=== PATIENT | female | born 1930 | race Caucasian/White ===

== ENCOUNTER 2017-09-30 23:54 | Inpatient (IN) | payer MEDICARE, OTHER ==
[~2017-09-30] VITALS: Ht 167.6 cm; Wt 73.3 kg
[~2017-09-30 23:54] MED LIST: ACET325T9 PO; ATOR40TA PO; BISA10SU2 RC; BUSP15TA PO; CETI10TA16 PO; CLON0.5T3 PO; CLOP75TA57 PO; CRAN450C PO; DOCU-109 PO; FLUV50TA2 PO; HYDR-2758 PO; HYDR-971 PO; INSU100I17 SQ; IPRA3AMP NEB; IPRA4AER INH; ISOS30TA4 PO; LEXAPRO10 MG PO; LINA5TAB4 PO; LISI-338 PO; LORA10TA3 PO; MAG30ORA2 PO; MAGN2400 PO; MENTHOL TOP; METF500T9 PO; METO25TA4 PO; NITR0.4T22 SL; OLAN5TAB5 PO; ONDA4TAB10 PO; OXYB5TAB7 PO; RISP0.5T3 PO; SITA100T PO; TOLT4CAP PO; TRAZ50TA15 PO
--- NOTE | 2017-10-01 00:19 | PHYS DOC ---
Past History Past Medical History: Anxiety, Dementia, Diabetes, GERD, Hypertension, Migraines, Other Additional Past Medical Histor: reviewed [facility] records Past Surgical History: Hysterectomy Alcohol Use: None Drug Use: None Adult General Chief Complaint Chief Complaint: PSYCH EVALUATION HPI HPI 86-year-old female patient with history of dementia and legally blind resident of [facility] for several years has had increasing of agitation for several weeks and tonight was upsetting other residents because of making noises and asking for help frequently and [facility] staff decided to Center for psychiatric evaluation. Patient is not able to give history and history was taking from the administrative staff of [facility]. Review of Systems Review of Systems Unable to obtain review of systems because of dementia Allergies Allergies Allergies Coded Allergies Type Severity Reaction Last Updated Verified NSAIDS (Non-Steroidal Anti-Inflamma Allergy Intermediate 08/19/16 Yes aspirin Allergy Intermediate 08/19/16 Yes Physical Exam Physical Exam Constitutional: Well nourished, no acute distress, non-toxic appearance. [] HENT: Normocephalic, atraumatic, bilateral external ears normal, oropharynx moist, no oral exudates, nose normal. [] Eyes: PERRLA, EOMI, conjunctiva normal, no discharge. [] Neck: Normal range of motion, no tenderness, supple, no stridor. [] Cardiovascular:Heart rate regular rhythm, no murmur [] Lungs & Thorax: Bilateral breath sounds clear to auscultation [] Abdomen: Bowel sounds normal, soft, no tenderness, no masses, no pulsatile masses. [] Skin: Warm, dry, no erythema, no rash. [] Back: No tenderness, no CVA tenderness. [] Extremities: No tenderness, no cyanosis, no clubbing, ROM intact, no edema. [] Neurologic: Alert and oriented X 1, normal motor function, normal sensory function, no focal deficits noted. [] Psychologic: cooperative without agitation EKG EKG EKG interpreted by me. EKG at 00 28 showed normal sinus rhythm at rate of 66, left flores axis deviation, poor R wave progress in anteroseptal leads Radiology/Procedures Radiology/Procedures [] Course & Med Decision Making Course & Med Decision Making Pertinent Labs reviewed. (See chart for details) Evaluation of patient in ER showed 86-year-old male patient with history of dementia brought in for psychiatric evaluation and medical clearance. Patient had unremarkable physical exam except for dementia and disorientation. Patient didn't have fever or tachycardia or signs of sepsis. Labs was unremarkable except for UTI and renal insufficiency. Patient was medically cleared for psychiatric admission and prescription for Cipro was given. Dragon Disclaimer Dragon Disclaimer This electronic medical record was generated, in whole or in part, using a voice recognition dictation system. Departure Departure: Impression: Primary Impression: Medical clearance for psychiatric admission Additional Impressions: UTI (urinary tract infection) Renal insufficiency Disposition: 65 XFER TO PSYCH HOSP/UNIT (At 0127) Condition: STABLE Referrals: BETHANY VYAS (PCP) Scripts Ciprofloxacin Hcl (CIPRO) 250 Mg Tablet 1 TAB PO BID, #14 TAB Prov: BILLY PEREYRA MD 10/01/17 Problem Qualifiers BILLY PEREYRA MD Oct 01, 2017 00:19
--- NOTE | 2017-10-01 00:34 | EKG ---
[address] [address] Test Date: 2017-10-01 Test Time: 00:28:23 Pat Name: NATHANIEL MCFARLAND Department: Room: Gender: F Documentation Analyst: JENNIFER : [id number] Requested By: BILLY PEREYRA Order Number: [id number] Reading MD: Jose Stokes MD Measurements Intervals Burt Rate: 66 P: 0 IN: 128 QRS: -11 QRSD: 74 T: 31 QT: 382 QTc: 402 Interpretive Statements SINUS RHYTHM CONSISTENT WITH ANTEROSEPTAL INFARCT Electronically Signed On 10-09-2017 14:25:33 [employer]OR [employer] by Jose Stokes MD
[2017-10-01 01:04] LABS: BASO # 0.1 x10^3/uL (0.0-0.2); BASO % 1 % (0-3); EOS # 0.1 x10^3/uL (0.0-0.7); EOS % 2 % (0-3); HEMATOCRIT 41.7 % (36.0-47.0); HEMOGLOBIN 13.9 g/dL (12.0-15.5); LYMPH # 2.6 x10^3/uL (1.0-4.8); LYMPH % 37 % (24-48); MEAN CORPUSCULAR HEMOGLOBIN 32 pg (25-35); MEAN CORPUSCULAR HGB CONC 33 g/dL (31-37); MEAN CORPUSCULAR VOLUME 95 fL (79-100); MONO # 0.7 x10^3/uL (0.0-1.1); MONO % 10 % (0-9); NEUT # 3.6 x10^3uL (1.8-7.7); NEUT % 50 % (31-73); PLATELET COUNT 86 x10^3/uL (140-400); RED BLOOD COUNT 4.39 x10^6/uL (3.50-5.40); RED CELL DISTRIBUTION WIDTH 13.6 % (11.5-14.5); WHITE BLOOD COUNT 7.1 x10^3/uL (4.0-11.0)
[2017-10-01 01:16] LABS: ALBUMIN 2.6 g/dL (3.4-5.0); ALBUMIN/GLOBULIN RATIO 0.6 (1.0-1.7); CALCIUM 9.3 mg/dL (8.5-10.1); CREATININE 1.1 mg/dL (0.6-1.0); MAGNESIUM 2.2 mg/dL (1.8-2.4); POTASSIUM 4.3 mmol/L (3.5-5.1); TOTAL BILIRUBIN 0.2 mg/dL (0.2-1.0); TOTAL PROTEIN 6.9 g/dL (6.4-8.2)
[2017-10-01 01:23] LABS: BACTERIA,URINE MANY /HPF (0-FEW); BILIRUBIN,URINE NEG (NEG); CLARITY,URINE HAZY; COLOR,URINE STRAW; GLUCOSE,URINE NEG (NEG); NITRITE,URINE POS (NEG); SQUAMOUS EPITHELIAL CELL,UR FEW /LPF; UROBILINOGEN,URINE 0.2 mg/dL (0.2 mg/dL); WBC,URINE 20-40 /HPF (0-4)
[2017-10-01] MEDS ORDERED: CIPR250T30 PO (01:31)
[2017-10-01 01:44] LABS: PLT ESTIMATE DECREASED (ADEQUATE)
[2017-10-01 02:38] VITALS: BP 146/68
[2017-10-01] MEDS ORDERED: MIRA25TA PO (03:05)
[2017-10-01] MEDS ORDERED: INSU100I27 SQ (03:05)
[2017-10-01] MEDS ORDERED: IPRA3AMP NEB (03:05)
[2017-10-01] MEDS ORDERED: NON FORMULARY ITEM (Magnesium Hydroxide (Milk Of Magnesia) 2,400 MG) PO PRN (03:15)
[2017-10-01] MEDS ORDERED: CETIRIZINE HCL 10 MG TABLET PO PRN (03:15)
[2017-10-01] MEDS ORDERED: ACETAMINOPHEN 325 MG TABLET PO PRN (03:15)
[2017-10-01] MEDS ORDERED: MAG HYDROX/AL HYDROX/SIMETH 30 ML ORAL.SUSP PO PRN (03:15)
[2017-10-01] MEDS ORDERED: NITROGLYCERIN SUBLINGUAL 0.4 MG BOTTLE OF 25. SL PRN (03:15)
[2017-10-01] MEDS ORDERED: ALBUTEROL SULFATE 2.5 MG/3 ML NEBU. NEB PRN (03:30)
[2017-10-01] MEDS ORDERED: DEXTROSE 50% 25 GM / 50ML DISP.SYRIN. IV PRN (03:30)
[2017-10-01] MEDS: CIPROFLOXACIN HCL 250 MG TABLET PO SCH ×2 (05:54→17:21)
[2017-10-01] MEDS: INSULIN ASPART 300 UNITS/3 ML INSULN.PEN SQ SCH ×3 (07:30→17:21)
[2017-10-01] MEDS ORDERED: INSULIN ASPART 300 UNITS/3 ML INSULN.PEN SQ SCH (07:30)
[2017-10-01] MEDS: IPRATRPIUM/ALBUTEROL 0.5/2.5MG 3 ML NEBU. NEB SCH ×2 (08:00→20:00)
[2017-10-01] MEDS: LINAGLIPTIN 5 MG TABLET PO SCH (10:31)
[2017-10-01] MEDS: ISOSORBIDE MONONITRATE ER 30 MG TAB.ER.24H PO SCH (10:31)
[2017-10-01] MEDS: busPIRone 15 MG TABLET. PO SCH ×2 (10:31→19:32)
[2017-10-01] MEDS: risperiDONE 0.5 MG TABLET. PO SCH ×2 (10:32→19:32)
[2017-10-01] MEDS: DOCUSATE SODIUM 100 MG CAPSULE PO SCH ×2 (10:38→19:32)
[2017-10-01] MEDS: CLOPIDOGREL BISULFATE 75 MG TABLET PO SCH (10:38)
[2017-10-01] MEDS: MIRABEGRON 25 MG TAB.ER.24H PO SCH (10:39)
[2017-10-01] MEDS: METOPROLOL TART IMMED RELEASE 25 MG TABLET PO SCH ×2 (10:39→19:32)
[2017-10-01 14:01] LABS: THYROID STIM HORMONE (TSH) 3.278 uIU/mL (0.358-3.740)
[2017-10-01] MEDS: ACETAMINOPHEN 325 MG TABLET PO PRN (16:08)
[2017-10-01 16:36] VITALS: BP 152/76
[2017-10-01 18:10] LABS: T3 TOTAL 95 ng/dL (71-180); THYROXINE 5.9 ug/dL (4.5-12.0)
[2017-10-01] MEDS: LACTOBACILLUS RHAMNOSUS GG 1 CAPSULE. PO SCH (19:34)
[2017-10-01] MEDS: ATORVASTATIN CALCIUM 20 MG TABLET PO SCH (19:34)
[2017-10-01] MEDS: INSULIN DETEMIR 300 UNITS/3 ML INSULN.PEN. SQ SCH (19:36)
--- NOTE | 2017-10-01 19:59 | PDOC ---
Exam Note: [place] Note: Please also refer to the separate dictated note~for this date of service dictated separately.~Patient seen individually. Discussed the patient with Nursing staff reviewed the chart.~Reviewed interim history and current functioning. Reviewed vital signs,~Labs/ Radiology~and current medications noted below. Continue current treatment with the changes noted in the dictated addendum note Assessment: Vital Signs: Vital Signs Date Time Temp Pulse Resp B/P (MAP) Pulse Ox O2 Delivery O2 Flow Rate FiO2 10/01/17 19:32 75 152/76 10/01/17 16:36 98.2 20 96 10/01/17 01:37 Room Air Labs: Laboratory Tests Test 10/01/17 00:45 10/01/17 00:50 10/01/17 07:38 10/01/17 07:46 White Blood Count 7.1 x10^3/uL (4.0-11.0) Red Blood Count 4.39 x10^6/uL (3.50-5.40) Hemoglobin 13.9 g/dL (12.0-15.5) Hematocrit 41.7 % (36.0-47.0) Mean Corpuscular Volume 95 fL (79-100) Mean Corpuscular Hemoglobin 32 pg (25-35) Mean Corpuscular Hemoglobin Concent 33 g/dL (31-37) Red Cell Distribution Width 13.6 % (11.5-14.5) Platelet Count 86 x10^3/uL (140-400) L Neutrophils (%) (Auto) 50 % (31-73) Lymphocytes (%) (Auto) 37 % (24-48) Monocytes (%) (Auto) 10 % (0-9) H Eosinophils (%) (Auto) 2 % (0-3) Basophils (%) (Auto) 1 % (0-3) Neutrophils # (Auto) 3.6 x10^3uL (1.8-7.7) Lymphocytes # (Auto) 2.6 x10^3/uL (1.0-4.8) Monocytes # (Auto) 0.7 x10^3/uL (0.0-1.1) Eosinophils # (Auto) 0.1 x10^3/uL (0.0-0.7) Basophils # (Auto) 0.1 x10^3/uL (0.0-0.2) Platelet Estimate Decreased (ADEQUATE) Sodium Level 140 mmol/L (136-145) Potassium Level 4.3 mmol/L (3.5-5.1) Chloride Level 107 mmol/L (98-107) Carbon Dioxide Level 26 mmol/L (21-32) Anion Gap 7 (6-14) Blood Urea Nitrogen 28 mg/dL (7-20) H Creatinine 1.1 mg/dL (0.6-1.0) H Estimated GFR (Cockcroft-Gault) 47.0 BUN/Creatinine Ratio 25 (6-20) H Glucose Level 90 mg/dL (70-99) Calcium Level 9.3 mg/dL (8.5-10.1) Magnesium Level 2.2 mg/dL (1.8-2.4) Total Bilirubin 0.2 mg/dL (0.2-1.0) Aspartate Amino Transferase (AST) 16 U/L (15-37) Alanine Aminotransferase (ALT) 13 U/L (14-59) L Alkaline Phosphatase 72 U/L (46-116) Total Protein 6.9 g/dL (6.4-8.2) Albumin 2.6 g/dL (3.4-5.0) L Albumin/Globulin Ratio 0.6 (1.0-1.7) L Urine Collection Type U cath Urine Color Straw Urine Clarity Hazy Urine pH 6.5 Urine Specific [place] 1.015 Urine Protein Neg (NEG-TRACE) Urine Glucose (UA) Neg mg/dL (NEG) Urine Ketones (Stick) Neg mg/dL (NEG) Urine Blood Trace (NEG) Urine Nitrite Pos (NEG) Urine Bilirubin Neg (NEG) Urine Urobilinogen Dipstick 0.2 mg/dL (0.2 mg/dL) Urine Leukocyte Esterase Mod (NEG) Urine RBC 1-2 /HPF (0-2) Urine WBC 20-40 /HPF (0-4) Urine Squamous Epithelial Cells Few /LPF Urine Bacteria Many /HPF (0-FEW) Iron Level 61 ug/dL (50-170) Total Iron Binding Capacity 330 ug/dL (250-450) Iron Saturation 18 % (15-34) Triglycerides Level 97 mg/dL (0-150) Cholesterol Level 91 mg/dL (0-200) LDL Cholesterol, Calculated 32 mg/dL (0-100) VLDL Cholesterol, Calculated 19 mg/dL (0-40) Non-HDL Cholesterol Calculated 51 mg/dL (0-129) HDL Cholesterol 40 mg/dL (40-60) Cholesterol/HDL Ratio 2.0 Thyroid Stimulating Hormone (TSH) 3.278 uIU/mL (0.358-3.740) Thyroxine (T4) 5.9 ug/dL (4.5-12.0) Total Triiodothyronine (TT3) 95 ng/dL (71-180) RPR Titer Additional Testing Pending Glucose (Fingerstick) 54 mg/dL (70-99) L Test 10/01/17 11:38 10/01/17 16:31 Glucose (Fingerstick) 106 mg/dL (70-99) H 173 mg/dL (70-99) H Current Medications: Meds: Current Medications Acetaminophen (Tylenol) 650 mg PRN Q6HRS PRN PO PAIN / TEMP Last administered on 10/01/17 16:08; Start 10/01/17 at 02:30 Al Hydroxide/Mg Hydroxide (Mylanta Plus Xs) 15 ml PRN AFTMEALHC PRN PO DYSPEPSIA; Start 10/01/17 at 02:30 Magnesium Hydroxide (Milk Of Magnesia) 2,400 mg PRN QHS PRN PO CONSTIPATION; Start 10/01/17 at 02:30 Buspirone HCl (Buspar) 15 mg BID PO Last administered on 10/01/17 19:32; Start 10/01/17 at 09:00 Clonazepam (KlonoPIN) 0.5 mg PRN Q6HRS PRN PO ANXIETY / AGITATION; Start at 03:15 Risperidone (RisperDAL) 0.5 mg BID PO Last administered on 10/01/17 19:32; Start 10/01/17 at 09:00 Trazodone HCl (Desyrel) 50 mg PRN QHS PRN PO INSOMNIA; Start 10/01/17 at 03:15 Fluvoxamine Maleate (Luvox) 75 mg QHS PO Last administered on 10/01/17 19:35; Start 10/01/17 at 21:00 Acetaminophen (Tylenol) 650 mg Q6HRS PRN PO PAIN; Start 10/01/17 at 03:15; Stop 10/01/17 at 03:32; Status DC Cetirizine HCl (ZyrTEC) 10 mg PRN DAILY PRN PO ALLERGIES; Start 10/01/17 at 03: 15 Ciprofloxacin (Cipro) 250 mg BID66 PO Last administered on 10/01/17 17:21; Start 10/01/17 at 06:00; Stop 10/07/17 at 18:01 Clopidogrel Bisulfate (Plavix) 75 mg DAILY PO Last administered on 10/01/17 10 :38; Start 10/01/17 at 09:00 Docusate Sodium (Colace) 100 mg BID PO Last administered on 10/01/17 19:32; Start 10/01/17 at 09:00 Insulin Detemir (Levemir) 17 units QHS SQ Last administered on 10/01/17 19:36 ; Start 10/01/17 at 21:00 Albuterol/ Ipratropium (Duoneb) 3 ml RTBID NEB ; Start 10/01/17 at 08:00 Albuterol Sulfate (Ventolin) 2.5 mg PRN Q2HR PRN NEB COUGH/SHORTNESS OF BREATH ; Start 10/01/17 at 03:30 Isosorbide Mononitrate (Imdur) 30 mg DAILY PO Last administered on 10/01/17 10 :31; Start 10/01/17 at 09:00 Linagliptin (Tradjenta) 5 mg DAILY PO Last administered on 10/01/17 10:31; Start 10/01/17 at 09:00 Al Hydroxide/Mg Hydroxide (Mylanta Plus Xs) 15 ml PRN AFTMEALHC PRN PO DYSPEPSIA; Start 10/01/17 at 03:15; Stop 10/01/17 at 03:32; Status DC Metoprolol Tartrate (Lopressor) 12.5 mg BID PO Last administered on 10/01/17 19:32; Start 10/01/17 at 09:00 Nitroglycerin (Nitrostat) 0.4 mg PRN Q5MIN PRN SL CHEST PAIN; Start 10/01/17 at 03:15 Atorvastatin Calcium (Lipitor) 40 mg QHS PO Last administered on 10/01/17 19: 34; Start 10/01/17 at 21:00 Non-Formulary Medication 2,400 mg PRN DAILY PRN PO CONSTIPATION; Start 12/7/ 17 at 03:15; Stop 10/01/17 at 03:32; Status DC Insulin Aspart (NovoLOG) 0-9 UNITS TIDACHC SQ ; Start 10/01/17 at 07:30; Stop 10/01/17 at 07:30; Status DC Dextrose 12.5 gm PRN Q15MIN PRN IV SEE COMMENTS; Start 10/01/17 at 03:30 Insulin Aspart (NovoLOG) 0-9 UNITS TIDAC SQ Last administered on 10/01/17 17: 21; Start 10/01/17 at 07:30 Lactobacillus Rhamnosus (Culturelle) 1 cap BID PO Last administered on 19:34; Start 10/01/17 at 21:00 Active Scripts Active Cipro (Ciprofloxacin Hcl) 250 Mg Tablet 1 Tab PO BID Reported Levemir Flextouch (Insulin Detemir) 100 Unit/1 Ml Insuln.pen 17 Unit SQ QHS Myrbetriq (Mirabegron) 25 Mg Tab.er.24h 25 Mg PO DAILY Duoneb 0.5-3(2.5) Mg/3 Ml (Albuterol/Ipratropium) 3 Ml Ampul.neb 3 Ml NEB PRN BID PRN Metoprolol Tartrate 25 Mg Tablet 12.5 Mg PO BID For CHF and CAD patients: Hold for HR less than 50 or SBP less than 90. For all other patients: Hold for HR less than 60 or SBP less than 100. After a held dose, reassess in 2 hours. If HR and SBP are above threshold, administer dose as ordered. If HR and SBP are below threshold, contact provider. Novolog Flexpen (Insulin Aspart) 100 Unit/1 Ml Insuln.pen 0-9 Unit SQ TIDAC BG level: If eating: If not eating: < 70 Call Provider [phone] 4 [phone] 5 3 [phone] > or = 351 Call provider Trazodone Hcl 50 Mg Tablet 50 Mg PO PRN QHS PRN Give with food. MAY REPEAT IN 1 HOUR Risperidone 0.5 Mg Tablet 0.5 Mg PO BID Mag-Al Plus Xs Suspension (Mag Hydrox/Al Hydrox/Simeth) 30 Ml Oral.susp 15 Ml PO PRN AFTMEALHC PRN Tradjenta (Linagliptin) 5 Mg Tablet 5 Mg PO DAILY Duoneb 0.5-3(2.5) Mg/3 Ml (Albuterol/Ipratropium) 3 Ml Ampul.neb 3 Ml NEB PRN Q2HR PRN Fluvoxamine Maleate 50 Mg Tablet 75 Mg PO HS Cetirizine Hcl 10 Mg Tablet 10 Mg PO PRN DAILY PRN Milk Of Magnesia (Magnesium Hydroxide) 2,400 Mg/10 Ml Oral.susp 2,400 Mg PO PRN DAILY PRN Tylenol (Acetaminophen) 325 Mg Tablet 650 Mg PO Q6HRS PRN Plavix (Clopidogrel Bisulfate) 75 Mg Tablet 75 Mg PO DAILY NITROGLYCERIN SubLingual (Nitroglycerin) 0.4 Mg Tab.subl 0.4 Mg SL PRN Q5MIN PRN Hold for SBP less than or equal to 90 mmHg. Call provider for chest pain unrelieved by 1 sublingual nitroglycerin, may repeat X2 if chest pain persists. Lipitor (Atorvastatin Calcium) 40 Mg Tablet 40 Mg PO QHS Isosorbide Mononitrate Er (Isosorbide Mononitrate) 30 Mg Tab.er.24h 30 Mg PO DAILY DO NOT CRUSH OR CHEW Colace (Docusate Sodium) 100 Mg Capsule 100 Mg PO BID Hold for loose stools Clonazepam 0.5 Mg Tablet 0.5 Mg PO PRN Q6HRS PRN Buspirone Hcl 15 Mg Tablet 15 Mg PO BID I have reviewed the current psychotropics carefully including drug interactions. Risk benefit ratio favors no change other than as noted in my dictated progress note. Diagnosis: Problems: (1) Dementia (2) Vascular dementia with depressed mood (3) Vascular dementia with delusions (4) Dementia, vascular, with depression (5) Dementia, vascular, with delusions (6) Vascular dementia with behavior disturbance (7) Dementia in Alzheimer's disease with depression (8) Dementia in Alzheimer's disease with delusions (9) Major depressive disorder, recurrent episode TATIANA LAYTON MD Oct 01, 2017 19:59
--- NOTE | 2017-10-01 21:51 | HP ---
ADMIT DATE: 10/01/2017 This note covers the elements not covered in my initial note of 10/01/2017. IDENTIFYING DATA: The patient is an 86-year-old female referred from [facility] by Dr. Solomon, her primary care physician on an account of increased anxiety, restlessness, yelling for help, worsening confusion with a diagnosis of dementia, very difficult to redirect. The patient has failed outpatient psychiatric interventions including behavior modification p.r.n. clonazepam and attempts at distraction. She has failed a prior inpatient psychiatric hospitalization as well. Behaviors have been deemed to be unmanageable at the facility, disruptive to the entire environment resulting in this referral. CHIEF COMPLAINT: "I have been here many months." The patient in fact arrived today. HISTORY OF PRESENT ILLNESS: The patient has a history of dementia, Alzheimer's vascular type. She has been residing at [facility] for some time, but over the past week or so, she has been increasingly agitated, labile in her mood, yelling, anxious, restless, difficult to redirect, somewhat paranoid. She has had sleep and appetite changes. No clear history of bipolar disorder, suicidal or homicidal ideation. PAST PSYCHIATRIC HISTORY: As above. PAST MEDICAL HISTORY: She does have a UTI, history of hyperlipidemia, chronic pain, angina, hypertension, GERD, atherosclerosis, diabetes mellitus, chronic constipation. She has bilateral blindness. Accu-Cheks a.c. and at bedtime. CURRENT PSYCHOTROPICS: Risperdal 0.5 mg b.i.d., trazodone 50 mg at bedtime p.r.n., BuSpar 15 mg b.i.d., Klonopin 0.5 mg q.6 hours p.r.n., and Luvox 75 mg at bedtime. CODE STATUS: DNR. ALLERGIES: ASPIRIN and NONSTEROIDAL ANTI-INFLAMMATORY MEDICATIONS. DIET: Regular. Takes her medications whole, in wheelchair. FAMILY HISTORY: Noncontributory. SOCIAL HISTORY: No alcohol, drug abuse, physical, sexual or elder abuse. She is not known to be a perpetrator. She states she has 2 sons, 1 daughter, and she worked on [employer] reading out the [employer] and the question that she was unaware of when this was. MENTAL STATUS EXAMINATION: The patient seen individually evening occult 10/01/2017. She is oriented to herself, is blind. Ambulation impaired, in a wheelchair. REVIEW OF SYSTEMS: No CV, , pulmonary, eye, ENT system symptoms on review. Reliability poor. MENTAL STATUS EXAM: Oriented to herself. Insight, judgment, recent and remote memory, attention, concentration, fund of knowledge poor, consistent with her diagnosis. LABORATORY DATA: Reviewed. IMPRESSION: Major neurocognitive disorder, Alzheimer, vascular with depression, delusion, behavioral disturbance; anxiety disorder, unspecified; impulse control disorder, unspecified. Rest as above. TREATMENT AND PLAN: Admit to the geropsychiatry unit at [facility]. I will see the patient daily individually from a psychiatric standpoint, medical followup per Dr. Dunham/Dr. High. Continue the patient on her current psychotropics, observe baseline, then adjust further as clinically indicated. MAN Bev LAYTON MD DR: JHOAN/osiel JOB#: [id number] / [id number]
--- NOTE | 2017-10-01 23:28 | CONS ---
DATE OF CONSULTATION: 10/01/2017 REASON FOR CONSULTATION: Medical management. HISTORY OF PRESENT ILLNESS: The patient is an 86-year-old female patient, a resident at [facility] in [place] and who was admitted with increasing anxiety, restlessness, yelling for help. All this in a background of dementia with delusion and major depressive disorder and she [facility] psychiatric [facility]. On questioning her, she denied any complaint. Nursing staff stated that she has not displayed any of these behaviors while here. PAST MEDICAL HISTORY: Significant for hypertension, type 2 diabetes mellitus, coronary artery disease, gastroesophageal reflux disease, dementia. She is legally blind. PAST SURGICAL HISTORY: Unremarkable. FAMILY HISTORY: Unremarkable. SOCIAL HISTORY: She is a resident at [facility]. She apparently does not smoke, drink alcohol or use any recreational drugs. ALLERGIES: She is allergic to NONSTEROIDAL ANTI-INFLAMMATORY MEDICATION, AND ASPIRIN. MEDICATIONS: She is on following medications: She is on acetaminophen 650 mg every 6 hours, atorvastatin calcium 40 mg at bedtime, buspirone 15 mg twice a day, cetirizine 10 mg once a day as needed, ciprofloxacin 250 mg p.o. b.i.d., clonazepam 0.5 mg every 6 hours, Plavix 75 mg once a day, Colace 100 mg twice a day, Fluvoxamine Maleate 75 mg at bedtime. She is on Levemir insulin 17 units at bedtime, ipratropium bromide and albuterol sulfate 0.5/2.5 mg in 3 mL by nebulizer every 2 hours twice a day as scheduled, she is on isosorbide mononitrate 30 mg once a day, linagliptin for Tradjenta 5 mg once a day, Mylanta 15 mL as needed every 4 hours for dyspepsia, milk of magnesia 30 mL p.o. daily p.r.n. for constipation, metoprolol tartrate 25 mg p.o. b.i.d., mirabegron or Myrbetriq 25 mg daily, nitroglycerin 0.4 mg sublingually every 5 minutes x 3, risperidone 0.5 mg p.o. b.i.d., trazodone 50 mg at bedtime. REVIEW OF SYSTEMS: Unobtainable. PHYSICAL EXAMINATION: GENERAL: When I examined her this afternoon, she was resting slightly propped up in bed, in no apparent respiratory distress, slightly pale, but no jaundice, cyanosis or thyromegaly. No jugular venous distension. No limb edema. VITAL SIGNS: Her heart rate was 76, blood pressure 146/68, temperature was 98.3, respiratory rate was 18 and oxygen saturation was 93%. HEAD, EYES, EARS, NOSE AND THROAT: Showed normocephalic, atraumatic. NECK: Supple. HEART: Showed normal first and second heart sounds with no gallop, rub or murmur. CHEST: Clear to auscultation. No crepitation or rhonchi. ABDOMEN: Distended, soft, nontender. No guarding or rigidity. No organomegaly. Hernial orifice intact. Bowel sounds normal. NEUROLOGIC: She was awake, alert. She is legally blind, but all other cranial nerves are intact. She moves upper extremities to much good extent than her lower extremities. She is mostly bedbound, chair bound. She needs 2-person assist. LABORATORY DATA: Showed a white cell count of 7100, hemoglobin 13.9, hematocrit 41.7, MCV 95 and platelet count of 85,000. Her chemistry showed a serum sodium 140, potassium 4.3, chloride 107, bicarbonate 26, anion gap of 7, BUN 28, creatinine was 1.1, estimated GFR was 47 mL per minute. Her glucose was 90. Calcium was 9.3, magnesium 2.2. Total bilirubin, AST, ALT, alkaline phosphatase were normal. Total protein was 6.9, albumin was 2.6. Her urinalysis showed the urine was so hazy with a pH of 6.5, specific gravity of 1.015. The urine was negative for protein, glucose, ketones, trace of blood, positive for nitrite, moderate amount of leukocyte esterase. There were 20-40 wbc's, 1-2 rbc's, many bacteria. IMPRESSION: In summary, this is an 86-year-old female patient, a resident at [facility], who was admitted yet again with another episode of increased anxiety, yelling constantly for help, restless, all this in a background of dementia with delusion and major depressive disorder. She has multiple medical problems including hypertension, type 2 diabetes, coronary artery disease, gastroesophageal reflux disease. She is legally blind, has also impaired kidney function and thrombocytopenia. Her vital signs are grossly stable. Her lab work also showed that she has urinary tract infection. Her chemistry showed she has protein calorie malnutrition with albumin of only 2.6 mg/dL. Her kidney function was impaired with an ejection fraction of only 47 mL per minute and she has thrombocytopenia with a white cell count of 86,000. All in all, the patient seems to be stable medically. Her platelets are low, but not low enough to spontaneously bleed and she is not on any medication that might aggravate her thrombocytopenia. I will continue with all her current medication and will review all her lab work is still pending at the time of this dictation and make any necessary recommendation. Thank you, Dr. Yang for allowing me to participate in the care of this patient. AB COWART MD DR: DORITA/osiel JOB#: [id number] / [id number]
[2017-10-02 01:07] LABS: HEMOGLOBIN A1C 7.3 % (4.8-5.6)
[2017-10-02 05:51] VITALS: BP 164/86
[2017-10-02] MEDS: CIPROFLOXACIN HCL 250 MG TABLET PO SCH ×2 (05:57→16:22)
[2017-10-02] MEDS: INSULIN ASPART 300 UNITS/3 ML INSULN.PEN SQ SCH ×3 (07:27→16:30)
[2017-10-02] MEDS: CLOPIDOGREL BISULFATE 75 MG TABLET PO SCH (07:27)
[2017-10-02] MEDS: LACTOBACILLUS RHAMNOSUS GG 1 CAPSULE. PO SCH ×2 (07:27→19:23)
[2017-10-02] MEDS: busPIRone 15 MG TABLET. PO SCH ×2 (07:27→19:23)
[2017-10-02] MEDS: MIRABEGRON 25 MG TAB.ER.24H PO SCH (07:27)
[2017-10-02] MEDS: risperiDONE 0.5 MG TABLET. PO SCH (07:27)
[2017-10-02] MEDS: ISOSORBIDE MONONITRATE ER 30 MG TAB.ER.24H PO SCH (07:28)
[2017-10-02] MEDS: METOPROLOL TART IMMED RELEASE 25 MG TABLET PO SCH ×2 (07:28→19:24)
[2017-10-02] MEDS: DOCUSATE SODIUM 100 MG CAPSULE PO SCH (07:29)
[2017-10-02] MEDS: LINAGLIPTIN 5 MG TABLET PO SCH (07:29)
[2017-10-02] MEDS: ACETAMINOPHEN 325 MG TABLET PO PRN (07:34)
[2017-10-02] MEDS: IPRATRPIUM/ALBUTEROL 0.5/2.5MG 3 ML NEBU. NEB SCH ×2 (08:00→20:00)
[2017-10-02] MEDS: clonazePAM 0.5 MG TABLET PO PRN ×2 (13:50→22:59)
[2017-10-02 16:09] VITALS: BP 115/70
[2017-10-02] MEDS: ATORVASTATIN CALCIUM 20 MG TABLET PO SCH (19:23)
[2017-10-02] MEDS: INSULIN DETEMIR 300 UNITS/3 ML INSULN.PEN. SQ SCH (19:25)
[2017-10-02] MEDS: risperiDONE 0.25 MG TABLET. PO SCH (19:33)
[2017-10-02] MEDS: traZODone 50 MG TABLET. PO PRN (19:33)
[2017-10-02] MEDS: MIRTAZAPINE 7.5 MG TABLET. PO SCH (19:34)
--- NOTE | 2017-10-02 19:57 | PDOC ---
Exam Note: [place] Note: Please also refer to the separate dictated note~for this date of service dictated separately.~Patient seen individually. Discussed the patient with Nursing staff reviewed the chart.~Reviewed interim history and current functioning. Reviewed vital signs,~Labs/ Radiology~and current medications noted below. Continue current treatment with the changes noted in the dictated addendum note Assessment: Vital Signs: Vital Signs Date Time Temp Pulse Resp B/P (MAP) Pulse Ox O2 Delivery O2 Flow Rate FiO2 10/02/17 19:24 86 115/70 10/02/17 16:09 97.9 20 94 10/01/17 01:37 Room Air I&O Intake and Output 10/02/17 07:00 Intake Total 480 ml Balance 480 ml Intake Oral 480 ml # Voids 1 # Bowel Movements 1 Labs: Laboratory Tests Test 10/02/17 07:11 10/02/17 11:10 10/02/17 16:30 10/02/17 19:03 Glucose (Fingerstick) 109 mg/dL (70-99) H 150 mg/dL (70-99) H 177 mg/dL (70-99) H 273 mg/dL (70-99) H Current Medications: Meds: Current Medications Acetaminophen (Tylenol) 650 mg PRN Q6HRS PRN PO PAIN / TEMP Last administered on 10/02/17 07:34; Start 10/01/17 at 02:30 Al Hydroxide/Mg Hydroxide (Mylanta Plus Xs) 15 ml PRN AFTMEALHC PRN PO DYSPEPSIA; Start 10/01/17 at 02:30 Magnesium Hydroxide (Milk Of Magnesia) 2,400 mg PRN QHS PRN PO CONSTIPATION; Start 10/01/17 at 02:30 Buspirone HCl (Buspar) 15 mg BID PO Last administered on 10/02/17 19:23; Start 10/01/17 at 09:00 Clonazepam (KlonoPIN) 0.5 mg PRN Q6HRS PRN PO ANXIETY / AGITATION Last administered on 10/02/17 13:50; Start 10/01/17 at 03:15 Risperidone (RisperDAL) 0.5 mg BID PO Last administered on 10/02/17 07:27; Start 10/01/17 at 09:00; Stop 10/02/17 at 18:15; Status DC Trazodone HCl (Desyrel) 50 mg PRN QHS PRN PO INSOMNIA Last administered on 10/02 19:33; Start 10/01/17 at 03:15 Fluvoxamine Maleate (Luvox) 75 mg QHS PO Last administered on 10/02/17 19:23; Start 10/01/17 at 21:00 Acetaminophen (Tylenol) 650 mg Q6HRS PRN PO PAIN; Start 10/01/17 at 03:15; Stop 10/01/17 at 03:32; Status DC Cetirizine HCl (ZyrTEC) 10 mg PRN DAILY PRN PO ALLERGIES; Start 10/01/17 at 03: 15 Ciprofloxacin (Cipro) 250 mg BID66 PO Last administered on 10/02/17 16:22; Start 10/01/17 at 06:00; Stop 10/07/17 at 18:01 Clopidogrel Bisulfate (Plavix) 75 mg DAILY PO Last administered on 10/02/17 07 :27; Start 10/01/17 at 09:00 Docusate Sodium (Colace) 100 mg BID PO Last administered on 10/02/17 07:29; Start 10/01/17 at 09:00; Stop 10/02/17 at 18:26; Status DC Insulin Detemir (Levemir) 17 units QHS SQ Last administered on 10/02/17 19:25 ; Start 10/01/17 at 21:00 Albuterol/ Ipratropium (Duoneb) 3 ml RTBID NEB ; Start 10/01/17 at 08:00 Albuterol Sulfate (Ventolin) 2.5 mg PRN Q2HR PRN NEB COUGH/SHORTNESS OF BREATH ; Start 10/01/17 at 03:30 Isosorbide Mononitrate (Imdur) 30 mg DAILY PO Last administered on 10/02/17 07 :28; Start 10/01/17 at 09:00 Linagliptin (Tradjenta) 5 mg DAILY PO Last administered on 10/02/17 07:29; Start 10/01/17 at 09:00 Al Hydroxide/Mg Hydroxide (Mylanta Plus Xs) 15 ml PRN AFTMEALHC PRN PO DYSPEPSIA; Start 10/01/17 at 03:15; Stop 10/01/17 at 03:32; Status DC Metoprolol Tartrate (Lopressor) 12.5 mg BID PO Last administered on 10/02/17 19:24; Start 10/01/17 at 09:00 Nitroglycerin (Nitrostat) 0.4 mg PRN Q5MIN PRN SL CHEST PAIN; Start 10/01/17 at 03:15 Atorvastatin Calcium (Lipitor) 40 mg QHS PO Last administered on 10/02/17 19: 23; Start 10/01/17 at 21:00 Non-Formulary Medication 2,400 mg PRN DAILY PRN PO CONSTIPATION; Start at 03:15; Stop 10/01/17 at 03:32; Status DC Insulin Aspart (NovoLOG) 0-9 UNITS TIDACHC SQ ; Start 10/01/17 at 07:30; Stop 10/01/17 at 07:30; Status DC Dextrose 12.5 gm PRN Q15MIN PRN IV SEE COMMENTS; Start 10/01/17 at 03:30 Insulin Aspart (NovoLOG) 0-9 UNITS TIDAC SQ Last administered on 10/02/17 16: 30; Start 10/01/17 at 07:30 Lactobacillus Rhamnosus (Culturelle) 1 cap BID PO Last administered on 19:23; Start 10/01/17 at 21:00 Risperidone (RisperDAL) 0.25 mg BID PO Last administered on 10/02/17 19:33; Start 10/02/17 at 21:00 Mirtazapine (Remeron) 7.5 mg QHS PO Last administered on 10/02/17 19:34; Start 10/02/17 at 21:00 Docusate Calcium (Surfak) 240 mg DAILY PO ; Start 10/03/17 at 09:00 Active Scripts Active Cipro (Ciprofloxacin Hcl) 250 Mg Tablet 1 Tab PO BID Reported Levemir Flextouch (Insulin Detemir) 100 Unit/1 Ml Insuln.pen 17 Unit SQ QHS Myrbetriq (Mirabegron) 25 Mg Tab.er.24h 25 Mg PO DAILY Duoneb 0.5-3(2.5) Mg/3 Ml (Albuterol/Ipratropium) 3 Ml Ampul.neb 3 Ml NEB PRN BID PRN Metoprolol Tartrate 25 Mg Tablet 12.5 Mg PO BID For CHF and CAD patients: Hold for HR less than 50 or SBP less than 90. For all other patients: Hold for HR less than 60 or SBP less than 100. After a held dose, reassess in 2 hours. If HR and SBP are above threshold, administer dose as ordered. If HR and SBP are below threshold, contact provider. Novolog Flexpen (Insulin Aspart) 100 Unit/1 Ml Insuln.pen 0-9 Unit SQ TIDAC BG level: If eating: If not eating: < 70 Call Provider [phone] [phone] > or = 351 Call provider Trazodone Hcl 50 Mg Tablet 50 Mg PO PRN QHS PRN Give with food. MAY REPEAT IN 1 HOUR Risperidone 0.5 Mg Tablet 0.5 Mg PO BID Mag-Al Plus Xs Suspension (Mag Hydrox/Al Hydrox/Simeth) 30 Ml Oral.susp 15 Ml PO PRN AFTMEALHC PRN Tradjenta (Linagliptin) 5 Mg Tablet 5 Mg PO DAILY Duoneb 0.5-3(2.5) Mg/3 Ml (Albuterol/Ipratropium) 3 Ml Ampul.neb 3 Ml NEB PRN Q2HR PRN Fluvoxamine Maleate 50 Mg Tablet 75 Mg PO HS Cetirizine Hcl 10 Mg Tablet 10 Mg PO PRN DAILY PRN Milk Of Magnesia (Magnesium Hydroxide) 2,400 Mg/10 Ml Oral.susp 2,400 Mg PO PRN DAILY PRN Tylenol (Acetaminophen) 325 Mg Tablet 650 Mg PO Q6HRS PRN Plavix (Clopidogrel Bisulfate) 75 Mg Tablet 75 Mg PO DAILY NITROGLYCERIN SubLingual (Nitroglycerin) 0.4 Mg Tab.subl 0.4 Mg SL PRN Q5MIN PRN Hold for SBP less than or equal to 90 mmHg. Call provider for chest pain unrelieved by 1 sublingual nitroglycerin, may repeat X2 if chest pain persists. Lipitor (Atorvastatin Calcium) 40 Mg Tablet 40 Mg PO QHS Isosorbide Mononitrate Er (Isosorbide Mononitrate) 30 Mg Tab.er.24h 30 Mg PO DAILY DO NOT CRUSH OR CHEW Colace (Docusate Sodium) 100 Mg Capsule 100 Mg PO BID Hold for loose stools Clonazepam 0.5 Mg Tablet 0.5 Mg PO PRN Q6HRS PRN Buspirone Hcl 15 Mg Tablet 15 Mg PO BID I have reviewed the current psychotropics carefully including drug interactions. Risk benefit ratio favors no change other than as noted in my dictated progress note. Diagnosis: Problems: (1) Dementia (2) Major depressive disorder, recurrent episode (3) Vascular dementia with depressed mood (4) Vascular dementia with delusions (5) Dementia, vascular, with depression (6) Dementia, vascular, with delusions (7) Vascular dementia with behavior disturbance (8) Dementia in Alzheimer's disease with depression (9) Dementia in Alzheimer's disease with delusions TATIANA LAYTON MD Oct 02, 2017 19:56
[2017-10-03 06:00] VITALS: BP 121/85
[2017-10-03] MEDS: LACTOBACILLUS RHAMNOSUS GG 1 CAPSULE. PO SCH ×2 (07:21→19:50)
[2017-10-03] MEDS: METOPROLOL TART IMMED RELEASE 25 MG TABLET PO SCH ×2 (07:21→19:50)
[2017-10-03] MEDS: ISOSORBIDE MONONITRATE ER 30 MG TAB.ER.24H PO SCH (07:22)
[2017-10-03] MEDS: busPIRone 15 MG TABLET. PO SCH ×2 (07:22→19:50)
[2017-10-03] MEDS: CLOPIDOGREL BISULFATE 75 MG TABLET PO SCH (07:22)
[2017-10-03] MEDS: LINAGLIPTIN 5 MG TABLET PO SCH (07:22)
[2017-10-03] MEDS: CIPROFLOXACIN HCL 250 MG TABLET PO SCH ×2 (07:23→18:00)
[2017-10-03] MEDS: risperiDONE 0.25 MG TABLET. PO SCH ×2 (07:23→19:50)
[2017-10-03] MEDS: MIRABEGRON 25 MG TAB.ER.24H PO SCH (07:24)
[2017-10-03] MEDS: INSULIN ASPART 300 UNITS/3 ML INSULN.PEN SQ SCH ×3 (07:30→16:30)
[2017-10-03] MEDS: DOCUSATE CALCIUM 240 MG CAPSULE PO SCH (07:35)
[2017-10-03] MEDS: IPRATRPIUM/ALBUTEROL 0.5/2.5MG 3 ML NEBU. NEB SCH ×2 (10:04→21:15)
[2017-10-03 16:43] VITALS: BP 133/86
[2017-10-03] MEDS: MIRTAZAPINE 7.5 MG TABLET. PO SCH (19:51)
[2017-10-03] MEDS: ATORVASTATIN CALCIUM 20 MG TABLET PO SCH (19:51)
[2017-10-03] MEDS: INSULIN DETEMIR 300 UNITS/3 ML INSULN.PEN. SQ SCH (19:53)
--- NOTE | 2017-10-03 21:37 | PDOC ---
Exam Note: [place] Note: Please also refer to the separate dictated note~for this date of service dictated separately.~Patient seen individually. Discussed the patient with Nursing staff reviewed the chart.~Reviewed interim history and current functioning. Reviewed vital signs,~Labs/ Radiology~and current medications noted below. Continue current treatment with the changes noted in the dictated addendum note Assessment: Vital Signs: Vital Signs Date Time Temp Pulse Resp B/P (MAP) Pulse Ox O2 Delivery O2 Flow Rate FiO2 10/03/17 21:15 98 Room Air 10/03/17 19:50 73 133/86 10/03/17 16:43 97.3 18 I&O Intake and Output 10/03/17 07:00 Intake Total 840 ml Balance 840 ml Intake Oral 840 ml # Voids 1 # Bowel Movements 1 Labs: Laboratory Tests Test 10/03/17 07:36 10/03/17 11:31 10/03/17 16:50 10/03/17 19:01 Glucose (Fingerstick) 83 mg/dL (70-99) 150 mg/dL (70-99) H 111 mg/dL (70-99) H 173 mg/dL (70-99) H Current Medications: Meds: Current Medications Acetaminophen (Tylenol) 650 mg PRN Q6HRS PRN PO PAIN / TEMP Last administered on 10/02/17 07:34; Start 10/01/17 at 02:30 Al Hydroxide/Mg Hydroxide (Mylanta Plus Xs) 15 ml PRN AFTMEALHC PRN PO DYSPEPSIA; Start 10/01/17 at 02:30 Magnesium Hydroxide (Milk Of Magnesia) 2,400 mg PRN QHS PRN PO CONSTIPATION; Start 10/01/17 at 02:30 Buspirone HCl (Buspar) 15 mg BID PO Last administered on 10/03/17 19:50; Start 10/01/17 at 09:00 Clonazepam (KlonoPIN) 0.5 mg PRN Q6HRS PRN PO ANXIETY / AGITATION Last administered on 10/02/17 22:59; Start 10/01/17 at 03:15 Risperidone (RisperDAL) 0.5 mg BID PO Last administered on 10/02/17 07:27; Start 10/01/17 at 09:00; Stop 10/02/17 at 18:15; Status DC Trazodone HCl (Desyrel) 50 mg PRN QHS PRN PO INSOMNIA Last administered on 10/02 19:33; Start 10/01/17 at 03:15 Fluvoxamine Maleate (Luvox) 75 mg QHS PO Last administered on 10/02/17 19:23; Start 10/01/17 at 21:00; Stop 10/03/17 at 19:03; Status DC Acetaminophen (Tylenol) 650 mg Q6HRS PRN PO PAIN; Start 10/01/17 at 03:15; Stop 10/01/17 at 03:32; Status DC Cetirizine HCl (ZyrTEC) 10 mg PRN DAILY PRN PO ALLERGIES; Start 10/01/17 at 03: 15 Ciprofloxacin (Cipro) 250 mg BID66 PO Last administered on 10/03/17 18:00; Start 10/01/17 at 06:00; Stop 10/07/17 at 18:01 Clopidogrel Bisulfate (Plavix) 75 mg DAILY PO Last administered on 10/03/17 07 :22; Start 10/01/17 at 09:00 Docusate Sodium (Colace) 100 mg BID PO Last administered on 10/02/17 07:29; Start 10/01/17 at 09:00; Stop 10/02/17 at 18:26; Status DC Insulin Detemir (Levemir) 17 units QHS SQ Last administered on 10/03/17 19:53 ; Start 10/01/17 at 21:00 Albuterol/ Ipratropium (Duoneb) 3 ml RTBID NEB Last administered on 10/03/17 21:15; Start 10/01/17 at 08:00 Albuterol Sulfate (Ventolin) 2.5 mg PRN Q2HR PRN NEB COUGH/SHORTNESS OF BREATH ; Start 10/01/17 at 03:30 Isosorbide Mononitrate (Imdur) 30 mg DAILY PO Last administered on 10/03/17 07 :22; Start 10/01/17 at 09:00 Linagliptin (Tradjenta) 5 mg DAILY PO Last administered on 10/03/17 07:22; Start 10/01/17 at 09:00 Al Hydroxide/Mg Hydroxide (Mylanta Plus Xs) 15 ml PRN AFTMEALHC PRN PO DYSPEPSIA; Start 10/01/17 at 03:15; Stop 10/01/17 at 03:32; Status DC Metoprolol Tartrate (Lopressor) 12.5 mg BID PO Last administered on 10/03/17 19:50; Start 10/01/17 at 09:00 Nitroglycerin (Nitrostat) 0.4 mg PRN Q5MIN PRN SL CHEST PAIN; Start 10/01/17 at 03:15 Atorvastatin Calcium (Lipitor) 40 mg QHS PO Last administered on 10/03/17 19: 51; Start 10/01/17 at 21:00 Non-Formulary Medication 2,400 mg PRN DAILY PRN PO CONSTIPATION; Start at 03:15; Stop 10/01/17 at 03:32; Status DC Insulin Aspart (NovoLOG) 0-9 UNITS TIDACHC SQ ; Start 10/01/17 at 07:30; Stop 10/01/17 at 07:30; Status DC Dextrose 12.5 gm PRN Q15MIN PRN IV SEE COMMENTS; Start 10/01/17 at 03:30 Insulin Aspart (NovoLOG) 0-9 UNITS TIDAC SQ Last administered on 10/02/17 16: 30; Start 10/01/17 at 07:30 Lactobacillus Rhamnosus (Culturelle) 1 cap BID PO Last administered on 19:50; Start 10/01/17 at 21:00 Risperidone (RisperDAL) 0.25 mg BID PO Last administered on 10/03/17 19:50; Start 10/02/17 at 21:00 Mirtazapine (Remeron) 7.5 mg QHS PO Last administered on 10/03/17 19:51; Start 10/02/17 at 21:00 Docusate Calcium (Surfak) 240 mg DAILY PO Last administered on 10/03/17 07:35 ; Start 10/03/17 at 09:00 Fluvoxamine Maleate (Luvox) 100 mg QHS PO Last administered on 10/03/17 19:52 ; Start 10/03/17 at 21:00 Active Scripts Active Cipro (Ciprofloxacin Hcl) 250 Mg Tablet 1 Tab PO BID Reported Levemir Flextouch (Insulin Detemir) 100 Unit/1 Ml Insuln.pen 17 Unit SQ QHS Myrbetriq (Mirabegron) 25 Mg Tab.er.24h 25 Mg PO DAILY Duoneb 0.5-3(2.5) Mg/3 Ml (Albuterol/Ipratropium) 3 Ml Ampul.neb 3 Ml NEB PRN BID PRN Metoprolol Tartrate 25 Mg Tablet 12.5 Mg PO BID For CHF and CAD patients: Hold for HR less than 50 or SBP less than 90. For all other patients: Hold for HR less than 60 or SBP less than 100. After a held dose, reassess in 2 hours. If HR and SBP are above threshold, administer dose as ordered. If HR and SBP are below threshold, contact provider. Novolog Flexpen (Insulin Aspart) 100 Unit/1 Ml Insuln.pen 0-9 Unit SQ TIDAC BG level: If eating: If not eating: < 70 Call Provider [phone] 4 0 [phone] 5 3 [phone] > or = 351 Call provider Trazodone Hcl 50 Mg Tablet 50 Mg PO PRN QHS PRN Give with food. MAY REPEAT IN 1 HOUR Risperidone 0.5 Mg Tablet 0.5 Mg PO BID Mag-Al Plus Xs Suspension (Mag Hydrox/Al Hydrox/Simeth) 30 Ml Oral.susp 15 Ml PO PRN AFTMEALHC PRN Tradjenta (Linagliptin) 5 Mg Tablet 5 Mg PO DAILY Duoneb 0.5-3(2.5) Mg/3 Ml (Albuterol/Ipratropium) 3 Ml Ampul.neb 3 Ml NEB PRN Q2HR PRN Fluvoxamine Maleate 50 Mg Tablet 75 Mg PO HS Cetirizine Hcl 10 Mg Tablet 10 Mg PO PRN DAILY PRN Milk Of Magnesia (Magnesium Hydroxide) 2,400 Mg/10 Ml Oral.susp 2,400 Mg PO PRN DAILY PRN Tylenol (Acetaminophen) 325 Mg Tablet 650 Mg PO Q6HRS PRN Plavix (Clopidogrel Bisulfate) 75 Mg Tablet 75 Mg PO DAILY NITROGLYCERIN SubLingual (Nitroglycerin) 0.4 Mg Tab.subl 0.4 Mg SL PRN Q5MIN PRN Hold for SBP less than or equal to 90 mmHg. Call provider for chest pain unrelieved by 1 sublingual nitroglycerin, may repeat X2 if chest pain persists. Lipitor (Atorvastatin Calcium) 40 Mg Tablet 40 Mg PO QHS Isosorbide Mononitrate Er (Isosorbide Mononitrate) 30 Mg Tab.er.24h 30 Mg PO DAILY DO NOT CRUSH OR CHEW Colace (Docusate Sodium) 100 Mg Capsule 100 Mg PO BID Hold for loose stools Clonazepam 0.5 Mg Tablet 0.5 Mg PO PRN Q6HRS PRN Buspirone Hcl 15 Mg Tablet 15 Mg PO BID I have reviewed the current psychotropics carefully including drug interactions. Risk benefit ratio favors no change other than as noted in my dictated progress note. Diagnosis: Problems: (1) Dementia (2) Major depressive disorder, recurrent episode (3) Vascular dementia with depressed mood (4) Vascular dementia with delusions (5) Dementia, vascular, with depression (6) Dementia, vascular, with delusions (7) Vascular dementia with behavior disturbance (8) Dementia in Alzheimer's disease with depression (9) Dementia in Alzheimer's disease with delusions TATIANA LAYTON MD Oct 03, 2017 21:37
[2017-10-03] MEDS: traZODone 50 MG TABLET. PO PRN (23:13)
[2017-10-04] MEDS: clonazePAM 0.5 MG TABLET PO PRN ×2 (00:59→19:50)
[2017-10-04 06:12] VITALS: BP 119/69
[2017-10-04] MEDS: CIPROFLOXACIN HCL 250 MG TABLET PO SCH ×2 (06:12→18:21)
[2017-10-04] MEDS: risperiDONE 0.25 MG TABLET. PO SCH ×2 (07:27→19:47)
[2017-10-04] MEDS: LINAGLIPTIN 5 MG TABLET PO SCH (07:27)
[2017-10-04] MEDS: MIRABEGRON 25 MG TAB.ER.24H PO SCH (07:27)
[2017-10-04] MEDS: METOPROLOL TART IMMED RELEASE 25 MG TABLET PO SCH ×2 (07:28→19:48)
[2017-10-04] MEDS: ISOSORBIDE MONONITRATE ER 30 MG TAB.ER.24H PO SCH (07:29)
[2017-10-04] MEDS: LACTOBACILLUS RHAMNOSUS GG 1 CAPSULE. PO SCH ×2 (07:29→19:47)
[2017-10-04] MEDS: busPIRone 15 MG TABLET. PO SCH ×2 (07:29→19:47)
[2017-10-04] MEDS: DOCUSATE CALCIUM 240 MG CAPSULE PO SCH (07:29)
[2017-10-04] MEDS: INSULIN ASPART 300 UNITS/3 ML INSULN.PEN SQ SCH ×3 (07:30→16:30)
[2017-10-04] MEDS: CLOPIDOGREL BISULFATE 75 MG TABLET PO SCH (07:32)
[2017-10-04] MEDS: IPRATRPIUM/ALBUTEROL 0.5/2.5MG 3 ML NEBU. NEB SCH ×2 (09:55→20:47)
[2017-10-04 16:19] VITALS: BP 95/51
[2017-10-04] MEDS: MIRTAZAPINE 7.5 MG TABLET. PO SCH (19:47)
[2017-10-04] MEDS: INSULIN DETEMIR 300 UNITS/3 ML INSULN.PEN. SQ SCH (19:49)
[2017-10-04] MEDS: ATORVASTATIN CALCIUM 20 MG TABLET PO SCH (19:50)
--- NOTE | 2017-10-04 20:08 | PDOC ---
Exam Note: [place] Note: Please also refer to the separate dictated note~for this date of service dictated separately.~Patient seen individually. Discussed the patient with Nursing staff reviewed the chart.~Reviewed interim history and current functioning. Reviewed vital signs,~Labs/ Radiology~and current medications noted below. Continue current treatment with the changes noted in the dictated addendum note Assessment: Vital Signs: Vital Signs Date Time Temp Pulse Resp B/P (MAP) Pulse Ox O2 Delivery O2 Flow Rate FiO2 10/04/17 19:48 67 95/51 10/04/17 16:19 97.9 20 99 10/04/17 09:55 Room Air I&O Intake and Output 10/04/17 07:00 Intake Total 440 ml Balance 440 ml Intake Oral 440 ml Labs: Laboratory Tests Test 10/04/17 07:16 10/04/17 11:24 10/04/17 16:51 10/04/17 19:07 Glucose (Fingerstick) 75 mg/dL (70-99) 210 mg/dL (70-99) H 102 mg/dL (70-99) H 325 mg/dL (70-99) H Current Medications: Meds: Current Medications Acetaminophen (Tylenol) 650 mg PRN Q6HRS PRN PO PAIN / TEMP Last administered on 10/02/17 07:34; Start 10/01/17 at 02:30 Al Hydroxide/Mg Hydroxide (Mylanta Plus Xs) 15 ml PRN AFTMEALHC PRN PO DYSPEPSIA; Start 10/01/17 at 02:30 Magnesium Hydroxide (Milk Of Magnesia) 2,400 mg PRN QHS PRN PO CONSTIPATION; Start 10/01/17 at 02:30 Buspirone HCl (Buspar) 15 mg BID PO Last administered on 10/04/17 19:47; Start 10/01/17 at 09:00 Clonazepam (KlonoPIN) 0.5 mg PRN Q6HRS PRN PO ANXIETY / AGITATION Last administered on 10/04/17 19:50; Start 10/01/17 at 03:15 Risperidone (RisperDAL) 0.5 mg BID PO Last administered on 10/02/17 07:27; Start 10/01/17 at 09:00; Stop 10/02/17 at 18:15; Status DC Trazodone HCl (Desyrel) 50 mg PRN QHS PRN PO INSOMNIA Last administered on 10/03 23:13; Start 10/01/17 at 03:15 Fluvoxamine Maleate (Luvox) 75 mg QHS PO Last administered on 10/02/17 19:23; Start 10/01/17 at 21:00; Stop 10/03/17 at 19:03; Status DC Acetaminophen (Tylenol) 650 mg Q6HRS PRN PO PAIN; Start 10/01/17 at 03:15; Stop 10/01/17 at 03:32; Status DC Cetirizine HCl (ZyrTEC) 10 mg PRN DAILY PRN PO ALLERGIES; Start 10/01/17 at 03: 15 Ciprofloxacin (Cipro) 250 mg BID66 PO Last administered on 10/04/17 18:21; Start 10/01/17 at 06:00; Stop 10/07/17 at 18:01 Clopidogrel Bisulfate (Plavix) 75 mg DAILY PO Last administered on 10/04/17 07:32; Start 10/01/17 at 09:00 Docusate Sodium (Colace) 100 mg BID PO Last administered on 10/02/17 07:29; Start 10/01/17 at 09:00; Stop 10/02/17 at 18:26; Status DC Insulin Detemir (Levemir) 17 units QHS SQ Last administered on 10/04/17 19:49 ; Start 10/01/17 at 21:00 Albuterol/ Ipratropium (Duoneb) 3 ml RTBID NEB Last administered on 10/04/17 09:55; Start 10/01/17 at 08:00 Albuterol Sulfate (Ventolin) 2.5 mg PRN Q2HR PRN NEB COUGH/SHORTNESS OF BREATH ; Start 10/01/17 at 03:30 Isosorbide Mononitrate (Imdur) 30 mg DAILY PO Last administered on 10/04/17 07:29; Start 10/01/17 at 09:00 Linagliptin (Tradjenta) 5 mg DAILY PO Last administered on 10/04/17 07:27; Start 10/01/17 at 09:00 Al Hydroxide/Mg Hydroxide (Mylanta Plus Xs) 15 ml PRN AFTMEALHC PRN PO DYSPEPSIA; Start 10/01/17 at 03:15; Stop 10/01/17 at 03:32; Status DC Metoprolol Tartrate (Lopressor) 12.5 mg BID PO Last administered on 10/04/17 07:28; Start 10/01/17 at 09:00 Nitroglycerin (Nitrostat) 0.4 mg PRN Q5MIN PRN SL CHEST PAIN; Start 10/01/17 at 03:15 Atorvastatin Calcium (Lipitor) 40 mg QHS PO Last administered on 10/04/17 19: 50; Start 10/01/17 at 21:00 Non-Formulary Medication 2,400 mg PRN DAILY PRN PO CONSTIPATION; Start at 03:15; Stop 10/01/17 at 03:32; Status DC Insulin Aspart (NovoLOG) 0-9 UNITS TIDACHC SQ ; Start 10/01/17 at 07:30; Stop 10/01/17 at 07:30; Status DC Dextrose 12.5 gm PRN Q15MIN PRN IV SEE COMMENTS; Start 10/01/17 at 03:30 Insulin Aspart (NovoLOG) 0-9 UNITS TIDAC SQ Last administered on 10/04/17 11: 30; Start 10/01/17 at 07:30 Lactobacillus Rhamnosus (Culturelle) 1 cap BID PO Last administered on 19:47; Start 10/01/17 at 21:00 Risperidone (RisperDAL) 0.25 mg BID PO Last administered on 10/04/17 19:47; Start 10/02/17 at 21:00 Mirtazapine (Remeron) 7.5 mg QHS PO Last administered on 10/04/17 19:47; Start 10/02/17 at 21:00 Docusate Calcium (Surfak) 240 mg DAILY PO Last administered on 10/04/17 07:29 ; Start 10/03/17 at 09:00 Fluvoxamine Maleate (Luvox) 100 mg QHS PO Last administered on 10/04/17 19:47 ; Start 10/03/17 at 21:00 Active Scripts Active Cipro (Ciprofloxacin Hcl) 250 Mg Tablet 1 Tab PO BID Reported Levemir Flextouch (Insulin Detemir) 100 Unit/1 Ml Insuln.pen 17 Unit SQ QHS Myrbetriq (Mirabegron) 25 Mg Tab.er.24h 25 Mg PO DAILY Duoneb 0.5-3(2.5) Mg/3 Ml (Albuterol/Ipratropium) 3 Ml Ampul.neb 3 Ml NEB PRN BID PRN Metoprolol Tartrate 25 Mg Tablet 12.5 Mg PO BID For CHF and CAD patients: Hold for HR less than 50 or SBP less than 90. For all other patients: Hold for HR less than 60 or SBP less than 100. After a held dose, reassess in 2 hours. If HR and SBP are above threshold, administer dose as ordered. If HR and SBP are below threshold, contact provider. Novolog Flexpen (Insulin Aspart) 100 Unit/1 Ml Insuln.pen 0-9 Unit SQ TIDAC BG level: If eating: If not eating: < 70 Call Provider [phone] 0 [phone] 4 0 201-250 5 3 [phone] > or = 351 Call provider Trazodone Hcl 50 Mg Tablet 50 Mg PO PRN QHS PRN Give with food. MAY REPEAT IN 1 HOUR Risperidone 0.5 Mg Tablet 0.5 Mg PO BID Mag-Al Plus Xs Suspension (Mag Hydrox/Al Hydrox/Simeth) 30 Ml Oral.susp 15 Ml PO PRN AFTMEALHC PRN Tradjenta (Linagliptin) 5 Mg Tablet 5 Mg PO DAILY Duoneb 0.5-3(2.5) Mg/3 Ml (Albuterol/Ipratropium) 3 Ml Ampul.neb 3 Ml NEB PRN Q2HR PRN Fluvoxamine Maleate 50 Mg Tablet 75 Mg PO HS Cetirizine Hcl 10 Mg Tablet 10 Mg PO PRN DAILY PRN Milk Of Magnesia (Magnesium Hydroxide) 2,400 Mg/10 Ml Oral.susp 2,400 Mg PO PRN DAILY PRN Tylenol (Acetaminophen) 325 Mg Tablet 650 Mg PO Q6HRS PRN Plavix (Clopidogrel Bisulfate) 75 Mg Tablet 75 Mg PO DAILY NITROGLYCERIN SubLingual (Nitroglycerin) 0.4 Mg Tab.subl 0.4 Mg SL PRN Q5MIN PRN Hold for SBP less than or equal to 90 mmHg. Call provider for chest pain unrelieved by 1 sublingual nitroglycerin, may repeat X2 if chest pain persists. Lipitor (Atorvastatin Calcium) 40 Mg Tablet 40 Mg PO QHS Isosorbide Mononitrate Er (Isosorbide Mononitrate) 30 Mg Tab.er.24h 30 Mg PO DAILY DO NOT CRUSH OR CHEW Colace (Docusate Sodium) 100 Mg Capsule 100 Mg PO BID Hold for loose stools Clonazepam 0.5 Mg Tablet 0.5 Mg PO PRN Q6HRS PRN Buspirone Hcl 15 Mg Tablet 15 Mg PO BID I have reviewed the current psychotropics carefully including drug interactions. Risk benefit ratio favors no change other than as noted in my dictated progress note. Diagnosis: Problems: (1) Dementia (2) Major depressive disorder, recurrent episode (3) Vascular dementia with depressed mood (4) Vascular dementia with delusions (5) Dementia, vascular, with depression (6) Dementia, vascular, with delusions (7) Vascular dementia with behavior disturbance (8) Dementia in Alzheimer's disease with depression (9) Dementia in Alzheimer's disease with delusions TATIANA LAYTON MD Oct 04, 2017 20:08
[2017-10-04] MEDS: traZODone 50 MG TABLET. PO PRN (22:34)
--- NOTE | 2017-10-05 05:37 | PN ---
DATE: 10/02/2017 This is a late entry, covers the elements not covered in my initial note, 10/02/2017. SUBJECTIVE: I met with the patient the evening of 10/02/2017. The patient slept 3-1/4 hours previous evening, was very verbal as I met with her. I talked about living at [facility] in [place], where she was born and then in [place] over her lifetime. She put herself on the floor. When questioned, she states she cannot see and felt she was falling and therefore, lowered himself to the floor. No injuries, has been constipated. We will start Surfak 240 mg a day, yelling help, constantly anxious. REVIEW OF SYSTEMS: Bilateral blindness, impaired ambulation, in a wheelchair. No CV, , pulmonary system symptoms on review. MENTAL STATUS EXAM: Oriented to herself and situation. Speech is coherent, has some latency. Abstraction fair, computation impaired, language function intact, attention span short. Mood and affect remain somewhat anxious, labile. No clear hallucinations, psychosis noted. LABORATORY DATA: Reviewed. IMPRESSION: Major neurocognitive disorder, Alzheimer, vascular with delusion, depression. Rest unchanged from initial note. PLAN: Reduce Risperdal from 0.5 mg b.i.d. to 0.25 mg twice a day since no overt psychotic symptoms are noted. Start Surfak as noted 240 mg a day, Remeron 7.5 mg p.o. at bedtime to help with insomnia and anxiety. Maintain trazodone, BuSpar, along with Luvox 75 mg a day. We may need to increase the Luvox gradually. MAN Bev LAYTON MD DR: JHOAN/osiel JOB#: [id number] / [id number]
[2017-10-05 05:56] VITALS: BP 106/57
[2017-10-05] MEDS: CIPROFLOXACIN HCL 250 MG TABLET PO SCH ×2 (06:30→18:31)
[2017-10-05] MEDS: INSULIN ASPART 300 UNITS/3 ML INSULN.PEN SQ SCH ×3 (07:30→17:34)
[2017-10-05 08:34] VITALS: BP 148/62
[2017-10-05] MEDS: busPIRone 15 MG TABLET. PO SCH ×2 (08:35→20:18)
[2017-10-05] MEDS: LACTOBACILLUS RHAMNOSUS GG 1 CAPSULE. PO SCH ×2 (08:35→20:19)
[2017-10-05] MEDS: CLOPIDOGREL BISULFATE 75 MG TABLET PO SCH (08:35)
[2017-10-05] MEDS: risperiDONE 0.25 MG TABLET. PO SCH ×2 (08:35→20:20)
[2017-10-05] MEDS: DOCUSATE CALCIUM 240 MG CAPSULE PO SCH (08:35)
[2017-10-05] MEDS: LINAGLIPTIN 5 MG TABLET PO SCH (08:35)
[2017-10-05] MEDS: ISOSORBIDE MONONITRATE ER 30 MG TAB.ER.24H PO SCH (08:35)
[2017-10-05] MEDS: METOPROLOL TART IMMED RELEASE 25 MG TABLET PO SCH ×2 (08:37→20:19)
[2017-10-05] MEDS: MIRABEGRON 25 MG TAB.ER.24H PO SCH (08:39)
--- NOTE | 2017-10-05 08:52 | PN ---
DATE: 10/03/2017 PSYCHIATRIC PROGRESS NOTE This late entry 10/03/2017 covers elements, not covered in my initial note of 10/03/2017. I met with the patient in the evening of 10/03/2017. Platelets are reduced. Pharmacy consult has been requested. We will defer to Dr. High. No psychotropics are probably implicated with this. She slept through lunchtime. Platelets being repeated 10/04/2017. She was yelling till about 11:00 p.m., the previous evening, received Klonopin, then did better, still somewhat obsessive. REVIEW OF SYSTEMS: Ambulation impaired. Bilateral blindness, in wheelchair. No CV, , pulmonary, ENT system symptoms on review. MENTAL STATUS EXAM: Oriented to herself and situation. Speech coherent, has some latency. Abstraction fair, computation impaired, language function intact, attention span short. Mood and affect somewhat anxious, labile. LABORATORY DATA: Reviewed. IMPRESSION: Unchanged from initial note. PLAN: Increase Luvox to 100 mg p.o. at bedtime. Rest unchanged as before. Adjust further as clinically indicated. MAN Bev LAYTON MD DR: JHOAN/osiel JOB#: [id number] / [id number]
[2017-10-05] MEDS: IPRATRPIUM/ALBUTEROL 0.5/2.5MG 3 ML NEBU. NEB SCH ×2 (11:01→19:43)
[2017-10-05] MEDS: MAGNESIUM HYDROXIDE 2,400 MG/30 ML ORAL.SUSP. PO PRN (11:33)
[2017-10-05 16:00] VITALS: BP 105/63
[2017-10-05] MEDS: MIRTAZAPINE 7.5 MG TABLET. PO SCH (20:18)
[2017-10-05] MEDS: ATORVASTATIN CALCIUM 20 MG TABLET PO SCH (20:20)
[2017-10-05] MEDS: INSULIN DETEMIR 300 UNITS/3 ML INSULN.PEN. SQ SCH (20:24)
[2017-10-05] MEDS: traZODone 50 MG TABLET. PO PRN (20:27)
--- NOTE | 2017-10-05 21:29 | PDOC ---
Exam Note: [place] Note: Please also refer to the separate dictated note~for this date of service dictated separately.~Patient seen individually. Discussed the patient with Nursing staff reviewed the chart.~Reviewed interim history and current functioning. Reviewed vital signs,~Labs/ Radiology~and current medications noted below. Continue current treatment with the changes noted in the dictated addendum note Assessment: Vital Signs: Vital Signs Date Time Temp Pulse Resp B/P (MAP) Pulse Ox O2 Delivery O2 Flow Rate FiO2 10/05/17 20:19 81 136/72 10/05/17 19:44 95 Room Air 10/05/17 16:00 97.3 18 I&O Intake and Output 10/05/17 07:00 Intake Total 960 ml Balance 960 ml Intake Oral 960 ml Labs: Laboratory Tests Test 10/05/17 07:36 10/05/17 11:10 10/05/17 16:36 10/05/17 19:07 Glucose (Fingerstick) 71 mg/dL (70-99) 107 mg/dL (70-99) H 179 mg/dL (70-99) H 221 mg/dL (70-99) H Current Medications: Meds: Current Medications Acetaminophen (Tylenol) 650 mg PRN Q6HRS PRN PO PAIN / TEMP Last administered on 10/02/17 07:34; Start 10/01/17 at 02:30 Al Hydroxide/Mg Hydroxide (Mylanta Plus Xs) 15 ml PRN AFTMEALHC PRN PO DYSPEPSIA; Start 10/01/17 at 02:30 Magnesium Hydroxide (Milk Of Magnesia) 2,400 mg PRN QHS PRN PO CONSTIPATION Last administered on 10/05/17 11:33; Start 10/01/17 at 02:30 Buspirone HCl (Buspar) 15 mg BID PO Last administered on 10/05/17 20:18; Start 10/01/17 at 09:00 Clonazepam (KlonoPIN) 0.5 mg PRN Q6HRS PRN PO ANXIETY / AGITATION Last administered on 10/04/17 19:50; Start 10/01/17 at 03:15 Risperidone (RisperDAL) 0.5 mg BID PO Last administered on 10/02/17 07:27; Start 10/01/17 at 09:00; Stop 10/02/17 at 18:15; Status DC Trazodone HCl (Desyrel) 50 mg PRN QHS PRN PO INSOMNIA Last administered on 20:27; Start 10/01/17 at 03:15 Fluvoxamine Maleate (Luvox) 75 mg QHS PO Last administered on 10/02/17 19:23; Start 10/01/17 at 21:00; Stop 10/03/17 at 19:03; Status DC Acetaminophen (Tylenol) 650 mg Q6HRS PRN PO PAIN; Start 10/01/17 at 03:15; Stop 10/01/17 at 03:32; Status DC Cetirizine HCl (ZyrTEC) 10 mg PRN DAILY PRN PO ALLERGIES; Start 10/01/17 at 03: 15 Ciprofloxacin (Cipro) 250 mg BID66 PO Last administered on 10/05/17 18:31; Start 10/01/17 at 06:00; Stop 10/07/17 at 18:01 Clopidogrel Bisulfate (Plavix) 75 mg DAILY PO Last administered on 10/05/17 08:35; Start 10/01/17 at 09:00 Docusate Sodium (Colace) 100 mg BID PO Last administered on 10/02/17 07:29; Start 10/01/17 at 09:00; Stop 10/02/17 at 18:26; Status DC Insulin Detemir (Levemir) 17 units QHS SQ Last administered on 10/05/17 20:24 ; Start 10/01/17 at 21:00 Albuterol/ Ipratropium (Duoneb) 3 ml RTBID NEB Last administered on 10/05/17 19:43; Start 10/01/17 at 08:00 Albuterol Sulfate (Ventolin) 2.5 mg PRN Q2HR PRN NEB COUGH/SHORTNESS OF BREATH ; Start 10/01/17 at 03:30 Isosorbide Mononitrate (Imdur) 30 mg DAILY PO Last administered on 10/05/17 08:35; Start 10/01/17 at 09:00 Linagliptin (Tradjenta) 5 mg DAILY PO Last administered on 10/05/17 08:35; Start 10/01/17 at 09:00 Al Hydroxide/Mg Hydroxide (Mylanta Plus Xs) 15 ml PRN AFTMEALHC PRN PO DYSPEPSIA; Start 10/01/17 at 03:15; Stop 10/01/17 at 03:32; Status DC Metoprolol Tartrate (Lopressor) 12.5 mg BID PO Last administered on 10/05/17 20:19; Start 10/01/17 at 09:00 Nitroglycerin (Nitrostat) 0.4 mg PRN Q5MIN PRN SL CHEST PAIN; Start 10/01/17 at 03:15 Atorvastatin Calcium (Lipitor) 40 mg QHS PO Last administered on 10/05/17 20: 20; Start 10/01/17 at 21:00 Non-Formulary Medication 2,400 mg PRN DAILY PRN PO CONSTIPATION; Start at 03:15; Stop 10/01/17 at 03:32; Status DC Insulin Aspart (NovoLOG) 0-9 UNITS TIDACHC SQ ; Start 10/01/17 at 07:30; Stop 10/01/17 at 07:30; Status DC Dextrose 12.5 gm PRN Q15MIN PRN IV SEE COMMENTS; Start 10/01/17 at 03:30 Insulin Aspart (NovoLOG) 0-9 UNITS TIDAC SQ Last administered on 10/05/17 17: 34; Start 10/01/17 at 07:30 Lactobacillus Rhamnosus (Culturelle) 1 cap BID PO Last administered on 20:19; Start 10/01/17 at 21:00 Risperidone (RisperDAL) 0.25 mg BID PO Last administered on 10/05/17 20:20; Start 10/02/17 at 21:00 Mirtazapine (Remeron) 7.5 mg QHS PO Last administered on 10/05/17 20:18; Start 10/02/17 at 21:00 Docusate Calcium (Surfak) 240 mg DAILY PO Last administered on 10/05/17 08:35 ; Start 10/03/17 at 09:00 Fluvoxamine Maleate (Luvox) 100 mg QHS PO Last administered on 10/04/17 19:47 ; Start 10/03/17 at 21:00; Stop 10/05/17 at 18:23; Status DC Fluvoxamine Maleate (Luvox) 100 mg QHS PO Last administered on 10/05/17 20:22 ; Start 10/05/17 at 21:00 Fluvoxamine Maleate (Luvox) 25 mg HS PO Last administered on 10/05/17 20:22; Start 10/05/17 at 21:00 Active Scripts Active Cipro (Ciprofloxacin Hcl) 250 Mg Tablet 1 Tab PO BID Reported Levemir Flextouch (Insulin Detemir) 100 Unit/1 Ml Insuln.pen 17 Unit SQ QHS Myrbetriq (Mirabegron) 25 Mg Tab.er.24h 25 Mg PO DAILY Duoneb 0.5-3(2.5) Mg/3 Ml (Albuterol/Ipratropium) 3 Ml Ampul.neb 3 Ml NEB PRN BID PRN Metoprolol Tartrate 25 Mg Tablet 12.5 Mg PO BID For CHF and CAD patients: Hold for HR less than 50 or SBP less than 90. For all other patients: Hold for HR less than 60 or SBP less than 100. After a held dose, reassess in 2 hours. If HR and SBP are above threshold, administer dose as ordered. If HR and SBP are below threshold, contact provider. Novolog Flexpen (Insulin Aspart) 100 Unit/1 Ml Insuln.pen 0-9 Unit SQ TIDAC BG level: If eating: If not eating: < 70 Call Provider [phone] 4 [phone] 5 [phone] > or = 351 Call provider Trazodone Hcl 50 Mg Tablet 50 Mg PO PRN QHS PRN Give with food. MAY REPEAT IN 1 HOUR Risperidone 0.5 Mg Tablet 0.5 Mg PO BID Mag-Al Plus Xs Suspension (Mag Hydrox/Al Hydrox/Simeth) 30 Ml Oral.susp 15 Ml PO PRN AFTMEALHC PRN Tradjenta (Linagliptin) 5 Mg Tablet 5 Mg PO DAILY Duoneb 0.5-3(2.5) Mg/3 Ml (Albuterol/Ipratropium) 3 Ml Ampul.neb 3 Ml NEB PRN Q2HR PRN Fluvoxamine Maleate 50 Mg Tablet 75 Mg PO HS Cetirizine Hcl 10 Mg Tablet 10 Mg PO PRN DAILY PRN Milk Of Magnesia (Magnesium Hydroxide) 2,400 Mg/10 Ml Oral.susp 2,400 Mg PO PRN DAILY PRN Tylenol (Acetaminophen) 325 Mg Tablet 650 Mg PO Q6HRS PRN Plavix (Clopidogrel Bisulfate) 75 Mg Tablet 75 Mg PO DAILY NITROGLYCERIN SubLingual (Nitroglycerin) 0.4 Mg Tab.subl 0.4 Mg SL PRN Q5MIN PRN Hold for SBP less than or equal to 90 mmHg. Call provider for chest pain unrelieved by 1 sublingual nitroglycerin, may repeat X2 if chest pain persists. Lipitor (Atorvastatin Calcium) 40 Mg Tablet 40 Mg PO QHS Isosorbide Mononitrate Er (Isosorbide Mononitrate) 30 Mg Tab.er.24h 30 Mg PO DAILY DO NOT CRUSH OR CHEW Colace (Docusate Sodium) 100 Mg Capsule 100 Mg PO BID Hold for loose stools Clonazepam 0.5 Mg Tablet 0.5 Mg PO PRN Q6HRS PRN Buspirone Hcl 15 Mg Tablet 15 Mg PO BID I have reviewed the current psychotropics carefully including drug interactions. Risk benefit ratio favors no change other than as noted in my dictated progress note. Diagnosis: Problems: (1) Dementia (2) Major depressive disorder, recurrent episode (3) Vascular dementia with depressed mood (4) Vascular dementia with delusions (5) Dementia, vascular, with depression (6) Dementia, vascular, with delusions (7) Vascular dementia with behavior disturbance (8) Dementia in Alzheimer's disease with depression (9) Dementia in Alzheimer's disease with delusions TATIANA LAYTON MD Oct 05, 2017 21:29
--- NOTE | 2017-10-05 23:11 | PN ---
DATE: 10/04/2017 This late entry for 10/04/2017 covers elements not covered in my initial note of 10/04/2017. SUBJECTIVE: The patient was seen individually in the evening of 10/04/2017. The patient slept in the morning of 10/04/2017, was quite agitated previous evening, yelling from 11:30 p.m. to 1:00 a.m., then received Klonopin and slept total 5 hours. REVIEW OF SYSTEMS: Bilateral blindness, impaired ambulation and wheelchair. No CV, , pulmonary, ENT system symptoms on review. She does complain of neck pain, was sitting trying to bend forward. MENTAL STATUS EXAM: Oriented to herself and situation. Speech is coherent, abstraction fair, computation impaired, language function intact, attention span short. Mood and affect, still somewhat anxious, labile, depressed. LABORATORY DATA: Reviewed. IMPRESSION: Unchanged from initial note. PLAN: Continue psychotropics mentioned in my initial note, Risperdal, trazodone, BuSpar, Klonopin, Luvox and Remeron. Adjust further as clinically indicated. MAN Bev LAYTON MD DR: JHOAN/osiel JOB#: [id number] / [id number]
[2017-10-06] MEDS: MAGNESIUM HYDROXIDE 2,400 MG/30 ML ORAL.SUSP. PO PRN (00:17)
[2017-10-06 05:59] VITALS: BP 131/68
[2017-10-06] MEDS: CIPROFLOXACIN HCL 250 MG TABLET PO SCH ×2 (06:23→17:11)
[2017-10-06] MEDS: INSULIN ASPART 300 UNITS/3 ML INSULN.PEN SQ SCH ×3 (07:30→17:03)
[2017-10-06] MEDS: DOCUSATE CALCIUM 240 MG CAPSULE PO SCH (09:13)
[2017-10-06] MEDS: LACTOBACILLUS RHAMNOSUS GG 1 CAPSULE. PO SCH ×3 (09:13→20:11)
[2017-10-06] MEDS: LINAGLIPTIN 5 MG TABLET PO SCH (09:13)
[2017-10-06] MEDS: CLOPIDOGREL BISULFATE 75 MG TABLET PO SCH (09:14)
[2017-10-06] MEDS: ISOSORBIDE MONONITRATE ER 30 MG TAB.ER.24H PO SCH (09:14)
[2017-10-06] MEDS: METOPROLOL TART IMMED RELEASE 25 MG TABLET PO SCH ×2 (09:14→20:12)
[2017-10-06] MEDS: risperiDONE 0.25 MG TABLET. PO SCH ×3 (09:15→20:12)
[2017-10-06] MEDS: busPIRone 15 MG TABLET. PO SCH ×3 (09:15→20:12)
[2017-10-06] MEDS: MIRABEGRON 25 MG TAB.ER.24H PO SCH (09:16)
[2017-10-06] MEDS: IPRATRPIUM/ALBUTEROL 0.5/2.5MG 3 ML NEBU. NEB SCH ×2 (10:19→21:09)
[2017-10-06 16:11] VITALS: BP 99/58
[2017-10-06] MEDS ORDERED: NYSTATIN TOPICAL POWDER 15GM BOTTLE. TP ONE (16:46)
[2017-10-06] MEDS: ATORVASTATIN CALCIUM 20 MG TABLET PO SCH ×2 (19:57→20:11)
[2017-10-06] MEDS: MIRTAZAPINE 7.5 MG TABLET. PO SCH ×2 (19:57→20:11)
[2017-10-06] MEDS: INSULIN DETEMIR 300 UNITS/3 ML INSULN.PEN. SQ SCH (21:33)
--- NOTE | 2017-10-06 22:12 | PDOC ---
Exam Note: [place] Note: Please also refer to the separate dictated note~for this date of service dictated separately.~Patient seen individually. Discussed the patient with Nursing staff reviewed the chart.~Reviewed interim history and current functioning. Reviewed vital signs,~Labs/ Radiology~and current medications noted below. Continue current treatment with the changes noted in the dictated addendum note Assessment: Vital Signs: Vital Signs Date Time Temp Pulse Resp B/P (MAP) Pulse Ox O2 Delivery O2 Flow Rate FiO2 10/06/17 21:10 95 Room Air 10/06/17 20:12 101 164/67 10/06/17 16:11 98.8 18 I&O Intake and Output 10/06/17 07:00 Intake Total 740 ml Balance 740 ml Intake Oral 740 ml # Bowel Movements 2 Labs: Laboratory Tests Test 10/06/17 07:27 10/06/17 11:23 10/06/17 16:31 10/06/17 19:37 Glucose (Fingerstick) 74 mg/dL (70-99) 198 mg/dL (70-99) H 155 mg/dL (70-99) H 207 mg/dL (70-99) H Current Medications: Meds: Current Medications Acetaminophen (Tylenol) 650 mg PRN Q6HRS PRN PO PAIN / TEMP Last administered on 10/02/17 07:34; Start 10/01/17 at 02:30 Al Hydroxide/Mg Hydroxide (Mylanta Plus Xs) 15 ml PRN AFTMEALHC PRN PO DYSPEPSIA; Start 10/01/17 at 02:30 Magnesium Hydroxide (Milk Of Magnesia) 2,400 mg PRN QHS PRN PO CONSTIPATION Last administered on 10/06/17 00:17; Start 10/01/17 at 02:30 Buspirone HCl (Buspar) 15 mg BID PO Last administered on 10/06/17 20:12; Start 10/01/17 at 09:00 Clonazepam (KlonoPIN) 0.5 mg PRN Q6HRS PRN PO ANXIETY / AGITATION Last administered on 10/04/17 19:50; Start 10/01/17 at 03:15 Risperidone (RisperDAL) 0.5 mg BID PO Last administered on 10/02/17 07:27; Start 10/01/17 at 09:00; Stop 10/02/17 at 18:15; Status DC Trazodone HCl (Desyrel) 50 mg PRN QHS PRN PO INSOMNIA, MAY REPEAT X1 Last administered on 10/05/17 20:27; Start 10/01/17 at 03:15 Fluvoxamine Maleate (Luvox) 75 mg QHS PO Last administered on 10/02/17 19:23; Start 10/01/17 at 21:00; Stop 10/03/17 at 19:03; Status DC Acetaminophen (Tylenol) 650 mg Q6HRS PRN PO PAIN; Start 10/01/17 at 03:15; Stop 10/01/17 at 03:32; Status DC Cetirizine HCl (ZyrTEC) 10 mg PRN DAILY PRN PO ALLERGIES; Start 10/01/17 at 03: 15 Ciprofloxacin (Cipro) 250 mg BID66 PO Last administered on 10/06/17 17:11; Start 10/01/17 at 06:00; Stop 10/07/17 at 18:01 Clopidogrel Bisulfate (Plavix) 75 mg DAILY PO Last administered on 10/06/17 09:14; Start 10/01/17 at 09:00 Docusate Sodium (Colace) 100 mg BID PO Last administered on 10/02/17 07:29; Start 10/01/17 at 09:00; Stop 10/02/17 at 18:26; Status DC Insulin Detemir (Levemir) 17 units QHS SQ Last administered on 10/06/17 21:33 ; Start 10/01/17 at 21:00 Albuterol/ Ipratropium (Duoneb) 3 ml RTBID NEB Last administered on 10/06/17 21:09; Start 10/01/17 at 08:00 Albuterol Sulfate (Ventolin) 2.5 mg PRN Q2HR PRN NEB COUGH/SHORTNESS OF BREATH ; Start 10/01/17 at 03:30 Isosorbide Mononitrate (Imdur) 30 mg DAILY PO Last administered on 10/06/17 09:14; Start 10/01/17 at 09:00 Linagliptin (Tradjenta) 5 mg DAILY PO Last administered on 10/06/17 09:13; Start 10/01/17 at 09:00 Al Hydroxide/Mg Hydroxide (Mylanta Plus Xs) 15 ml PRN AFTMEALHC PRN PO DYSPEPSIA; Start 10/01/17 at 03:15; Stop 10/01/17 at 03:32; Status DC Metoprolol Tartrate (Lopressor) 12.5 mg BID PO Last administered on 10/06/17 20:12; Start 10/01/17 at 09:00 Nitroglycerin (Nitrostat) 0.4 mg PRN Q5MIN PRN SL CHEST PAIN; Start 10/01/17 at 03:15 Atorvastatin Calcium (Lipitor) 40 mg QHS PO Last administered on 10/06/17 20: 11; Start 10/01/17 at 21:00 Non-Formulary Medication 2,400 mg PRN DAILY PRN PO CONSTIPATION; Start at 03:15; Stop 10/01/17 at 03:32; Status DC Insulin Aspart (NovoLOG) 0-9 UNITS TIDACHC SQ ; Start 10/01/17 at 07:30; Stop 10/01/17 at 07:30; Status DC Dextrose 12.5 gm PRN Q15MIN PRN IV SEE COMMENTS; Start 10/01/17 at 03:30 Insulin Aspart (NovoLOG) 0-9 UNITS TIDAC SQ Last administered on 10/06/17 17: 03; Start 10/01/17 at 07:30 Lactobacillus Rhamnosus (Culturelle) 1 cap BID PO Last administered on 20:11; Start 10/01/17 at 21:00 Risperidone (RisperDAL) 0.25 mg BID PO Last administered on 10/06/17 20:12; Start 10/02/17 at 21:00 Mirtazapine (Remeron) 7.5 mg QHS PO Last administered on 10/06/17 20:11; Start 10/02/17 at 21:00 Docusate Calcium (Surfak) 240 mg DAILY PO Last administered on 10/06/17 09:13 ; Start 10/03/17 at 09:00 Fluvoxamine Maleate (Luvox) 100 mg QHS PO Last administered on 10/04/17 19:47 ; Start 10/03/17 at 21:00; Stop 10/05/17 at 18:23; Status DC Fluvoxamine Maleate (Luvox) 100 mg QHS PO Last administered on 10/06/17 20:12 ; Start 10/05/17 at 21:00 Fluvoxamine Maleate (Luvox) 25 mg HS PO Last administered on 10/06/17 20:12; Start 10/05/17 at 21:00 Nystatin (Nystop) 15 presley STK-MED ONCE TP Last administered on 10/06/17 17:05 ; Start 10/06/17 at 16:46; Stop 10/06/17 at 16:47; Status DC Active Scripts Active Cipro (Ciprofloxacin Hcl) 250 Mg Tablet 1 Tab PO BID Reported Levemir Flextouch (Insulin Detemir) 100 Unit/1 Ml Insuln.pen 17 Unit SQ QHS Myrbetriq (Mirabegron) 25 Mg Tab.er.24h 25 Mg PO DAILY Duoneb 0.5-3(2.5) Mg/3 Ml (Albuterol/Ipratropium) 3 Ml Ampul.neb 3 Ml NEB PRN BID PRN Metoprolol Tartrate 25 Mg Tablet 12.5 Mg PO BID For CHF and CAD patients: Hold for HR less than 50 or SBP less than 90. For all other patients: Hold for HR less than 60 or SBP less than 100. After a held dose, reassess in 2 hours. If HR and SBP are above threshold, administer dose as ordered. If HR and SBP are below threshold, contact provider. Novolog Flexpen (Insulin Aspart) 100 Unit/1 Ml Insuln.pen 0-9 Unit SQ TIDAC BG level: If eating: If not eating: < 70 Call Provider [phone] 0 0 [phone] 4 0 201-250 5 3 [phone] > or = 351 Call provider Trazodone Hcl 50 Mg Tablet 50 Mg PO PRN QHS PRN Give with food. MAY REPEAT IN 1 HOUR Risperidone 0.5 Mg Tablet 0.5 Mg PO BID Mag-Al Plus Xs Suspension (Mag Hydrox/Al Hydrox/Simeth) 30 Ml Oral.susp 15 Ml PO PRN AFTMEALHC PRN Tradjenta (Linagliptin) 5 Mg Tablet 5 Mg PO DAILY Duoneb 0.5-3(2.5) Mg/3 Ml (Albuterol/Ipratropium) 3 Ml Ampul.neb 3 Ml NEB PRN Q2HR PRN Fluvoxamine Maleate 50 Mg Tablet 75 Mg PO HS Cetirizine Hcl 10 Mg Tablet 10 Mg PO PRN DAILY PRN Milk Of Magnesia (Magnesium Hydroxide) 2,400 Mg/10 Ml Oral.susp 2,400 Mg PO PRN DAILY PRN Tylenol (Acetaminophen) 325 Mg Tablet 650 Mg PO Q6HRS PRN Plavix (Clopidogrel Bisulfate) 75 Mg Tablet 75 Mg PO DAILY NITROGLYCERIN SubLingual (Nitroglycerin) 0.4 Mg Tab.subl 0.4 Mg SL PRN Q5MIN PRN Hold for SBP less than or equal to 90 mmHg. Call provider for chest pain unrelieved by 1 sublingual nitroglycerin, may repeat X2 if chest pain persists. Lipitor (Atorvastatin Calcium) 40 Mg Tablet 40 Mg PO QHS Isosorbide Mononitrate Er (Isosorbide Mononitrate) 30 Mg Tab.er.24h 30 Mg PO DAILY DO NOT CRUSH OR CHEW Colace (Docusate Sodium) 100 Mg Capsule 100 Mg PO BID Hold for loose stools Clonazepam 0.5 Mg Tablet 0.5 Mg PO PRN Q6HRS PRN Buspirone Hcl 15 Mg Tablet 15 Mg PO BID I have reviewed the current psychotropics carefully including drug interactions. Risk benefit ratio favors no change other than as noted in my dictated progress note. Diagnosis: Problems: (1) Dementia (2) Major depressive disorder, recurrent episode (3) Vascular dementia with depressed mood (4) Vascular dementia with delusions (5) Dementia, vascular, with depression (6) Dementia, vascular, with delusions (7) Vascular dementia with behavior disturbance (8) Dementia in Alzheimer's disease with depression (9) Dementia in Alzheimer's disease with delusions TATIANA LAYTON MD Oct 06, 2017 22:12
[2017-10-06] MEDS: traZODone 50 MG TABLET. PO PRN (23:24)
[2017-10-07] MEDS: CIPROFLOXACIN HCL 250 MG TABLET PO SCH ×2 (06:22→17:29)
[2017-10-07 06:25] VITALS: BP 102/48
[2017-10-07 06:32] VITALS: BP 152/70
[2017-10-07 06:53] LABS: BASO % 1 % (0-3); EOS # 0.1 x10^3/uL (0.0-0.7); EOS % 2 % (0-3); HEMATOCRIT 39.7 % (36.0-47.0); HEMOGLOBIN 13.2 g/dL (12.0-15.5); LYMPH # 3.2 x10^3/uL (1.0-4.8); LYMPH % 46 % (24-48); MEAN CORPUSCULAR HEMOGLOBIN 31 pg (25-35); MEAN CORPUSCULAR HGB CONC 33 g/dL (31-37); MEAN CORPUSCULAR VOLUME 94 fL (79-100); MONO # 0.7 x10^3/uL (0.0-1.1); MONO % 11 % (0-9); NEUT # 2.8 x10^3uL (1.8-7.7); NEUT % 41 % (31-73); PLATELET COUNT 150 x10^3/uL (140-400); RED BLOOD COUNT 4.24 x10^6/uL (3.50-5.40); RED CELL DISTRIBUTION WIDTH 13.4 % (11.5-14.5); WHITE BLOOD COUNT 6.9 x10^3/uL (4.0-11.0)
[2017-10-07 07:04] LABS: ALBUMIN 2.9 g/dL (3.4-5.0); ALBUMIN/GLOBULIN RATIO 0.9 (1.0-1.7); CALCIUM 8.6 mg/dL (8.5-10.1); CREATININE 1.2 mg/dL (0.6-1.0); GFR 42.5; POTASSIUM 4.3 mmol/L (3.5-5.1); TOTAL BILIRUBIN 0.3 mg/dL (0.2-1.0); TOTAL PROTEIN 6.3 g/dL (6.4-8.2)
[2017-10-07] MEDS: INSULIN ASPART 300 UNITS/3 ML INSULN.PEN SQ SCH ×3 (07:30→16:30)
--- NOTE | 2017-10-07 07:55 | PN ---
DATE: 10/05/2017 PSYCHIATRIC PROGRESS NOTE This is a late entry 10/05/2017, covers elements not covered in my initial note 10/05/2017. SUBJECTIVE: I met with the patient the evening of 10/05/2017. She has been yelling constantly help, help, trying to get out of the Broda chair, slept 6 hours previous evening, compliant with medication, somewhat obsessive. REVIEW OF SYSTEMS: Bilateral blindness, impaired ambulation, in Broda chair. No CV, , pulmonary, ENT system symptoms on review. MENTAL STATUS EXAM: Oriented to herself and situation. Speech is as noted, abstraction fair, computation impaired, language function intact, attention span short. Mood and affect remain somewhat anxious, labile. LABORATORY DATA: Reviewed. IMPRESSION: Unchanged from initial note: Major neurocognitive disorder, Alzheimer, vascular with delusion, depression, behavioral disturbance, obsessive compulsive disorder; anxiety disorder, unspecified; impulse control disorder, unspecified. PLAN: Increase Luvox from 100 mg at bedtime to 125 mg at bedtime. Maintain rest of the psychotropics including Risperdal 0.25 mg b.i.d. MAN MJefferson LAYTON MD DR: JHOAN/osiel JOB#: [id number] / [id number]
[2017-10-07] MEDS: IPRATRPIUM/ALBUTEROL 0.5/2.5MG 3 ML NEBU. NEB SCH ×2 (08:00→21:08)
[2017-10-07] MEDS: DOCUSATE CALCIUM 240 MG CAPSULE PO SCH (09:08)
[2017-10-07] MEDS: LACTOBACILLUS RHAMNOSUS GG 1 CAPSULE. PO SCH ×2 (09:08→20:00)
[2017-10-07] MEDS: LINAGLIPTIN 5 MG TABLET PO SCH (09:08)
[2017-10-07] MEDS: risperiDONE 0.25 MG TABLET. PO SCH (09:08)
[2017-10-07] MEDS: ISOSORBIDE MONONITRATE ER 30 MG TAB.ER.24H PO SCH (09:09)
[2017-10-07] MEDS: METOPROLOL TART IMMED RELEASE 25 MG TABLET PO SCH ×2 (09:09→20:06)
[2017-10-07] MEDS: CLOPIDOGREL BISULFATE 75 MG TABLET PO SCH (09:10)
[2017-10-07] MEDS: busPIRone 15 MG TABLET. PO SCH ×2 (09:10→20:01)
[2017-10-07] MEDS: MIRABEGRON 25 MG TAB.ER.24H PO SCH (09:10)
[2017-10-07] MEDS: ACETAMINOPHEN 325 MG TABLET PO PRN (11:08)
[2017-10-07 16:32] VITALS: BP 117/67
[2017-10-07] MEDS: ATORVASTATIN CALCIUM 20 MG TABLET PO SCH (20:01)
[2017-10-07] MEDS: MIRTAZAPINE 7.5 MG TABLET. PO SCH (20:01)
[2017-10-07] MEDS: INSULIN DETEMIR 300 UNITS/3 ML INSULN.PEN. SQ SCH (20:09)
--- NOTE | 2017-10-07 20:14 | PDOC ---
Exam Note: [place] Note: Please also refer to the separate dictated note~for this date of service dictated separately.~Patient seen individually. Discussed the patient with Nursing staff reviewed the chart.~Reviewed interim history and current functioning. Reviewed vital signs,~Labs/ Radiology~and current medications noted below. Continue current treatment with the changes noted in the dictated addendum note Assessment: Vital Signs: Vital Signs Date Time Temp Pulse Resp B/P (MAP) Pulse Ox O2 Delivery O2 Flow Rate FiO2 10/07/17 20:06 74 138/77 10/07/17 16:32 97.2 20 96 10/07/17 06:32 Room Air I&O Intake and Output 10/07/17 07:00 Intake Total 1740 ml Balance 1740 ml Intake Oral 1740 ml # Bowel Movements 1 Labs: Laboratory Tests Test 10/07/17 06:44 10/07/17 07:14 10/07/17 11:29 10/07/17 16:29 White Blood Count 6.9 x10^3/uL (4.0-11.0) Red Blood Count 4.24 x10^6/uL (3.50-5.40) Hemoglobin 13.2 g/dL (12.0-15.5) Hematocrit 39.7 % (36.0-47.0) Mean Corpuscular Volume 94 fL (79-100) Mean Corpuscular Hemoglobin 31 pg (25-35) Mean Corpuscular Hemoglobin Concent 33 g/dL (31-37) Red Cell Distribution Width 13.4 % (11.5-14.5) Platelet Count 150 x10^3/uL (140-400) Neutrophils (%) (Auto) 41 % (31-73) Lymphocytes (%) (Auto) 46 % (24-48) Monocytes (%) (Auto) 11 % (0-9) H Eosinophils (%) (Auto) 2 % (0-3) Basophils (%) (Auto) 1 % (0-3) Neutrophils # (Auto) 2.8 x10^3uL (1.8-7.7) Lymphocytes # (Auto) 3.2 x10^3/uL (1.0-4.8) Monocytes # (Auto) 0.7 x10^3/uL (0.0-1.1) Eosinophils # (Auto) 0.1 x10^3/uL (0.0-0.7) Basophils # (Auto) 0.0 x10^3/uL (0.0-0.2) Sodium Level 145 mmol/L (136-145) Potassium Level 4.3 mmol/L (3.5-5.1) Chloride Level 110 mmol/L (98-107) H Carbon Dioxide Level 29 mmol/L (21-32) Anion Gap 6 (6-14) Blood Urea Nitrogen 28 mg/dL (7-20) H Creatinine 1.2 mg/dL (0.6-1.0) H Estimated GFR (Cockcroft-Gault) 42.5 BUN/Creatinine Ratio 23 (6-20) H Glucose Level 102 mg/dL (70-99) H Calcium Level 8.6 mg/dL (8.5-10.1) Total Bilirubin 0.3 mg/dL (0.2-1.0) Aspartate Amino Transferase (AST) 17 U/L (15-37) Alanine Aminotransferase (ALT) 20 U/L (14-59) Alkaline Phosphatase 71 U/L (46-116) Total Protein 6.3 g/dL (6.4-8.2) L Albumin 2.9 g/dL (3.4-5.0) L Albumin/Globulin Ratio 0.9 (1.0-1.7) L Glucose (Fingerstick) 93 mg/dL (70-99) 102 mg/dL (70-99) H 116 mg/dL (70-99) H Test 10/07/17 19:10 Glucose (Fingerstick) 188 mg/dL (70-99) H Current Medications: Meds: Current Medications Acetaminophen (Tylenol) 650 mg PRN Q6HRS PRN PO PAIN / TEMP Last administered on 10/07/17 11:08; Start 10/01/17 at 02:30 Al Hydroxide/Mg Hydroxide (Mylanta Plus Xs) 15 ml PRN AFTMEALHC PRN PO DYSPEPSIA; Start 10/01/17 at 02:30 Magnesium Hydroxide (Milk Of Magnesia) 2,400 mg PRN QHS PRN PO CONSTIPATION Last administered on 10/06/17 00:17; Start 10/01/17 at 02:30 Buspirone HCl (Buspar) 15 mg BID PO Last administered on 10/07/17 20:01; Start 10/01/17 at 09:00 Clonazepam (KlonoPIN) 0.5 mg PRN Q6HRS PRN PO ANXIETY / AGITATION Last administered on 10/04/17 19:50; Start 10/01/17 at 03:15 Risperidone (RisperDAL) 0.5 mg BID PO Last administered on 10/02/17 07:27; Start 10/01/17 at 09:00; Stop 10/02/17 at 18:15; Status DC Trazodone HCl (Desyrel) 50 mg PRN QHS PRN PO INSOMNIA, MAY REPEAT X1 Last administered on 10/06/17 23:24; Start 10/01/17 at 03:15 Fluvoxamine Maleate (Luvox) 75 mg QHS PO Last administered on 10/02/17 19:23; Start 10/01/17 at 21:00; Stop 10/03/17 at 19:03; Status DC Acetaminophen (Tylenol) 650 mg Q6HRS PRN PO PAIN; Start 10/01/17 at 03:15; Stop 10/01/17 at 03:32; Status DC Cetirizine HCl (ZyrTEC) 10 mg PRN DAILY PRN PO ALLERGIES; Start 10/01/17 at 03: 15 Ciprofloxacin (Cipro) 250 mg BID66 PO Last administered on 10/07/17 17:29; Start 10/01/17 at 06:00; Stop 10/07/17 at 18:01; Status DC Clopidogrel Bisulfate (Plavix) 75 mg DAILY PO Last administered on 10/07/17 09:10; Start 10/01/17 at 09:00 Docusate Sodium (Colace) 100 mg BID PO Last administered on 10/02/17 07:29; Start 10/01/17 at 09:00; Stop 10/02/17 at 18:26; Status DC Insulin Detemir (Levemir) 17 units QHS SQ Last administered on 10/07/17 20:09 ; Start 10/01/17 at 21:00 Albuterol/ Ipratropium (Duoneb) 3 ml RTBID NEB Last administered on 10/06/17 21:09; Start 10/01/17 at 08:00 Albuterol Sulfate (Ventolin) 2.5 mg PRN Q2HR PRN NEB COUGH/SHORTNESS OF BREATH ; Start 10/01/17 at 03:30 Isosorbide Mononitrate (Imdur) 30 mg DAILY PO Last administered on 10/07/17 09:09; Start 10/01/17 at 09:00 Linagliptin (Tradjenta) 5 mg DAILY PO Last administered on 10/07/17 09:08; Start 10/01/17 at 09:00 Al Hydroxide/Mg Hydroxide (Mylanta Plus Xs) 15 ml PRN AFTMEALHC PRN PO DYSPEPSIA; Start 10/01/17 at 03:15; Stop 10/01/17 at 03:32; Status DC Metoprolol Tartrate (Lopressor) 12.5 mg BID PO Last administered on 10/07/17 20:06; Start 10/01/17 at 09:00 Nitroglycerin (Nitrostat) 0.4 mg PRN Q5MIN PRN SL CHEST PAIN; Start 10/01/17 at 03:15 Atorvastatin Calcium (Lipitor) 40 mg QHS PO Last administered on 10/07/17 20: 01; Start 10/01/17 at 21:00 Non-Formulary Medication 2,400 mg PRN DAILY PRN PO CONSTIPATION; Start at 03:15; Stop 10/01/17 at 03:32; Status DC Insulin Aspart (NovoLOG) 0-9 UNITS TIDACHC SQ ; Start 10/01/17 at 07:30; Stop 10/01/17 at 07:30; Status DC Dextrose 12.5 gm PRN Q15MIN PRN IV SEE COMMENTS; Start 10/01/17 at 03:30 Insulin Aspart (NovoLOG) 0-9 UNITS TIDAC SQ Last administered on 10/06/17 17: 03; Start 10/01/17 at 07:30 Lactobacillus Rhamnosus (Culturelle) 1 cap BID PO Last administered on 20:00; Start 10/01/17 at 21:00 Risperidone (RisperDAL) 0.25 mg BID PO Last administered on 10/07/17 09:08; Start 10/02/17 at 21:00; Stop 10/07/17 at 18:57; Status DC Mirtazapine (Remeron) 7.5 mg QHS PO Last administered on 10/07/17 20:01; Start 10/02/17 at 21:00 Docusate Calcium (Surfak) 240 mg DAILY PO Last administered on 10/07/17 09:08 ; Start 10/03/17 at 09:00 Fluvoxamine Maleate (Luvox) 100 mg QHS PO Last administered on 10/04/17 19:47 ; Start 10/03/17 at 21:00; Stop 10/05/17 at 18:23; Status DC Fluvoxamine Maleate (Luvox) 100 mg QHS PO Last administered on 10/07/17 20:01 ; Start 10/05/17 at 21:00 Fluvoxamine Maleate (Luvox) 25 mg HS PO Last administered on 10/07/17 20:01; Start 10/05/17 at 21:00 Nystatin (Nystop) 15 presley STK-MED ONCE TP Last administered on 10/06/17 17:05 ; Start 10/06/17 at 16:46; Stop 10/06/17 at 16:47; Status DC Quetiapine Fumarate (SEROquel) 12.5 mg TID@0900,1300,1700 PO ; Start 10/08/17 at 09:00 Active Scripts Active Cipro (Ciprofloxacin Hcl) 250 Mg Tablet 1 Tab PO BID Reported Levemir Flextouch (Insulin Detemir) 100 Unit/1 Ml Insuln.pen 17 Unit SQ QHS Myrbetriq (Mirabegron) 25 Mg Tab.er.24h 25 Mg PO DAILY Duoneb 0.5-3(2.5) Mg/3 Ml (Albuterol/Ipratropium) 3 Ml Ampul.neb 3 Ml NEB PRN BID PRN Metoprolol Tartrate 25 Mg Tablet 12.5 Mg PO BID For CHF and CAD patients: Hold for HR less than 50 or SBP less than 90. For all other patients: Hold for HR less than 60 or SBP less than 100. After a held dose, reassess in 2 hours. If HR and SBP are above threshold, administer dose as ordered. If HR and SBP are below threshold, contact provider. Novolog Flexpen (Insulin Aspart) 100 Unit/1 Ml Insuln.pen 0-9 Unit SQ TIDAC BG level: If eating: If not eating: < 70 Call Provider [phone] 4 [phone] 5 [phone] > or = 351 Call provider Trazodone Hcl 50 Mg Tablet 50 Mg PO PRN QHS PRN Give with food. MAY REPEAT IN 1 HOUR Risperidone 0.5 Mg Tablet 0.5 Mg PO BID Mag-Al Plus Xs Suspension (Mag Hydrox/Al Hydrox/Simeth) 30 Ml Oral.susp 15 Ml PO PRN AFTMEALHC PRN Tradjenta (Linagliptin) 5 Mg Tablet 5 Mg PO DAILY Duoneb 0.5-3(2.5) Mg/3 Ml (Albuterol/Ipratropium) 3 Ml Ampul.neb 3 Ml NEB PRN Q2HR PRN Fluvoxamine Maleate 50 Mg Tablet 75 Mg PO HS Cetirizine Hcl 10 Mg Tablet 10 Mg PO PRN DAILY PRN Milk Of Magnesia (Magnesium Hydroxide) 2,400 Mg/10 Ml Oral.susp 2,400 Mg PO PRN DAILY PRN Tylenol (Acetaminophen) 325 Mg Tablet 650 Mg PO Q6HRS PRN Plavix (Clopidogrel Bisulfate) 75 Mg Tablet 75 Mg PO DAILY NITROGLYCERIN SubLingual (Nitroglycerin) 0.4 Mg Tab.subl 0.4 Mg SL PRN Q5MIN PRN Hold for SBP less than or equal to 90 mmHg. Call provider for chest pain unrelieved by 1 sublingual nitroglycerin, may repeat X2 if chest pain persists. Lipitor (Atorvastatin Calcium) 40 Mg Tablet 40 Mg PO QHS Isosorbide Mononitrate Er (Isosorbide Mononitrate) 30 Mg Tab.er.24h 30 Mg PO DAILY DO NOT CRUSH OR CHEW Colace (Docusate Sodium) 100 Mg Capsule 100 Mg PO BID Hold for loose stools Clonazepam 0.5 Mg Tablet 0.5 Mg PO PRN Q6HRS PRN Buspirone Hcl 15 Mg Tablet 15 Mg PO BID I have reviewed the current psychotropics carefully including drug interactions. Risk benefit ratio favors no change other than as noted in my dictated progress note. Diagnosis: Problems: (1) Dementia (2) Major depressive disorder, recurrent episode (3) Vascular dementia with depressed mood (4) Vascular dementia with delusions (5) Dementia, vascular, with depression (6) Dementia, vascular, with delusions (7) Vascular dementia with behavior disturbance (8) Dementia in Alzheimer's disease with depression (9) Dementia in Alzheimer's disease with delusions TATIANA LAYTON MD Oct 07, 2017 20:14
[2017-10-07] MEDS: traZODone 50 MG TABLET. PO PRN (22:37)
[2017-10-08] MEDS: traZODone 50 MG TABLET. PO PRN ×2 (01:26→22:36)
--- NOTE | 2017-10-08 01:34 | PN ---
DATE: 10/06/2017 PSYCHIATRIC PROGRESS NOTE This is a late entry for 10/06/2017, covers elements not covered in my initial note of 10/06/2017. SUBJECTIVE: I met with the patient the evening of 10/06/2017. The patient slept 5-3/4 hours previous evening, alert, oriented to herself, yelling out for help, aware of her date of , not to place, sleeping intermittently off and on during the day. Previous evening, she was quite disorganized, defecated in her bed, took the bowel movement in her hand and threw it on the floor. REVIEW OF SYSTEMS: Bilateral blindness, impaired ambulation in a Broda chair. No CV, , pulmonary system symptoms on review. MENTAL STATUS EXAM: Oriented to herself and situation. Speech moderate latency, often responses monosyllabic. Abstraction fair, computation impaired, language function intact. Mood and affect still somewhat depressed, anxious. LABORATORY DATA: Reviewed. IMPRESSION: Major neurocognitive disorder, Alzheimer, vascular with depression, delusion; urinary tract infection; anxiety disorder, unspecified; impulse control disorder, unspecified. PLAN: Continue Cipro for UTI. Maintain rest of the psychotropics, trazodone 50 mg at bedtime p.r.n., may repeat x 1 for insomnia. TATIANA LAYTON MD DR: JHOAN/osiel JOB#: [id number] / [id number]
[2017-10-08 06:23] VITALS: BP 100/66
[2017-10-08] MEDS: INSULIN ASPART 300 UNITS/3 ML INSULN.PEN SQ SCH ×4 (07:30→20:17)
[2017-10-08] MEDS: METOPROLOL TART IMMED RELEASE 25 MG TABLET PO SCH ×2 (09:00→20:11)
[2017-10-08] MEDS: MIRABEGRON 25 MG TAB.ER.24H PO SCH (09:32)
[2017-10-08] MEDS: busPIRone 15 MG TABLET. PO SCH ×2 (09:32→20:10)
[2017-10-08] MEDS: LACTOBACILLUS RHAMNOSUS GG 1 CAPSULE. PO SCH ×2 (09:32→20:10)
[2017-10-08] MEDS: DOCUSATE CALCIUM 240 MG CAPSULE PO SCH (09:33)
[2017-10-08] MEDS: CLOPIDOGREL BISULFATE 75 MG TABLET PO SCH (09:33)
[2017-10-08] MEDS: LINAGLIPTIN 5 MG TABLET PO SCH (09:33)
[2017-10-08] MEDS: QUEtiapine 25 MG TABLET. PO SCH ×3 (09:37→17:03)
[2017-10-08] MEDS: ISOSORBIDE MONONITRATE ER 30 MG TAB.ER.24H PO SCH (09:38)
[2017-10-08] MEDS: IPRATRPIUM/ALBUTEROL 0.5/2.5MG 3 ML NEBU. NEB SCH ×2 (10:18→21:19)
[2017-10-08] MEDS: ACETAMINOPHEN 325 MG TABLET PO PRN ×2 (16:15→20:24)
[2017-10-08 16:35] VITALS: BP 127/84
[2017-10-08] MEDS: clonazePAM 0.5 MG TABLET PO PRN (18:13)
[2017-10-08] MEDS: ATORVASTATIN CALCIUM 20 MG TABLET PO SCH (20:10)
--- NOTE | 2017-10-08 20:14 | PDOC ---
Exam Note: [place] Note: Please also refer to the separate dictated note~for this date of service dictated separately.~Patient seen individually. Discussed the patient with Nursing staff reviewed the chart.~Reviewed interim history and current functioning. Reviewed vital signs,~Labs/ Radiology~and current medications noted below. Continue current treatment with the changes noted in the dictated addendum note Assessment: Vital Signs: Vital Signs Date Time Temp Pulse Resp B/P (MAP) Pulse Ox O2 Delivery O2 Flow Rate FiO2 10/08/17 16:35 97.6 79 19 127/84 (98) 97 10/08/17 10:18 Room Air I&O Intake and Output 10/08/17 07:00 Intake Total 600 ml Balance 600 ml Intake Oral 600 ml Labs: Laboratory Tests Test 10/08/17 07:21 10/08/17 11:06 10/08/17 16:49 10/08/17 19:10 Glucose (Fingerstick) 74 mg/dL (70-99) 130 mg/dL (70-99) H 131 mg/dL (70-99) H 210 mg/dL (70-99) H Current Medications: Meds: Current Medications Acetaminophen (Tylenol) 650 mg PRN Q6HRS PRN PO PAIN / TEMP Last administered on 10/08/17 16:15; Start 10/01/17 at 02:30 Al Hydroxide/Mg Hydroxide (Mylanta Plus Xs) 15 ml PRN AFTMEALHC PRN PO DYSPEPSIA; Start 10/01/17 at 02:30 Magnesium Hydroxide (Milk Of Magnesia) 2,400 mg PRN QHS PRN PO CONSTIPATION Last administered on 10/06/17 00:17; Start 10/01/17 at 02:30 Buspirone HCl (Buspar) 15 mg BID PO Last administered on 10/08/17 09:32; Start 10/01/17 at 09:00 Clonazepam (KlonoPIN) 0.5 mg PRN Q6HRS PRN PO ANXIETY / AGITATION Last administered on 10/08/17 18:13; Start 10/01/17 at 03:15 Risperidone (RisperDAL) 0.5 mg BID PO Last administered on 10/02/17 07:27; Start 10/01/17 at 09:00; Stop 10/02/17 at 18:15; Status DC Trazodone HCl (Desyrel) 50 mg PRN QHS PRN PO INSOMNIA, MAY REPEAT X1 Last administered on 10/08/17 01:26; Start 10/01/17 at 03:15 Fluvoxamine Maleate (Luvox) 75 mg QHS PO Last administered on 10/02/17 19:23; Start 10/01/17 at 21:00; Stop 10/03/17 at 19:03; Status DC Acetaminophen (Tylenol) 650 mg Q6HRS PRN PO PAIN; Start 10/01/17 at 03:15; Stop 10/01/17 at 03:32; Status DC Cetirizine HCl (ZyrTEC) 10 mg PRN DAILY PRN PO ALLERGIES; Start 10/01/17 at 03: 15 Ciprofloxacin (Cipro) 250 mg BID66 PO Last administered on 10/07/17 17:29; Start 10/01/17 at 06:00; Stop 10/07/17 at 18:01; Status DC Clopidogrel Bisulfate (Plavix) 75 mg DAILY PO Last administered on 10/08/17 09:33; Start 10/01/17 at 09:00 Docusate Sodium (Colace) 100 mg BID PO Last administered on 10/02/17 07:29; Start 10/01/17 at 09:00; Stop 10/02/17 at 18:26; Status DC Insulin Detemir (Levemir) 17 units QHS SQ Last administered on 10/07/17 20:09 ; Start 10/01/17 at 21:00 Albuterol/ Ipratropium (Duoneb) 3 ml RTBID NEB Last administered on 10/08/17 10:18; Start 10/01/17 at 08:00 Albuterol Sulfate (Ventolin) 2.5 mg PRN Q2HR PRN NEB COUGH/SHORTNESS OF BREATH ; Start 10/01/17 at 03:30 Isosorbide Mononitrate (Imdur) 30 mg DAILY PO Last administered on 10/08/17 09:38; Start 10/01/17 at 09:00 Linagliptin (Tradjenta) 5 mg DAILY PO Last administered on 10/08/17 09:33; Start 10/01/17 at 09:00 Al Hydroxide/Mg Hydroxide (Mylanta Plus Xs) 15 ml PRN AFTMEALHC PRN PO DYSPEPSIA; Start 10/01/17 at 03:15; Stop 10/01/17 at 03:32; Status DC Metoprolol Tartrate (Lopressor) 12.5 mg BID PO Last administered on 10/07/17 20:06; Start 10/01/17 at 09:00 Nitroglycerin (Nitrostat) 0.4 mg PRN Q5MIN PRN SL CHEST PAIN; Start 10/01/17 at 03:15 Atorvastatin Calcium (Lipitor) 40 mg QHS PO Last administered on 10/07/17 20: 01; Start 10/01/17 at 21:00 Non-Formulary Medication 2,400 mg PRN DAILY PRN PO CONSTIPATION; Start at 03:15; Stop 10/01/17 at 03:32; Status DC Insulin Aspart (NovoLOG) 0-9 UNITS TIDACHC SQ ; Start 10/01/17 at 07:30; Stop 10/01/17 at 07:30; Status DC Dextrose 12.5 gm PRN Q15MIN PRN IV SEE COMMENTS; Start 10/01/17 at 03:30 Insulin Aspart (NovoLOG) 0-9 UNITS TIDAC SQ Last administered on 10/06/17 17: 03; Start 10/01/17 at 07:30 Lactobacillus Rhamnosus (Culturelle) 1 cap BID PO Last administered on 09:32; Start 10/01/17 at 21:00 Risperidone (RisperDAL) 0.25 mg BID PO Last administered on 10/07/17 09:08; Start 10/02/17 at 21:00; Stop 10/07/17 at 18:57; Status DC Mirtazapine (Remeron) 7.5 mg QHS PO Last administered on 10/07/17 20:01; Start 10/02/17 at 21:00 Docusate Calcium (Surfak) 240 mg DAILY PO Last administered on 10/08/17 09:33 ; Start 10/03/17 at 09:00 Fluvoxamine Maleate (Luvox) 100 mg QHS PO Last administered on 10/04/17 19:47 ; Start 10/03/17 at 21:00; Stop 10/05/17 at 18:23; Status DC Fluvoxamine Maleate (Luvox) 100 mg QHS PO Last administered on 10/07/17 20:01 ; Start 10/05/17 at 21:00 Fluvoxamine Maleate (Luvox) 25 mg HS PO Last administered on 10/07/17 20:01; Start 10/05/17 at 21:00 Nystatin (Nystop) 15 presley STK-MED ONCE TP Last administered on 10/06/17 17:05 ; Start 10/06/17 at 16:46; Stop 10/06/17 at 16:47; Status DC Quetiapine Fumarate (SEROquel) 12.5 mg TID@0900,1300,1700 PO Last administered on 10/08/17 17:03; Start 10/08/17 at 09:00 Active Scripts Active Cipro (Ciprofloxacin Hcl) 250 Mg Tablet 1 Tab PO BID Reported Levemir Flextouch (Insulin Detemir) 100 Unit/1 Ml Insuln.pen 17 Unit SQ QHS Myrbetriq (Mirabegron) 25 Mg Tab.er.24h 25 Mg PO DAILY Duoneb 0.5-3(2.5) Mg/3 Ml (Albuterol/Ipratropium) 3 Ml Ampul.neb 3 Ml NEB PRN BID PRN Metoprolol Tartrate 25 Mg Tablet 12.5 Mg PO BID For CHF and CAD patients: Hold for HR less than 50 or SBP less than 90. For all other patients: Hold for HR less than 60 or SBP less than 100. After a held dose, reassess in 2 hours. If HR and SBP are above threshold, administer dose as ordered. If HR and SBP are below threshold, contact provider. Novolog Flexpen (Insulin Aspart) 100 Unit/1 Ml Insuln.pen 0-9 Unit SQ TIDAC BG level: If eating: If not eating: < 70 Call Provider [phone] 0 0 151-200 4 0 201-250 5 3 [phone] [phone] > or = 351 Call provider Trazodone Hcl 50 Mg Tablet 50 Mg PO PRN QHS PRN Give with food. MAY REPEAT IN 1 HOUR Risperidone 0.5 Mg Tablet 0.5 Mg PO BID Mag-Al Plus Xs Suspension (Mag Hydrox/Al Hydrox/Simeth) 30 Ml Oral.susp 15 Ml PO PRN AFTMEALHC PRN Tradjenta (Linagliptin) 5 Mg Tablet 5 Mg PO DAILY Duoneb 0.5-3(2.5) Mg/3 Ml (Albuterol/Ipratropium) 3 Ml Ampul.neb 3 Ml NEB PRN Q2HR PRN Fluvoxamine Maleate 50 Mg Tablet 75 Mg PO HS Cetirizine Hcl 10 Mg Tablet 10 Mg PO PRN DAILY PRN Milk Of Magnesia (Magnesium Hydroxide) 2,400 Mg/10 Ml Oral.susp 2,400 Mg PO PRN DAILY PRN Tylenol (Acetaminophen) 325 Mg Tablet 650 Mg PO Q6HRS PRN Plavix (Clopidogrel Bisulfate) 75 Mg Tablet 75 Mg PO DAILY NITROGLYCERIN SubLingual (Nitroglycerin) 0.4 Mg Tab.subl 0.4 Mg SL PRN Q5MIN PRN Hold for SBP less than or equal to 90 mmHg. Call provider for chest pain unrelieved by 1 sublingual nitroglycerin, may repeat X2 if chest pain persists. Lipitor (Atorvastatin Calcium) 40 Mg Tablet 40 Mg PO QHS Isosorbide Mononitrate Er (Isosorbide Mononitrate) 30 Mg Tab.er.24h 30 Mg PO DAILY DO NOT CRUSH OR CHEW Colace (Docusate Sodium) 100 Mg Capsule 100 Mg PO BID Hold for loose stools Clonazepam 0.5 Mg Tablet 0.5 Mg PO PRN Q6HRS PRN Buspirone Hcl 15 Mg Tablet 15 Mg PO BID I have reviewed the current psychotropics carefully including drug interactions. Risk benefit ratio favors no change other than as noted in my dictated progress note. Diagnosis: Problems: (1) Dementia (2) Major depressive disorder, recurrent episode (3) Vascular dementia with depressed mood (4) Vascular dementia with delusions (5) Dementia, vascular, with depression (6) Dementia, vascular, with delusions (7) Vascular dementia with behavior disturbance (8) Dementia in Alzheimer's disease with depression (9) Dementia in Alzheimer's disease with delusions TATIANA LAYTON MD Oct 08, 2017 20:14
[2017-10-08] MEDS: MIRTAZAPINE 7.5 MG TABLET. PO SCH (20:15)
[2017-10-08] MEDS: INSULIN DETEMIR 300 UNITS/3 ML INSULN.PEN. SQ SCH (20:16)
[2017-10-09] MEDS: clonazePAM 0.5 MG TABLET PO PRN (00:53)
[2017-10-09 06:32] VITALS: BP 90/56
[2017-10-09] MEDS: CLOPIDOGREL BISULFATE 75 MG TABLET PO SCH (08:26)
[2017-10-09] MEDS: DOCUSATE CALCIUM 240 MG CAPSULE PO SCH (08:26)
[2017-10-09] MEDS: LACTOBACILLUS RHAMNOSUS GG 1 CAPSULE. PO SCH ×2 (08:26→19:40)
[2017-10-09] MEDS: QUEtiapine 25 MG TABLET. PO SCH ×3 (08:26→16:20)
[2017-10-09] MEDS: LINAGLIPTIN 5 MG TABLET PO SCH (08:26)
[2017-10-09] MEDS: busPIRone 15 MG TABLET. PO SCH ×2 (08:27→19:36)
[2017-10-09] MEDS: ISOSORBIDE MONONITRATE ER 30 MG TAB.ER.24H PO SCH (08:30)
[2017-10-09] MEDS: MIRABEGRON 25 MG TAB.ER.24H PO SCH (08:31)
[2017-10-09] MEDS: METOPROLOL TART IMMED RELEASE 25 MG TABLET PO SCH ×2 (08:32→19:40)
[2017-10-09] MEDS: IPRATRPIUM/ALBUTEROL 0.5/2.5MG 3 ML NEBU. NEB SCH ×2 (09:56→20:56)
[2017-10-09] MEDS: INSULIN ASPART 300 UNITS/3 ML INSULN.PEN SQ SCH ×2 (11:30→16:30)
[2017-10-09 17:00] VITALS: BP 104/57
[2017-10-09] MEDS: MIRTAZAPINE 7.5 MG TABLET. PO SCH (19:35)
[2017-10-09] MEDS: ATORVASTATIN CALCIUM 20 MG TABLET PO SCH (19:35)
[2017-10-09] MEDS: INSULIN DETEMIR 300 UNITS/3 ML INSULN.PEN. SQ SCH (19:43)
[2017-10-10 06:20] VITALS: BP 138/63
[2017-10-10] MEDS: INSULIN ASPART 300 UNITS/3 ML INSULN.PEN SQ SCH ×3 (07:30→17:25)
--- NOTE | 2017-10-10 08:12 | PN ---
DATE: 10/07/2017 This is a late entry for 10/07/2017 and covers elements not covered in my initial note of 10/07/2017. I met with the patient in the evening of 12/08/2016. The patient remains anxious, labile. REVIEW OF SYSTEMS: Ambulation impaired, in Broda chair, bilateral blindness. No CV, , pulmonary system symptoms on review. Frequently, yelling out, help me, slept 6 hours previous evening. REVIEW OF SYSTEMS: As noted. MENTAL STATUS EXAM: Oriented to herself and situation. Speech coherent. Short term memory is impaired. Remote is better. Abstraction fair, computation impaired, language function intact. Mood and affect remains labile. LABORATORY DATA: Reviewed. IMPRESSION: Unchanged from initial note. PLAN: Change Risperdal to Seroquel 12.5 mg 9 a.m., 1:00 p.m., 5:00 p.m. She was quite sedated morning of 10/07/2017. Rapid response was called, but clinically she was okay. Dr. Laura ordered some labs, no changes made further. We will make further adjustments in psychotropics as clinically indicated. MAN Bev LAYTON MD DR: JHOAN/osiel JOB#: [id number] / [id number]
[2017-10-10] MEDS: LINAGLIPTIN 5 MG TABLET PO SCH (08:13)
[2017-10-10] MEDS: DOCUSATE CALCIUM 240 MG CAPSULE PO SCH (08:14)
[2017-10-10] MEDS: ISOSORBIDE MONONITRATE ER 30 MG TAB.ER.24H PO SCH (08:14)
[2017-10-10] MEDS: METOPROLOL TART IMMED RELEASE 25 MG TABLET PO SCH ×2 (08:14→19:59)
[2017-10-10] MEDS: busPIRone 15 MG TABLET. PO SCH ×2 (08:14→19:59)
[2017-10-10] MEDS: QUEtiapine 25 MG TABLET. PO SCH ×3 (08:15→17:24)
[2017-10-10] MEDS: LACTOBACILLUS RHAMNOSUS GG 1 CAPSULE. PO SCH ×2 (08:15→19:59)
--- NOTE | 2017-10-10 08:15 | PN ---
DATE: 10/08/2017 This late entry 10/08/2017 covers elements not covered in my initial note 10/08/2017. Staffed a treatment team meeting morning of 10/08/2017 seen individually evening of 10/08/2017 constantly yelling that she is having headaches and has bilateral blindness, impaired ambulation in Broda chair, compliant with medications. REVIEW OF SYSTEMS: No CV, , pulmonary, ENT system symptoms on review. Reliability poor. MENTAL STATUS EXAM: Oriented to herself, situation. Short term memory is impaired remote is better, still somewhat anxious, labile, tolerating the Seroquel along with BuSpar, Klonopin, trazodone, Luvox, and Remeron. IMPRESSION: Unchanged from initial note. PLAN: No change from the initial note as noted. MAN Bev LAYTON MD DR: JHOAN/osiel JOB#: [id number] / [id number]
[2017-10-10] MEDS: MIRABEGRON 25 MG TAB.ER.24H PO SCH (08:16)
[2017-10-10] MEDS: IPRATRPIUM/ALBUTEROL 0.5/2.5MG 3 ML NEBU. NEB SCH ×2 (10:10→20:55)
--- NOTE | 2017-10-10 10:38 | PDOC ---
Exam Note: [place] Note: This is late entry for date of service 10/09/2017.Please also refer to the separate dictated note~for this date of service dictated separately.~Patient seen individually. Discussed the patient with Nursing staff reviewed the chart.~ Reviewed interim history and current functioning. Reviewed vital signs,~Labs/ Radiology~and current medications noted below. Continue current treatment with the changes noted in the dictated addendum note Assessment: Vital Signs: VS - Last 72 Hours, by Label Date Time Temp Pulse Resp B/P (MAP) Pulse Ox O2 Delivery O2 Flow Rate FiO2 10/10/17 09:25 98 Room Air 10/10/17 08:14 71 138/63 10/10/17 08:14 71 138/63 10/10/17 06:20 98.1 71 18 138/63 (88) 93 10/09/17 20:55 96 Room Air 10/09/17 19:40 78 142/80 10/09/17 17:00 98.4 71 16 104/57 (73) 93 Room Air 10/09/17 09:57 96 Room Air 10/09/17 08:32 82 130/75 10/09/17 08:30 82 130/75 10/09/17 06:32 98.7 71 18 90/56 (67) 92 Room Air 10/08/17 21:19 97 Room Air 10/08/17 20:11 79 127/84 10/08/17 16:35 97.6 79 19 127/84 (98) 97 10/08/17 10:18 97 Room Air 10/08/17 09:38 65 100/66 10/08/17 09:00 65 100/66 10/08/17 06:23 98.1 65 16 100/66 (77) 95 10/07/17 21:08 96 Room Air 10/07/17 20:06 74 138/77 10/07/17 16:32 97.2 75 20 117/67 (84) 96 Vital Signs Date Time Temp Pulse Resp B/P (MAP) Pulse Ox O2 Delivery O2 Flow Rate FiO2 10/10/17 09:25 98 Room Air 10/10/17 08:14 71 138/63 10/10/17 06:20 98.1 18 I&O Intake and Output 10/10/17 07:00 Intake Total 360 ml Balance 360 ml Intake Oral 360 ml Labs: Laboratory Tests Test 10/09/17 12:21 10/09/17 16:59 10/09/17 19:06 10/10/17 07:14 Glucose (Fingerstick) 124 mg/dL (70-99) H 143 mg/dL (70-99) H 114 mg/dL (70-99) H 38 mg/dL (70-99) *L Test 10/10/17 07:42 10/10/17 09:13 Glucose (Fingerstick) 51 mg/dL (70-99) L 213 mg/dL (70-99) H Current Medications: Meds: Current Medications Acetaminophen (Tylenol) 650 mg PRN Q6HRS PRN PO PAIN / TEMP Last administered on 10/08/17 20:24; Start 10/01/17 at 02:30 Al Hydroxide/Mg Hydroxide (Mylanta Plus Xs) 15 ml PRN AFTMEALHC PRN PO DYSPEPSIA; Start 10/01/17 at 02:30 Magnesium Hydroxide (Milk Of Magnesia) 2,400 mg PRN QHS PRN PO CONSTIPATION Last administered on 10/06/17 00:17; Start 10/01/17 at 02:30 Buspirone HCl (Buspar) 15 mg BID PO Last administered on 10/10/17 08:14; Start 10/01/17 at 09:00 Clonazepam (KlonoPIN) 0.5 mg PRN Q6HRS PRN PO ANXIETY / AGITATION Last administered on 10/09/17 00:53; Start 10/01/17 at 03:15 Risperidone (RisperDAL) 0.5 mg BID PO Last administered on 10/02/17 07:27; Start 10/01/17 at 09:00; Stop 10/02/17 at 18:15; Status DC Trazodone HCl (Desyrel) 50 mg PRN QHS PRN PO INSOMNIA, MAY REPEAT X1 Last administered on 10/08/17 22:36; Start 10/01/17 at 03:15 Fluvoxamine Maleate (Luvox) 75 mg QHS PO Last administered on 10/02/17 19:23; Start 10/01/17 at 21:00; Stop 10/03/17 at 19:03; Status DC Acetaminophen (Tylenol) 650 mg Q6HRS PRN PO PAIN; Start 10/01/17 at 03:15; Stop 10/01/17 at 03:32; Status DC Cetirizine HCl (ZyrTEC) 10 mg PRN DAILY PRN PO ALLERGIES; Start 10/01/17 at 03: 15 Ciprofloxacin (Cipro) 250 mg BID66 PO Last administered on 10/07/17 17:29; Start 10/01/17 at 06:00; Stop 10/07/17 at 18:01; Status DC Clopidogrel Bisulfate (Plavix) 75 mg DAILY PO Last administered on 10/09/17 08:26; Start 10/01/17 at 09:00 Docusate Sodium (Colace) 100 mg BID PO Last administered on 10/02/17 07:29; Start 10/01/17 at 09:00; Stop 10/02/17 at 18:26; Status DC Insulin Detemir (Levemir) 17 units QHS SQ Last administered on 10/09/17 19:43 ; Start 10/01/17 at 21:00 Albuterol/ Ipratropium (Duoneb) 3 ml RTBID NEB Last administered on 10/10/17 10:10; Start 10/01/17 at 08:00 Albuterol Sulfate (Ventolin) 2.5 mg PRN Q2HR PRN NEB COUGH/SHORTNESS OF BREATH ; Start 10/01/17 at 03:30 Isosorbide Mononitrate (Imdur) 30 mg DAILY PO Last administered on 10/10/17 08:14; Start 10/01/17 at 09:00 Linagliptin (Tradjenta) 5 mg DAILY PO Last administered on 10/10/17 08:13; Start 10/01/17 at 09:00 Al Hydroxide/Mg Hydroxide (Mylanta Plus Xs) 15 ml PRN AFTMEALHC PRN PO DYSPEPSIA; Start 10/01/17 at 03:15; Stop 10/01/17 at 03:32; Status DC Metoprolol Tartrate (Lopressor) 12.5 mg BID PO Last administered on 10/10/17 08:14; Start 10/01/17 at 09:00 Nitroglycerin (Nitrostat) 0.4 mg PRN Q5MIN PRN SL CHEST PAIN; Start 10/01/17 at 03:15 Atorvastatin Calcium (Lipitor) 40 mg QHS PO Last administered on 10/09/17 19: 35; Start 10/01/17 at 21:00 Non-Formulary Medication 2,400 mg PRN DAILY PRN PO CONSTIPATION; Start at 03:15; Stop 10/01/17 at 03:32; Status DC Insulin Aspart (NovoLOG) 0-9 UNITS TIDACHC SQ ; Start 10/01/17 at 07:30; Stop 10/01/17 at 07:30; Status DC Dextrose 12.5 gm PRN Q15MIN PRN IV SEE COMMENTS; Start 10/01/17 at 03:30 Insulin Aspart (NovoLOG) 0-9 UNITS TIDAC SQ Last administered on 10/08/17 20: 17; Start 10/01/17 at 07:30 Lactobacillus Rhamnosus (Culturelle) 1 cap BID PO Last administered on 08:15; Start 10/01/17 at 21:00 Risperidone (RisperDAL) 0.25 mg BID PO Last administered on 10/07/17 09:08; Start 10/02/17 at 21:00; Stop 10/07/17 at 18:57; Status DC Mirtazapine (Remeron) 7.5 mg QHS PO Last administered on 10/09/17 19:35; Start 10/02/17 at 21:00 Docusate Calcium (Surfak) 240 mg DAILY PO Last administered on 10/10/17 08:14 ; Start 10/03/17 at 09:00 Fluvoxamine Maleate (Luvox) 100 mg QHS PO Last administered on 10/04/17 19:47 ; Start 10/03/17 at 21:00; Stop 10/05/17 at 18:23; Status DC Fluvoxamine Maleate (Luvox) 100 mg QHS PO Last administered on 10/09/17 19:40 ; Start 10/05/17 at 21:00 Fluvoxamine Maleate (Luvox) 25 mg HS PO Last administered on 10/09/17 19:40; Start 10/05/17 at 21:00 Nystatin (Nystop) 15 presley STK-MED ONCE TP Last administered on 10/06/17 17:05 ; Start 10/06/17 at 16:46; Stop 10/06/17 at 16:47; Status DC Quetiapine Fumarate (SEROquel) 12.5 mg TID@0900,1300,1700 PO Last administered on 10/10/17t 08:15; Start 10/08/17 at 09:00 Active Scripts Active Cipro (Ciprofloxacin Hcl) 250 Mg Tablet 1 Tab PO BID Reported Levemir Flextouch (Insulin Detemir) 100 Unit/1 Ml Insuln.pen 17 Unit SQ QHS Myrbetriq (Mirabegron) 25 Mg Tab.er.24h 25 Mg PO DAILY Duoneb 0.5-3(2.5) Mg/3 Ml (Albuterol/Ipratropium) 3 Ml Ampul.neb 3 Ml NEB PRN BID PRN Metoprolol Tartrate 25 Mg Tablet 12.5 Mg PO BID For CHF and CAD patients: Hold for HR less than 50 or SBP less than 90. For all other patients: Hold for HR less than 60 or SBP less than 100. After a held dose, reassess in 2 hours. If HR and SBP are above threshold, administer dose as ordered. If HR and SBP are below threshold, contact provider. Novolog Flexpen (Insulin Aspart) 100 Unit/1 Ml Insuln.pen 0-9 Unit SQ TIDAC BG level: If eating: If not eating: < 70 Call Provider [phone] 4 [phone] 5 [phone] > or = 351 Call provider Trazodone Hcl 50 Mg Tablet 50 Mg PO PRN QHS PRN Give with food. MAY REPEAT IN 1 HOUR Risperidone 0.5 Mg Tablet 0.5 Mg PO BID Mag-Al Plus Xs Suspension (Mag Hydrox/Al Hydrox/Simeth) 30 Ml Oral.susp 15 Ml PO PRN AFTMEALHC PRN Tradjenta (Linagliptin) 5 Mg Tablet 5 Mg PO DAILY Duoneb 0.5-3(2.5) Mg/3 Ml (Albuterol/Ipratropium) 3 Ml Ampul.neb 3 Ml NEB PRN Q2HR PRN Fluvoxamine Maleate 50 Mg Tablet 75 Mg PO HS Cetirizine Hcl 10 Mg Tablet 10 Mg PO PRN DAILY PRN Milk Of Magnesia (Magnesium Hydroxide) 2,400 Mg/10 Ml Oral.susp 2,400 Mg PO PRN DAILY PRN Tylenol (Acetaminophen) 325 Mg Tablet 650 Mg PO Q6HRS PRN Plavix (Clopidogrel Bisulfate) 75 Mg Tablet 75 Mg PO DAILY NITROGLYCERIN SubLingual (Nitroglycerin) 0.4 Mg Tab.subl 0.4 Mg SL PRN Q5MIN PRN Hold for SBP less than or equal to 90 mmHg. Call provider for chest pain unrelieved by 1 sublingual nitroglycerin, may repeat X2 if chest pain persists. Lipitor (Atorvastatin Calcium) 40 Mg Tablet 40 Mg PO QHS Isosorbide Mononitrate Er (Isosorbide Mononitrate) 30 Mg Tab.er.24h 30 Mg PO DAILY DO NOT CRUSH OR CHEW Colace (Docusate Sodium) 100 Mg Capsule 100 Mg PO BID Hold for loose stools Clonazepam 0.5 Mg Tablet 0.5 Mg PO PRN Q6HRS PRN Buspirone Hcl 15 Mg Tablet 15 Mg PO BID I have reviewed the current psychotropics carefully including drug interactions. Risk benefit ratio favors no change other than as noted in my dictated progress note. 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
[2017-10-10] MEDS: CLOPIDOGREL BISULFATE 75 MG TABLET PO SCH (13:42)
[2017-10-10 16:41] VITALS: BP 122/83
[2017-10-10] MEDS: ATORVASTATIN CALCIUM 20 MG TABLET PO SCH (19:58)
[2017-10-10] MEDS: MIRTAZAPINE 7.5 MG TABLET. PO SCH (19:59)
[2017-10-10] MEDS: INSULIN DETEMIR 300 UNITS/3 ML INSULN.PEN. SQ SCH (20:01)
--- NOTE | 2017-10-10 21:49 | PDOC ---
Exam Note: [place] Note: Please also refer to the separate dictated note~for this date of service dictated separately.~Patient seen individually. Discussed the patient with Nursing staff reviewed the chart.~Reviewed interim history and current functioning. Reviewed vital signs,~Labs/ Radiology~and current medications noted below. Continue current treatment with the changes noted in the dictated addendum note Assessment: Vital Signs: Vital Signs Date Time Temp Pulse Resp B/P (MAP) Pulse Ox O2 Delivery O2 Flow Rate FiO2 10/10/17 20:55 98 Room Air 10/10/17 19:59 80 122/83 10/10/17 16:41 98.6 18 I&O Intake and Output 10/10/17 07:00 Intake Total 360 ml Balance 360 ml Intake Oral 360 ml Labs: Laboratory Tests Test 10/10/17 07:14 10/10/17 07:42 10/10/17 09:13 10/10/17 11:35 Glucose (Fingerstick) 38 mg/dL (70-99) *L 51 mg/dL (70-99) L 213 mg/dL (70-99) H 160 mg/dL (70-99) H Test 10/10/17 16:28 10/10/17 19:00 Glucose (Fingerstick) 180 mg/dL (70-99) H 197 mg/dL (70-99) H Current Medications: Meds: Current Medications Acetaminophen (Tylenol) 650 mg PRN Q6HRS PRN PO PAIN / TEMP Last administered on 10/08/17 20:24; Start 10/01/17 at 02:30 Al Hydroxide/Mg Hydroxide (Mylanta Plus Xs) 15 ml PRN AFTMEALHC PRN PO DYSPEPSIA; Start 10/01/17 at 02:30 Magnesium Hydroxide (Milk Of Magnesia) 2,400 mg PRN QHS PRN PO CONSTIPATION Last administered on 10/06/17 00:17; Start 10/01/17 at 02:30 Buspirone HCl (Buspar) 15 mg BID PO Last administered on 10/10/17 19:59; Start 10/01/17 at 09:00 Clonazepam (KlonoPIN) 0.5 mg PRN Q6HRS PRN PO ANXIETY / AGITATION Last administered on 10/09/17 00:53; Start 10/01/17 at 03:15 Risperidone (RisperDAL) 0.5 mg BID PO Last administered on 10/02/17 07:27; Start 10/01/17 at 09:00; Stop 10/02/17 at 18:15; Status DC Trazodone HCl (Desyrel) 50 mg PRN QHS PRN PO INSOMNIA, MAY REPEAT X1 Last administered on 10/08/17 22:36; Start 10/01/17 at 03:15 Fluvoxamine Maleate (Luvox) 75 mg QHS PO Last administered on 10/02/17 19:23; Start 10/01/17 at 21:00; Stop 10/03/17 at 19:03; Status DC Acetaminophen (Tylenol) 650 mg Q6HRS PRN PO PAIN; Start 10/01/17 at 03:15; Stop 10/01/17 at 03:32; Status DC Cetirizine HCl (ZyrTEC) 10 mg PRN DAILY PRN PO ALLERGIES; Start 10/01/17 at 03: 15 Ciprofloxacin (Cipro) 250 mg BID66 PO Last administered on 10/07/17 17:29; Start 10/01/17 at 06:00; Stop 10/07/17 at 18:01; Status DC Clopidogrel Bisulfate (Plavix) 75 mg DAILY PO Last administered on 10/10/17 13:42; Start 10/01/17 at 09:00 Docusate Sodium (Colace) 100 mg BID PO Last administered on 10/02/17 07:29; Start 10/01/17 at 09:00; Stop 10/02/17 at 18:26; Status DC Insulin Detemir (Levemir) 17 units QHS SQ Last administered on 10/09/17 19:43 ; Start 10/01/17 at 21:00; Stop 10/10/17 at 11:26; Status DC Albuterol/ Ipratropium (Duoneb) 3 ml RTBID NEB Last administered on 10/10/17 20:55; Start 10/01/17 at 08:00 Albuterol Sulfate (Ventolin) 2.5 mg PRN Q2HR PRN NEB COUGH/SHORTNESS OF BREATH ; Start 10/01/17 at 03:30 Isosorbide Mononitrate (Imdur) 30 mg DAILY PO Last administered on 10/10/17 08:14; Start 10/01/17 at 09:00 Linagliptin (Tradjenta) 5 mg DAILY PO Last administered on 10/10/17 08:13; Start 10/01/17 at 09:00 Al Hydroxide/Mg Hydroxide (Mylanta Plus Xs) 15 ml PRN AFTMEALHC PRN PO DYSPEPSIA; Start 10/01/17 at 03:15; Stop 10/01/17 at 03:32; Status DC Metoprolol Tartrate (Lopressor) 12.5 mg BID PO Last administered on 10/10/17 19:59; Start 10/01/17 at 09:00 Nitroglycerin (Nitrostat) 0.4 mg PRN Q5MIN PRN SL CHEST PAIN; Start 10/01/17 at 03:15 Atorvastatin Calcium (Lipitor) 40 mg QHS PO Last administered on 10/10/17 19: 58; Start 10/01/17 at 21:00 Non-Formulary Medication 2,400 mg PRN DAILY PRN PO CONSTIPATION; Start at 03:15; Stop 10/01/17 at 03:32; Status DC Insulin Aspart (NovoLOG) 0-9 UNITS TIDACHC SQ ; Start 10/01/17 at 07:30; Stop 10/01/17 at 07:30; Status DC Dextrose 12.5 gm PRN Q15MIN PRN IV SEE COMMENTS; Start 10/01/17 at 03:30 Insulin Aspart (NovoLOG) 0-9 UNITS TIDAC SQ Last administered on 10/10/17 17: 25; Start 10/01/17 at 07:30 Lactobacillus Rhamnosus (Culturelle) 1 cap BID PO Last administered on 19:59; Start 10/01/17 at 21:00 Risperidone (RisperDAL) 0.25 mg BID PO Last administered on 10/07/17 09:08; Start 10/02/17 at 21:00; Stop 10/07/17 at 18:57; Status DC Mirtazapine (Remeron) 7.5 mg QHS PO Last administered on 10/10/17 19:59; Start 10/02/17 at 21:00 Docusate Calcium (Surfak) 240 mg DAILY PO Last administered on 10/10/17 08:14 ; Start 10/03/17 at 09:00 Fluvoxamine Maleate (Luvox) 100 mg QHS PO Last administered on 10/04/17 19:47 ; Start 10/03/17 at 21:00; Stop 10/05/17 at 18:23; Status DC Fluvoxamine Maleate (Luvox) 100 mg QHS PO Last administered on 10/10/17 19:58 ; Start 10/05/17 at 21:00 Fluvoxamine Maleate (Luvox) 25 mg HS PO Last administered on 10/10/17 19:58; Start 10/05/17 at 21:00 Nystatin (Nystop) 15 presley STK-MED ONCE TP Last administered on 10/06/17 17:05 ; Start 10/06/17 at 16:46; Stop 10/06/17 at 16:47; Status DC Quetiapine Fumarate (SEROquel) 12.5 mg TID@0900,1300,1700 PO Last administered on 10/10/17 17:24; Start 10/08/17 at 09:00 Insulin Detemir (Levemir) 12 units QHS SQ Last administered on 10/10/17 20:01 ; Start 10/10/17 at 21:00 Active Scripts Active Cipro (Ciprofloxacin Hcl) 250 Mg Tablet 1 Tab PO BID Reported Levemir Flextouch (Insulin Detemir) 100 Unit/1 Ml Insuln.pen 17 Unit SQ QHS Myrbetriq (Mirabegron) 25 Mg Tab.er.24h 25 Mg PO DAILY Duoneb 0.5-3(2.5) Mg/3 Ml (Albuterol/Ipratropium) 3 Ml Ampul.neb 3 Ml NEB PRN BID PRN Metoprolol Tartrate 25 Mg Tablet 12.5 Mg PO BID For CHF and CAD patients: Hold for HR less than 50 or SBP less than 90. For all other patients: Hold for HR less than 60 or SBP less than 100. After a held dose, reassess in 2 hours. If HR and SBP are above threshold, administer dose as ordered. If HR and SBP are below threshold, contact provider. Novolog Flexpen (Insulin Aspart) 100 Unit/1 Ml Insuln.pen 0-9 Unit SQ TIDAC BG level: If eating: If not eating: < 70 Call Provider [phone] 0 0 151-200 4 0 201-250 5 3 [phone] [phone] > or = 351 Call provider Trazodone Hcl 50 Mg Tablet 50 Mg PO PRN QHS PRN Give with food. MAY REPEAT IN 1 HOUR Risperidone 0.5 Mg Tablet 0.5 Mg PO BID Mag-Al Plus Xs Suspension (Mag Hydrox/Al Hydrox/Simeth) 30 Ml Oral.susp 15 Ml PO PRN AFTMEALHC PRN Tradjenta (Linagliptin) 5 Mg Tablet 5 Mg PO DAILY Duoneb 0.5-3(2.5) Mg/3 Ml (Albuterol/Ipratropium) 3 Ml Ampul.neb 3 Ml NEB PRN Q2HR PRN Fluvoxamine Maleate 50 Mg Tablet 75 Mg PO HS Cetirizine Hcl 10 Mg Tablet 10 Mg PO PRN DAILY PRN Milk Of Magnesia (Magnesium Hydroxide) 2,400 Mg/10 Ml Oral.susp 2,400 Mg PO PRN DAILY PRN Tylenol (Acetaminophen) 325 Mg Tablet 650 Mg PO Q6HRS PRN Plavix (Clopidogrel Bisulfate) 75 Mg Tablet 75 Mg PO DAILY NITROGLYCERIN SubLingual (Nitroglycerin) 0.4 Mg Tab.subl 0.4 Mg SL PRN Q5MIN PRN Hold for SBP less than or equal to 90 mmHg. Call provider for chest pain unrelieved by 1 sublingual nitroglycerin, may repeat X2 if chest pain persists. Lipitor (Atorvastatin Calcium) 40 Mg Tablet 40 Mg PO QHS Isosorbide Mononitrate Er (Isosorbide Mononitrate) 30 Mg Tab.er.24h 30 Mg PO DAILY DO NOT CRUSH OR CHEW Colace (Docusate Sodium) 100 Mg Capsule 100 Mg PO BID Hold for loose stools Clonazepam 0.5 Mg Tablet 0.5 Mg PO PRN Q6HRS PRN Buspirone Hcl 15 Mg Tablet 15 Mg PO BID I have reviewed the current psychotropics carefully including drug interactions. Risk benefit ratio favors no change other than as noted in my dictated progress note. Diagnosis: Problems: (1) Dementia (2) Major depressive disorder, recurrent episode (3) Vascular dementia with depressed mood (4) Vascular dementia with delusions (5) Dementia, vascular, with depression (6) Dementia, vascular, with delusions (7) Vascular dementia with behavior disturbance (8) Dementia in Alzheimer's disease with depression (9) Dementia in Alzheimer's disease with delusions TATIANA LAYTON MD Oct 10, 2017 21:49
[2017-10-11] MEDS: traZODone 50 MG TABLET. PO PRN (00:06)
[2017-10-11] MEDS: ACETAMINOPHEN 325 MG TABLET PO PRN ×2 (05:32→12:54)
[2017-10-11 05:55] VITALS: BP 147/67
[2017-10-11] MEDS: INSULIN ASPART 300 UNITS/3 ML INSULN.PEN SQ SCH ×3 (07:30→16:25)
[2017-10-11] MEDS: LINAGLIPTIN 5 MG TABLET PO SCH (07:54)
[2017-10-11] MEDS: ISOSORBIDE MONONITRATE ER 30 MG TAB.ER.24H PO SCH (07:54)
[2017-10-11] MEDS: DOCUSATE CALCIUM 240 MG CAPSULE PO SCH (07:54)
[2017-10-11] MEDS: CLOPIDOGREL BISULFATE 75 MG TABLET PO SCH (07:54)
[2017-10-11] MEDS: QUEtiapine 25 MG TABLET. PO SCH ×3 (07:55→16:24)
[2017-10-11] MEDS: METOPROLOL TART IMMED RELEASE 25 MG TABLET PO SCH ×2 (07:55→20:01)
[2017-10-11] MEDS: busPIRone 15 MG TABLET. PO SCH ×2 (07:56→19:59)
[2017-10-11] MEDS: LACTOBACILLUS RHAMNOSUS GG 1 CAPSULE. PO SCH ×2 (07:56→20:00)
[2017-10-11] MEDS: MIRABEGRON 25 MG TAB.ER.24H PO SCH (07:56)
[2017-10-11] MEDS: clonazePAM 0.5 MG TABLET PO PRN (09:58)
[2017-10-11] MEDS: IPRATRPIUM/ALBUTEROL 0.5/2.5MG 3 ML NEBU. NEB SCH ×2 (11:45→21:32)
[2017-10-11 16:12] VITALS: BP 131/80
[2017-10-11] MEDS: ATORVASTATIN CALCIUM 20 MG TABLET PO SCH (19:59)
[2017-10-11] MEDS: MIRTAZAPINE 15 MG TABLET PO SCH (20:04)
[2017-10-11] MEDS: INSULIN DETEMIR 300 UNITS/3 ML INSULN.PEN. SQ SCH (20:07)
--- NOTE | 2017-10-11 20:17 | PDOC ---
Exam Note: [place] Note: Please also refer to the separate dictated note~for this date of service dictated separately.~Patient seen individually. Discussed the patient with Nursing staff reviewed the chart.~Reviewed interim history and current functioning. Reviewed vital signs,~Labs/ Radiology~and current medications noted below. Continue current treatment with the changes noted in the dictated addendum note Assessment: Vital Signs: Vital Signs Date Time Temp Pulse Resp B/P (MAP) Pulse Ox O2 Delivery O2 Flow Rate FiO2 10/11/17 20:01 76 131/80 10/11/17 16:12 98.3 18 95 10/11/17 11:46 Room Air I&O Intake and Output 10/11/17 07:00 Intake Total 420 ml Balance 420 ml Intake Oral 420 ml Labs: Laboratory Tests Test 10/11/17 07:20 10/11/17 11:27 10/11/17 16:19 10/11/17 19:28 Glucose (Fingerstick) 90 mg/dL (70-99) 268 mg/dL (70-99) H 104 mg/dL (70-99) H 247 mg/dL (70-99) H Current Medications: Meds: Current Medications Acetaminophen (Tylenol) 650 mg PRN Q6HRS PRN PO PAIN / TEMP Last administered on 10/11/17 12:54; Start 10/01/17 at 02:30 Al Hydroxide/Mg Hydroxide (Mylanta Plus Xs) 15 ml PRN AFTMEALHC PRN PO DYSPEPSIA; Start 10/01/17 at 02:30 Magnesium Hydroxide (Milk Of Magnesia) 2,400 mg PRN QHS PRN PO CONSTIPATION Last administered on 10/06/17 00:17; Start 10/01/17 at 02:30 Buspirone HCl (Buspar) 15 mg BID PO Last administered on 10/11/17 19:59; Start 10/01/17 at 09:00 Clonazepam (KlonoPIN) 0.5 mg PRN Q6HRS PRN PO ANXIETY / AGITATION Last administered on 10/11/17 09:58; Start 10/01/17 at 03:15 Risperidone (RisperDAL) 0.5 mg BID PO Last administered on 10/02/17 07:27; Start 10/01/17 at 09:00; Stop 10/02/17 at 18:15; Status DC Trazodone HCl (Desyrel) 50 mg PRN QHS PRN PO INSOMNIA, MAY REPEAT X1 Last administered on 10/11/17 00:06; Start 10/01/17 at 03:15 Fluvoxamine Maleate (Luvox) 75 mg QHS PO Last administered on 10/02/17 19:23; Start 10/01/17 at 21:00; Stop 10/03/17 at 19:03; Status DC Acetaminophen (Tylenol) 650 mg Q6HRS PRN PO PAIN; Start 10/01/17 at 03:15; Stop 10/01/17 at 03:32; Status DC Cetirizine HCl (ZyrTEC) 10 mg PRN DAILY PRN PO ALLERGIES; Start 10/01/17 at 03: 15 Ciprofloxacin (Cipro) 250 mg BID66 PO Last administered on 10/07/17 17:29; Start 10/01/17 at 06:00; Stop 10/07/17 at 18:01; Status DC Clopidogrel Bisulfate (Plavix) 75 mg DAILY PO Last administered on 10/11/17 07:54; Start 10/01/17 at 09:00 Docusate Sodium (Colace) 100 mg BID PO Last administered on 10/02/17 07:29; Start 10/01/17 at 09:00; Stop 10/02/17 at 18:26; Status DC Insulin Detemir (Levemir) 17 units QHS SQ Last administered on 10/09/17 19:43 ; Start 10/01/17 at 21:00; Stop 10/10/17 at 11:26; Status DC Albuterol/ Ipratropium (Duoneb) 3 ml RTBID NEB Last administered on 10/11/17 11:45; Start 10/01/17 at 08:00 Albuterol Sulfate (Ventolin) 2.5 mg PRN Q2HR PRN NEB COUGH/SHORTNESS OF BREATH ; Start 10/01/17 at 03:30 Isosorbide Mononitrate (Imdur) 30 mg DAILY PO Last administered on 10/11/17 07:54; Start 10/01/17 at 09:00 Linagliptin (Tradjenta) 5 mg DAILY PO Last administered on 10/11/17 07:54; Start 10/01/17 at 09:00 Al Hydroxide/Mg Hydroxide (Mylanta Plus Xs) 15 ml PRN AFTMEALHC PRN PO DYSPEPSIA; Start 10/01/17 at 03:15; Stop 10/01/17 at 03:32; Status DC Metoprolol Tartrate (Lopressor) 12.5 mg BID PO Last administered on 10/11/17 20:01; Start 10/01/17 at 09:00 Nitroglycerin (Nitrostat) 0.4 mg PRN Q5MIN PRN SL CHEST PAIN; Start 10/01/17 at 03:15 Atorvastatin Calcium (Lipitor) 40 mg QHS PO Last administered on 10/11/17 19: 59; Start 10/01/17 at 21:00 Non-Formulary Medication 2,400 mg PRN DAILY PRN PO CONSTIPATION; Start at 03:15; Stop 10/01/17 at 03:32; Status DC Insulin Aspart (NovoLOG) 0-9 UNITS TIDACHC SQ ; Start 10/01/17 at 07:30; Stop 10/01/17 at 07:30; Status DC Dextrose 12.5 gm PRN Q15MIN PRN IV SEE COMMENTS; Start 10/01/17 at 03:30 Insulin Aspart (NovoLOG) 0-9 UNITS TIDAC SQ Last administered on 10/11/17 12: 54; Start 10/01/17 at 07:30 Lactobacillus Rhamnosus (Culturelle) 1 cap BID PO Last administered on 20:00; Start 10/01/17 at 21:00 Risperidone (RisperDAL) 0.25 mg BID PO Last administered on 10/07/17 09:08; Start 10/02/17 at 21:00; Stop 10/07/17 at 18:57; Status DC Mirtazapine (Remeron) 7.5 mg QHS PO Last administered on 10/10/17 19:59; Start 10/02/17 at 21:00; Stop 10/11/17 at 19:36; Status DC Docusate Calcium (Surfak) 240 mg DAILY PO Last administered on 10/11/17 07:54 ; Start 10/03/17 at 09:00 Fluvoxamine Maleate (Luvox) 100 mg QHS PO Last administered on 10/04/17 19:47 ; Start 10/03/17 at 21:00; Stop 10/05/17 at 18:23; Status DC Fluvoxamine Maleate (Luvox) 100 mg QHS PO Last administered on 10/11/17 19:59 ; Start 10/05/17 at 21:00 Fluvoxamine Maleate (Luvox) 25 mg HS PO Last administered on 10/11/17 19:59; Start 10/05/17 at 21:00 Nystatin (Nystop) 15 presley STK-MED ONCE TP Last administered on 10/06/17 17:05 ; Start 10/06/17 at 16:46; Stop 10/06/17 at 16:47; Status DC Quetiapine Fumarate (SEROquel) 12.5 mg TID@0900,1300,1700 PO Last administered on 10/11/17 16:24; Start 10/08/17 at 09:00 Insulin Detemir (Levemir) 12 units QHS SQ Last administered on 10/11/17 20:07 ; Start 10/10/17 at 21:00 Mirtazapine (Remeron) 15 mg QHS PO Last administered on 10/11/17 20:04; Start 10/11/17 at 21:00 Active Scripts Active Cipro (Ciprofloxacin Hcl) 250 Mg Tablet 1 Tab PO BID Reported Levemir Flextouch (Insulin Detemir) 100 Unit/1 Ml Insuln.pen 17 Unit SQ QHS Myrbetriq (Mirabegron) 25 Mg Tab.er.24h 25 Mg PO DAILY Duoneb 0.5-3(2.5) Mg/3 Ml (Albuterol/Ipratropium) 3 Ml Ampul.neb 3 Ml NEB PRN BID PRN Metoprolol Tartrate 25 Mg Tablet 12.5 Mg PO BID For CHF and CAD patients: Hold for HR less than 50 or SBP less than 90. For all other patients: Hold for HR less than 60 or SBP less than 100. After a held dose, reassess in 2 hours. If HR and SBP are above threshold, administer dose as ordered. If HR and SBP are below threshold, contact provider. Novolog Flexpen (Insulin Aspart) 100 Unit/1 Ml Insuln.pen 0-9 Unit SQ TIDAC BG level: If eating: If not eating: < 70 Call Provider [phone] 4 [phone] 5 3 [phone] > or = 351 Call provider Trazodone Hcl 50 Mg Tablet 50 Mg PO PRN QHS PRN Give with food. MAY REPEAT IN 1 HOUR Risperidone 0.5 Mg Tablet 0.5 Mg PO BID Mag-Al Plus Xs Suspension (Mag Hydrox/Al Hydrox/Simeth) 30 Ml Oral.susp 15 Ml PO PRN AFTMEALHC PRN Tradjenta (Linagliptin) 5 Mg Tablet 5 Mg PO DAILY Duoneb 0.5-3(2.5) Mg/3 Ml (Albuterol/Ipratropium) 3 Ml Ampul.neb 3 Ml NEB PRN Q2HR PRN Fluvoxamine Maleate 50 Mg Tablet 75 Mg PO HS Cetirizine Hcl 10 Mg Tablet 10 Mg PO PRN DAILY PRN Milk Of Magnesia (Magnesium Hydroxide) 2,400 Mg/10 Ml Oral.susp 2,400 Mg PO PRN DAILY PRN Tylenol (Acetaminophen) 325 Mg Tablet 650 Mg PO Q6HRS PRN Plavix (Clopidogrel Bisulfate) 75 Mg Tablet 75 Mg PO DAILY NITROGLYCERIN SubLingual (Nitroglycerin) 0.4 Mg Tab.subl 0.4 Mg SL PRN Q5MIN PRN Hold for SBP less than or equal to 90 mmHg. Call provider for chest pain unrelieved by 1 sublingual nitroglycerin, may repeat X2 if chest pain persists. Lipitor (Atorvastatin Calcium) 40 Mg Tablet 40 Mg PO QHS Isosorbide Mononitrate Er (Isosorbide Mononitrate) 30 Mg Tab.er.24h 30 Mg PO DAILY DO NOT CRUSH OR CHEW Colace (Docusate Sodium) 100 Mg Capsule 100 Mg PO BID Hold for loose stools Clonazepam 0.5 Mg Tablet 0.5 Mg PO PRN Q6HRS PRN Buspirone Hcl 15 Mg Tablet 15 Mg PO BID I have reviewed the current psychotropics carefully including drug interactions. Risk benefit ratio favors no change other than as noted in my dictated progress note. Diagnosis: Problems: (1) Dementia (2) Major depressive disorder, recurrent episode (3) Vascular dementia with depressed mood (4) Vascular dementia with delusions (5) Dementia, vascular, with depression (6) Dementia, vascular, with delusions (7) Vascular dementia with behavior disturbance (8) Dementia in Alzheimer's disease with depression (9) Dementia in Alzheimer's disease with delusions TATIANA LAYTON MD Oct 11, 2017 20:17
--- NOTE | 2017-10-12 03:43 | PN ---
DATE: 10/10/2017 PSYCHIATRIC PROGRESS NOTE This is a late entry 10/10/2017 covers elements not covered in my initial note of 10/10/2017. I met with the patient in the evening of 10/10/2017. The patient has done better most of the day, but yelling persists, though it is improved and intermittent. She had regular conversations with nursing staff remote memory is reasonable. Discussed with nursing staff about the fact that she has good hearing, even though she is totally blind. I have got a couple of Imelda fire and left it on the unit, hopefully to use with her for audio books and music so as to heighten the sensory hearing that she already has and reduce anxiety consequent to her blindness, which makes her yell out. REVIEW OF SYSTEMS: She is blind, impaired ambulation, in Broda chair. No CV, , pulmonary, eye system symptoms on review. Other as noted above. MENTAL STATUS EXAM: Oriented to herself and situation. Speech coherent, has some latency. Abstraction fair, computation impaired, language function intact. Mood and affect remain somewhat depressed. LABORATORY DATA: Reviewed. IMPRESSION: Major depressive disorder with psychotic features; major neurocognitive disorder, Alzheimer, vascular with delusion, depression. Rest unchanged. Status post urinary tract infection. PLAN: Continue psychotropics mentioned in my initial note. Luvox, Remeron, Seroquel, trazodone, BuSpar, along with Klonopin p.r.n. TATIANA LAYTON MD DR: JHOAN/osiel JOB#: [id number] / [id number]
[2017-10-12 06:39] VITALS: BP 147/72
--- NOTE | 2017-10-12 07:14 | PN ---
DATE: 10/09/2017 This late entry 10/09/2017 covers elements not covered in my initial note 10/09/2017. Met with the patient evening of 10/09/2017. SUBJECTIVE: The patient slept 5 hours previous evening, has done reasonably well most of the day, but more agitated, anxious, labile, yelling out toward the evening, refused her supper previous evening. Oral intake was poor. Received Klonopin at 1:00 a.m., blood pressure process controller was 90/56, repeat 130/75 one hour later. REVIEW OF SYSTEMS: Ambulation impaired, in wheelchair. No CV, , pulmonary, eye system symptoms on review. MENTAL STATUS EXAM: Oriented to herself and situation. Speech moderate latency, often responses monosyllabic. Abstraction fair, computation impaired, language function intact, attention span short. Mood and affect remain somewhat depressed, less psychotic. LABORATORY DATA: Reviewed. IMPRESSION: Major depressive disorder with psychotic features, bipolar 1 disorder, mixed with psychotic features. Major neurocognitive disorder, Alzheimer, vascular with depression, delusion. Rest unchanged from initial note. PLAN: Continue psychotropics mentioned in my initial note. MAN Bev LAYTON MD DR: JHOAN/osiel JOB#: [id number] / [id number]
[2017-10-12] MEDS: INSULIN ASPART 300 UNITS/3 ML INSULN.PEN SQ SCH ×3 (07:30→17:23)
[2017-10-12 07:58] LABS: BASO % 0 % (0-3); EOS # 0.2 x10^3/uL (0.0-0.7); EOS % 2 % (0-3); HEMATOCRIT 43.9 % (36.0-47.0); HEMOGLOBIN 14.4 g/dL (12.0-15.5); LYMPH # 2.9 x10^3/uL (1.0-4.8); LYMPH % 36 % (24-48); MEAN CORPUSCULAR HEMOGLOBIN 31 pg (25-35); MEAN CORPUSCULAR HGB CONC 33 g/dL (31-37); MEAN CORPUSCULAR VOLUME 93 fL (79-100); MONO # 0.7 x10^3/uL (0.0-1.1); MONO % 9 % (0-9); NEUT # 4.3 x10^3uL (1.8-7.7); NEUT % 53 % (31-73); PLATELET COUNT 172 x10^3/uL (140-400); RED BLOOD COUNT 4.71 x10^6/uL (3.50-5.40); RED CELL DISTRIBUTION WIDTH 13.7 % (11.5-14.5); WHITE BLOOD COUNT 8.1 x10^3/uL (4.0-11.0)
[2017-10-12 08:16] LABS: ALBUMIN 3.3 g/dL (3.4-5.0); ALBUMIN/GLOBULIN RATIO 0.8 (1.0-1.7); CREATININE 1.1 mg/dL (0.6-1.0); POTASSIUM 4.4 mmol/L (3.5-5.1); TOTAL BILIRUBIN 0.3 mg/dL (0.2-1.0); TOTAL PROTEIN 7.3 g/dL (6.4-8.2)
[2017-10-12] MEDS: QUEtiapine 25 MG TABLET. PO SCH ×3 (08:49→17:24)
[2017-10-12] MEDS: CLOPIDOGREL BISULFATE 75 MG TABLET PO SCH (08:49)
[2017-10-12] MEDS: busPIRone 15 MG TABLET. PO SCH ×2 (08:49→19:31)
[2017-10-12] MEDS: MIRABEGRON 25 MG TAB.ER.24H PO SCH (08:49)
[2017-10-12] MEDS: DOCUSATE CALCIUM 240 MG CAPSULE PO SCH (08:49)
[2017-10-12] MEDS: LINAGLIPTIN 5 MG TABLET PO SCH (08:49)
[2017-10-12] MEDS: METOPROLOL TART IMMED RELEASE 25 MG TABLET PO SCH ×2 (08:50→19:32)
[2017-10-12] MEDS: LACTOBACILLUS RHAMNOSUS GG 1 CAPSULE. PO SCH ×2 (08:50→19:31)
[2017-10-12] MEDS: ISOSORBIDE MONONITRATE ER 30 MG TAB.ER.24H PO SCH (08:51)
[2017-10-12] MEDS: IPRATRPIUM/ALBUTEROL 0.5/2.5MG 3 ML NEBU. NEB SCH ×2 (10:24→20:00)
[2017-10-12 16:02] VITALS: BP 123/57
[2017-10-12] MEDS: ATORVASTATIN CALCIUM 20 MG TABLET PO SCH (19:31)
[2017-10-12] MEDS: MIRTAZAPINE 15 MG TABLET PO SCH (19:32)
[2017-10-12] MEDS: traZODone 50 MG TABLET. PO SCH (19:34)
[2017-10-12] MEDS: INSULIN DETEMIR 300 UNITS/3 ML INSULN.PEN. SQ SCH (19:35)
--- NOTE | 2017-10-12 20:08 | PDOC ---
Exam Note: [place] Note: Please also refer to the separate dictated note~for this date of service dictated separately.~Patient seen individually. Discussed the patient with Nursing staff reviewed the chart.~Reviewed interim history and current functioning. Reviewed vital signs,~Labs/ Radiology~and current medications noted below. Continue current treatment with the changes noted in the dictated addendum note Assessment: Vital Signs: Vital Signs Date Time Temp Pulse Resp B/P (MAP) Pulse Ox O2 Delivery O2 Flow Rate FiO2 10/12/17 19:32 80 123/68 10/12/17 16:02 97.4 16 95 10/12/17 10:24 Room Air I&O Intake and Output 10/12/17 07:00 Intake Total 600 ml Balance 600 ml Intake Oral 600 ml # Voids 2 # Bowel Movements 3 Labs: Laboratory Tests Test 10/12/17 07:25 10/12/17 07:31 10/12/17 11:30 10/12/17 16:27 Glucose (Fingerstick) 103 mg/dL (70-99) H 140 mg/dL (70-99) H 200 mg/dL (70-99) H White Blood Count 8.1 x10^3/uL (4.0-11.0) Red Blood Count 4.71 x10^6/uL (3.50-5.40) Hemoglobin 14.4 g/dL (12.0-15.5) Hematocrit 43.9 % (36.0-47.0) Mean Corpuscular Volume 93 fL (79-100) Mean Corpuscular Hemoglobin 31 pg (25-35) Mean Corpuscular Hemoglobin Concent 33 g/dL (31-37) Red Cell Distribution Width 13.7 % (11.5-14.5) Platelet Count 172 x10^3/uL (140-400) Neutrophils (%) (Auto) 53 % (31-73) Lymphocytes (%) (Auto) 36 % (24-48) Monocytes (%) (Auto) 9 % (0-9) Eosinophils (%) (Auto) 2 % (0-3) Basophils (%) (Auto) 0 % (0-3) Neutrophils # (Auto) 4.3 x10^3uL (1.8-7.7) Lymphocytes # (Auto) 2.9 x10^3/uL (1.0-4.8) Monocytes # (Auto) 0.7 x10^3/uL (0.0-1.1) Eosinophils # (Auto) 0.2 x10^3/uL (0.0-0.7) Basophils # (Auto) 0.0 x10^3/uL (0.0-0.2) Sodium Level 147 mmol/L (136-145) H Potassium Level 4.4 mmol/L (3.5-5.1) Chloride Level 110 mmol/L (98-107) H Carbon Dioxide Level 30 mmol/L (21-32) Anion Gap 7 (6-14) Blood Urea Nitrogen 22 mg/dL (7-20) H Creatinine 1.1 mg/dL (0.6-1.0) H Estimated GFR (Cockcroft-Gault) 47.0 BUN/Creatinine Ratio 20 (6-20) Glucose Level 126 mg/dL (70-99) H Calcium Level 9.0 mg/dL (8.5-10.1) Total Bilirubin 0.3 mg/dL (0.2-1.0) Aspartate Amino Transferase (AST) 18 U/L (15-37) Alanine Aminotransferase (ALT) 22 U/L (14-59) Alkaline Phosphatase 77 U/L (46-116) Total Protein 7.3 g/dL (6.4-8.2) Albumin 3.3 g/dL (3.4-5.0) L Albumin/Globulin Ratio 0.8 (1.0-1.7) L Test 10/12/17 19:03 Glucose (Fingerstick) 199 mg/dL (70-99) H Current Medications: Meds: Current Medications Acetaminophen (Tylenol) 650 mg PRN Q6HRS PRN PO PAIN / TEMP Last administered on 10/11/17 12:54; Start 10/01/17 at 02:30 Al Hydroxide/Mg Hydroxide (Mylanta Plus Xs) 15 ml PRN AFTMEALHC PRN PO DYSPEPSIA; Start 10/01/17 at 02:30 Magnesium Hydroxide (Milk Of Magnesia) 2,400 mg PRN QHS PRN PO CONSTIPATION Last administered on 10/06/17 00:17; Start 10/01/17 at 02:30 Buspirone HCl (Buspar) 15 mg BID PO Last administered on 10/12/17 19:31; Start 10/01/17 at 09:00 Clonazepam (KlonoPIN) 0.5 mg PRN Q6HRS PRN PO ANXIETY / AGITATION Last administered on 10/11/17 09:58; Start 10/01/17 at 03:15 Risperidone (RisperDAL) 0.5 mg BID PO Last administered on 10/02/17 07:27; Start 10/01/17 at 09:00; Stop 10/02/17 at 18:15; Status DC Trazodone HCl (Desyrel) 50 mg PRN QHS PRN PO INSOMNIA Last administered on 00:06; Start 10/01/17 at 03:15 Fluvoxamine Maleate (Luvox) 75 mg QHS PO Last administered on 10/02/17 19:23; Start 10/01/17 at 21:00; Stop 10/03/17 at 19:03; Status DC Acetaminophen (Tylenol) 650 mg Q6HRS PRN PO PAIN; Start 10/01/17 at 03:15; Stop 10/01/17 at 03:32; Status DC Cetirizine HCl (ZyrTEC) 10 mg PRN DAILY PRN PO ALLERGIES; Start 10/01/17 at 03: 15 Ciprofloxacin (Cipro) 250 mg BID66 PO Last administered on 10/07/17 17:29; Start 10/01/17 at 06:00; Stop 10/07/17 at 18:01; Status DC Clopidogrel Bisulfate (Plavix) 75 mg DAILY PO Last administered on 10/12/17 08:49; Start 10/01/17 at 09:00 Docusate Sodium (Colace) 100 mg BID PO Last administered on 10/02/17 07:29; Start 10/01/17 at 09:00; Stop 10/02/17 at 18:26; Status DC Insulin Detemir (Levemir) 17 units QHS SQ Last administered on 10/09/17 19:43 ; Start 10/01/17 at 21:00; Stop 10/10/17 at 11:26; Status DC Albuterol/ Ipratropium (Duoneb) 3 ml RTBID NEB Last administered on 10/12/17 10:24; Start 10/01/17 at 08:00 Albuterol Sulfate (Ventolin) 2.5 mg PRN Q2HR PRN NEB COUGH/SHORTNESS OF BREATH ; Start 10/01/17 at 03:30 Isosorbide Mononitrate (Imdur) 30 mg DAILY PO Last administered on 10/12/17 08:51; Start 10/01/17 at 09:00 Linagliptin (Tradjenta) 5 mg DAILY PO Last administered on 10/12/17 08:49; Start 10/01/17 at 09:00 Al Hydroxide/Mg Hydroxide (Mylanta Plus Xs) 15 ml PRN AFTMEALHC PRN PO DYSPEPSIA; Start 10/01/17 at 03:15; Stop 10/01/17 at 03:32; Status DC Metoprolol Tartrate (Lopressor) 12.5 mg BID PO Last administered on 10/12/17 19:32; Start 10/01/17 at 09:00 Nitroglycerin (Nitrostat) 0.4 mg PRN Q5MIN PRN SL CHEST PAIN; Start 10/01/17 at 03:15 Atorvastatin Calcium (Lipitor) 40 mg QHS PO Last administered on 10/12/17 19: 31; Start 10/01/17 at 21:00 Non-Formulary Medication 2,400 mg PRN DAILY PRN PO CONSTIPATION; Start at 03:15; Stop 10/01/17 at 03:32; Status DC Insulin Aspart (NovoLOG) 0-9 UNITS TIDACHC SQ ; Start 10/01/17 at 07:30; Stop 10/01/17 at 07:30; Status DC Dextrose 12.5 gm PRN Q15MIN PRN IV SEE COMMENTS; Start 10/01/17 at 03:30 Insulin Aspart (NovoLOG) 0-9 UNITS TIDAC SQ Last administered on 10/12/17 17: 23; Start 10/01/17 at 07:30 Lactobacillus Rhamnosus (Culturelle) 1 cap BID PO Last administered on 19:31; Start 10/01/17 at 21:00 Risperidone (RisperDAL) 0.25 mg BID PO Last administered on 10/07/17 09:08; Start 10/02/17 at 21:00; Stop 10/07/17 at 18:57; Status DC Mirtazapine (Remeron) 7.5 mg QHS PO Last administered on 10/10/17 19:59; Start 10/02/17 at 21:00; Stop 10/11/17 at 19:36; Status DC Docusate Calcium (Surfak) 240 mg DAILY PO Last administered on 10/12/17 08:49 ; Start 10/03/17 at 09:00 Fluvoxamine Maleate (Luvox) 100 mg QHS PO Last administered on 10/04/17 19:47 ; Start 10/03/17 at 21:00; Stop 10/05/17 at 18:23; Status DC Fluvoxamine Maleate (Luvox) 100 mg QHS PO Last administered on 10/12/17 19:32 ; Start 10/05/17 at 21:00 Fluvoxamine Maleate (Luvox) 25 mg HS PO Last administered on 10/12/17 19:32; Start 10/05/17 at 21:00 Nystatin (Nystop) 15 presley STK-MED ONCE TP Last administered on 10/06/17 17:05 ; Start 10/06/17 at 16:46; Stop 10/06/17 at 16:47; Status DC Quetiapine Fumarate (SEROquel) 12.5 mg TID@0900,1300,1700 PO Last administered on 10/12/17 17:24; Start 10/08/17 at 09:00 Insulin Detemir (Levemir) 12 units QHS SQ Last administered on 10/12/17 19:35 ; Start 10/10/17 at 21:00 Mirtazapine (Remeron) 15 mg QHS PO Last administered on 10/12/17 19:32; Start 10/11/17 at 21:00 Trazodone HCl (Desyrel) 50 mg QHS PO Last administered on 10/12/17 19:34; Start 10/12/17 at 21:00 Active Scripts Active Cipro (Ciprofloxacin Hcl) 250 Mg Tablet 1 Tab PO BID Reported Levemir Flextouch (Insulin Detemir) 100 Unit/1 Ml Insuln.pen 17 Unit SQ QHS Myrbetriq (Mirabegron) 25 Mg Tab.er.24h 25 Mg PO DAILY Duoneb 0.5-3(2.5) Mg/3 Ml (Albuterol/Ipratropium) 3 Ml Ampul.neb 3 Ml NEB PRN BID PRN Metoprolol Tartrate 25 Mg Tablet 12.5 Mg PO BID For CHF and CAD patients: Hold for HR less than 50 or SBP less than 90. For all other patients: Hold for HR less than 60 or SBP less than 100. After a held dose, reassess in 2 hours. If HR and SBP are above threshold, administer dose as ordered. If HR and SBP are below threshold, contact provider. Novolog Flexpen (Insulin Aspart) 100 Unit/1 Ml Insuln.pen 0-9 Unit SQ TIDAC BG level: If eating: If not eating: < 70 Call Provider [phone] 0 [phone] 4 0 201-250 5 3 [phone] 7 [phone] 5 > or = 351 Call provider Trazodone Hcl 50 Mg Tablet 50 Mg PO PRN QHS PRN Give with food. MAY REPEAT IN 1 HOUR Risperidone 0.5 Mg Tablet 0.5 Mg PO BID Mag-Al Plus Xs Suspension (Mag Hydrox/Al Hydrox/Simeth) 30 Ml Oral.susp 15 Ml PO PRN AFTMEALHC PRN Tradjenta (Linagliptin) 5 Mg Tablet 5 Mg PO DAILY Duoneb 0.5-3(2.5) Mg/3 Ml (Albuterol/Ipratropium) 3 Ml Ampul.neb 3 Ml NEB PRN Q2HR PRN Fluvoxamine Maleate 50 Mg Tablet 75 Mg PO HS Cetirizine Hcl 10 Mg Tablet 10 Mg PO PRN DAILY PRN Milk Of Magnesia (Magnesium Hydroxide) 2,400 Mg/10 Ml Oral.susp 2,400 Mg PO PRN DAILY PRN Tylenol (Acetaminophen) 325 Mg Tablet 650 Mg PO Q6HRS PRN Plavix (Clopidogrel Bisulfate) 75 Mg Tablet 75 Mg PO DAILY NITROGLYCERIN SubLingual (Nitroglycerin) 0.4 Mg Tab.subl 0.4 Mg SL PRN Q5MIN PRN Hold for SBP less than or equal to 90 mmHg. Call provider for chest pain unrelieved by 1 sublingual nitroglycerin, may repeat X2 if chest pain persists. Lipitor (Atorvastatin Calcium) 40 Mg Tablet 40 Mg PO QHS Isosorbide Mononitrate Er (Isosorbide Mononitrate) 30 Mg Tab.er.24h 30 Mg PO DAILY DO NOT CRUSH OR CHEW Colace (Docusate Sodium) 100 Mg Capsule 100 Mg PO BID Hold for loose stools Clonazepam 0.5 Mg Tablet 0.5 Mg PO PRN Q6HRS PRN Buspirone Hcl 15 Mg Tablet 15 Mg PO BID I have reviewed the current psychotropics carefully including drug interactions. Risk benefit ratio favors no change other than as noted in my dictated progress note. Diagnosis: Problems: (1) Dementia (2) Major depressive disorder, recurrent episode (3) Vascular dementia with depressed mood (4) Vascular dementia with delusions (5) Dementia, vascular, with depression (6) Dementia, vascular, with delusions (7) Vascular dementia with behavior disturbance (8) Dementia in Alzheimer's disease with depression (9) Dementia in Alzheimer's disease with delusions TATIANA LAYTON MD Oct 12, 2017 20:07
[2017-10-13 06:27] VITALS: BP 108/44
[2017-10-13] MEDS: INSULIN ASPART 300 UNITS/3 ML INSULN.PEN SQ SCH ×3 (07:30→16:30)
[2017-10-13 09:05] VITALS: BP 127/55
[2017-10-13] MEDS: CLOPIDOGREL BISULFATE 75 MG TABLET PO SCH (09:06)
[2017-10-13] MEDS: busPIRone 15 MG TABLET. PO SCH ×2 (09:06→19:48)
[2017-10-13] MEDS: QUEtiapine 25 MG TABLET. PO SCH ×3 (09:06→16:46)
[2017-10-13] MEDS: LACTOBACILLUS RHAMNOSUS GG 1 CAPSULE. PO SCH ×2 (09:06→19:48)
[2017-10-13] MEDS: LINAGLIPTIN 5 MG TABLET PO SCH (09:06)
[2017-10-13] MEDS: DOCUSATE CALCIUM 240 MG CAPSULE PO SCH (09:07)
[2017-10-13] MEDS: ISOSORBIDE MONONITRATE ER 30 MG TAB.ER.24H PO SCH (09:07)
[2017-10-13] MEDS: MIRABEGRON 25 MG TAB.ER.24H PO SCH (09:08)
[2017-10-13] MEDS: METOPROLOL TART IMMED RELEASE 25 MG TABLET PO SCH ×2 (09:08→19:48)
--- NOTE | 2017-10-13 09:27 | PN ---
DATE: 10/11/2017 This late entry, 10/11/2017, covers elements not covered in my initial note of 10/11/2017. SUBJECTIVE: I met with the patient the evening of 10/11/2017. The patient slept 6-1/2 hours previous evening, received p.r.n. Klonopin on account of her constant yelling. She does redirect if she is given some stimuli to keep her mind busy. REVIEW OF SYSTEMS: Ambulation impaired, in Broda chair, bilateral blindness. No CV, , pulmonary system symptoms on review. MENTAL STATUS EXAM: Oriented to herself and situation. Speech coherent, can be rapid, loud at times. Abstraction fair, computation impaired, language function intact. Attention span short. Short-term memory is impaired. LABORATORY DATA: Reviewed. IMPRESSION: 1. Major depressive disorder, recurrent, ruled out psychotic features. 2. Major neurocognitive disorder. 3. Alzheimer's of vascular with depression and delusion. PLAN: Increase Remeron to 15 mg at bedtime. Continue rest psychotropics unchanged from initial note. MAN Bev LAYTON MD DR: JHOAN/osiel JOB#: [id number] / [id number]
[2017-10-13] MEDS: IPRATRPIUM/ALBUTEROL 0.5/2.5MG 3 ML NEBU. NEB SCH ×2 (10:53→22:13)
[2017-10-13 15:43] VITALS: BP 132/64
[2017-10-13] MEDS: INSULIN DETEMIR 300 UNITS/3 ML INSULN.PEN. SQ SCH (19:46)
[2017-10-13] MEDS: traZODone 50 MG TABLET. PO SCH (19:47)
[2017-10-13] MEDS: ATORVASTATIN CALCIUM 20 MG TABLET PO SCH (19:47)
[2017-10-13] MEDS: MIRTAZAPINE 15 MG TABLET PO SCH (19:47)
--- NOTE | 2017-10-13 20:11 | PDOC ---
Exam Note: [place] Note: Please also refer to the separate dictated note~for this date of service dictated separately.~Patient seen individually. Discussed the patient with Nursing staff reviewed the chart.~Reviewed interim history and current functioning. Reviewed vital signs,~Labs/ Radiology~and current medications noted below. Continue current treatment with the changes noted in the dictated addendum note Assessment: Vital Signs: Vital Signs Date Time Temp Pulse Resp B/P (MAP) Pulse Ox O2 Delivery O2 Flow Rate FiO2 10/13/17 19:48 67 132/64 10/13/17 15:43 98.0 20 93 10/13/17 10:54 Room Air I&O Intake and Output 10/13/17 07:00 Intake Total 1200 ml Balance 1200 ml Intake Oral 1200 ml Labs: Laboratory Tests Test 10/13/17 07:29 10/13/17 12:07 10/13/17 16:29 Glucose (Fingerstick) 128 mg/dL (70-99) H 139 mg/dL (70-99) H 189 mg/dL (70-99) H Current Medications: Meds: Current Medications Acetaminophen (Tylenol) 650 mg PRN Q6HRS PRN PO PAIN / TEMP Last administered on 10/11/17 12:54; Start 10/01/17 at 02:30 Al Hydroxide/Mg Hydroxide (Mylanta Plus Xs) 15 ml PRN AFTMEALHC PRN PO DYSPEPSIA; Start 10/01/17 at 02:30 Magnesium Hydroxide (Milk Of Magnesia) 2,400 mg PRN QHS PRN PO CONSTIPATION Last administered on 10/06/17 00:17; Start 10/01/17 at 02:30 Buspirone HCl (Buspar) 15 mg BID PO Last administered on 10/13/17 19:48; Start 10/01/17 at 09:00 Clonazepam (KlonoPIN) 0.5 mg PRN Q6HRS PRN PO ANXIETY / AGITATION Last administered on 10/11/17 09:58; Start 10/01/17 at 03:15 Risperidone (RisperDAL) 0.5 mg BID PO Last administered on 10/02/17 07:27; Start 10/01/17 at 09:00; Stop 10/02/17 at 18:15; Status DC Trazodone HCl (Desyrel) 50 mg PRN QHS PRN PO INSOMNIA Last administered on 00:06; Start 10/01/17 at 03:15 Fluvoxamine Maleate (Luvox) 75 mg QHS PO Last administered on 10/02/17 19:23; Start 10/01/17 at 21:00; Stop 10/03/17 at 19:03; Status DC Acetaminophen (Tylenol) 650 mg Q6HRS PRN PO PAIN; Start 10/01/17 at 03:15; Stop 10/01/17 at 03:32; Status DC Cetirizine HCl (ZyrTEC) 10 mg PRN DAILY PRN PO ALLERGIES; Start 10/01/17 at 03: 15 Ciprofloxacin (Cipro) 250 mg BID66 PO Last administered on 10/07/17 17:29; Start 10/01/17 at 06:00; Stop 10/07/17 at 18:01; Status DC Clopidogrel Bisulfate (Plavix) 75 mg DAILY PO Last administered on 10/13/17 09:06; Start 10/01/17 at 09:00 Docusate Sodium (Colace) 100 mg BID PO Last administered on 10/02/17 07:29; Start 10/01/17 at 09:00; Stop 10/02/17 at 18:26; Status DC Insulin Detemir (Levemir) 17 units QHS SQ Last administered on 10/09/17 19:43 ; Start 10/01/17 at 21:00; Stop 10/10/17 at 11:26; Status DC Albuterol/ Ipratropium (Duoneb) 3 ml RTBID NEB Last administered on 10/13/17 10:53; Start 10/01/17 at 08:00 Albuterol Sulfate (Ventolin) 2.5 mg PRN Q2HR PRN NEB COUGH/SHORTNESS OF BREATH ; Start 10/01/17 at 03:30 Isosorbide Mononitrate (Imdur) 30 mg DAILY PO Last administered on 10/13/17 09:07; Start 10/01/17 at 09:00 Linagliptin (Tradjenta) 5 mg DAILY PO Last administered on 10/13/17 09:06; Start 10/01/17 at 09:00 Al Hydroxide/Mg Hydroxide (Mylanta Plus Xs) 15 ml PRN AFTMEALHC PRN PO DYSPEPSIA; Start 10/01/17 at 03:15; Stop 10/01/17 at 03:32; Status DC Metoprolol Tartrate (Lopressor) 12.5 mg BID PO Last administered on 10/13/17 19:48; Start 10/01/17 at 09:00 Nitroglycerin (Nitrostat) 0.4 mg PRN Q5MIN PRN SL CHEST PAIN; Start 10/01/17 at 03:15 Atorvastatin Calcium (Lipitor) 40 mg QHS PO Last administered on 10/13/17 19: 47; Start 10/01/17 at 21:00 Non-Formulary Medication 2,400 mg PRN DAILY PRN PO CONSTIPATION; Start at 03:15; Stop 10/01/17 at 03:32; Status DC Insulin Aspart (NovoLOG) 0-9 UNITS TIDACHC SQ ; Start 10/01/17 at 07:30; Stop 10/01/17 at 07:30; Status DC Dextrose 12.5 gm PRN Q15MIN PRN IV SEE COMMENTS; Start 10/01/17 at 03:30 Insulin Aspart (NovoLOG) 0-9 UNITS TIDAC SQ Last administered on 10/13/17 16: 30; Start 10/01/17 at 07:30 Lactobacillus Rhamnosus (Culturelle) 1 cap BID PO Last administered on 19:48; Start 10/01/17 at 21:00 Risperidone (RisperDAL) 0.25 mg BID PO Last administered on 10/07/17 09:08; Start 10/02/17 at 21:00; Stop 10/07/17 at 18:57; Status DC Mirtazapine (Remeron) 7.5 mg QHS PO Last administered on 10/10/17 19:59; Start 10/02/17 at 21:00; Stop 10/11/17 at 19:36; Status DC Docusate Calcium (Surfak) 240 mg DAILY PO Last administered on 10/13/17 09:07 ; Start 10/03/17 at 09:00 Fluvoxamine Maleate (Luvox) 100 mg QHS PO Last administered on 10/04/17 19:47 ; Start 10/03/17 at 21:00; Stop 10/05/17 at 18:23; Status DC Fluvoxamine Maleate (Luvox) 100 mg QHS PO Last administered on 10/13/17 19:47 ; Start 10/05/17 at 21:00 Fluvoxamine Maleate (Luvox) 25 mg HS PO Last administered on 10/13/17 19:47; Start 10/05/17 at 21:00 Nystatin (Nystop) 15 presley STK-MED ONCE TP Last administered on 10/06/17 17:05 ; Start 10/06/17 at 16:46; Stop 10/06/17 at 16:47; Status DC Quetiapine Fumarate (SEROquel) 12.5 mg TID@0900,1300,1700 PO Last administered on 10/13/17 16:46; Start 10/08/17 at 09:00 Insulin Detemir (Levemir) 12 units QHS SQ Last administered on 10/13/17 19:46 ; Start 10/10/17 at 21:00 Mirtazapine (Remeron) 15 mg QHS PO Last administered on 10/13/17 19:47; Start 10/11/17 at 21:00 Trazodone HCl (Desyrel) 50 mg QHS PO Last administered on 10/13/17 19:47; Start 10/12/17 at 21:00 Buspirone HCl (Buspar) 10 mg DAILY@1400 PO ; Start 10/14/17 at 14:00 Active Scripts Active Cipro (Ciprofloxacin Hcl) 250 Mg Tablet 1 Tab PO BID Reported Levemir Flextouch (Insulin Detemir) 100 Unit/1 Ml Insuln.pen 17 Unit SQ QHS Myrbetriq (Mirabegron) 25 Mg Tab.er.24h 25 Mg PO DAILY Duoneb 0.5-3(2.5) Mg/3 Ml (Albuterol/Ipratropium) 3 Ml Ampul.neb 3 Ml NEB PRN BID PRN Metoprolol Tartrate 25 Mg Tablet 12.5 Mg PO BID For CHF and CAD patients: Hold for HR less than 50 or SBP less than 90. For all other patients: Hold for HR less than 60 or SBP less than 100. After a held dose, reassess in 2 hours. If HR and SBP are above threshold, administer dose as ordered. If HR and SBP are below threshold, contact provider. Novolog Flexpen (Insulin Aspart) 100 Unit/1 Ml Insuln.pen 0-9 Unit SQ TIDAC BG level: If eating: If not eating: < 70 Call Provider [phone] > or = 351 Call provider Trazodone Hcl 50 Mg Tablet 50 Mg PO PRN QHS PRN Give with food. MAY REPEAT IN 1 HOUR Risperidone 0.5 Mg Tablet 0.5 Mg PO BID Mag-Al Plus Xs Suspension (Mag Hydrox/Al Hydrox/Simeth) 30 Ml Oral.susp 15 Ml PO PRN AFTMEALHC PRN Tradjenta (Linagliptin) 5 Mg Tablet 5 Mg PO DAILY Duoneb 0.5-3(2.5) Mg/3 Ml (Albuterol/Ipratropium) 3 Ml Ampul.neb 3 Ml NEB PRN Q2HR PRN Fluvoxamine Maleate 50 Mg Tablet 75 Mg PO HS Cetirizine Hcl 10 Mg Tablet 10 Mg PO PRN DAILY PRN Milk Of Magnesia (Magnesium Hydroxide) 2,400 Mg/10 Ml Oral.susp 2,400 Mg PO PRN DAILY PRN Tylenol (Acetaminophen) 325 Mg Tablet 650 Mg PO Q6HRS PRN Plavix (Clopidogrel Bisulfate) 75 Mg Tablet 75 Mg PO DAILY NITROGLYCERIN SubLingual (Nitroglycerin) 0.4 Mg Tab.subl 0.4 Mg SL PRN Q5MIN PRN Hold for SBP less than or equal to 90 mmHg. Call provider for chest pain unrelieved by 1 sublingual nitroglycerin, may repeat X2 if chest pain persists. Lipitor (Atorvastatin Calcium) 40 Mg Tablet 40 Mg PO QHS Isosorbide Mononitrate Er (Isosorbide Mononitrate) 30 Mg Tab.er.24h 30 Mg PO DAILY DO NOT CRUSH OR CHEW Colace (Docusate Sodium) 100 Mg Capsule 100 Mg PO BID Hold for loose stools Clonazepam 0.5 Mg Tablet 0.5 Mg PO PRN Q6HRS PRN Buspirone Hcl 15 Mg Tablet 15 Mg PO BID I have reviewed the current psychotropics carefully including drug interactions. Risk benefit ratio favors no change other than as noted in my dictated progress note. Diagnosis: Problems: (1) Dementia (2) Major depressive disorder, recurrent episode (3) Vascular dementia with depressed mood (4) Vascular dementia with delusions (5) Dementia, vascular, with depression (6) Dementia, vascular, with delusions (7) Vascular dementia with behavior disturbance (8) Dementia in Alzheimer's disease with depression (9) Dementia in Alzheimer's disease with delusions TATIANA LAYTON MD Oct 13, 2017 20:11
[2017-10-13] MEDS: MAG HYDROX/AL HYDROX/SIMETH 30 ML ORAL.SUSP PO PRN (20:22)
[2017-10-14] MEDS: traZODone 50 MG TABLET. PO PRN (00:18)
[2017-10-14] MEDS: clonazePAM 0.5 MG TABLET PO PRN ×2 (02:41→15:14)
[2017-10-14] MEDS: ACETAMINOPHEN 325 MG TABLET PO PRN ×2 (05:24→08:39)
[2017-10-14 05:55] VITALS: BP 175/88
[2017-10-14] MEDS: QUEtiapine 25 MG TABLET. PO SCH ×3 (07:34→16:59)
[2017-10-14] MEDS: MIRABEGRON 25 MG TAB.ER.24H PO SCH (07:34)
[2017-10-14] MEDS: CLOPIDOGREL BISULFATE 75 MG TABLET PO SCH (07:34)
[2017-10-14] MEDS: LINAGLIPTIN 5 MG TABLET PO SCH (07:34)
[2017-10-14] MEDS: LACTOBACILLUS RHAMNOSUS GG 1 CAPSULE. PO SCH ×2 (07:35→19:38)
[2017-10-14] MEDS: METOPROLOL TART IMMED RELEASE 25 MG TABLET PO SCH ×2 (07:35→20:00)
[2017-10-14] MEDS: ISOSORBIDE MONONITRATE ER 30 MG TAB.ER.24H PO SCH (07:35)
[2017-10-14] MEDS: DOCUSATE CALCIUM 240 MG CAPSULE PO SCH (07:36)
[2017-10-14] MEDS: busPIRone 15 MG TABLET. PO SCH ×2 (07:36→19:38)
[2017-10-14] MEDS: INSULIN ASPART 300 UNITS/3 ML INSULN.PEN SQ SCH ×4 (07:41→17:00)
[2017-10-14] MEDS: IPRATRPIUM/ALBUTEROL 0.5/2.5MG 3 ML NEBU. NEB SCH (08:00)
--- NOTE | 2017-10-14 10:09 | PN ---
DATE: 10/12/2017 This late entry 10/12/2017 covers elements not covered in my initial note 10/12/2017. Met with the patient in the evening of 10/12/2017. Overall, the patient had less yelling, still gets loud at times, trying to compensate for her loss of vision with other sensory sensations including the yelling, compliant with the medications, slept 4-3/4 hours previous evening. REVIEW OF SYSTEMS: Impaired ambulation in Broda chair, bilateral blindness. No CV, , pulmonary system symptoms on review. MENTAL STATUS EXAM: Oriented to herself and situation. Speech has some latency, coherent. Abstraction fair, computation impaired, language function intact. Mood and affect showing improvement. LABORATORY DATA: Reviewed. IMPRESSION: Unchanged from initial note, major depressive disorder, recurrent with psychotic features, major neurocognitive disorder, Alzheimer, vascular with delusion, depression. Rest unchanged. PLAN: Increase BuSpar from 15 mg b.i.d. to 15 mg b.i.d., 10 mg daily. Continue trazodone, but use at 50 mg at bedtime schedule and plus p.r.n. Klonopin as p.r.n., Luvox 125 mg a day, Remeron 15 mg at bedtime, Seroquel 12.5 mg 3 times a day. Adjust further as clinically indicated. MAN Bev LAYTON MD DR: JHOAN/osiel JOB#: [id number] / [id number]
[2017-10-14] MEDS: busPIRone 10 MG TABLET. PO SCH (13:50)
[2017-10-14 15:40] VITALS: BP 120/55
[2017-10-14] MEDS ORDERED: IPRATRPIUM/ALBUTEROL 0.5/2.5MG 3 ML NEBU. NEB PRN (16:45)
[2017-10-14] MEDS: MIRTAZAPINE 15 MG TABLET PO SCH (19:37)
[2017-10-14] MEDS: traZODone 50 MG TABLET. PO SCH (19:38)
[2017-10-14] MEDS: ATORVASTATIN CALCIUM 20 MG TABLET PO SCH (19:38)
[2017-10-14] MEDS: INSULIN DETEMIR 300 UNITS/3 ML INSULN.PEN. SQ SCH (19:51)
[2017-10-14] MEDS: MELATONIN 3 MG TABLET PO SCH (19:59)
--- NOTE | 2017-10-14 21:28 | PDOC ---
Exam Note: [place] Note: Please also refer to the separate dictated note~for this date of service dictated separately.~Patient seen individually. Discussed the patient with Nursing staff reviewed the chart.~Reviewed interim history and current functioning. Reviewed vital signs,~Labs/ Radiology~and current medications noted below. Continue current treatment with the changes noted in the dictated addendum note Assessment: Vital Signs: Vital Signs Date Time Temp Pulse Resp B/P (MAP) Pulse Ox O2 Delivery O2 Flow Rate FiO2 10/14/17 20:00 73 124/79 10/14/17 15:40 97.7 18 98 10/13/17 21:00 Room Air I&O Intake and Output 10/14/17 07:00 Intake Total 1080 ml Balance 1080 ml Intake Oral 1080 ml # Voids 2 Labs: Laboratory Tests Test 10/14/17 07:04 10/14/17 11:53 10/14/17 14:06 10/14/17 16:52 Glucose (Fingerstick) 215 mg/dL (70-99) H 63 mg/dL (70-99) L 140 mg/dL (70-99) H 154 mg/dL (70-99) H Test 10/14/17 19:14 Glucose (Fingerstick) 128 mg/dL (70-99) H Current Medications: Meds: Current Medications Acetaminophen (Tylenol) 650 mg PRN Q6HRS PRN PO PAIN / TEMP Last administered on 10/14/17 08:39; Start 10/01/17 at 02:30 Al Hydroxide/Mg Hydroxide (Mylanta Plus Xs) 15 ml PRN AFTMEALHC PRN PO DYSPEPSIA Last administered on 10/13/17 20:22; Start 10/01/17 at 02:30 Magnesium Hydroxide (Milk Of Magnesia) 2,400 mg PRN QHS PRN PO CONSTIPATION Last administered on 10/06/17 00:17; Start 10/01/17 at 02:30 Buspirone HCl (Buspar) 15 mg BID PO Last administered on 10/14/17 19:38; Start 10/01/17 at 09:00 Clonazepam (KlonoPIN) 0.5 mg PRN Q6HRS PRN PO ANXIETY / AGITATION Last administered on 10/14/17 15:14; Start 10/01/17 at 03:15 Risperidone (RisperDAL) 0.5 mg BID PO Last administered on 10/02/17 07:27; Start 10/01/17 at 09:00; Stop 10/02/17 at 18:15; Status DC Trazodone HCl (Desyrel) 50 mg PRN QHS PRN PO INSOMNIA Last administered on 00:18; Start 10/01/17 at 03:15 Fluvoxamine Maleate (Luvox) 75 mg QHS PO Last administered on 10/02/17 19:23; Start 10/01/17 at 21:00; Stop 10/03/17 at 19:03; Status DC Acetaminophen (Tylenol) 650 mg Q6HRS PRN PO PAIN; Start 10/01/17 at 03:15; Stop 10/01/17 at 03:32; Status DC Cetirizine HCl (ZyrTEC) 10 mg PRN DAILY PRN PO ALLERGIES; Start 10/01/17 at 03: 15 Ciprofloxacin (Cipro) 250 mg BID66 PO Last administered on 10/07/17 17:29; Start 10/01/17 at 06:00; Stop 10/07/17 at 18:01; Status DC Clopidogrel Bisulfate (Plavix) 75 mg DAILY PO Last administered on 10/14/17 07:34; Start 10/01/17 at 09:00 Docusate Sodium (Colace) 100 mg BID PO Last administered on 10/02/17 07:29; Start 10/01/17 at 09:00; Stop 10/02/17 at 18:26; Status DC Insulin Detemir (Levemir) 17 units QHS SQ Last administered on 10/09/17 19:43 ; Start 10/01/17 at 21:00; Stop 10/10/17 at 11:26; Status DC Albuterol/ Ipratropium (Duoneb) 3 ml RTBID NEB Last administered on 10/13/17 22:13; Start 10/01/17 at 08:00; Stop 10/14/17 at 16:39; Status DC Albuterol Sulfate (Ventolin) 2.5 mg PRN Q2HR PRN NEB COUGH/SHORTNESS OF BREATH ; Start 10/01/17 at 03:30 Isosorbide Mononitrate (Imdur) 30 mg DAILY PO Last administered on 10/14/17 07:35; Start 10/01/17 at 09:00 Linagliptin (Tradjenta) 5 mg DAILY PO Last administered on 10/14/17 07:34; Start 10/01/17 at 09:00 Al Hydroxide/Mg Hydroxide (Mylanta Plus Xs) 15 ml PRN AFTMEALHC PRN PO DYSPEPSIA; Start 10/01/17 at 03:15; Stop 10/01/17 at 03:32; Status DC Metoprolol Tartrate (Lopressor) 12.5 mg BID PO Last administered on 10/14/17 20:00; Start 10/01/17 at 09:00 Nitroglycerin (Nitrostat) 0.4 mg PRN Q5MIN PRN SL CHEST PAIN; Start 10/01/17 at 03:15 Atorvastatin Calcium (Lipitor) 40 mg QHS PO Last administered on 10/14/17 19: 38; Start 10/01/17 at 21:00 Non-Formulary Medication 2,400 mg PRN DAILY PRN PO CONSTIPATION; Start at 03:15; Stop 10/01/17 at 03:32; Status DC Insulin Aspart (NovoLOG) 0-9 UNITS TIDACHC SQ ; Start 10/01/17 at 07:30; Stop 10/01/17 at 07:30; Status DC Dextrose 12.5 gm PRN Q15MIN PRN IV SEE COMMENTS; Start 10/01/17 at 03:30 Insulin Aspart (NovoLOG) 0-9 UNITS TIDAC SQ Last administered on 10/14/17 07: 41; Start 10/01/17 at 07:30 Lactobacillus Rhamnosus (Culturelle) 1 cap BID PO Last administered on 19:38; Start 10/01/17 at 21:00 Risperidone (RisperDAL) 0.25 mg BID PO Last administered on 10/07/17 09:08; Start 10/02/17 at 21:00; Stop 10/07/17 at 18:57; Status DC Mirtazapine (Remeron) 7.5 mg QHS PO Last administered on 10/10/17 19:59; Start 10/02/17 at 21:00; Stop 10/11/17 at 19:36; Status DC Docusate Calcium (Surfak) 240 mg DAILY PO Last administered on 10/14/17 07:36 ; Start 10/03/17 at 09:00 Fluvoxamine Maleate (Luvox) 100 mg QHS PO Last administered on 10/04/17 19:47 ; Start 10/03/17 at 21:00; Stop 10/05/17 at 18:23; Status DC Fluvoxamine Maleate (Luvox) 100 mg QHS PO Last administered on 10/14/17 19:38 ; Start 10/05/17 at 21:00 Fluvoxamine Maleate (Luvox) 25 mg HS PO Last administered on 10/14/17 19:38; Start 10/05/17 at 21:00 Nystatin (Nystop) 15 presley STK-MED ONCE TP Last administered on 10/06/17 17:05 ; Start 10/06/17 at 16:46; Stop 10/06/17 at 16:47; Status DC Quetiapine Fumarate (SEROquel) 12.5 mg TID@0900,1300,1700 PO Last administered on 10/14/17 16:59; Start 10/08/17 at 09:00 Insulin Detemir (Levemir) 12 units QHS SQ Last administered on 10/14/17 19:51 ; Start 10/10/17 at 21:00 Mirtazapine (Remeron) 15 mg QHS PO Last administered on 10/14/17 19:37; Start 10/11/17 at 21:00 Trazodone HCl (Desyrel) 50 mg QHS PO Last administered on 10/14/17 19:38; Start 10/12/17 at 21:00 Buspirone HCl (Buspar) 10 mg DAILY@1400 PO Last administered on 10/14/17 13: 50; Start 10/14/17 at 14:00 Albuterol/ Ipratropium (Duoneb) 3 ml PRN BID PRN NEB COUGH; Start 10/14/17 at 16:45 Melatonin 6 mg QHS PO Last administered on 10/14/17 19:59; Start 10/14/17 at 21:00 Active Scripts Active Cipro (Ciprofloxacin Hcl) 250 Mg Tablet 1 Tab PO BID Reported Levemir Flextouch (Insulin Detemir) 100 Unit/1 Ml Insuln.pen 17 Unit SQ QHS Myrbetriq (Mirabegron) 25 Mg Tab.er.24h 25 Mg PO DAILY Duoneb 0.5-3(2.5) Mg/3 Ml (Albuterol/Ipratropium) 3 Ml Ampul.neb 3 Ml NEB PRN BID PRN Metoprolol Tartrate 25 Mg Tablet 12.5 Mg PO BID For CHF and CAD patients: Hold for HR less than 50 or SBP less than 90. For all other patients: Hold for HR less than 60 or SBP less than 100. After a held dose, reassess in 2 hours. If HR and SBP are above threshold, administer dose as ordered. If HR and SBP are below threshold, contact provider. Novolog Flexpen (Insulin Aspart) 100 Unit/1 Ml Insuln.pen 0-9 Unit SQ TIDAC BG level: If eating: If not eating: < 70 Call Provider [phone] > or = 351 Call provider Trazodone Hcl 50 Mg Tablet 50 Mg PO PRN QHS PRN Give with food. MAY REPEAT IN 1 HOUR Risperidone 0.5 Mg Tablet 0.5 Mg PO BID Mag-Al Plus Xs Suspension (Mag Hydrox/Al Hydrox/Simeth) 30 Ml Oral.susp 15 Ml PO PRN AFTMEALHC PRN Tradjenta (Linagliptin) 5 Mg Tablet 5 Mg PO DAILY Duoneb 0.5-3(2.5) Mg/3 Ml (Albuterol/Ipratropium) 3 Ml Ampul.neb 3 Ml NEB PRN Q2HR PRN Fluvoxamine Maleate 50 Mg Tablet 75 Mg PO HS Cetirizine Hcl 10 Mg Tablet 10 Mg PO PRN DAILY PRN Milk Of Magnesia (Magnesium Hydroxide) 2,400 Mg/10 Ml Oral.susp 2,400 Mg PO PRN DAILY PRN Tylenol (Acetaminophen) 325 Mg Tablet 650 Mg PO Q6HRS PRN Plavix (Clopidogrel Bisulfate) 75 Mg Tablet 75 Mg PO DAILY NITROGLYCERIN SubLingual (Nitroglycerin) 0.4 Mg Tab.subl 0.4 Mg SL PRN Q5MIN PRN Hold for SBP less than or equal to 90 mmHg. Call provider for chest pain unrelieved by 1 sublingual nitroglycerin, may repeat X2 if chest pain persists. Lipitor (Atorvastatin Calcium) 40 Mg Tablet 40 Mg PO QHS Isosorbide Mononitrate Er (Isosorbide Mononitrate) 30 Mg Tab.er.24h 30 Mg PO DAILY DO NOT CRUSH OR CHEW Colace (Docusate Sodium) 100 Mg Capsule 100 Mg PO BID Hold for loose stools Clonazepam 0.5 Mg Tablet 0.5 Mg PO PRN Q6HRS PRN Buspirone Hcl 15 Mg Tablet 15 Mg PO BID I have reviewed the current psychotropics carefully including drug interactions. Risk benefit ratio favors no change other than as noted in my dictated progress note. Diagnosis: Problems: (1) Dementia (2) Major depressive disorder, recurrent episode (3) Vascular dementia with depressed mood (4) Vascular dementia with delusions (5) Dementia, vascular, with depression (6) Dementia, vascular, with delusions (7) Vascular dementia with behavior disturbance (8) Dementia in Alzheimer's disease with depression (9) Dementia in Alzheimer's disease with delusions TATIANA LAYTON MD Oct 14, 2017 21:28
--- NOTE | 2017-10-15 03:26 | PN ---
DATE: 10/13/2017 This late entry 10/13/2017 covers elements not covered in my initial note 10/13/2017. SUBJECTIVE: I met with the patient in the evening of 10/13/2017. The patient slept 8-1/2 hours previous evening, gets back to bed in between meals, but the yelling is better. She is a little drowsy. REVIEW OF SYSTEMS: Bilateral blindness, impaired ambulation in wheelchair/Broda chair. No CV, , pulmonary system symptoms on review. MENTAL STATUS EXAM: Oriented to herself and situation. Speech moderate latency, often responses monosyllabic. Abstraction fair, computation impaired, language function intact, attention span short. Mood and affect still somewhat depressed, anxious, labile, but better than before. LABORATORY DATA: Reviewed. IMPRESSION: Unchanged from initial note. PLAN: Continue current psychotropics mentioned in my initial note. Buspar, Luvox, trazodone, Klonopin p.r.n., Remeron and Seroquel. May need to adjust the Seroquel if mood lability resurfaces, but we will have to make sure she is not overly drowsy with this. TATIANA LAYTON MD DR: JHOAN/osiel JOB#: [id number] / [id number]
[2017-10-15 05:47] VITALS: BP 146/69
[2017-10-15] MEDS: ACETAMINOPHEN 325 MG TABLET PO PRN (06:18)
[2017-10-15] MEDS: INSULIN ASPART 300 UNITS/3 ML INSULN.PEN SQ SCH ×3 (07:30→16:11)
[2017-10-15] MEDS: LINAGLIPTIN 5 MG TABLET PO SCH (08:01)
[2017-10-15] MEDS: DOCUSATE CALCIUM 240 MG CAPSULE PO SCH (08:01)
[2017-10-15] MEDS: METOPROLOL TART IMMED RELEASE 25 MG TABLET PO SCH ×2 (08:01→19:45)
[2017-10-15] MEDS: CLOPIDOGREL BISULFATE 75 MG TABLET PO SCH (08:01)
[2017-10-15] MEDS: LACTOBACILLUS RHAMNOSUS GG 1 CAPSULE. PO SCH ×2 (08:01→19:44)
[2017-10-15] MEDS: QUEtiapine 25 MG TABLET. PO SCH ×3 (08:02→16:53)
[2017-10-15] MEDS: ISOSORBIDE MONONITRATE ER 30 MG TAB.ER.24H PO SCH (08:02)
[2017-10-15] MEDS: busPIRone 15 MG TABLET. PO SCH ×2 (08:02→19:43)
[2017-10-15] MEDS: MIRABEGRON 25 MG TAB.ER.24H PO SCH (08:03)
[2017-10-15] MEDS: MAG HYDROX/AL HYDROX/SIMETH 30 ML ORAL.SUSP PO PRN (10:26)
[2017-10-15] MEDS: busPIRone 10 MG TABLET. PO SCH (13:32)
[2017-10-15 16:01] VITALS: BP 118/73
[2017-10-15] MEDS: ATORVASTATIN CALCIUM 20 MG TABLET PO SCH (19:43)
[2017-10-15] MEDS: MELATONIN 3 MG TABLET PO SCH (19:44)
[2017-10-15] MEDS: traZODone 50 MG TABLET. PO SCH (19:45)
[2017-10-15] MEDS: MIRTAZAPINE 15 MG TABLET PO SCH (19:46)
[2017-10-15] MEDS: oxyCODONE ER 10 MG TAB.ER.12H PO SCH (19:48)
[2017-10-15] MEDS: INSULIN DETEMIR 300 UNITS/3 ML INSULN.PEN. SQ SCH (19:54)
--- NOTE | 2017-10-15 20:07 | PDOC ---
Exam Note: [place] Note: Please also refer to the separate dictated note~for this date of service dictated separately.~Patient seen individually. Discussed the patient with Nursing staff reviewed the chart.~Reviewed interim history and current functioning. Reviewed vital signs,~Labs/ Radiology~and current medications noted below. Continue current treatment with the changes noted in the dictated addendum note Assessment: Vital Signs: Vital Signs Date Time Temp Pulse Resp B/P (MAP) Pulse Ox O2 Delivery O2 Flow Rate FiO2 10/15/17 19:45 78 118/73 10/15/17 16:01 98.9 18 91 Room Air I&O Intake and Output 10/15/17 07:00 Intake Total 420 ml Balance 420 ml Intake Oral 420 ml # Bowel Movements 1 Labs: Laboratory Tests Test 10/15/17 07:46 10/15/17 11:07 10/15/17 16:08 10/15/17 19:04 Glucose (Fingerstick) 128 mg/dL (70-99) H 172 mg/dL (70-99) H 121 mg/dL (70-99) H 276 mg/dL (70-99) H Current Medications: Meds: Current Medications Acetaminophen (Tylenol) 650 mg PRN Q6HRS PRN PO PAIN / TEMP Last administered on 10/15/17 06:18; Start 10/01/17 at 02:30 Al Hydroxide/Mg Hydroxide (Mylanta Plus Xs) 15 ml PRN AFTMEALHC PRN PO DYSPEPSIA Last administered on 10/15/17 10:26; Start 10/01/17 at 02:30 Magnesium Hydroxide (Milk Of Magnesia) 2,400 mg PRN QHS PRN PO CONSTIPATION Last administered on 10/06/17 00:17; Start 10/01/17 at 02:30 Buspirone HCl (Buspar) 15 mg BID PO Last administered on 10/15/17 19:43; Start 10/01/17 at 09:00 Clonazepam (KlonoPIN) 0.5 mg PRN Q6HRS PRN PO ANXIETY / AGITATION Last administered on 10/14/17 15:14; Start 10/01/17 at 03:15 Risperidone (RisperDAL) 0.5 mg BID PO Last administered on 10/02/17 07:27; Start 10/01/17 at 09:00; Stop 10/02/17 at 18:15; Status DC Trazodone HCl (Desyrel) 50 mg PRN QHS PRN PO INSOMNIA Last administered on 00:18; Start 10/01/17 at 03:15 Fluvoxamine Maleate (Luvox) 75 mg QHS PO Last administered on 10/02/17 19:23; Start 10/01/17 at 21:00; Stop 10/03/17 at 19:03; Status DC Acetaminophen (Tylenol) 650 mg Q6HRS PRN PO PAIN; Start 10/01/17 at 03:15; Stop 10/01/17 at 03:32; Status DC Cetirizine HCl (ZyrTEC) 10 mg PRN DAILY PRN PO ALLERGIES; Start 10/01/17 at 03: 15 Ciprofloxacin (Cipro) 250 mg BID66 PO Last administered on 10/07/17 17:29; Start 10/01/17 at 06:00; Stop 10/07/17 at 18:01; Status DC Clopidogrel Bisulfate (Plavix) 75 mg DAILY PO Last administered on 10/15/17 08:01; Start 10/01/17 at 09:00 Docusate Sodium (Colace) 100 mg BID PO Last administered on 10/02/17 07:29; Start 10/01/17 at 09:00; Stop 10/02/17 at 18:26; Status DC Insulin Detemir (Levemir) 17 units QHS SQ Last administered on 10/09/17 19:43 ; Start 10/01/17 at 21:00; Stop 10/10/17 at 11:26; Status DC Albuterol/ Ipratropium (Duoneb) 3 ml RTBID NEB Last administered on 10/13/17 22:13; Start 10/01/17 at 08:00; Stop 10/14/17 at 16:39; Status DC Albuterol Sulfate (Ventolin) 2.5 mg PRN Q2HR PRN NEB COUGH/SHORTNESS OF BREATH ; Start 10/01/17 at 03:30 Isosorbide Mononitrate (Imdur) 30 mg DAILY PO Last administered on 10/15/17 08:02; Start 10/01/17 at 09:00 Linagliptin (Tradjenta) 5 mg DAILY PO Last administered on 10/15/17 08:01; Start 10/01/17 at 09:00 Al Hydroxide/Mg Hydroxide (Mylanta Plus Xs) 15 ml PRN AFTMEALHC PRN PO DYSPEPSIA; Start 10/01/17 at 03:15; Stop 10/01/17 at 03:32; Status DC Metoprolol Tartrate (Lopressor) 12.5 mg BID PO Last administered on 10/15/17 19:45; Start 10/01/17 at 09:00 Nitroglycerin (Nitrostat) 0.4 mg PRN Q5MIN PRN SL CHEST PAIN; Start 10/01/17 at 03:15 Atorvastatin Calcium (Lipitor) 40 mg QHS PO Last administered on 10/15/17 19: 43; Start 10/01/17 at 21:00 Non-Formulary Medication 2,400 mg PRN DAILY PRN PO CONSTIPATION; Start at 03:15; Stop 10/01/17 at 03:32; Status DC Insulin Aspart (NovoLOG) 0-9 UNITS TIDACHC SQ ; Start 10/01/17 at 07:30; Stop 10/01/17 at 07:30; Status DC Dextrose 12.5 gm PRN Q15MIN PRN IV SEE COMMENTS; Start 10/01/17 at 03:30 Insulin Aspart (NovoLOG) 0-9 UNITS TIDAC SQ Last administered on 10/14/17 07: 41; Start 10/01/17 at 07:30 Lactobacillus Rhamnosus (Culturelle) 1 cap BID PO Last administered on 19:44; Start 10/01/17 at 21:00 Risperidone (RisperDAL) 0.25 mg BID PO Last administered on 10/07/17 09:08; Start 10/02/17 at 21:00; Stop 10/07/17 at 18:57; Status DC Mirtazapine (Remeron) 7.5 mg QHS PO Last administered on 10/10/17 19:59; Start 10/02/17 at 21:00; Stop 10/11/17 at 19:36; Status DC Docusate Calcium (Surfak) 240 mg DAILY PO Last administered on 10/15/17 08:01 ; Start 10/03/17 at 09:00 Fluvoxamine Maleate (Luvox) 100 mg QHS PO Last administered on 10/04/17 19:47 ; Start 10/03/17 at 21:00; Stop 10/05/17 at 18:23; Status DC Fluvoxamine Maleate (Luvox) 100 mg QHS PO Last administered on 10/15/17 19:46 ; Start 10/05/17 at 21:00 Fluvoxamine Maleate (Luvox) 25 mg HS PO Last administered on 10/15/17 19:46; Start 10/05/17 at 21:00 Nystatin (Nystop) 15 presley STK-MED ONCE TP Last administered on 10/06/17 17:05 ; Start 10/06/17 at 16:46; Stop 10/06/17 at 16:47; Status DC Quetiapine Fumarate (SEROquel) 12.5 mg TID@0900,1300,1700 PO Last administered on 10/15/17 16:53; Start 10/08/17 at 09:00 Insulin Detemir (Levemir) 12 units QHS SQ Last administered on 10/15/17 19:54 ; Start 10/10/17 at 21:00 Mirtazapine (Remeron) 15 mg QHS PO Last administered on 10/15/17 19:46; Start 10/11/17 at 21:00 Trazodone HCl (Desyrel) 50 mg QHS PO Last administered on 10/15/17 19:45; Start 10/12/17 at 21:00 Buspirone HCl (Buspar) 10 mg DAILY@1400 PO Last administered on 10/15/17 13: 32; Start 10/14/17 at 14:00 Albuterol/ Ipratropium (Duoneb) 3 ml PRN BID PRN NEB COUGH; Start 10/14/17 at 16:45 Melatonin 6 mg QHS PO Last administered on 10/15/17 19:44; Start 10/14/17 at 21:00 Oxycodone HCl (OxyCONTIN) 10 mg Q12HR PO Last administered on 10/15/17 19:48 ; Start 10/15/17 at 21:00 Active Scripts Active Cipro (Ciprofloxacin Hcl) 250 Mg Tablet 1 Tab PO BID Reported Levemir Flextouch (Insulin Detemir) 100 Unit/1 Ml Insuln.pen 17 Unit SQ QHS Myrbetriq (Mirabegron) 25 Mg Tab.er.24h 25 Mg PO DAILY Duoneb 0.5-3(2.5) Mg/3 Ml (Albuterol/Ipratropium) 3 Ml Ampul.neb 3 Ml NEB PRN BID PRN Metoprolol Tartrate 25 Mg Tablet 12.5 Mg PO BID For CHF and CAD patients: Hold for HR less than 50 or SBP less than 90. For all other patients: Hold for HR less than 60 or SBP less than 100. After a held dose, reassess in 2 hours. If HR and SBP are above threshold, administer dose as ordered. If HR and SBP are below threshold, contact provider. Novolog Flexpen (Insulin Aspart) 100 Unit/1 Ml Insuln.pen 0-9 Unit SQ TIDAC BG level: If eating: If not eating: < 70 Call Provider [phone] [phone] [phone] > or = 351 Call provider Trazodone Hcl 50 Mg Tablet 50 Mg PO PRN QHS PRN Give with food. MAY REPEAT IN 1 HOUR Risperidone 0.5 Mg Tablet 0.5 Mg PO BID Mag-Al Plus Xs Suspension (Mag Hydrox/Al Hydrox/Simeth) 30 Ml Oral.susp 15 Ml PO PRN AFTMEALHC PRN Tradjenta (Linagliptin) 5 Mg Tablet 5 Mg PO DAILY Duoneb 0.5-3(2.5) Mg/3 Ml (Albuterol/Ipratropium) 3 Ml Ampul.neb 3 Ml NEB PRN Q2HR PRN Fluvoxamine Maleate 50 Mg Tablet 75 Mg PO HS Cetirizine Hcl 10 Mg Tablet 10 Mg PO PRN DAILY PRN Milk Of Magnesia (Magnesium Hydroxide) 2,400 Mg/10 Ml Oral.susp 2,400 Mg PO PRN DAILY PRN Tylenol (Acetaminophen) 325 Mg Tablet 650 Mg PO Q6HRS PRN Plavix (Clopidogrel Bisulfate) 75 Mg Tablet 75 Mg PO DAILY NITROGLYCERIN SubLingual (Nitroglycerin) 0.4 Mg Tab.subl 0.4 Mg SL PRN Q5MIN PRN Hold for SBP less than or equal to 90 mmHg. Call provider for chest pain unrelieved by 1 sublingual nitroglycerin, may repeat X2 if chest pain persists. Lipitor (Atorvastatin Calcium) 40 Mg Tablet 40 Mg PO QHS Isosorbide Mononitrate Er (Isosorbide Mononitrate) 30 Mg Tab.er.24h 30 Mg PO DAILY DO NOT CRUSH OR CHEW Colace (Docusate Sodium) 100 Mg Capsule 100 Mg PO BID Hold for loose stools Clonazepam 0.5 Mg Tablet 0.5 Mg PO PRN Q6HRS PRN Buspirone Hcl 15 Mg Tablet 15 Mg PO BID I have reviewed the current psychotropics carefully including drug interactions. Risk benefit ratio favors no change other than as noted in my dictated progress note. 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
[2017-10-16 05:46] VITALS: BP 106/57
[2017-10-16] MEDS: INSULIN ASPART 300 UNITS/3 ML INSULN.PEN SQ SCH ×3 (07:30→17:02)
[2017-10-16] MEDS: CLOPIDOGREL BISULFATE 75 MG TABLET PO SCH (08:06)
[2017-10-16] MEDS: ISOSORBIDE MONONITRATE ER 30 MG TAB.ER.24H PO SCH (08:06)
[2017-10-16] MEDS: LINAGLIPTIN 5 MG TABLET PO SCH (08:06)
[2017-10-16] MEDS: DOCUSATE CALCIUM 240 MG CAPSULE PO SCH (08:06)
[2017-10-16] MEDS: LACTOBACILLUS RHAMNOSUS GG 1 CAPSULE. PO SCH ×2 (08:06→19:43)
[2017-10-16] MEDS: busPIRone 15 MG TABLET. PO SCH ×2 (08:07→19:44)
[2017-10-16] MEDS: QUEtiapine 25 MG TABLET. PO SCH ×3 (08:07→17:01)
[2017-10-16] MEDS: METOPROLOL TART IMMED RELEASE 25 MG TABLET PO SCH ×2 (08:07→19:45)
[2017-10-16] MEDS: MIRABEGRON 25 MG TAB.ER.24H PO SCH (08:08)
[2017-10-16] MEDS: oxyCODONE ER 10 MG TAB.ER.12H PO SCH ×2 (08:09→19:46)
[2017-10-16] MEDS: busPIRone 10 MG TABLET. PO SCH (13:51)
[2017-10-16 16:15] VITALS: BP 132/73
[2017-10-16] MEDS: ACETAMINOPHEN 325 MG TABLET PO PRN (18:08)
[2017-10-16] MEDS: MELATONIN 3 MG TABLET PO SCH (19:44)
[2017-10-16] MEDS: ATORVASTATIN CALCIUM 20 MG TABLET PO SCH (19:44)
[2017-10-16] MEDS: MIRTAZAPINE 15 MG TABLET PO SCH (19:44)
[2017-10-16] MEDS: traZODone 50 MG TABLET. PO SCH (19:46)
[2017-10-16] MEDS: INSULIN DETEMIR 300 UNITS/3 ML INSULN.PEN. SQ SCH (19:48)
--- NOTE | 2017-10-16 22:18 | PDOC ---
Exam Note: [place] Note: Please also refer to the separate dictated note~for this date of service dictated separately.~Patient seen individually. Discussed the patient with Nursing staff reviewed the chart.~Reviewed interim history and current functioning. Reviewed vital signs,~Labs/ Radiology~and current medications noted below. Continue current treatment with the changes noted in the dictated addendum note Assessment: Vital Signs: Vital Signs Date Time Temp Pulse Resp B/P (MAP) Pulse Ox O2 Delivery O2 Flow Rate FiO2 10/16/17 19:45 61 132/73 10/16/17 16:15 97.1 18 98 10/16/17 12:30 Room Air I&O Intake and Output 10/16/17 07:00 Intake Total 660 ml Balance 660 ml Intake Oral 660 ml # Bowel Movements 1 Labs: Laboratory Tests Test 10/16/17 07:15 10/16/17 11:23 10/16/17 16:33 10/16/17 19:04 Glucose (Fingerstick) 123 mg/dL (70-99) H 137 mg/dL (70-99) H 174 mg/dL (70-99) H 262 mg/dL (70-99) H Current Medications: Meds: Current Medications Acetaminophen (Tylenol) 650 mg PRN Q6HRS PRN PO PAIN / TEMP Last administered on 10/16/17 18:08; Start 10/01/17 at 02:30 Al Hydroxide/Mg Hydroxide (Mylanta Plus Xs) 15 ml PRN AFTMEALHC PRN PO DYSPEPSIA Last administered on 10/15/17 10:26; Start 10/01/17 at 02:30 Magnesium Hydroxide (Milk Of Magnesia) 2,400 mg PRN QHS PRN PO CONSTIPATION Last administered on 10/06/17 00:17; Start 10/01/17 at 02:30 Buspirone HCl (Buspar) 15 mg BID PO Last administered on 10/16/17 19:44; Start 10/01/17 at 09:00 Clonazepam (KlonoPIN) 0.5 mg PRN Q6HRS PRN PO ANXIETY / AGITATION Last administered on 10/14/17 15:14; Start 10/01/17 at 03:15 Risperidone (RisperDAL) 0.5 mg BID PO Last administered on 10/02/17 07:27; Start 10/01/17 at 09:00; Stop 10/02/17 at 18:15; Status DC Trazodone HCl (Desyrel) 50 mg PRN QHS PRN PO INSOMNIA Last administered on 00:18; Start 10/01/17 at 03:15 Fluvoxamine Maleate (Luvox) 75 mg QHS PO Last administered on 10/02/17 19:23; Start 10/01/17 at 21:00; Stop 10/03/17 at 19:03; Status DC Acetaminophen (Tylenol) 650 mg Q6HRS PRN PO PAIN; Start 10/01/17 at 03:15; Stop 10/01/17 at 03:32; Status DC Cetirizine HCl (ZyrTEC) 10 mg PRN DAILY PRN PO ALLERGIES; Start 10/01/17 at 03: 15 Ciprofloxacin (Cipro) 250 mg BID66 PO Last administered on 10/07/17 17:29; Start 10/01/17 at 06:00; Stop 10/07/17 at 18:01; Status DC Clopidogrel Bisulfate (Plavix) 75 mg DAILY PO Last administered on 10/16/17 08:06; Start 10/01/17 at 09:00 Docusate Sodium (Colace) 100 mg BID PO Last administered on 10/02/17 07:29; Start 10/01/17 at 09:00; Stop 10/02/17 at 18:26; Status DC Insulin Detemir (Levemir) 17 units QHS SQ Last administered on 10/09/17 19:43 ; Start 10/01/17 at 21:00; Stop 10/10/17 at 11:26; Status DC Albuterol/ Ipratropium (Duoneb) 3 ml RTBID NEB Last administered on 10/13/17 22:13; Start 10/01/17 at 08:00; Stop 10/14/17 at 16:39; Status DC Albuterol Sulfate (Ventolin) 2.5 mg PRN Q2HR PRN NEB COUGH/SHORTNESS OF BREATH ; Start 10/01/17 at 03:30 Isosorbide Mononitrate (Imdur) 30 mg DAILY PO Last administered on 10/16/17 08:06; Start 10/01/17 at 09:00 Linagliptin (Tradjenta) 5 mg DAILY PO Last administered on 10/16/17 08:06; Start 10/01/17 at 09:00 Al Hydroxide/Mg Hydroxide (Mylanta Plus Xs) 15 ml PRN AFTMEALHC PRN PO DYSPEPSIA; Start 10/01/17 at 03:15; Stop 10/01/17 at 03:32; Status DC Metoprolol Tartrate (Lopressor) 12.5 mg BID PO Last administered on 10/16/17 19:45; Start 10/01/17 at 09:00 Nitroglycerin (Nitrostat) 0.4 mg PRN Q5MIN PRN SL CHEST PAIN; Start 10/01/17 at 03:15 Atorvastatin Calcium (Lipitor) 40 mg QHS PO Last administered on 10/16/17 19: 44; Start 10/01/17 at 21:00 Non-Formulary Medication 2,400 mg PRN DAILY PRN PO CONSTIPATION; Start at 03:15; Stop 10/01/17 at 03:32; Status DC Insulin Aspart (NovoLOG) 0-9 UNITS TIDACHC SQ ; Start 10/01/17 at 07:30; Stop 10/01/17 at 07:30; Status DC Dextrose 12.5 gm PRN Q15MIN PRN IV SEE COMMENTS; Start 10/01/17 at 03:30 Insulin Aspart (NovoLOG) 0-9 UNITS TIDAC SQ Last administered on 10/16/17 17: 02; Start 10/01/17 at 07:30 Lactobacillus Rhamnosus (Culturelle) 1 cap BID PO Last administered on 19:43; Start 10/01/17 at 21:00 Risperidone (RisperDAL) 0.25 mg BID PO Last administered on 10/07/17 09:08; Start 10/02/17 at 21:00; Stop 10/07/17 at 18:57; Status DC Mirtazapine (Remeron) 7.5 mg QHS PO Last administered on 10/10/17 19:59; Start 10/02/17 at 21:00; Stop 10/11/17 at 19:36; Status DC Docusate Calcium (Surfak) 240 mg DAILY PO Last administered on 10/16/17 08:06 ; Start 10/03/17 at 09:00 Fluvoxamine Maleate (Luvox) 100 mg QHS PO Last administered on 10/04/17 19:47 ; Start 10/03/17 at 21:00; Stop 10/05/17 at 18:23; Status DC Fluvoxamine Maleate (Luvox) 100 mg QHS PO Last administered on 10/16/17 19:46 ; Start 10/05/17 at 21:00 Fluvoxamine Maleate (Luvox) 25 mg HS PO Last administered on 10/16/17 19:46; Start 10/05/17 at 21:00 Nystatin (Nystop) 15 presley STK-MED ONCE TP Last administered on 10/06/17 17:05 ; Start 10/06/17 at 16:46; Stop 10/06/17 at 16:47; Status DC Quetiapine Fumarate (SEROquel) 12.5 mg TID@0900,1300,1700 PO Last administered on 10/16/17 17:01; Start 10/08/17 at 09:00 Insulin Detemir (Levemir) 12 units QHS SQ Last administered on 10/16/17 19:48 ; Start 10/10/17 at 21:00 Mirtazapine (Remeron) 15 mg QHS PO Last administered on 10/16/17 19:44; Start 10/11/17 at 21:00 Trazodone HCl (Desyrel) 50 mg QHS PO Last administered on 10/16/17 19:46; Start 10/12/17 at 21:00 Buspirone HCl (Buspar) 10 mg DAILY@1400 PO Last administered on 10/16/17 13: 51; Start 10/14/17 at 14:00 Albuterol/ Ipratropium (Duoneb) 3 ml PRN BID PRN NEB COUGH; Start 10/14/17 at 16:45 Melatonin 6 mg QHS PO Last administered on 10/16/17 19:44; Start 10/14/17 at 21:00 Oxycodone HCl (OxyCONTIN) 10 mg Q12HR PO Last administered on 10/16/17 19:46 ; Start 10/15/17 at 21:00 Active Scripts Active Cipro (Ciprofloxacin Hcl) 250 Mg Tablet 1 Tab PO BID Reported Levemir Flextouch (Insulin Detemir) 100 Unit/1 Ml Insuln.pen 17 Unit SQ QHS Myrbetriq (Mirabegron) 25 Mg Tab.er.24h 25 Mg PO DAILY Duoneb 0.5-3(2.5) Mg/3 Ml (Albuterol/Ipratropium) 3 Ml Ampul.neb 3 Ml NEB PRN BID PRN Metoprolol Tartrate 25 Mg Tablet 12.5 Mg PO BID For CHF and CAD patients: Hold for HR less than 50 or SBP less than 90. For all other patients: Hold for HR less than 60 or SBP less than 100. After a held dose, reassess in 2 hours. If HR and SBP are above threshold, administer dose as ordered. If HR and SBP are below threshold, contact provider. Novolog Flexpen (Insulin Aspart) 100 Unit/1 Ml Insuln.pen 0-9 Unit SQ TIDAC BG level: If eating: If not eating: < 70 Call Provider [phone] 4 0 201-250 5 3 [phone] > or = 351 Call provider Trazodone Hcl 50 Mg Tablet 50 Mg PO PRN QHS PRN Give with food. MAY REPEAT IN 1 HOUR Risperidone 0.5 Mg Tablet 0.5 Mg PO BID Mag-Al Plus Xs Suspension (Mag Hydrox/Al Hydrox/Simeth) 30 Ml Oral.susp 15 Ml PO PRN AFTMEALHC PRN Tradjenta (Linagliptin) 5 Mg Tablet 5 Mg PO DAILY Duoneb 0.5-3(2.5) Mg/3 Ml (Albuterol/Ipratropium) 3 Ml Ampul.neb 3 Ml NEB PRN Q2HR PRN Fluvoxamine Maleate 50 Mg Tablet 75 Mg PO HS Cetirizine Hcl 10 Mg Tablet 10 Mg PO PRN DAILY PRN Milk Of Magnesia (Magnesium Hydroxide) 2,400 Mg/10 Ml Oral.susp 2,400 Mg PO PRN DAILY PRN Tylenol (Acetaminophen) 325 Mg Tablet 650 Mg PO Q6HRS PRN Plavix (Clopidogrel Bisulfate) 75 Mg Tablet 75 Mg PO DAILY NITROGLYCERIN SubLingual (Nitroglycerin) 0.4 Mg Tab.subl 0.4 Mg SL PRN Q5MIN PRN Hold for SBP less than or equal to 90 mmHg. Call provider for chest pain unrelieved by 1 sublingual nitroglycerin, may repeat X2 if chest pain persists. Lipitor (Atorvastatin Calcium) 40 Mg Tablet 40 Mg PO QHS Isosorbide Mononitrate Er (Isosorbide Mononitrate) 30 Mg Tab.er.24h 30 Mg PO DAILY DO NOT CRUSH OR CHEW Colace (Docusate Sodium) 100 Mg Capsule 100 Mg PO BID Hold for loose stools Clonazepam 0.5 Mg Tablet 0.5 Mg PO PRN Q6HRS PRN Buspirone Hcl 15 Mg Tablet 15 Mg PO BID I have reviewed the current psychotropics carefully including drug interactions. Risk benefit ratio favors no change other than as noted in my dictated progress note. Diagnosis: Problems: (1) Dementia (2) Major depressive disorder, recurrent episode (3) Vascular dementia with depressed mood (4) Vascular dementia with delusions (5) Dementia, vascular, with depression (6) Dementia, vascular, with delusions (7) Vascular dementia with behavior disturbance (8) Dementia in Alzheimer's disease with depression (9) Dementia in Alzheimer's disease with delusions TATIANA LAYTON MD Oct 16, 2017 22:18
--- NOTE | 2017-10-17 01:02 | PN ---
DATE: 10/16/2017 This late entry for 10/16/2017 covers elements not covered in my initial note of 10/16/2017. SUBJECTIVE: I met with the patient in the evening of 10/16/2017 and staffed at a treatment team meeting with the entire team morning of 10/16/2017. She is alert, oriented x 3, demanding, disorganized, complains of low back pain. No help with Tylenol, less agitated and less labile in her mood, less calling out verbally. Reviewed her history at treatment team meeting. Discussed using the audio books to help distract her. REVIEW OF SYSTEMS: Bilateral blindness, impaired ambulation, in Broda chair, back pain. No CV, , pulmonary system symptoms on review. MENTAL STATUS EXAM: Oriented to herself and situation. Speech is coherent, loud at times. Abstraction fair, computation impaired, language function intact, attention span short. Mood and affect, somewhat less labile. LABORATORY DATA: Reviewed. IMPRESSION: Major depressive disorder with psychotic features in partial remission; anxiety disorder, unspecified, mild cognitive impairment. PLAN: Continue psychotropics mentioned in my initial note. Adjust further as clinically indicated, use the audio books. MAN Bev LAYTON MD DR: JHOAN/osiel JOB#: [id number] / [id number]
[2017-10-17 05:40] VITALS: BP 125/62
[2017-10-17] MEDS: INSULIN ASPART 300 UNITS/3 ML INSULN.PEN SQ SCH ×3 (07:30→16:30)
[2017-10-17] MEDS: LACTOBACILLUS RHAMNOSUS GG 1 CAPSULE. PO SCH ×2 (07:48→19:24)
[2017-10-17 07:49] LABS: BASO % 0 % (0-3); EOS # 0.2 x10^3/uL (0.0-0.7); EOS % 3 % (0-3); HEMOGLOBIN 13.3 g/dL (12.0-15.5); LYMPH # 2.4 x10^3/uL (1.0-4.8); LYMPH % 43 % (24-48); MEAN CORPUSCULAR HEMOGLOBIN 31 pg (25-35); MEAN CORPUSCULAR HGB CONC 33 g/dL (31-37); MEAN CORPUSCULAR VOLUME 94 fL (79-100); MONO # 0.6 x10^3/uL (0.0-1.1); MONO % 10 % (0-9); NEUT # 2.5 x10^3uL (1.8-7.7); NEUT % 45 % (31-73); PLATELET COUNT 169 x10^3/uL (140-400); RED BLOOD COUNT 4.28 x10^6/uL (3.50-5.40); RED CELL DISTRIBUTION WIDTH 13.5 % (11.5-14.5); WHITE BLOOD COUNT 5.7 x10^3/uL (4.0-11.0)
[2017-10-17] MEDS: CLOPIDOGREL BISULFATE 75 MG TABLET PO SCH (07:49)
[2017-10-17] MEDS: LINAGLIPTIN 5 MG TABLET PO SCH (07:49)
[2017-10-17] MEDS: busPIRone 15 MG TABLET. PO SCH ×2 (07:49→19:25)
[2017-10-17] MEDS: ISOSORBIDE MONONITRATE ER 30 MG TAB.ER.24H PO SCH (07:49)
[2017-10-17] MEDS: DOCUSATE CALCIUM 240 MG CAPSULE PO SCH (07:49)
[2017-10-17] MEDS: METOPROLOL TART IMMED RELEASE 25 MG TABLET PO SCH ×2 (07:50→19:31)
[2017-10-17] MEDS: QUEtiapine 25 MG TABLET. PO SCH ×3 (07:50→17:12)
[2017-10-17] MEDS: oxyCODONE ER 10 MG TAB.ER.12H PO SCH ×2 (07:52→19:25)
[2017-10-17] MEDS: MIRABEGRON 25 MG TAB.ER.24H PO SCH (07:59)
[2017-10-17 08:11] LABS: ALBUMIN 2.9 g/dL (3.4-5.0); ALBUMIN/GLOBULIN RATIO 0.8 (1.0-1.7); CALCIUM 8.7 mg/dL (8.5-10.1); CREATININE 1.4 mg/dL (0.6-1.0); GFR 35.6; MAGNESIUM 2.1 mg/dL (1.8-2.4); POTASSIUM 4.4 mmol/L (3.5-5.1); TOTAL BILIRUBIN 0.3 mg/dL (0.2-1.0); TOTAL PROTEIN 6.4 g/dL (6.4-8.2)
--- NOTE | 2017-10-17 09:38 | PN ---
DATE: 10/16/2017 This is a late entry for 10/14/2017 and covers the elements not covered in my initial note of 10/14/2017. SUBJECTIVE: I met with the patient in the evening of 10/14/2017. The patient was up all the previous night, slept just about 2 to 3 hours and was up half the day. During the day, received Klonopin, at 3:00 p.m. complains of back pain, less yelling in the morning, yelling was evident later in the day. REVIEW OF SYSTEMS: Bilateral blindness, impaired ambulation in a Broda chair, back pain. No CV, , pulmonary, ENT system symptoms on review. MENTAL STATUS EXAM: Oriented to herself and situation. Speech can be loud at times. Abstraction fair, computation impaired, language function intact, attention span short. Mood and affect remains labile. LABORATORY DATA: Reviewed. IMPRESSION: Major depressive disorder with psychotic features; anxiety disorder, unspecified; cognitive disorder, unspecified. PLAN: Continue trazodone, but we will repeat it x 2 p.r.n. insomnia; start melatonin 5 mg at bedtime. Rest unchanged from initial note. Adjust as clinically indicated. TATIANA LAYTON MD DR: JHOAN/osiel JOB#: [id number] / [id number]
[2017-10-17] MEDS: busPIRone 10 MG TABLET. PO SCH (12:46)
[2017-10-17 16:07] VITALS: BP 106/62
[2017-10-17 16:09] VITALS: BP 106/62
[2017-10-17] MEDS: MELATONIN 3 MG TABLET PO SCH (19:25)
[2017-10-17] MEDS: MIRTAZAPINE 15 MG TABLET PO SCH (19:26)
[2017-10-17] MEDS: traZODone 50 MG TABLET. PO SCH (19:26)
[2017-10-17] MEDS: INSULIN DETEMIR 300 UNITS/3 ML INSULN.PEN. SQ SCH (19:34)
--- NOTE | 2017-10-17 21:23 | PDOC ---
Exam Note: [place] Note: Please also refer to the separate dictated note~for this date of service dictated separately.~Patient seen individually. Discussed the patient with Nursing staff reviewed the chart.~Reviewed interim history and current functioning. Reviewed vital signs,~Labs/ Radiology~and current medications noted below. Continue current treatment with the changes noted in the dictated addendum note Assessment: Vital Signs: Vital Signs Date Time Temp Pulse Resp B/P (MAP) Pulse Ox O2 Delivery O2 Flow Rate FiO2 10/17/17 19:31 68 106/62 10/17/17 16:09 97.6 94 10/17/17 16:07 18 Room Air I&O Intake and Output 10/17/17 07:00 Intake Total 840 ml Balance 840 ml Intake Oral 840 ml Labs: Laboratory Tests Test 10/17/17 07:18 10/17/17 07:23 10/17/17 11:43 10/17/17 15:55 White Blood Count 5.7 x10^3/uL (4.0-11.0) Red Blood Count 4.28 x10^6/uL (3.50-5.40) Hemoglobin 13.3 g/dL (12.0-15.5) Hematocrit 40.0 % (36.0-47.0) Mean Corpuscular Volume 94 fL (79-100) Mean Corpuscular Hemoglobin 31 pg (25-35) Mean Corpuscular Hemoglobin Concent 33 g/dL (31-37) Red Cell Distribution Width 13.5 % (11.5-14.5) Platelet Count 169 x10^3/uL (140-400) Neutrophils (%) (Auto) 45 % (31-73) Lymphocytes (%) (Auto) 43 % (24-48) Monocytes (%) (Auto) 10 % (0-9) H Eosinophils (%) (Auto) 3 % (0-3) Basophils (%) (Auto) 0 % (0-3) Neutrophils # (Auto) 2.5 x10^3uL (1.8-7.7) Lymphocytes # (Auto) 2.4 x10^3/uL (1.0-4.8) Monocytes # (Auto) 0.6 x10^3/uL (0.0-1.1) Eosinophils # (Auto) 0.2 x10^3/uL (0.0-0.7) Basophils # (Auto) 0.0 x10^3/uL (0.0-0.2) Sodium Level 143 mmol/L (136-145) Potassium Level 4.4 mmol/L (3.5-5.1) Chloride Level 108 mmol/L (98-107) H Carbon Dioxide Level 31 mmol/L (21-32) Anion Gap 4 (6-14) L Blood Urea Nitrogen 30 mg/dL (7-20) H Creatinine 1.4 mg/dL (0.6-1.0) H Estimated GFR (Cockcroft-Gault) 35.6 BUN/Creatinine Ratio 21 (6-20) H Glucose Level 94 mg/dL (70-99) Calcium Level 8.7 mg/dL (8.5-10.1) Magnesium Level 2.1 mg/dL (1.8-2.4) Total Bilirubin 0.3 mg/dL (0.2-1.0) Aspartate Amino Transferase (AST) 506 U/L (15-37) H Alanine Aminotransferase (ALT) 320 U/L (14-59) H Alkaline Phosphatase 219 U/L (46-116) H Total Protein 6.4 g/dL (6.4-8.2) Albumin 2.9 g/dL (3.4-5.0) L Albumin/Globulin Ratio 0.8 (1.0-1.7) L Glucose (Fingerstick) 68 mg/dL (70-99) L 178 mg/dL (70-99) H 105 mg/dL (70-99) H Test 10/17/17 19:02 Glucose (Fingerstick) 135 mg/dL (70-99) H Current Medications: Meds: Current Medications Acetaminophen (Tylenol) 650 mg PRN Q6HRS PRN PO PAIN / TEMP Last administered on 10/16/17 18:08; Start 10/01/17 at 02:30 Al Hydroxide/Mg Hydroxide (Mylanta Plus Xs) 15 ml PRN AFTMEALHC PRN PO DYSPEPSIA Last administered on 10/15/17 10:26; Start 10/01/17 at 02:30 Magnesium Hydroxide (Milk Of Magnesia) 2,400 mg PRN QHS PRN PO CONSTIPATION Last administered on 10/06/17 00:17; Start 10/01/17 at 02:30 Buspirone HCl (Buspar) 15 mg BID PO Last administered on 10/17/17 19:25; Start 10/01/17 at 09:00 Clonazepam (KlonoPIN) 0.5 mg PRN Q6HRS PRN PO ANXIETY / AGITATION Last administered on 10/14/17 15:14; Start 10/01/17 at 03:15 Risperidone (RisperDAL) 0.5 mg BID PO Last administered on 10/02/17 07:27; Start 10/01/17 at 09:00; Stop 10/02/17 at 18:15; Status DC Trazodone HCl (Desyrel) 50 mg PRN QHS PRN PO INSOMNIA Last administered on 00:18; Start 10/01/17 at 03:15 Fluvoxamine Maleate (Luvox) 75 mg QHS PO Last administered on 10/02/17 19:23; Start 10/01/17 at 21:00; Stop 10/03/17 at 19:03; Status DC Acetaminophen (Tylenol) 650 mg Q6HRS PRN PO PAIN; Start 10/01/17 at 03:15; Stop 10/01/17 at 03:32; Status DC Cetirizine HCl (ZyrTEC) 10 mg PRN DAILY PRN PO ALLERGIES; Start 10/01/17 at 03: 15 Ciprofloxacin (Cipro) 250 mg BID66 PO Last administered on 10/07/17 17:29; Start 10/01/17 at 06:00; Stop 10/07/17 at 18:01; Status DC Clopidogrel Bisulfate (Plavix) 75 mg DAILY PO Last administered on 10/17/17 07:49; Start 10/01/17 at 09:00 Docusate Sodium (Colace) 100 mg BID PO Last administered on 10/02/17 07:29; Start 10/01/17 at 09:00; Stop 10/02/17 at 18:26; Status DC Insulin Detemir (Levemir) 17 units QHS SQ Last administered on 10/09/17 19:43 ; Start 10/01/17 at 21:00; Stop 10/10/17 at 11:26; Status DC Albuterol/ Ipratropium (Duoneb) 3 ml RTBID NEB Last administered on 10/13/17 22:13; Start 10/01/17 at 08:00; Stop 10/14/17 at 16:39; Status DC Albuterol Sulfate (Ventolin) 2.5 mg PRN Q2HR PRN NEB COUGH/SHORTNESS OF BREATH ; Start 10/01/17 at 03:30 Isosorbide Mononitrate (Imdur) 30 mg DAILY PO Last administered on 10/17/17 07:49; Start 10/01/17 at 09:00 Linagliptin (Tradjenta) 5 mg DAILY PO Last administered on 10/17/17 07:49; Start 10/01/17 at 09:00 Al Hydroxide/Mg Hydroxide (Mylanta Plus Xs) 15 ml PRN AFTMEALHC PRN PO DYSPEPSIA; Start 10/01/17 at 03:15; Stop 10/01/17 at 03:32; Status DC Metoprolol Tartrate (Lopressor) 12.5 mg BID PO Last administered on 10/17/17 19:31; Start 10/01/17 at 09:00 Nitroglycerin (Nitrostat) 0.4 mg PRN Q5MIN PRN SL CHEST PAIN; Start 10/01/17 at 03:15 Atorvastatin Calcium (Lipitor) 40 mg QHS PO Last administered on 10/16/17 19: 44; Start 10/01/17 at 21:00; Stop 10/17/17 at 09:46; Status DC Non-Formulary Medication 2,400 mg PRN DAILY PRN PO CONSTIPATION; Start at 03:15; Stop 10/01/17 at 03:32; Status DC Insulin Aspart (NovoLOG) 0-9 UNITS TIDACHC SQ ; Start 10/01/17 at 07:30; Stop 10/01/17 at 07:30; Status DC Dextrose 12.5 gm PRN Q15MIN PRN IV SEE COMMENTS; Start 10/01/17 at 03:30 Insulin Aspart (NovoLOG) 0-9 UNITS TIDAC SQ Last administered on 10/17/17 12: 43; Start 10/01/17 at 07:30 Lactobacillus Rhamnosus (Culturelle) 1 cap BID PO Last administered on 19:24; Start 10/01/17 at 21:00 Risperidone (RisperDAL) 0.25 mg BID PO Last administered on 10/07/17 09:08; Start 10/02/17 at 21:00; Stop 10/07/17 at 18:57; Status DC Mirtazapine (Remeron) 7.5 mg QHS PO Last administered on 10/10/17 19:59; Start 10/02/17 at 21:00; Stop 10/11/17 at 19:36; Status DC Docusate Calcium (Surfak) 240 mg DAILY PO Last administered on 10/17/17 07:49 ; Start 10/03/17 at 09:00 Fluvoxamine Maleate (Luvox) 100 mg QHS PO Last administered on 10/04/17 19:47 ; Start 10/03/17 at 21:00; Stop 10/05/17 at 18:23; Status DC Fluvoxamine Maleate (Luvox) 100 mg QHS PO Last administered on 10/17/17 19:26 ; Start 10/05/17 at 21:00 Fluvoxamine Maleate (Luvox) 25 mg HS PO Last administered on 10/17/17 19:26; Start 10/05/17 at 21:00 Nystatin (Nystop) 15 presley STK-MED ONCE TP Last administered on 10/06/17 17:05 ; Start 10/06/17 at 16:46; Stop 10/06/17 at 16:47; Status DC Quetiapine Fumarate (SEROquel) 12.5 mg TID@0900,1300,1700 PO Last administered on 10/17/17 17:12; Start 10/08/17 at 09:00 Insulin Detemir (Levemir) 12 units QHS SQ Last administered on 10/17/17 19:34 ; Start 10/10/17 at 21:00 Mirtazapine (Remeron) 15 mg QHS PO Last administered on 10/17/17 19:26; Start 10/11/17 at 21:00 Trazodone HCl (Desyrel) 50 mg QHS PO Last administered on 10/17/17 19:26; Start 10/12/17 at 21:00 Buspirone HCl (Buspar) 10 mg DAILY@1400 PO Last administered on 10/17/17 12: 46; Start 10/14/17 at 14:00 Albuterol/ Ipratropium (Duoneb) 3 ml PRN BID PRN NEB COUGH; Start 10/14/17 at 16:45 Melatonin 6 mg QHS PO Last administered on 10/17/17 19:25; Start 10/14/17 at 21:00 Oxycodone HCl (OxyCONTIN) 10 mg Q12HR PO Last administered on 10/17/17 19:25 ; Start 10/15/17 at 21:00 Active Scripts Active Cipro (Ciprofloxacin Hcl) 250 Mg Tablet 1 Tab PO BID Reported Levemir Flextouch (Insulin Detemir) 100 Unit/1 Ml Insuln.pen 17 Unit SQ QHS Myrbetriq (Mirabegron) 25 Mg Tab.er.24h 25 Mg PO DAILY Duoneb 0.5-3(2.5) Mg/3 Ml (Albuterol/Ipratropium) 3 Ml Ampul.neb 3 Ml NEB PRN BID PRN Metoprolol Tartrate 25 Mg Tablet 12.5 Mg PO BID For CHF and CAD patients: Hold for HR less than 50 or SBP less than 90. For all other patients: Hold for HR less than 60 or SBP less than 100. After a held dose, reassess in 2 hours. If HR and SBP are above threshold, administer dose as ordered. If HR and SBP are below threshold, contact provider. Novolog Flexpen (Insulin Aspart) 100 Unit/1 Ml Insuln.pen 0-9 Unit SQ TIDAC BG level: If eating: If not eating: < 70 Call Provider [phone] 5 [phone] > or = 351 Call provider Trazodone Hcl 50 Mg Tablet 50 Mg PO PRN QHS PRN Give with food. MAY REPEAT IN 1 HOUR Risperidone 0.5 Mg Tablet 0.5 Mg PO BID Mag-Al Plus Xs Suspension (Mag Hydrox/Al Hydrox/Simeth) 30 Ml Oral.susp 15 Ml PO PRN AFTMEALHC PRN Tradjenta (Linagliptin) 5 Mg Tablet 5 Mg PO DAILY Duoneb 0.5-3(2.5) Mg/3 Ml (Albuterol/Ipratropium) 3 Ml Ampul.neb 3 Ml NEB PRN Q2HR PRN Fluvoxamine Maleate 50 Mg Tablet 75 Mg PO HS Cetirizine Hcl 10 Mg Tablet 10 Mg PO PRN DAILY PRN Milk Of Magnesia (Magnesium Hydroxide) 2,400 Mg/10 Ml Oral.susp 2,400 Mg PO PRN DAILY PRN Tylenol (Acetaminophen) 325 Mg Tablet 650 Mg PO Q6HRS PRN Plavix (Clopidogrel Bisulfate) 75 Mg Tablet 75 Mg PO DAILY NITROGLYCERIN SubLingual (Nitroglycerin) 0.4 Mg Tab.subl 0.4 Mg SL PRN Q5MIN PRN Hold for SBP less than or equal to 90 mmHg. Call provider for chest pain unrelieved by 1 sublingual nitroglycerin, may repeat X2 if chest pain persists. Lipitor (Atorvastatin Calcium) 40 Mg Tablet 40 Mg PO QHS Isosorbide Mononitrate Er (Isosorbide Mononitrate) 30 Mg Tab.er.24h 30 Mg PO DAILY DO NOT CRUSH OR CHEW Colace (Docusate Sodium) 100 Mg Capsule 100 Mg PO BID Hold for loose stools Clonazepam 0.5 Mg Tablet 0.5 Mg PO PRN Q6HRS PRN Buspirone Hcl 15 Mg Tablet 15 Mg PO BID I have reviewed the current psychotropics carefully including drug interactions. Risk benefit ratio favors no change other than as noted in my dictated progress note. Diagnosis: Problems: (1) Dementia (2) Major depressive disorder, recurrent episode (3) Vascular dementia with depressed mood (4) Vascular dementia with delusions (5) Dementia, vascular, with depression (6) Dementia, vascular, with delusions (7) Vascular dementia with behavior disturbance (8) Dementia in Alzheimer's disease with depression (9) Dementia in Alzheimer's disease with delusions TATIANA LAYTON MD Oct 17, 2017 21:23
[2017-10-18 06:27] VITALS: BP 112/63
[2017-10-18] MEDS: INSULIN ASPART 300 UNITS/3 ML INSULN.PEN SQ SCH ×3 (07:30→16:30)
[2017-10-18] MEDS: DOCUSATE CALCIUM 240 MG CAPSULE PO SCH (08:16)
[2017-10-18] MEDS: QUEtiapine 25 MG TABLET. PO SCH ×3 (08:17→17:45)
[2017-10-18] MEDS: ISOSORBIDE MONONITRATE ER 30 MG TAB.ER.24H PO SCH (08:17)
[2017-10-18] MEDS: LINAGLIPTIN 5 MG TABLET PO SCH (08:17)
[2017-10-18] MEDS: busPIRone 15 MG TABLET. PO SCH ×2 (08:17→19:47)
[2017-10-18] MEDS: LACTOBACILLUS RHAMNOSUS GG 1 CAPSULE. PO SCH ×2 (08:17→19:48)
[2017-10-18] MEDS: CLOPIDOGREL BISULFATE 75 MG TABLET PO SCH (08:18)
[2017-10-18] MEDS: METOPROLOL TART IMMED RELEASE 25 MG TABLET PO SCH ×2 (08:18→19:48)
[2017-10-18] MEDS: MIRABEGRON 25 MG TAB.ER.24H PO SCH (08:19)
[2017-10-18] MEDS: oxyCODONE ER 10 MG TAB.ER.12H PO SCH ×2 (08:20→19:52)
[2017-10-18 08:23] LABS: ALBUMIN 2.9 g/dL (3.4-5.0); ALBUMIN/GLOBULIN RATIO 0.8 (1.0-1.7); CALCIUM 8.8 mg/dL (8.5-10.1); CREATININE 1.4 mg/dL (0.6-1.0); GFR 35.6; POTASSIUM 4.4 mmol/L (3.5-5.1); TOTAL BILIRUBIN 0.9 mg/dL (0.2-1.0); TOTAL PROTEIN 6.5 g/dL (6.4-8.2)
[2017-10-18] MEDS ORDERED: NYSTATIN TOPICAL POWDER 15GM BOTTLE. TP ONE (09:13)
[2017-10-18] MEDS: busPIRone 10 MG TABLET. PO SCH (12:20)
[2017-10-18 16:02] VITALS: BP 96/56
[2017-10-18] MEDS: MELATONIN 3 MG TABLET PO SCH (19:47)
[2017-10-18] MEDS: MIRTAZAPINE 15 MG TABLET PO SCH (19:52)
[2017-10-18] MEDS: INSULIN DETEMIR 300 UNITS/3 ML INSULN.PEN. SQ SCH (19:52)
[2017-10-18 20:11] VITALS: BP 155/64
--- NOTE | 2017-10-18 20:17 | PDOC ---
Exam Note: [place] Note: Please also refer to the separate dictated note~for this date of service dictated separately.~Patient seen individually. Discussed the patient with Nursing staff reviewed the chart.~Reviewed interim history and current functioning. Reviewed vital signs,~Labs/ Radiology~and current medications noted below. Continue current treatment with the changes noted in the dictated addendum note Assessment: Vital Signs: Vital Signs Date Time Temp Pulse Resp B/P (MAP) Pulse Ox O2 Delivery O2 Flow Rate FiO2 10/18/17 20:11 67 18 155/64 (94) 93 10/18/17 16:02 98.2 10/17/17 16:07 Room Air I&O Intake and Output 10/18/17 07:00 Intake Total 840 ml Balance 840 ml Intake Oral 840 ml Labs: Laboratory Tests Test 10/18/17 07:15 10/18/17 07:45 10/18/17 11:50 10/18/17 17:00 Glucose (Fingerstick) 92 mg/dL (70-99) 184 mg/dL (70-99) H 138 mg/dL (70-99) H Sodium Level 141 mmol/L (136-145) Potassium Level 4.4 mmol/L (3.5-5.1) Chloride Level 106 mmol/L (98-107) Carbon Dioxide Level 30 mmol/L (21-32) Anion Gap 5 (6-14) L Blood Urea Nitrogen 26 mg/dL (7-20) H Creatinine 1.4 mg/dL (0.6-1.0) H Estimated GFR (Cockcroft-Gault) 35.6 BUN/Creatinine Ratio 19 (6-20) Glucose Level 113 mg/dL (70-99) H Calcium Level 8.8 mg/dL (8.5-10.1) Total Bilirubin 0.9 mg/dL (0.2-1.0) Aspartate Amino Transferase (AST) 1214 U/L (15-37) H Alanine Aminotransferase (ALT) 805 U/L (14-59) H Alkaline Phosphatase 399 U/L (46-116) H Total Protein 6.5 g/dL (6.4-8.2) Albumin 2.9 g/dL (3.4-5.0) L Albumin/Globulin Ratio 0.8 (1.0-1.7) L Lipase 147 U/L (73-393) Test 10/18/17 19:09 Glucose (Fingerstick) 124 mg/dL (70-99) H Current Medications: Meds: Current Medications Acetaminophen (Tylenol) 650 mg PRN Q6HRS PRN PO PAIN / TEMP Last administered on 10/16/17 18:08; Start 10/01/17 at 02:30 Al Hydroxide/Mg Hydroxide (Mylanta Plus Xs) 15 ml PRN AFTMEALHC PRN PO DYSPEPSIA Last administered on 10/15/17 10:26; Start 10/01/17 at 02:30 Magnesium Hydroxide (Milk Of Magnesia) 2,400 mg PRN QHS PRN PO CONSTIPATION Last administered on 10/06/17 00:17; Start 10/01/17 at 02:30 Buspirone HCl (Buspar) 15 mg BID PO Last administered on 10/18/17 19:47; Start 10/01/17 at 09:00 Clonazepam (KlonoPIN) 0.5 mg PRN Q6HRS PRN PO ANXIETY / AGITATION Last administered on 10/14/17 15:14; Start 10/01/17 at 03:15 Risperidone (RisperDAL) 0.5 mg BID PO Last administered on 10/02/17 07:27; Start 10/01/17 at 09:00; Stop 10/02/17 at 18:15; Status DC Trazodone HCl (Desyrel) 50 mg PRN QHS PRN PO INSOMNIA Last administered on 00:18; Start 10/01/17 at 03:15; Stop 10/18/17 at 09:07; Status DC Fluvoxamine Maleate (Luvox) 75 mg QHS PO Last administered on 10/02/17 19:23; Start 10/01/17 at 21:00; Stop 10/03/17 at 19:03; Status DC Acetaminophen (Tylenol) 650 mg Q6HRS PRN PO PAIN; Start 10/01/17 at 03:15; Stop 10/01/17 at 03:32; Status DC Cetirizine HCl (ZyrTEC) 10 mg PRN DAILY PRN PO ALLERGIES; Start 10/01/17 at 03: 15 Ciprofloxacin (Cipro) 250 mg BID66 PO Last administered on 10/07/17 17:29; Start 10/01/17 at 06:00; Stop 10/07/17 at 18:01; Status DC Clopidogrel Bisulfate (Plavix) 75 mg DAILY PO Last administered on 10/18/17 08:18; Start 10/01/17 at 09:00 Docusate Sodium (Colace) 100 mg BID PO Last administered on 10/02/17 07:29; Start 10/01/17 at 09:00; Stop 10/02/17 at 18:26; Status DC Insulin Detemir (Levemir) 17 units QHS SQ Last administered on 10/09/17 19:43 ; Start 10/01/17 at 21:00; Stop 10/10/17 at 11:26; Status DC Albuterol/ Ipratropium (Duoneb) 3 ml RTBID NEB Last administered on 10/13/17 22:13; Start 10/01/17 at 08:00; Stop 10/14/17 at 16:39; Status DC Albuterol Sulfate (Ventolin) 2.5 mg PRN Q2HR PRN NEB COUGH/SHORTNESS OF BREATH ; Start 10/01/17 at 03:30 Isosorbide Mononitrate (Imdur) 30 mg DAILY PO Last administered on 10/18/17 08:17; Start 10/01/17 at 09:00 Linagliptin (Tradjenta) 5 mg DAILY PO Last administered on 10/18/17 08:17; Start 10/01/17 at 09:00 Al Hydroxide/Mg Hydroxide (Mylanta Plus Xs) 15 ml PRN AFTMEALHC PRN PO DYSPEPSIA; Start 10/01/17 at 03:15; Stop 10/01/17 at 03:32; Status DC Metoprolol Tartrate (Lopressor) 12.5 mg BID PO Last administered on 10/18/17 08:18; Start 10/01/17 at 09:00 Nitroglycerin (Nitrostat) 0.4 mg PRN Q5MIN PRN SL CHEST PAIN; Start 10/01/17 at 03:15 Atorvastatin Calcium (Lipitor) 40 mg QHS PO Last administered on 10/16/17 19: 44; Start 10/01/17 at 21:00; Stop 10/17/17 at 09:46; Status DC Non-Formulary Medication 2,400 mg PRN DAILY PRN PO CONSTIPATION; Start at 03:15; Stop 10/01/17 at 03:32; Status DC Insulin Aspart (NovoLOG) 0-9 UNITS TIDACHC SQ ; Start 10/01/17 at 07:30; Stop 10/01/17 at 07:30; Status DC Dextrose 12.5 gm PRN Q15MIN PRN IV SEE COMMENTS; Start 10/01/17 at 03:30 Insulin Aspart (NovoLOG) 0-9 UNITS TIDAC SQ Last administered on 10/18/17 11: 53; Start 10/01/17 at 07:30 Lactobacillus Rhamnosus (Culturelle) 1 cap BID PO Last administered on 19:48; Start 10/01/17 at 21:00 Risperidone (RisperDAL) 0.25 mg BID PO Last administered on 10/07/17 09:08; Start 10/02/17 at 21:00; Stop 10/07/17 at 18:57; Status DC Mirtazapine (Remeron) 7.5 mg QHS PO Last administered on 10/10/17 19:59; Start 10/02/17 at 21:00; Stop 10/11/17 at 19:36; Status DC Docusate Calcium (Surfak) 240 mg DAILY PO Last administered on 10/18/17 08:16 ; Start 10/03/17 at 09:00 Fluvoxamine Maleate (Luvox) 100 mg QHS PO Last administered on 10/04/17 19:47 ; Start 10/03/17 at 21:00; Stop 10/05/17 at 18:23; Status DC Fluvoxamine Maleate (Luvox) 100 mg QHS PO Last administered on 10/17/17 19:26 ; Start 10/05/17 at 21:00; Stop 10/18/17 at 18:38; Status DC Fluvoxamine Maleate (Luvox) 25 mg HS PO Last administered on 10/17/17 19:26; Start 10/05/17 at 21:00; Stop 10/18/17 at 18:38; Status DC Nystatin (Nystop) 15 presley STK-MED ONCE TP Last administered on 10/06/17 17:05 ; Start 10/06/17 at 16:46; Stop 10/06/17 at 16:47; Status DC Quetiapine Fumarate (SEROquel) 12.5 mg TID@0900,1300,1700 PO Last administered on 10/18/17 17:45; Start 10/08/17 at 09:00; Stop 10/18/17 at 18:38; Status DC Insulin Detemir (Levemir) 12 units QHS SQ Last administered on 10/17/17 19:34 ; Start 10/10/17 at 21:00 Mirtazapine (Remeron) 15 mg QHS PO Last administered on 10/18/17 19:52; Start 10/11/17 at 21:00 Trazodone HCl (Desyrel) 50 mg QHS PO Last administered on 10/17/17 19:26; Start 10/12/17 at 21:00; Stop 10/18/17 at 09:07; Status DC Buspirone HCl (Buspar) 10 mg DAILY@1400 PO Last administered on 10/18/17 12: 20; Start 10/14/17 at 14:00 Albuterol/ Ipratropium (Duoneb) 3 ml PRN BID PRN NEB COUGH; Start 10/14/17 at 16:45 Melatonin 6 mg QHS PO Last administered on 10/18/17 19:47; Start 10/14/17 at 21:00 Oxycodone HCl (OxyCONTIN) 10 mg Q12HR PO Last administered on 10/18/17 19:52 ; Start 10/15/17 at 21:00 Nystatin (Nystop) 15 presley STK-MED ONCE TP Last administered on 10/18/17 09:13 ; Start 10/18/17 at 09:13; Stop 10/18/17 at 09:14; Status DC Active Scripts Active Cipro (Ciprofloxacin Hcl) 250 Mg Tablet 1 Tab PO BID Reported Levemir Flextouch (Insulin Detemir) 100 Unit/1 Ml Insuln.pen 17 Unit SQ QHS Myrbetriq (Mirabegron) 25 Mg Tab.er.24h 25 Mg PO DAILY Duoneb 0.5-3(2.5) Mg/3 Ml (Albuterol/Ipratropium) 3 Ml Ampul.neb 3 Ml NEB PRN BID PRN Metoprolol Tartrate 25 Mg Tablet 12.5 Mg PO BID For CHF and CAD patients: Hold for HR less than 50 or SBP less than 90. For all other patients: Hold for HR less than 60 or SBP less than 100. After a held dose, reassess in 2 hours. If HR and SBP are above threshold, administer dose as ordered. If HR and SBP are below threshold, contact provider. Novolog Flexpen (Insulin Aspart) 100 Unit/1 Ml Insuln.pen 0-9 Unit SQ TIDAC BG level: If eating: If not eating: < 70 Call Provider [phone] 4 0 201-250 5 3 [phone] > or = 351 Call provider Trazodone Hcl 50 Mg Tablet 50 Mg PO PRN QHS PRN Give with food. MAY REPEAT IN 1 HOUR Risperidone 0.5 Mg Tablet 0.5 Mg PO BID Mag-Al Plus Xs Suspension (Mag Hydrox/Al Hydrox/Simeth) 30 Ml Oral.susp 15 Ml PO PRN AFTMEALHC PRN Tradjenta (Linagliptin) 5 Mg Tablet 5 Mg PO DAILY Duoneb 0.5-3(2.5) Mg/3 Ml (Albuterol/Ipratropium) 3 Ml Ampul.neb 3 Ml NEB PRN Q2HR PRN Fluvoxamine Maleate 50 Mg Tablet 75 Mg PO HS Cetirizine Hcl 10 Mg Tablet 10 Mg PO PRN DAILY PRN Milk Of Magnesia (Magnesium Hydroxide) 2,400 Mg/10 Ml Oral.susp 2,400 Mg PO PRN DAILY PRN Tylenol (Acetaminophen) 325 Mg Tablet 650 Mg PO Q6HRS PRN Plavix (Clopidogrel Bisulfate) 75 Mg Tablet 75 Mg PO DAILY NITROGLYCERIN SubLingual (Nitroglycerin) 0.4 Mg Tab.subl 0.4 Mg SL PRN Q5MIN PRN Hold for SBP less than or equal to 90 mmHg. Call provider for chest pain unrelieved by 1 sublingual nitroglycerin, may repeat X2 if chest pain persists. Lipitor (Atorvastatin Calcium) 40 Mg Tablet 40 Mg PO QHS Isosorbide Mononitrate Er (Isosorbide Mononitrate) 30 Mg Tab.er.24h 30 Mg PO DAILY DO NOT CRUSH OR CHEW Colace (Docusate Sodium) 100 Mg Capsule 100 Mg PO BID Hold for loose stools Clonazepam 0.5 Mg Tablet 0.5 Mg PO PRN Q6HRS PRN Buspirone Hcl 15 Mg Tablet 15 Mg PO BID I have reviewed the current psychotropics carefully including drug interactions. Risk benefit ratio favors no change other than as noted in my dictated progress note. Diagnosis: Problems: (1) Dementia (2) Major depressive disorder, recurrent episode (3) Vascular dementia with depressed mood (4) Vascular dementia with delusions (5) Dementia, vascular, with depression (6) Dementia, vascular, with delusions (7) Vascular dementia with behavior disturbance (8) Dementia in Alzheimer's disease with depression (9) Dementia in Alzheimer's disease with delusions TATIANA LAYTON MD Oct 18, 2017 20:17
--- NOTE | 2017-10-19 00:32 | PN ---
DATE: PSYCHIATRIC PROGRESS NOTE This late entry 10/17/2017 covers elements, not covered in my initial note of 10/17/2017. SUBJECTIVE: I met with the patient in the evening of 10/17/2017. The patient has been less agitated, still repeatedly calling out for help and yelling out to redirect. REVIEW OF SYSTEMS: Bilateral blindness, impaired ambulation, in Broda chair, some back pain. No CV, , pulmonary system symptoms on review. MENTAL STATUS EXAM: Oriented to herself and situation. Speech as above. Abstraction fair, computation impaired, language function intact, attention span short. Mood and affect, lability showed some improvement. LABORATORY DATA: Reviewed. IMPRESSION: Unchanged from initial note. Major neurocognitive disorder, Alzheimer, vascular with delusion, depression, rest unchanged. PLAN: Continue psychotropics mentioned in my initial note. MAN Bev LAYTON MD DR: JHOAN/osiel JOB#: [id number] / [id number]
--- NOTE | 2017-10-19 00:35 | PN ---
DATE: PSYCHIATRIC PROGRESS NOTE This late entry 10/16/2017 covers elements, not covered in my initial note of 10/16/2017. SUBJECTIVE: I met with the patient in the evening of 10/16/2017. The patient slept 8-1/2 hours previous evening, did well the previous evening, slept well. We are encouraging her to use headphones for music, complains of pain in the back, received OxyContin b.i.d., up in Broda chair. REVIEW OF SYSTEMS: Bilateral blindness, impaired ambulation, in Broda chair. No CV, , pulmonary system symptoms on review. MENTAL STATUS EXAM: Oriented to herself and situation. Speech coherent, rapid, loud at times. Abstraction fair, computation impaired, language function intact, attention span short. Memory is impaired. LABORATORY DATA: Reviewed. IMPRESSION: Unchanged from initial note, major neurocognitive disorder, Alzheimer, vascular with depression, delusion, obsessive compulsive disorder. PLAN: Continue psychotropics mentioned in my initial note including Luvox 125 mg at bedtime, may need to increase this. MAN Bev LAYTON MD DR: JHOAN/osiel JOB#: [id number] / [id number]
[2017-10-19 05:55] VITALS: BP 150/70
[2017-10-19] MEDS: INSULIN ASPART 300 UNITS/3 ML INSULN.PEN SQ SCH ×3 (07:30→16:30)
[2017-10-19] MEDS: CLOPIDOGREL BISULFATE 75 MG TABLET PO SCH (07:38)
[2017-10-19] MEDS: LINAGLIPTIN 5 MG TABLET PO SCH (07:38)
[2017-10-19] MEDS: METOPROLOL TART IMMED RELEASE 25 MG TABLET PO SCH ×2 (07:38→19:19)
[2017-10-19] MEDS: busPIRone 15 MG TABLET. PO SCH ×2 (07:38→19:19)
[2017-10-19] MEDS: DOCUSATE CALCIUM 240 MG CAPSULE PO SCH (07:38)
[2017-10-19] MEDS: ISOSORBIDE MONONITRATE ER 30 MG TAB.ER.24H PO SCH (07:39)
[2017-10-19] MEDS: LACTOBACILLUS RHAMNOSUS GG 1 CAPSULE. PO SCH ×2 (07:39→19:19)
[2017-10-19] MEDS: MIRABEGRON 25 MG TAB.ER.24H PO SCH (07:40)
[2017-10-19] MEDS: oxyCODONE ER 10 MG TAB.ER.12H PO SCH ×2 (07:47→19:24)
[2017-10-19] MEDS: MAGNESIUM HYDROXIDE 2,400 MG/30 ML ORAL.SUSP. PO PRN (07:57)
[2017-10-19 08:01] LABS: BASO % 0 % (0-3); EOS # 0.1 x10^3/uL (0.0-0.7); EOS % 2 % (0-3); HEMATOCRIT 40.2 % (36.0-47.0); HEMOGLOBIN 13.4 g/dL (12.0-15.5); LYMPH # 2.5 x10^3/uL (1.0-4.8); LYMPH % 46 % (24-48); MEAN CORPUSCULAR HEMOGLOBIN 31 pg (25-35); MEAN CORPUSCULAR HGB CONC 33 g/dL (31-37); MEAN CORPUSCULAR VOLUME 93 fL (79-100); MONO # 0.5 x10^3/uL (0.0-1.1); MONO % 9 % (0-9); NEUT # 2.3 x10^3uL (1.8-7.7); NEUT % 43 % (31-73); PLATELET COUNT 171 x10^3/uL (140-400); RED BLOOD COUNT 4.34 x10^6/uL (3.50-5.40); RED CELL DISTRIBUTION WIDTH 13.7 % (11.5-14.5); WHITE BLOOD COUNT 5.4 x10^3/uL (4.0-11.0)
[2017-10-19 08:31] LABS: ALBUMIN 2.9 g/dL (3.4-5.0); ALBUMIN/GLOBULIN RATIO 0.8 (1.0-1.7); CREATININE 1.2 mg/dL (0.6-1.0); GFR 42.5; POTASSIUM 4.3 mmol/L (3.5-5.1); TOTAL BILIRUBIN 0.5 mg/dL (0.2-1.0); TOTAL PROTEIN 6.4 g/dL (6.4-8.2)
[2017-10-19] MEDS: clonazePAM 0.5 MG TABLET PO PRN (09:08)
[2017-10-19] MEDS: busPIRone 10 MG TABLET. PO SCH (13:09)
[2017-10-19 16:12] VITALS: BP 133/63
[2017-10-19] MEDS: MELATONIN 3 MG TABLET PO SCH (19:19)
[2017-10-19] MEDS: MIRTAZAPINE 15 MG TABLET PO SCH (19:23)
[2017-10-19] MEDS: INSULIN DETEMIR 300 UNITS/3 ML INSULN.PEN. SQ SCH (19:25)
--- NOTE | 2017-10-19 20:15 | PDOC ---
Exam Note: [place] Note: Please also refer to the separate dictated note~for this date of service dictated separately.~Patient seen individually. Discussed the patient with Nursing staff reviewed the chart.~Reviewed interim history and current functioning. Reviewed vital signs,~Labs/ Radiology~and current medications noted below. Continue current treatment with the changes noted in the dictated addendum note Assessment: Vital Signs: Vital Signs Date Time Temp Pulse Resp B/P (MAP) Pulse Ox O2 Delivery O2 Flow Rate FiO2 10/19/17 19:24 18 92 Room Air 10/19/17 19:19 72 133/63 10/19/17 16:12 97.5 I&O Intake and Output 10/19/17 06:59 Intake Total 600 ml Balance 600 ml Intake Oral 600 ml Labs: Laboratory Tests Test 10/19/17 07:07 10/19/17 07:22 10/19/17 12:02 10/19/17 16:49 Glucose (Fingerstick) 134 mg/dL (70-99) H 197 mg/dL (70-99) H 130 mg/dL (70-99) H White Blood Count 5.4 x10^3/uL (4.0-11.0) Red Blood Count 4.34 x10^6/uL (3.50-5.40) Hemoglobin 13.4 g/dL (12.0-15.5) Hematocrit 40.2 % (36.0-47.0) Mean Corpuscular Volume 93 fL (79-100) Mean Corpuscular Hemoglobin 31 pg (25-35) Mean Corpuscular Hemoglobin Concent 33 g/dL (31-37) Red Cell Distribution Width 13.7 % (11.5-14.5) Platelet Count 171 x10^3/uL (140-400) Neutrophils (%) (Auto) 43 % (31-73) Lymphocytes (%) (Auto) 46 % (24-48) Monocytes (%) (Auto) 9 % (0-9) Eosinophils (%) (Auto) 2 % (0-3) Basophils (%) (Auto) 0 % (0-3) Neutrophils # (Auto) 2.3 x10^3uL (1.8-7.7) Lymphocytes # (Auto) 2.5 x10^3/uL (1.0-4.8) Monocytes # (Auto) 0.5 x10^3/uL (0.0-1.1) Eosinophils # (Auto) 0.1 x10^3/uL (0.0-0.7) Basophils # (Auto) 0.0 x10^3/uL (0.0-0.2) Sodium Level 144 mmol/L (136-145) Potassium Level 4.3 mmol/L (3.5-5.1) Chloride Level 109 mmol/L (98-107) H Carbon Dioxide Level 27 mmol/L (21-32) Anion Gap 8 (6-14) Blood Urea Nitrogen 20 mg/dL (7-20) Creatinine 1.2 mg/dL (0.6-1.0) H Estimated GFR (Cockcroft-Gault) 42.5 BUN/Creatinine Ratio 17 (6-20) Glucose Level 142 mg/dL (70-99) H Calcium Level 9.0 mg/dL (8.5-10.1) Total Bilirubin 0.5 mg/dL (0.2-1.0) Aspartate Amino Transferase (AST) 355 U/L (15-37) H Alanine Aminotransferase (ALT) 502 U/L (14-59) H Alkaline Phosphatase 357 U/L (46-116) H Total Protein 6.4 g/dL (6.4-8.2) Albumin 2.9 g/dL (3.4-5.0) L Albumin/Globulin Ratio 0.8 (1.0-1.7) L Test 10/19/17 19:03 Glucose (Fingerstick) 193 mg/dL (70-99) H Current Medications: Meds: Current Medications Acetaminophen (Tylenol) 650 mg PRN Q6HRS PRN PO PAIN / TEMP Last administered on 10/16/17 18:08; Start 10/01/17 at 02:30 Al Hydroxide/Mg Hydroxide (Mylanta Plus Xs) 15 ml PRN AFTMEALHC PRN PO DYSPEPSIA Last administered on 10/15/17 10:26; Start 10/01/17 at 02:30 Magnesium Hydroxide (Milk Of Magnesia) 2,400 mg PRN QHS PRN PO CONSTIPATION Last administered on 10/19/17 07:57; Start 10/01/17 at 02:30 Buspirone HCl (Buspar) 15 mg BID PO Last administered on 10/19/17 19:19; Start 10/01/17 at 09:00 Clonazepam (KlonoPIN) 0.5 mg PRN Q6HRS PRN PO ANXIETY / AGITATION Last administered on 10/19/17 09:08; Start 10/01/17 at 03:15 Risperidone (RisperDAL) 0.5 mg BID PO Last administered on 10/02/17 07:27; Start 10/01/17 at 09:00; Stop 10/02/17 at 18:15; Status DC Trazodone HCl (Desyrel) 50 mg PRN QHS PRN PO INSOMNIA Last administered on 00:18; Start 10/01/17 at 03:15; Stop 10/18/17 at 09:07; Status DC Fluvoxamine Maleate (Luvox) 75 mg QHS PO Last administered on 10/02/17 19:23; Start 10/01/17 at 21:00; Stop 10/03/17 at 19:03; Status DC Acetaminophen (Tylenol) 650 mg Q6HRS PRN PO PAIN; Start 10/01/17 at 03:15; Stop 10/01/17 at 03:32; Status DC Cetirizine HCl (ZyrTEC) 10 mg PRN DAILY PRN PO ALLERGIES; Start 10/01/17 at 03: 15 Ciprofloxacin (Cipro) 250 mg BID66 PO Last administered on 10/07/17 17:29; Start 10/01/17 at 06:00; Stop 10/07/17 at 18:01; Status DC Clopidogrel Bisulfate (Plavix) 75 mg DAILY PO Last administered on 10/19/17 07:38; Start 10/01/17 at 09:00 Docusate Sodium (Colace) 100 mg BID PO Last administered on 10/02/17 07:29; Start 10/01/17 at 09:00; Stop 10/02/17 at 18:26; Status DC Insulin Detemir (Levemir) 17 units QHS SQ Last administered on 10/09/17 19:43 ; Start 10/01/17 at 21:00; Stop 10/10/17 at 11:26; Status DC Albuterol/ Ipratropium (Duoneb) 3 ml RTBID NEB Last administered on 10/13/17 22:13; Start 10/01/17 at 08:00; Stop 10/14/17 at 16:39; Status DC Albuterol Sulfate (Ventolin) 2.5 mg PRN Q2HR PRN NEB COUGH/SHORTNESS OF BREATH ; Start 10/01/17 at 03:30 Isosorbide Mononitrate (Imdur) 30 mg DAILY PO Last administered on 10/19/17 07:39; Start 10/01/17 at 09:00 Linagliptin (Tradjenta) 5 mg DAILY PO Last administered on 10/19/17 07:38; Start 10/01/17 at 09:00 Al Hydroxide/Mg Hydroxide (Mylanta Plus Xs) 15 ml PRN AFTMEALHC PRN PO DYSPEPSIA; Start 10/01/17 at 03:15; Stop 10/01/17 at 03:32; Status DC Metoprolol Tartrate (Lopressor) 12.5 mg BID PO Last administered on 10/19/17 19:19; Start 10/01/17 at 09:00 Nitroglycerin (Nitrostat) 0.4 mg PRN Q5MIN PRN SL CHEST PAIN; Start 10/01/17 at 03:15 Atorvastatin Calcium (Lipitor) 40 mg QHS PO Last administered on 10/16/17 19: 44; Start 10/01/17 at 21:00; Stop 10/17/17 at 09:46; Status DC Non-Formulary Medication 2,400 mg PRN DAILY PRN PO CONSTIPATION; Start at 03:15; Stop 10/01/17 at 03:32; Status DC Insulin Aspart (NovoLOG) 0-9 UNITS TIDACHC SQ ; Start 10/01/17 at 07:30; Stop 10/01/17 at 07:30; Status DC Dextrose 12.5 gm PRN Q15MIN PRN IV SEE COMMENTS; Start 10/01/17 at 03:30 Insulin Aspart (NovoLOG) 0-9 UNITS TIDAC SQ Last administered on 10/19/17 12: 10; Start 10/01/17 at 07:30 Lactobacillus Rhamnosus (Culturelle) 1 cap BID PO Last administered on 19:19; Start 10/01/17 at 21:00 Risperidone (RisperDAL) 0.25 mg BID PO Last administered on 10/07/17 09:08; Start 10/02/17 at 21:00; Stop 10/07/17 at 18:57; Status DC Mirtazapine (Remeron) 7.5 mg QHS PO Last administered on 10/10/17 19:59; Start 10/02/17 at 21:00; Stop 10/11/17 at 19:36; Status DC Docusate Calcium (Surfak) 240 mg DAILY PO Last administered on 10/19/17 07:38 ; Start 10/03/17 at 09:00 Fluvoxamine Maleate (Luvox) 100 mg QHS PO Last administered on 10/04/17 19:47 ; Start 10/03/17 at 21:00; Stop 10/05/17 at 18:23; Status DC Fluvoxamine Maleate (Luvox) 100 mg QHS PO Last administered on 10/17/17 19:26 ; Start 10/05/17 at 21:00; Stop 10/18/17 at 18:38; Status DC Fluvoxamine Maleate (Luvox) 25 mg HS PO Last administered on 10/17/17 19:26; Start 10/05/17 at 21:00; Stop 10/18/17 at 18:38; Status DC Nystatin (Nystop) 15 presley STK-MED ONCE TP Last administered on 10/06/17 17:05 ; Start 10/06/17 at 16:46; Stop 10/06/17 at 16:47; Status DC Quetiapine Fumarate (SEROquel) 12.5 mg TID@0900,1300,1700 PO Last administered on 10/18/17 17:45; Start 10/08/17 at 09:00; Stop 10/18/17 at 18:38; Status DC Insulin Detemir (Levemir) 12 units QHS SQ Last administered on 10/19/17 19:25 ; Start 10/10/17 at 21:00 Mirtazapine (Remeron) 15 mg QHS PO Last administered on 10/19/17 19:23; Start 10/11/17 at 21:00 Trazodone HCl (Desyrel) 50 mg QHS PO Last administered on 10/17/17 19:26; Start 10/12/17 at 21:00; Stop 10/18/17 at 09:07; Status DC Buspirone HCl (Buspar) 10 mg DAILY@1400 PO Last administered on 10/19/17 13: 09; Start 10/14/17 at 14:00 Albuterol/ Ipratropium (Duoneb) 3 ml PRN BID PRN NEB COUGH; Start 10/14/17 at 16:45 Melatonin 6 mg QHS PO Last administered on 10/19/17 19:19; Start 10/14/17 at 21:00 Oxycodone HCl (OxyCONTIN) 10 mg Q12HR PO Last administered on 10/19/17 19:24 ; Start 10/15/17 at 21:00 Nystatin (Nystop) 15 presley STK-MED ONCE TP Last administered on 10/18/17 09:13 ; Start 10/18/17 at 09:13; Stop 10/18/17 at 09:14; Status DC Active Scripts Active Cipro (Ciprofloxacin Hcl) 250 Mg Tablet 1 Tab PO BID Reported Levemir Flextouch (Insulin Detemir) 100 Unit/1 Ml Insuln.pen 17 Unit SQ QHS Myrbetriq (Mirabegron) 25 Mg Tab.er.24h 25 Mg PO DAILY Duoneb 0.5-3(2.5) Mg/3 Ml (Albuterol/Ipratropium) 3 Ml Ampul.neb 3 Ml NEB PRN BID PRN Metoprolol Tartrate 25 Mg Tablet 12.5 Mg PO BID For CHF and CAD patients: Hold for HR less than 50 or SBP less than 90. For all other patients: Hold for HR less than 60 or SBP less than 100. After a held dose, reassess in 2 hours. If HR and SBP are above threshold, administer dose as ordered. If HR and SBP are below threshold, contact provider. Novolog Flexpen (Insulin Aspart) 100 Unit/1 Ml Insuln.pen 0-9 Unit SQ TIDAC BG level: If eating: If not eating: < 70 Call Provider [phone] [phone] [phone] > or = 351 Call provider Trazodone Hcl 50 Mg Tablet 50 Mg PO PRN QHS PRN Give with food. MAY REPEAT IN 1 HOUR Risperidone 0.5 Mg Tablet 0.5 Mg PO BID Mag-Al Plus Xs Suspension (Mag Hydrox/Al Hydrox/Simeth) 30 Ml Oral.susp 15 Ml PO PRN AFTMEALHC PRN Tradjenta (Linagliptin) 5 Mg Tablet 5 Mg PO DAILY Duoneb 0.5-3(2.5) Mg/3 Ml (Albuterol/Ipratropium) 3 Ml Ampul.neb 3 Ml NEB PRN Q2HR PRN Fluvoxamine Maleate 50 Mg Tablet 75 Mg PO HS Cetirizine Hcl 10 Mg Tablet 10 Mg PO PRN DAILY PRN Milk Of Magnesia (Magnesium Hydroxide) 2,400 Mg/10 Ml Oral.susp 2,400 Mg PO PRN DAILY PRN Tylenol (Acetaminophen) 325 Mg Tablet 650 Mg PO Q6HRS PRN Plavix (Clopidogrel Bisulfate) 75 Mg Tablet 75 Mg PO DAILY NITROGLYCERIN SubLingual (Nitroglycerin) 0.4 Mg Tab.subl 0.4 Mg SL PRN Q5MIN PRN Hold for SBP less than or equal to 90 mmHg. Call provider for chest pain unrelieved by 1 sublingual nitroglycerin, may repeat X2 if chest pain persists. Lipitor (Atorvastatin Calcium) 40 Mg Tablet 40 Mg PO QHS Isosorbide Mononitrate Er (Isosorbide Mononitrate) 30 Mg Tab.er.24h 30 Mg PO DAILY DO NOT CRUSH OR CHEW Colace (Docusate Sodium) 100 Mg Capsule 100 Mg PO BID Hold for loose stools Clonazepam 0.5 Mg Tablet 0.5 Mg PO PRN Q6HRS PRN Buspirone Hcl 15 Mg Tablet 15 Mg PO BID I have reviewed the current psychotropics carefully including drug interactions. Risk benefit ratio favors no change other than as noted in my dictated progress note. Diagnosis: Problems: (1) Dementia (2) Major depressive disorder, recurrent episode (3) Vascular dementia with depressed mood (4) Vascular dementia with delusions (5) Dementia, vascular, with depression (6) Dementia, vascular, with delusions (7) Vascular dementia with behavior disturbance (8) Dementia in Alzheimer's disease with depression (9) Dementia in Alzheimer's disease with delusions TATIANA LAYTON MD Oct 19, 2017 20:15
--- NOTE | 2017-10-19 22:28 | PN ---
DATE: 10/18/2017 This is a late entry for 10/18/2017 and covers the elements not covered in my initial note of 10/18/2017. SUBJECTIVE: I met with the patient in the evening of 10/18/2017. The patient continues to yell out at times. Her AST is markedly elevated to 1214 and ALT at 805. Trazodone and Lipitor were discontinued per Dr. High and I will go ahead and stop her Luvox and Seroquel until we can ascertain the reason for the raised LFTs. Dr. High is working up medically. REVIEW OF SYSTEMS: Bilateral blindness, impaired ambulation in a Broda chair. No CV, , pulmonary system symptoms on review. MENTAL STATUS EXAM: Oriented to herself and situation. Speech coherent, rapid, loud at times. Abstraction fair, computation impaired, language function intact, attention span short. Mood and affect remains somewhat labile, obsessive. LABORATORY DATA: Reviewed. IMPRESSION: Major neurocognitive disorder, Alzheimer, vascular with delusion, depression. Rest unchanged. PLAN: As noted above psychotropics will be discontinued due to raised liver enzymes, we will reassess, repeat labs in the morning, 10/19/2017. MAN Bev LAYTON MD DR: JHOAN/osiel JOB#: [id number] / [id number]
[2017-10-20 05:20] VITALS: BP 132/63
[2017-10-20] MEDS: INSULIN ASPART 300 UNITS/3 ML INSULN.PEN SQ SCH ×4 (07:30→16:56)
[2017-10-20 07:57] LABS: ALBUMIN 2.9 g/dL (3.4-5.0); ALBUMIN/GLOBULIN RATIO 0.8 (1.0-1.7); CALCIUM 8.7 mg/dL (8.5-10.1); CREATININE 1.3 mg/dL (0.6-1.0); GFR 38.7; POTASSIUM 4.2 mmol/L (3.5-5.1); TOTAL BILIRUBIN 0.3 mg/dL (0.2-1.0); TOTAL PROTEIN 6.7 g/dL (6.4-8.2)
[2017-10-20] MEDS: LINAGLIPTIN 5 MG TABLET PO SCH (08:25)
[2017-10-20] MEDS: METOPROLOL TART IMMED RELEASE 25 MG TABLET PO SCH ×2 (08:25→19:22)
[2017-10-20] MEDS: DOCUSATE CALCIUM 240 MG CAPSULE PO SCH (08:25)
[2017-10-20] MEDS: MIRABEGRON 25 MG TAB.ER.24H PO SCH (08:25)
[2017-10-20] MEDS: CLOPIDOGREL BISULFATE 75 MG TABLET PO SCH (08:25)
[2017-10-20] MEDS: ISOSORBIDE MONONITRATE ER 30 MG TAB.ER.24H PO SCH (08:25)
[2017-10-20] MEDS: LACTOBACILLUS RHAMNOSUS GG 1 CAPSULE. PO SCH ×2 (08:25→19:14)
[2017-10-20] MEDS: busPIRone 15 MG TABLET. PO SCH ×2 (08:26→19:13)
[2017-10-20] MEDS: oxyCODONE ER 10 MG TAB.ER.12H PO SCH ×2 (08:27→19:17)
[2017-10-20] MEDS: busPIRone 10 MG TABLET. PO SCH (14:09)
[2017-10-20 15:56] VITALS: BP 116/51
[2017-10-20] MEDS: MELATONIN 3 MG TABLET PO SCH (19:13)
[2017-10-20] MEDS: MIRTAZAPINE 15 MG TABLET PO SCH (19:14)
[2017-10-20] MEDS: INSULIN DETEMIR 300 UNITS/3 ML INSULN.PEN. SQ SCH (19:21)
--- NOTE | 2017-10-20 20:12 | PDOC ---
Exam Note: [place] Note: Please also refer to the separate dictated note~for this date of service dictated separately.~Patient seen individually. Discussed the patient with Nursing staff reviewed the chart.~Reviewed interim history and current functioning. Reviewed vital signs,~Labs/ Radiology~and current medications noted below. Continue current treatment with the changes noted in the dictated addendum note Assessment: Vital Signs: Vital Signs Date Time Temp Pulse Resp B/P (MAP) Pulse Ox O2 Delivery O2 Flow Rate FiO2 10/20/17 19:22 69 150/77 10/20/17 19:17 16 96 Room Air 10/20/17 15:56 98.5 I&O Intake and Output 10/20/17 07:00 Intake Total 680 ml Balance 680 ml Intake Oral 680 ml # Voids 1 # Bowel Movements 1 Labs: Laboratory Tests Test 10/20/17 07:15 10/20/17 07:17 10/20/17 11:51 10/20/17 16:43 Sodium Level 145 mmol/L (136-145) Potassium Level 4.2 mmol/L (3.5-5.1) Chloride Level 109 mmol/L (98-107) H Carbon Dioxide Level 30 mmol/L (21-32) Anion Gap 6 (6-14) Blood Urea Nitrogen 19 mg/dL (7-20) Creatinine 1.3 mg/dL (0.6-1.0) H Estimated GFR (Cockcroft-Gault) 38.7 BUN/Creatinine Ratio 15 (6-20) Glucose Level 113 mg/dL (70-99) H Calcium Level 8.7 mg/dL (8.5-10.1) Total Bilirubin 0.3 mg/dL (0.2-1.0) Aspartate Amino Transferase (AST) 393 U/L (15-37) H Alanine Aminotransferase (ALT) 502 U/L (14-59) H Alkaline Phosphatase 445 U/L (46-116) H Total Protein 6.7 g/dL (6.4-8.2) Albumin 2.9 g/dL (3.4-5.0) L Albumin/Globulin Ratio 0.8 (1.0-1.7) L Glucose (Fingerstick) 104 mg/dL (70-99) H 196 mg/dL (70-99) H 176 mg/dL (70-99) H Test 10/20/17 19:03 Glucose (Fingerstick) 172 mg/dL (70-99) H Current Medications: Meds: Current Medications Acetaminophen (Tylenol) 650 mg PRN Q6HRS PRN PO PAIN / TEMP Last administered on 10/16/17 18:08; Start 10/01/17 at 02:30 Al Hydroxide/Mg Hydroxide (Mylanta Plus Xs) 15 ml PRN AFTMEALHC PRN PO DYSPEPSIA Last administered on 10/15/17 10:26; Start 10/01/17 at 02:30 Magnesium Hydroxide (Milk Of Magnesia) 2,400 mg PRN QHS PRN PO CONSTIPATION Last administered on 10/19/17 07:57; Start 10/01/17 at 02:30 Buspirone HCl (Buspar) 15 mg BID PO Last administered on 10/20/17 19:13; Start 10/01/17 at 09:00 Clonazepam (KlonoPIN) 0.5 mg PRN Q6HRS PRN PO ANXIETY / AGITATION Last administered on 10/19/17 09:08; Start 10/01/17 at 03:15 Risperidone (RisperDAL) 0.5 mg BID PO Last administered on 10/02/17 07:27; Start 10/01/17 at 09:00; Stop 10/02/17 at 18:15; Status DC Trazodone HCl (Desyrel) 50 mg PRN QHS PRN PO INSOMNIA Last administered on 00:18; Start 10/01/17 at 03:15; Stop 10/18/17 at 09:07; Status DC Fluvoxamine Maleate (Luvox) 75 mg QHS PO Last administered on 10/02/17 19:23; Start 10/01/17 at 21:00; Stop 10/03/17 at 19:03; Status DC Acetaminophen (Tylenol) 650 mg Q6HRS PRN PO PAIN; Start 10/01/17 at 03:15; Stop 10/01/17 at 03:32; Status DC Cetirizine HCl (ZyrTEC) 10 mg PRN DAILY PRN PO ALLERGIES; Start 10/01/17 at 03: 15 Ciprofloxacin (Cipro) 250 mg BID66 PO Last administered on 10/07/17 17:29; Start 10/01/17 at 06:00; Stop 10/07/17 at 18:01; Status DC Clopidogrel Bisulfate (Plavix) 75 mg DAILY PO Last administered on 10/20/17 08:25; Start 10/01/17 at 09:00 Docusate Sodium (Colace) 100 mg BID PO Last administered on 10/02/17 07:29; Start 10/01/17 at 09:00; Stop 10/02/17 at 18:26; Status DC Insulin Detemir (Levemir) 17 units QHS SQ Last administered on 10/09/17 19:43 ; Start 10/01/17 at 21:00; Stop 10/10/17 at 11:26; Status DC Albuterol/ Ipratropium (Duoneb) 3 ml RTBID NEB Last administered on 10/13/17 22:13; Start 10/01/17 at 08:00; Stop 10/14/17 at 16:39; Status DC Albuterol Sulfate (Ventolin) 2.5 mg PRN Q2HR PRN NEB COUGH/SHORTNESS OF BREATH ; Start 10/01/17 at 03:30 Isosorbide Mononitrate (Imdur) 30 mg DAILY PO Last administered on 10/20/17 08:25; Start 10/01/17 at 09:00 Linagliptin (Tradjenta) 5 mg DAILY PO Last administered on 10/20/17 08:25; Start 10/01/17 at 09:00 Al Hydroxide/Mg Hydroxide (Mylanta Plus Xs) 15 ml PRN AFTMEALHC PRN PO DYSPEPSIA; Start 10/01/17 at 03:15; Stop 10/01/17 at 03:32; Status DC Metoprolol Tartrate (Lopressor) 12.5 mg BID PO Last administered on 10/20/17 19:22; Start 10/01/17 at 09:00 Nitroglycerin (Nitrostat) 0.4 mg PRN Q5MIN PRN SL CHEST PAIN; Start 10/01/17 at 03:15 Atorvastatin Calcium (Lipitor) 40 mg QHS PO Last administered on 10/16/17 19: 44; Start 10/01/17 at 21:00; Stop 10/17/17 at 09:46; Status DC Non-Formulary Medication 2,400 mg PRN DAILY PRN PO CONSTIPATION; Start at 03:15; Stop 10/01/17 at 03:32; Status DC Insulin Aspart (NovoLOG) 0-9 UNITS TIDACHC SQ ; Start 10/01/17 at 07:30; Stop 10/01/17 at 07:30; Status DC Dextrose 12.5 gm PRN Q15MIN PRN IV SEE COMMENTS; Start 10/01/17 at 03:30 Insulin Aspart (NovoLOG) 0-9 UNITS TIDAC SQ Last administered on 10/20/17 16: 56; Start 10/01/17 at 07:30 Lactobacillus Rhamnosus (Culturelle) 1 cap BID PO Last administered on 19:14; Start 10/01/17 at 21:00 Risperidone (RisperDAL) 0.25 mg BID PO Last administered on 10/07/17 09:08; Start 10/02/17 at 21:00; Stop 10/07/17 at 18:57; Status DC Mirtazapine (Remeron) 7.5 mg QHS PO Last administered on 10/10/17 19:59; Start 10/02/17 at 21:00; Stop 10/11/17 at 19:36; Status DC Docusate Calcium (Surfak) 240 mg DAILY PO Last administered on 10/20/17 08:25 ; Start 10/03/17 at 09:00 Fluvoxamine Maleate (Luvox) 100 mg QHS PO Last administered on 10/04/17 19:47 ; Start 10/03/17 at 21:00; Stop 10/05/17 at 18:23; Status DC Fluvoxamine Maleate (Luvox) 100 mg QHS PO Last administered on 10/17/17 19:26 ; Start 10/05/17 at 21:00; Stop 10/18/17 at 18:38; Status DC Fluvoxamine Maleate (Luvox) 25 mg HS PO Last administered on 10/17/17 19:26; Start 10/05/17 at 21:00; Stop 10/18/17 at 18:38; Status DC Nystatin (Nystop) 15 presley STK-MED ONCE TP Last administered on 10/06/17 17:05 ; Start 10/06/17 at 16:46; Stop 10/06/17 at 16:47; Status DC Quetiapine Fumarate (SEROquel) 12.5 mg TID@0900,1300,1700 PO Last administered on 10/18/17 17:45; Start 10/08/17 at 09:00; Stop 10/18/17 at 18:38; Status DC Insulin Detemir (Levemir) 12 units QHS SQ Last administered on 10/20/17 19:21 ; Start 10/10/17 at 21:00 Mirtazapine (Remeron) 15 mg QHS PO Last administered on 10/20/17 19:14; Start 10/11/17 at 21:00 Trazodone HCl (Desyrel) 50 mg QHS PO Last administered on 10/17/17 19:26; Start 10/12/17 at 21:00; Stop 10/18/17 at 09:07; Status DC Buspirone HCl (Buspar) 10 mg DAILY@1400 PO Last administered on 10/20/17 14: 09; Start 10/14/17 at 14:00 Albuterol/ Ipratropium (Duoneb) 3 ml PRN BID PRN NEB COUGH; Start 10/14/17 at 16:45 Melatonin 6 mg QHS PO Last administered on 10/20/17 19:13; Start 10/14/17 at 21:00 Oxycodone HCl (OxyCONTIN) 10 mg Q12HR PO Last administered on 10/20/17 19:17 ; Start 10/15/17 at 21:00 Nystatin (Nystop) 15 presley STK-MED ONCE TP Last administered on 10/18/17 09:13 ; Start 10/18/17 at 09:13; Stop 10/18/17 at 09:14; Status DC Active Scripts Active Cipro (Ciprofloxacin Hcl) 250 Mg Tablet 1 Tab PO BID Reported Levemir Flextouch (Insulin Detemir) 100 Unit/1 Ml Insuln.pen 17 Unit SQ QHS Myrbetriq (Mirabegron) 25 Mg Tab.er.24h 25 Mg PO DAILY Duoneb 0.5-3(2.5) Mg/3 Ml (Albuterol/Ipratropium) 3 Ml Ampul.neb 3 Ml NEB PRN BID PRN Metoprolol Tartrate 25 Mg Tablet 12.5 Mg PO BID For CHF and CAD patients: Hold for HR less than 50 or SBP less than 90. For all other patients: Hold for HR less than 60 or SBP less than 100. After a held dose, reassess in 2 hours. If HR and SBP are above threshold, administer dose as ordered. If HR and SBP are below threshold, contact provider. Novolog Flexpen (Insulin Aspart) 100 Unit/1 Ml Insuln.pen 0-9 Unit SQ TIDAC BG level: If eating: If not eating: < 70 Call Provider [phone] 4 [phone] 5 3 [phone] > or = 351 Call provider Trazodone Hcl 50 Mg Tablet 50 Mg PO PRN QHS PRN Give with food. MAY REPEAT IN 1 HOUR Risperidone 0.5 Mg Tablet 0.5 Mg PO BID Mag-Al Plus Xs Suspension (Mag Hydrox/Al Hydrox/Simeth) 30 Ml Oral.susp 15 Ml PO PRN AFTMEALHC PRN Tradjenta (Linagliptin) 5 Mg Tablet 5 Mg PO DAILY Duoneb 0.5-3(2.5) Mg/3 Ml (Albuterol/Ipratropium) 3 Ml Ampul.neb 3 Ml NEB PRN Q2HR PRN Fluvoxamine Maleate 50 Mg Tablet 75 Mg PO HS Cetirizine Hcl 10 Mg Tablet 10 Mg PO PRN DAILY PRN Milk Of Magnesia (Magnesium Hydroxide) 2,400 Mg/10 Ml Oral.susp 2,400 Mg PO PRN DAILY PRN Tylenol (Acetaminophen) 325 Mg Tablet 650 Mg PO Q6HRS PRN Plavix (Clopidogrel Bisulfate) 75 Mg Tablet 75 Mg PO DAILY NITROGLYCERIN SubLingual (Nitroglycerin) 0.4 Mg Tab.subl 0.4 Mg SL PRN Q5MIN PRN Hold for SBP less than or equal to 90 mmHg. Call provider for chest pain unrelieved by 1 sublingual nitroglycerin, may repeat X2 if chest pain persists. Lipitor (Atorvastatin Calcium) 40 Mg Tablet 40 Mg PO QHS Isosorbide Mononitrate Er (Isosorbide Mononitrate) 30 Mg Tab.er.24h 30 Mg PO DAILY DO NOT CRUSH OR CHEW Colace (Docusate Sodium) 100 Mg Capsule 100 Mg PO BID Hold for loose stools Clonazepam 0.5 Mg Tablet 0.5 Mg PO PRN Q6HRS PRN Buspirone Hcl 15 Mg Tablet 15 Mg PO BID I have reviewed the current psychotropics carefully including drug interactions. Risk benefit ratio favors no change other than as noted in my dictated progress note. Diagnosis: Problems: (1) Dementia (2) Major depressive disorder, recurrent episode (3) Vascular dementia with depressed mood (4) Vascular dementia with delusions (5) Dementia, vascular, with depression (6) Dementia, vascular, with delusions (7) Vascular dementia with behavior disturbance (8) Dementia in Alzheimer's disease with depression (9) Dementia in Alzheimer's disease with delusions TATIANA LAYTON MD Oct 20, 2017 20:12
[2017-10-21 05:12] VITALS: BP 130/56
[2017-10-21] MEDS: INSULIN ASPART 300 UNITS/3 ML INSULN.PEN SQ SCH ×3 (07:30→16:30)
[2017-10-21] MEDS: LINAGLIPTIN 5 MG TABLET PO SCH (08:58)
[2017-10-21] MEDS: DOCUSATE CALCIUM 240 MG CAPSULE PO SCH (08:58)
[2017-10-21] MEDS: MIRABEGRON 25 MG TAB.ER.24H PO SCH (08:58)
[2017-10-21] MEDS: LACTOBACILLUS RHAMNOSUS GG 1 CAPSULE. PO SCH ×2 (08:58→19:37)
[2017-10-21] MEDS: CLOPIDOGREL BISULFATE 75 MG TABLET PO SCH (08:59)
[2017-10-21] MEDS: ISOSORBIDE MONONITRATE ER 30 MG TAB.ER.24H PO SCH (08:59)
[2017-10-21] MEDS: METOPROLOL TART IMMED RELEASE 25 MG TABLET PO SCH ×2 (08:59→19:37)
[2017-10-21] MEDS: busPIRone 15 MG TABLET. PO SCH ×2 (08:59→19:36)
[2017-10-21] MEDS: oxyCODONE ER 10 MG TAB.ER.12H PO SCH ×2 (09:08→19:38)
[2017-10-21 09:43] LABS: ALBUMIN 2.9 g/dL (3.4-5.0); ALBUMIN/GLOBULIN RATIO 0.8 (1.0-1.7); CALCIUM 8.8 mg/dL (8.5-10.1); CREATININE 1.3 mg/dL (0.6-1.0); GFR 38.7; MAGNESIUM 2.1 mg/dL (1.8-2.4); TOTAL BILIRUBIN 0.4 mg/dL (0.2-1.0); TOTAL PROTEIN 6.6 g/dL (6.4-8.2)
--- NOTE | 2017-10-21 12:19 | PN ---
DATE: 10/19/2017 PSYCHIATRIC PROGRESS NOTE This is a late entry 10/19/2017, covers elements not covered in my initial note 10/19/2017. SUBJECTIVE: I met with the patient the evening of 10/19/2017. The patient slept 8 hours previous evening, yelling out all day. Received Klonopin at 0900 and 1500. We stopped her Luvox and Seroquel and consequent to raised liver enzymes and that makes the agitation, mood lability worse. REVIEW OF SYSTEMS: Bilateral blindness, impaired ambulation, in Broda chair. No CV, , pulmonary system symptoms on review. MENTAL STATUS EXAM: Oriented to herself and situation. Speech coherent, rapid, loud at times. Abstraction fair, computation impaired, language function intact, attention span short. Mood and affect remains labile. LABORATORY DATA: Reviewed. IMPRESSION: Major neurocognitive disorder, Alzheimer, vascular with delusion, depression raised, liver enzymes. PLAN: Continue current psychotropics. Defer medical management to Dr. Dunham. Once liver enzymes stabilize we may have to start Seroquel back once again, defer the Luvox for now. MAN Bev LAYTON MD DR: JHOAN/osiel JOB#: [id number] / [id number]
[2017-10-21] MEDS: busPIRone 10 MG TABLET. PO SCH (13:40)
[2017-10-21 16:06] VITALS: BP 124/72
[2017-10-21] MEDS: MELATONIN 3 MG TABLET PO SCH (19:36)
[2017-10-21] MEDS: MIRTAZAPINE 15 MG TABLET PO SCH (19:37)
[2017-10-21] MEDS: INSULIN DETEMIR 300 UNITS/3 ML INSULN.PEN. SQ SCH (19:39)
--- NOTE | 2017-10-21 19:55 | PDOC ---
Exam Note: [place] Note: Please also refer to the separate dictated note~for this date of service dictated separately.~Patient seen individually. Discussed the patient with Nursing staff reviewed the chart.~Reviewed interim history and current functioning. Reviewed vital signs,~Labs/ Radiology~and current medications noted below. Continue current treatment with the changes noted in the dictated addendum note Assessment: Vital Signs: Vital Signs Date Time Temp Pulse Resp B/P (MAP) Pulse Ox O2 Delivery O2 Flow Rate FiO2 10/21/17 19:38 16 95 Room Air 10/21/17 19:37 70 124/72 10/21/17 16:06 98.7 I&O Intake and Output 10/21/17 06:59 Intake Total 820 ml Balance 820 ml Intake Oral 820 ml # Voids 1 Labs: Laboratory Tests Test 10/21/17 07:13 10/21/17 09:11 10/21/17 11:26 10/21/17 16:21 Glucose (Fingerstick) 66 mg/dL (70-99) L 150 mg/dL (70-99) H 147 mg/dL (70-99) H Sodium Level 142 mmol/L (136-145) Potassium Level 4.0 mmol/L (3.5-5.1) Chloride Level 107 mmol/L (98-107) Carbon Dioxide Level 30 mmol/L (21-32) Anion Gap 5 (6-14) L Blood Urea Nitrogen 19 mg/dL (7-20) Creatinine 1.3 mg/dL (0.6-1.0) H Estimated GFR (Cockcroft-Gault) 38.7 BUN/Creatinine Ratio 15 (6-20) Glucose Level 208 mg/dL (70-99) H Calcium Level 8.8 mg/dL (8.5-10.1) Magnesium Level 2.1 mg/dL (1.8-2.4) Total Bilirubin 0.4 mg/dL (0.2-1.0) Aspartate Amino Transferase (AST) 430 U/L (15-37) H Alanine Aminotransferase (ALT) 492 U/L (14-59) H Alkaline Phosphatase 521 U/L (46-116) H Total Protein 6.6 g/dL (6.4-8.2) Albumin 2.9 g/dL (3.4-5.0) L Albumin/Globulin Ratio 0.8 (1.0-1.7) L Test 10/21/17 19:08 Glucose (Fingerstick) 142 mg/dL (70-99) H Current Medications: Meds: Current Medications Acetaminophen (Tylenol) 650 mg PRN Q6HRS PRN PO PAIN / TEMP Last administered on 10/16/17 18:08; Start 10/01/17 at 02:30 Al Hydroxide/Mg Hydroxide (Mylanta Plus Xs) 15 ml PRN AFTMEALHC PRN PO DYSPEPSIA Last administered on 10/15/17 10:26; Start 10/01/17 at 02:30 Magnesium Hydroxide (Milk Of Magnesia) 2,400 mg PRN QHS PRN PO CONSTIPATION Last administered on 10/19/17 07:57; Start 10/01/17 at 02:30 Buspirone HCl (Buspar) 15 mg BID PO Last administered on 10/21/17 19:36; Start 10/01/17 at 09:00 Clonazepam (KlonoPIN) 0.5 mg PRN Q6HRS PRN PO ANXIETY / AGITATION Last administered on 10/19/17 09:08; Start 10/01/17 at 03:15 Risperidone (RisperDAL) 0.5 mg BID PO Last administered on 10/02/17 07:27; Start 10/01/17 at 09:00; Stop 10/02/17 at 18:15; Status DC Trazodone HCl (Desyrel) 50 mg PRN QHS PRN PO INSOMNIA Last administered on 00:18; Start 10/01/17 at 03:15; Stop 10/18/17 at 09:07; Status DC Fluvoxamine Maleate (Luvox) 75 mg QHS PO Last administered on 10/02/17 19:23; Start 10/01/17 at 21:00; Stop 10/03/17 at 19:03; Status DC Acetaminophen (Tylenol) 650 mg Q6HRS PRN PO PAIN; Start 10/01/17 at 03:15; Stop 10/01/17 at 03:32; Status DC Cetirizine HCl (ZyrTEC) 10 mg PRN DAILY PRN PO ALLERGIES; Start 10/01/17 at 03: 15 Ciprofloxacin (Cipro) 250 mg BID66 PO Last administered on 10/07/17 17:29; Start 10/01/17 at 06:00; Stop 10/07/17 at 18:01; Status DC Clopidogrel Bisulfate (Plavix) 75 mg DAILY PO Last administered on 10/21/17 08:59; Start 10/01/17 at 09:00 Docusate Sodium (Colace) 100 mg BID PO Last administered on 10/02/17 07:29; Start 10/01/17 at 09:00; Stop 10/02/17 at 18:26; Status DC Insulin Detemir (Levemir) 17 units QHS SQ Last administered on 10/09/17 19:43 ; Start 10/01/17 at 21:00; Stop 10/10/17 at 11:26; Status DC Albuterol/ Ipratropium (Duoneb) 3 ml RTBID NEB Last administered on 10/13/17 22:13; Start 10/01/17 at 08:00; Stop 10/14/17 at 16:39; Status DC Albuterol Sulfate (Ventolin) 2.5 mg PRN Q2HR PRN NEB COUGH/SHORTNESS OF BREATH ; Start 10/01/17 at 03:30 Isosorbide Mononitrate (Imdur) 30 mg DAILY PO Last administered on 10/21/17 08:59; Start 10/01/17 at 09:00 Linagliptin (Tradjenta) 5 mg DAILY PO Last administered on 10/21/17 08:58; Start 10/01/17 at 09:00 Al Hydroxide/Mg Hydroxide (Mylanta Plus Xs) 15 ml PRN AFTMEALHC PRN PO DYSPEPSIA; Start 10/01/17 at 03:15; Stop 10/01/17 at 03:32; Status DC Metoprolol Tartrate (Lopressor) 12.5 mg BID PO Last administered on 10/21/17 19:37; Start 10/01/17 at 09:00 Nitroglycerin (Nitrostat) 0.4 mg PRN Q5MIN PRN SL CHEST PAIN; Start 10/01/17 at 03:15 Atorvastatin Calcium (Lipitor) 40 mg QHS PO Last administered on 10/16/17 19: 44; Start 10/01/17 at 21:00; Stop 10/17/17 at 09:46; Status DC Non-Formulary Medication 2,400 mg PRN DAILY PRN PO CONSTIPATION; Start at 03:15; Stop 10/01/17 at 03:32; Status DC Insulin Aspart (NovoLOG) 0-9 UNITS TIDACHC SQ ; Start 10/01/17 at 07:30; Stop 10/01/17 at 07:30; Status DC Dextrose 12.5 gm PRN Q15MIN PRN IV SEE COMMENTS; Start 10/01/17 at 03:30 Insulin Aspart (NovoLOG) 0-9 UNITS TIDAC SQ Last administered on 10/20/17 16: 56; Start 10/01/17 at 07:30 Lactobacillus Rhamnosus (Culturelle) 1 cap BID PO Last administered on 19:37; Start 10/01/17 at 21:00 Risperidone (RisperDAL) 0.25 mg BID PO Last administered on 10/07/17 09:08; Start 10/02/17 at 21:00; Stop 10/07/17 at 18:57; Status DC Mirtazapine (Remeron) 7.5 mg QHS PO Last administered on 10/10/17 19:59; Start 10/02/17 at 21:00; Stop 10/11/17 at 19:36; Status DC Docusate Calcium (Surfak) 240 mg DAILY PO Last administered on 10/21/17 08:58 ; Start 10/03/17 at 09:00 Fluvoxamine Maleate (Luvox) 100 mg QHS PO Last administered on 10/04/17 19:47 ; Start 10/03/17 at 21:00; Stop 10/05/17 at 18:23; Status DC Fluvoxamine Maleate (Luvox) 100 mg QHS PO Last administered on 10/17/17 19:26 ; Start 10/05/17 at 21:00; Stop 10/18/17 at 18:38; Status DC Fluvoxamine Maleate (Luvox) 25 mg HS PO Last administered on 10/17/17 19:26; Start 10/05/17 at 21:00; Stop 10/18/17 at 18:38; Status DC Nystatin (Nystop) 15 presley STK-MED ONCE TP Last administered on 10/06/17 17:05 ; Start 10/06/17 at 16:46; Stop 10/06/17 at 16:47; Status DC Quetiapine Fumarate (SEROquel) 12.5 mg TID@0900,1300,1700 PO Last administered on 10/18/17 17:45; Start 10/08/17 at 09:00; Stop 10/18/17 at 18:38; Status DC Insulin Detemir (Levemir) 12 units QHS SQ Last administered on 10/21/17 19:39 ; Start 10/10/17 at 21:00 Mirtazapine (Remeron) 15 mg QHS PO Last administered on 10/21/17 19:37; Start 10/11/17 at 21:00 Trazodone HCl (Desyrel) 50 mg QHS PO Last administered on 10/17/17 19:26; Start 10/12/17 at 21:00; Stop 10/18/17 at 09:07; Status DC Buspirone HCl (Buspar) 10 mg DAILY@1400 PO Last administered on 10/21/17 13: 40; Start 10/14/17 at 14:00 Albuterol/ Ipratropium (Duoneb) 3 ml PRN BID PRN NEB COUGH; Start 10/14/17 at 16:45 Melatonin 6 mg QHS PO Last administered on 10/21/17 19:36; Start 10/14/17 at 21:00 Oxycodone HCl (OxyCONTIN) 10 mg Q12HR PO Last administered on 10/21/17 19:38 ; Start 10/15/17 at 21:00 Nystatin (Nystop) 15 presley STK-MED ONCE TP Last administered on 10/18/17 09:13 ; Start 10/18/17 at 09:13; Stop 10/18/17 at 09:14; Status DC Active Scripts Active Cipro (Ciprofloxacin Hcl) 250 Mg Tablet 1 Tab PO BID Reported Levemir Flextouch (Insulin Detemir) 100 Unit/1 Ml Insuln.pen 17 Unit SQ QHS Myrbetriq (Mirabegron) 25 Mg Tab.er.24h 25 Mg PO DAILY Duoneb 0.5-3(2.5) Mg/3 Ml (Albuterol/Ipratropium) 3 Ml Ampul.neb 3 Ml NEB PRN BID PRN Metoprolol Tartrate 25 Mg Tablet 12.5 Mg PO BID For CHF and CAD patients: Hold for HR less than 50 or SBP less than 90. For all other patients: Hold for HR less than 60 or SBP less than 100. After a held dose, reassess in 2 hours. If HR and SBP are above threshold, administer dose as ordered. If HR and SBP are below threshold, contact provider. Novolog Flexpen (Insulin Aspart) 100 Unit/1 Ml Insuln.pen 0-9 Unit SQ TIDAC BG level: If eating: If not eating: < 70 Call Provider [phone] [phone] [phone] > or = 351 Call provider Trazodone Hcl 50 Mg Tablet 50 Mg PO PRN QHS PRN Give with food. MAY REPEAT IN 1 HOUR Risperidone 0.5 Mg Tablet 0.5 Mg PO BID Mag-Al Plus Xs Suspension (Mag Hydrox/Al Hydrox/Simeth) 30 Ml Oral.susp 15 Ml PO PRN AFTMEALHC PRN Tradjenta (Linagliptin) 5 Mg Tablet 5 Mg PO DAILY Duoneb 0.5-3(2.5) Mg/3 Ml (Albuterol/Ipratropium) 3 Ml Ampul.neb 3 Ml NEB PRN Q2HR PRN Fluvoxamine Maleate 50 Mg Tablet 75 Mg PO HS Cetirizine Hcl 10 Mg Tablet 10 Mg PO PRN DAILY PRN Milk Of Magnesia (Magnesium Hydroxide) 2,400 Mg/10 Ml Oral.susp 2,400 Mg PO PRN DAILY PRN Tylenol (Acetaminophen) 325 Mg Tablet 650 Mg PO Q6HRS PRN Plavix (Clopidogrel Bisulfate) 75 Mg Tablet 75 Mg PO DAILY NITROGLYCERIN SubLingual (Nitroglycerin) 0.4 Mg Tab.subl 0.4 Mg SL PRN Q5MIN PRN Hold for SBP less than or equal to 90 mmHg. Call provider for chest pain unrelieved by 1 sublingual nitroglycerin, may repeat X2 if chest pain persists. Lipitor (Atorvastatin Calcium) 40 Mg Tablet 40 Mg PO QHS Isosorbide Mononitrate Er (Isosorbide Mononitrate) 30 Mg Tab.er.24h 30 Mg PO DAILY DO NOT CRUSH OR CHEW Colace (Docusate Sodium) 100 Mg Capsule 100 Mg PO BID Hold for loose stools Clonazepam 0.5 Mg Tablet 0.5 Mg PO PRN Q6HRS PRN Buspirone Hcl 15 Mg Tablet 15 Mg PO BID I have reviewed the current psychotropics carefully including drug interactions. Risk benefit ratio favors no change other than as noted in my dictated progress note. Diagnosis: Problems: (1) Dementia (2) Major depressive disorder, recurrent episode (3) Vascular dementia with depressed mood (4) Vascular dementia with delusions (5) Dementia, vascular, with depression (6) Dementia, vascular, with delusions (7) Vascular dementia with behavior disturbance (8) Dementia in Alzheimer's disease with depression (9) Dementia in Alzheimer's disease with delusions TATIANA LAYTON MD Oct 21, 2017 19:55
[2017-10-22 06:08] VITALS: BP 139/69
[2017-10-22] MEDS: DOCUSATE CALCIUM 240 MG CAPSULE PO SCH (08:04)
[2017-10-22] MEDS: LACTOBACILLUS RHAMNOSUS GG 1 CAPSULE. PO SCH (08:07)
[2017-10-22] MEDS: LINAGLIPTIN 5 MG TABLET PO SCH (08:07)
[2017-10-22] MEDS: busPIRone 15 MG TABLET. PO SCH ×2 (08:07→20:42)
[2017-10-22] MEDS: MIRABEGRON 25 MG TAB.ER.24H PO SCH (08:07)
[2017-10-22] MEDS: ISOSORBIDE MONONITRATE ER 30 MG TAB.ER.24H PO SCH (08:07)
[2017-10-22] MEDS: CLOPIDOGREL BISULFATE 75 MG TABLET PO SCH (08:08)
[2017-10-22] MEDS: METOPROLOL TART IMMED RELEASE 25 MG TABLET PO SCH ×2 (08:08→21:01)
[2017-10-22] MEDS: INSULIN ASPART 300 UNITS/3 ML INSULN.PEN SQ SCH ×3 (08:10→16:22)
[2017-10-22] MEDS: oxyCODONE ER 10 MG TAB.ER.12H PO SCH ×2 (08:11→21:04)
--- NOTE | 2017-10-22 09:04 | PN ---
DATE: 10/20/2017 PSYCHIATRIC PROGRESS NOTE This is a late entry 10/20/2017, covers elements not covered in my initial note 10/20/2017. SUBJECTIVE: I met with the patient the evening of 10/20/2017. The patient slept 6-3/4 hours previous evening. Her yelling agitation, and mood lability is somewhat better. Liver function tests and liver enzymes showing some improvement, but still elevated. REVIEW OF SYSTEMS: Bilateral blindness, impaired ambulation, in Broda chair. No CV, , pulmonary, ENT system symptoms on review. MENTAL STATUS EXAM: Oriented to herself and situation. Speech has some latency, coherent. Abstraction fair, computation impaired, language function intact. Mood and affect still labile, withdrawn at times, but better than before. LABORATORY DATA: Reviewed. IMPRESSION: Major neurocognitive disorder, Alzheimer, vascular with delusion, depression. Rest unchanged from initial note. PLAN: Continue current psychotropics, BuSpar, Klonopin. The Seroquel, Luvox have been stopped. Maintain melatonin, Remeron 15 mg at bedtime. MAN Bev LAYTON MD DR: JHOAN/osiel JOB#: [id number] / [id number]
[2017-10-22 10:28] LABS: ALBUMIN/GLOBULIN RATIO 0.8 (1.0-1.7); CALCIUM 9.2 mg/dL (8.5-10.1); CREATININE 1.3 mg/dL (0.6-1.0); GFR 38.7; TOTAL BILIRUBIN 0.5 mg/dL (0.2-1.0); TOTAL PROTEIN 6.7 g/dL (6.4-8.2)
[2017-10-22] MEDS: busPIRone 10 MG TABLET. PO SCH (13:49)
[2017-10-22 16:05] VITALS: BP 107/49
[2017-10-22] MEDS: ACETAMINOPHEN 325 MG TABLET PO PRN (17:24)
[2017-10-22] MEDS: clonazePAM 0.5 MG TABLET PO PRN (18:24)
--- NOTE | 2017-10-22 20:00 | PDOC ---
Exam Note: [place] Note: Please also refer to the separate dictated note~for this date of service dictated separately.~Patient seen individually. Discussed the patient with Nursing staff reviewed the chart.~Reviewed interim history and current functioning. Reviewed vital signs,~Labs/ Radiology~and current medications noted below. Continue current treatment with the changes noted in the dictated addendum note Assessment: Vital Signs: Vital Signs Date Time Temp Pulse Resp B/P (MAP) Pulse Ox O2 Delivery O2 Flow Rate FiO2 10/22/17 16:05 98.8 65 20 107/49 (68) 92 Room Air I&O Intake and Output 10/22/17 07:00 Intake Total 1000 ml Balance 1000 ml Intake Oral 1000 ml # Voids 2 Labs: Laboratory Tests Test 10/22/17 07:18 10/22/17 09:57 10/22/17 11:27 10/22/17 16:17 Glucose (Fingerstick) 192 mg/dL (70-99) H 120 mg/dL (70-99) H 131 mg/dL (70-99) H Sodium Level 142 mmol/L (136-145) Potassium Level 4.0 mmol/L (3.5-5.1) Chloride Level 107 mmol/L (98-107) Carbon Dioxide Level 28 mmol/L (21-32) Anion Gap 7 (6-14) Blood Urea Nitrogen 22 mg/dL (7-20) H Creatinine 1.3 mg/dL (0.6-1.0) H Estimated GFR (Cockcroft-Gault) 38.7 BUN/Creatinine Ratio 17 (6-20) Glucose Level 188 mg/dL (70-99) H Calcium Level 9.2 mg/dL (8.5-10.1) Total Bilirubin 0.5 mg/dL (0.2-1.0) Aspartate Amino Transferase (AST) 646 U/L (15-37) H Alanine Aminotransferase (ALT) 641 U/L (14-59) H Alkaline Phosphatase 665 U/L (46-116) H Total Protein 6.7 g/dL (6.4-8.2) Albumin 3.0 g/dL (3.4-5.0) L Albumin/Globulin Ratio 0.8 (1.0-1.7) L Test 10/22/17 19:14 Glucose (Fingerstick) 232 mg/dL (70-99) H Current Medications: Meds: Current Medications Acetaminophen (Tylenol) 650 mg PRN Q6HRS PRN PO PAIN / TEMP Last administered on 10/22/17 17:24; Start 10/01/17 at 02:30; Stop 10/22/17 at 19:47; Status DC Al Hydroxide/Mg Hydroxide (Mylanta Plus Xs) 15 ml PRN AFTMEALHC PRN PO DYSPEPSIA Last administered on 10/15/17 10:26; Start 10/01/17 at 02:30 Magnesium Hydroxide (Milk Of Magnesia) 2,400 mg PRN QHS PRN PO CONSTIPATION Last administered on 10/19/17 07:57; Start 10/01/17 at 02:30 Buspirone HCl (Buspar) 15 mg BID PO Last administered on 10/22/17 08:07; Start 10/01/17 at 09:00 Clonazepam (KlonoPIN) 0.5 mg PRN Q6HRS PRN PO ANXIETY / AGITATION Last administered on 10/22/17 18:24; Start 10/01/17 at 03:15 Risperidone (RisperDAL) 0.5 mg BID PO Last administered on 10/02/17 07:27; Start 10/01/17 at 09:00; Stop 10/02/17 at 18:15; Status DC Trazodone HCl (Desyrel) 50 mg PRN QHS PRN PO INSOMNIA Last administered on 00:18; Start 10/01/17 at 03:15; Stop 10/18/17 at 09:07; Status DC Fluvoxamine Maleate (Luvox) 75 mg QHS PO Last administered on 10/02/17 19:23; Start 10/01/17 at 21:00; Stop 10/03/17 at 19:03; Status DC Acetaminophen (Tylenol) 650 mg Q6HRS PRN PO PAIN; Start 10/01/17 at 03:15; Stop 10/01/17 at 03:32; Status DC Cetirizine HCl (ZyrTEC) 10 mg PRN DAILY PRN PO ALLERGIES; Start 10/01/17 at 03: 15; Stop 10/22/17 at 19:47; Status DC Ciprofloxacin (Cipro) 250 mg BID66 PO Last administered on 10/07/17 17:29; Start 10/01/17 at 06:00; Stop 10/07/17 at 18:01; Status DC Clopidogrel Bisulfate (Plavix) 75 mg DAILY PO Last administered on 10/22/17 08:08; Start 10/01/17 at 09:00 Docusate Sodium (Colace) 100 mg BID PO Last administered on 10/02/17 07:29; Start 10/01/17 at 09:00; Stop 10/02/17 at 18:26; Status DC Insulin Detemir (Levemir) 17 units QHS SQ Last administered on 10/09/17 19:43 ; Start 10/01/17 at 21:00; Stop 10/10/17 at 11:26; Status DC Albuterol/ Ipratropium (Duoneb) 3 ml RTBID NEB Last administered on 10/13/17 22:13; Start 10/01/17 at 08:00; Stop 10/14/17 at 16:39; Status DC Albuterol Sulfate (Ventolin) 2.5 mg PRN Q2HR PRN NEB COUGH/SHORTNESS OF BREATH ; Start 10/01/17 at 03:30 Isosorbide Mononitrate (Imdur) 30 mg DAILY PO Last administered on 10/22/17 08:07; Start 10/01/17 at 09:00 Linagliptin (Tradjenta) 5 mg DAILY PO Last administered on 10/22/17 08:07; Start 10/01/17 at 09:00; Stop 10/22/17 at 19:47; Status DC Al Hydroxide/Mg Hydroxide (Mylanta Plus Xs) 15 ml PRN AFTMEALHC PRN PO DYSPEPSIA; Start 10/01/17 at 03:15; Stop 10/01/17 at 03:32; Status DC Metoprolol Tartrate (Lopressor) 12.5 mg BID PO Last administered on 10/22/17 08:08; Start 10/01/17 at 09:00 Nitroglycerin (Nitrostat) 0.4 mg PRN Q5MIN PRN SL CHEST PAIN; Start 10/01/17 at 03:15 Atorvastatin Calcium (Lipitor) 40 mg QHS PO Last administered on 10/16/17 19: 44; Start 10/01/17 at 21:00; Stop 10/17/17 at 09:46; Status DC Non-Formulary Medication 2,400 mg PRN DAILY PRN PO CONSTIPATION; Start at 03:15; Stop 10/01/17 at 03:32; Status DC Insulin Aspart (NovoLOG) 0-9 UNITS TIDACHC SQ ; Start 10/01/17 at 07:30; Stop 10/01/17 at 07:30; Status DC Dextrose 12.5 gm PRN Q15MIN PRN IV SEE COMMENTS; Start 10/01/17 at 03:30 Insulin Aspart (NovoLOG) 0-9 UNITS TIDAC SQ Last administered on 10/22/17 08: 10; Start 10/01/17 at 07:30 Lactobacillus Rhamnosus (Culturelle) 1 cap BID PO Last administered on 08:07; Start 10/01/17 at 21:00; Stop 10/22/17 at 19:47; Status DC Risperidone (RisperDAL) 0.25 mg BID PO Last administered on 10/07/17 09:08; Start 10/02/17 at 21:00; Stop 10/07/17 at 18:57; Status DC Mirtazapine (Remeron) 7.5 mg QHS PO Last administered on 10/10/17 19:59; Start 10/02/17 at 21:00; Stop 10/11/17 at 19:36; Status DC Docusate Calcium (Surfak) 240 mg DAILY PO Last administered on 10/22/17 08:04 ; Start 10/03/17 at 09:00 Fluvoxamine Maleate (Luvox) 100 mg QHS PO Last administered on 10/04/17 19:47 ; Start 10/03/17 at 21:00; Stop 10/05/17 at 18:23; Status DC Fluvoxamine Maleate (Luvox) 100 mg QHS PO Last administered on 10/17/17 19:26 ; Start 10/05/17 at 21:00; Stop 10/18/17 at 18:38; Status DC Fluvoxamine Maleate (Luvox) 25 mg HS PO Last administered on 10/17/17 19:26; Start 10/05/17 at 21:00; Stop 10/18/17 at 18:38; Status DC Nystatin (Nystop) 15 presley STK-MED ONCE TP Last administered on 10/06/17 17:05 ; Start 10/06/17 at 16:46; Stop 10/06/17 at 16:47; Status DC Quetiapine Fumarate (SEROquel) 12.5 mg TID@0900,1300,1700 PO Last administered on 10/18/17 17:45; Start 10/08/17 at 09:00; Stop 10/18/17 at 18:38; Status DC Insulin Detemir (Levemir) 12 units QHS SQ Last administered on 10/21/17 19:39 ; Start 10/10/17 at 21:00 Mirtazapine (Remeron) 15 mg QHS PO Last administered on 10/21/17 19:37; Start 10/11/17 at 21:00 Trazodone HCl (Desyrel) 50 mg QHS PO Last administered on 10/17/17 19:26; Start 10/12/17 at 21:00; Stop 10/18/17 at 09:07; Status DC Buspirone HCl (Buspar) 10 mg DAILY@1400 PO Last administered on 10/22/17 13: 49; Start 10/14/17 at 14:00 Albuterol/ Ipratropium (Duoneb) 3 ml PRN BID PRN NEB COUGH; Start 10/14/17 at 16:45 Melatonin 6 mg QHS PO Last administered on 10/21/17 19:36; Start 10/14/17 at 21:00; Stop 10/22/17 at 19:47; Status DC Oxycodone HCl (OxyCONTIN) 10 mg Q12HR PO Last administered on 10/22/17 08:11 ; Start 10/15/17 at 21:00 Nystatin (Nystop) 15 presley STK-MED ONCE TP Last administered on 10/18/17 09:13 ; Start 10/18/17 at 09:13; Stop 10/18/17 at 09:14; Status DC Active Scripts Active Cipro (Ciprofloxacin Hcl) 250 Mg Tablet 1 Tab PO BID Reported Levemir Flextouch (Insulin Detemir) 100 Unit/1 Ml Insuln.pen 17 Unit SQ QHS Myrbetriq (Mirabegron) 25 Mg Tab.er.24h 25 Mg PO DAILY Duoneb 0.5-3(2.5) Mg/3 Ml (Albuterol/Ipratropium) 3 Ml Ampul.neb 3 Ml NEB PRN BID PRN Metoprolol Tartrate 25 Mg Tablet 12.5 Mg PO BID For CHF and CAD patients: Hold for HR less than 50 or SBP less than 90. For all other patients: Hold for HR less than 60 or SBP less than 100. After a held dose, reassess in 2 hours. If HR and SBP are above threshold, administer dose as ordered. If HR and SBP are below threshold, contact provider. Novolog Flexpen (Insulin Aspart) 100 Unit/1 Ml Insuln.pen 0-9 Unit SQ TIDAC BG level: If eating: If not eating: < 70 Call Provider [phone] 4 0 201-250 5 3 [phone] > or = 351 Call provider Trazodone Hcl 50 Mg Tablet 50 Mg PO PRN QHS PRN Give with food. MAY REPEAT IN 1 HOUR Risperidone 0.5 Mg Tablet 0.5 Mg PO BID Mag-Al Plus Xs Suspension (Mag Hydrox/Al Hydrox/Simeth) 30 Ml Oral.susp 15 Ml PO PRN AFTMEALHC PRN Tradjenta (Linagliptin) 5 Mg Tablet 5 Mg PO DAILY Duoneb 0.5-3(2.5) Mg/3 Ml (Albuterol/Ipratropium) 3 Ml Ampul.neb 3 Ml NEB PRN Q2HR PRN Fluvoxamine Maleate 50 Mg Tablet 75 Mg PO HS Cetirizine Hcl 10 Mg Tablet 10 Mg PO PRN DAILY PRN Milk Of Magnesia (Magnesium Hydroxide) 2,400 Mg/10 Ml Oral.susp 2,400 Mg PO PRN DAILY PRN Tylenol (Acetaminophen) 325 Mg Tablet 650 Mg PO Q6HRS PRN Plavix (Clopidogrel Bisulfate) 75 Mg Tablet 75 Mg PO DAILY NITROGLYCERIN SubLingual (Nitroglycerin) 0.4 Mg Tab.subl 0.4 Mg SL PRN Q5MIN PRN Hold for SBP less than or equal to 90 mmHg. Call provider for chest pain unrelieved by 1 sublingual nitroglycerin, may repeat X2 if chest pain persists. Lipitor (Atorvastatin Calcium) 40 Mg Tablet 40 Mg PO QHS Isosorbide Mononitrate Er (Isosorbide Mononitrate) 30 Mg Tab.er.24h 30 Mg PO DAILY DO NOT CRUSH OR CHEW Colace (Docusate Sodium) 100 Mg Capsule 100 Mg PO BID Hold for loose stools Clonazepam 0.5 Mg Tablet 0.5 Mg PO PRN Q6HRS PRN Buspirone Hcl 15 Mg Tablet 15 Mg PO BID I have reviewed the current psychotropics carefully including drug interactions. Risk benefit ratio favors no change other than as noted in my dictated progress note. Diagnosis: Problems: (1) Dementia (2) Major depressive disorder, recurrent episode (3) Vascular dementia with depressed mood (4) Vascular dementia with delusions (5) Dementia, vascular, with depression (6) Dementia, vascular, with delusions (7) Vascular dementia with behavior disturbance (8) Dementia in Alzheimer's disease with depression (9) Dementia in Alzheimer's disease with delusions TATIANA LAYTON MD Oct 22, 2017 20:00
[2017-10-22] MEDS: MIRTAZAPINE 15 MG TABLET PO SCH (20:42)
[2017-10-22] MEDS: INSULIN DETEMIR 300 UNITS/3 ML INSULN.PEN. SQ SCH (21:08)
[2017-10-22] MEDS: MAGNESIUM HYDROXIDE 2,400 MG/30 ML ORAL.SUSP. PO PRN (21:20)
[2017-10-23 06:01] VITALS: BP 120/78
[2017-10-23] MEDS: INSULIN ASPART 300 UNITS/3 ML INSULN.PEN SQ SCH ×3 (07:30→16:30)
[2017-10-23 09:50] LABS: ALBUMIN 2.9 g/dL (3.4-5.0); ALBUMIN/GLOBULIN RATIO 0.8 (1.0-1.7); CALCIUM 8.8 mg/dL (8.5-10.1); CREATININE 1.3 mg/dL (0.6-1.0); GFR 38.7; POTASSIUM 4.4 mmol/L (3.5-5.1); TOTAL BILIRUBIN 0.9 mg/dL (0.2-1.0); TOTAL PROTEIN 6.4 g/dL (6.4-8.2)
[2017-10-23] MEDS: DOCUSATE CALCIUM 240 MG CAPSULE PO SCH (10:42)
[2017-10-23] MEDS: METOPROLOL TART IMMED RELEASE 25 MG TABLET PO SCH ×2 (10:42→21:10)
[2017-10-23] MEDS: busPIRone 15 MG TABLET. PO SCH ×2 (10:43→21:15)
[2017-10-23] MEDS: CLOPIDOGREL BISULFATE 75 MG TABLET PO SCH (10:43)
[2017-10-23] MEDS: ISOSORBIDE MONONITRATE ER 30 MG TAB.ER.24H PO SCH (10:43)
[2017-10-23] MEDS: MIRABEGRON 25 MG TAB.ER.24H PO SCH (10:44)
[2017-10-23] MEDS: oxyCODONE ER 10 MG TAB.ER.12H PO SCH ×2 (10:45→21:20)
--- NOTE | 2017-10-23 11:34 | RAD ---
Abdominal ultrasound, 10/23/2017: History: Elevated liver enzymes The gallbladder is reportedly surgically absent. No bile duct dilatation or hepatic mass is seen. A portion of the pancreatic body was visualized and it is unremarkable. Other portions of the pancreas and central retroperitoneum were obscured by overlying bowel. The visualized portions of the abdominal aorta are of normal caliber. The inferior vena cava was poorly visualized. The spleen is of normal size. No renal abnormality is detected. No free fluid is evident in the abdomen. IMPRESSION: Limited exam demonstrating no acute abdominal abnormality.
[2017-10-23] MEDS: busPIRone 10 MG TABLET. PO SCH (14:07)
[2017-10-23 16:03] VITALS: BP 123/69
--- NOTE | 2017-10-23 17:53 | PDOC ---
Exam Note: [place] Note: Please also refer to the separate dictated note~for this date of service dictated separately.~Patient seen individually. Discussed the patient with Nursing staff reviewed the chart.~Reviewed interim history and current functioning. Reviewed vital signs,~Labs/ Radiology~and current medications noted below. Continue current treatment with the changes noted in the dictated addendum note Assessment: Vital Signs: Vital Signs Date Time Temp Pulse Resp B/P (MAP) Pulse Ox O2 Delivery O2 Flow Rate FiO2 10/23/17 16:03 98.9 66 16 123/69 (87) 94 10/23/17 15:01 Room Air I&O Intake and Output 10/23/17 07:00 Intake Total 540 ml Balance 540 ml Intake Oral 540 ml # Bowel Movements 1 Labs: Laboratory Tests Test 10/22/17 19:14 10/23/17 07:13 10/23/17 09:28 10/23/17 11:06 Glucose (Fingerstick) 232 mg/dL (70-99) H 79 mg/dL (70-99) 97 mg/dL (70-99) Sodium Level 142 mmol/L (136-145) Potassium Level 4.4 mmol/L (3.5-5.1) Chloride Level 106 mmol/L (98-107) Carbon Dioxide Level 30 mmol/L (21-32) Anion Gap 6 (6-14) Blood Urea Nitrogen 25 mg/dL (7-20) H Creatinine 1.3 mg/dL (0.6-1.0) H Estimated GFR (Cockcroft-Gault) 38.7 BUN/Creatinine Ratio 19 (6-20) Glucose Level 95 mg/dL (70-99) Calcium Level 8.8 mg/dL (8.5-10.1) Total Bilirubin 0.9 mg/dL (0.2-1.0) # Gamma Glutamyl Transpeptidase 493 U/L (5-55) H Aspartate Amino Transferase (AST) 335 U/L (15-37) H Alanine Aminotransferase (ALT) 441 U/L (14-59) H Alkaline Phosphatase 600 U/L (46-116) H Lactate Dehydrogenase 286 U/L (81-234) H Total Protein 6.4 g/dL (6.4-8.2) Albumin 2.9 g/dL (3.4-5.0) L Albumin/Globulin Ratio 0.8 (1.0-1.7) L Test 10/23/17 16:26 Glucose (Fingerstick) 143 mg/dL (70-99) H Current Medications: Meds: Current Medications Acetaminophen (Tylenol) 650 mg PRN Q6HRS PRN PO PAIN / TEMP Last administered on 10/22/17 17:24; Start 10/01/17 at 02:30; Stop 10/22/17 at 19:47; Status DC Al Hydroxide/Mg Hydroxide (Mylanta Plus Xs) 15 ml PRN AFTMEALHC PRN PO DYSPEPSIA Last administered on 10/15/17 10:26; Start 10/01/17 at 02:30 Magnesium Hydroxide (Milk Of Magnesia) 2,400 mg PRN QHS PRN PO CONSTIPATION Last administered on 10/22/17 21:20; Start 10/01/17 at 02:30 Buspirone HCl (Buspar) 15 mg BID PO Last administered on 10/23/17 10:43; Start 10/01/17 at 09:00 Clonazepam (KlonoPIN) 0.5 mg PRN Q6HRS PRN PO ANXIETY / AGITATION Last administered on 10/22/17 18:24; Start 10/01/17 at 03:15 Risperidone (RisperDAL) 0.5 mg BID PO Last administered on 10/02/17 07:27; Start 10/01/17 at 09:00; Stop 10/02/17 at 18:15; Status DC Trazodone HCl (Desyrel) 50 mg PRN QHS PRN PO INSOMNIA Last administered on 00:18; Start 10/01/17 at 03:15; Stop 10/18/17 at 09:07; Status DC Fluvoxamine Maleate (Luvox) 75 mg QHS PO Last administered on 10/02/17 19:23; Start 10/01/17 at 21:00; Stop 10/03/17 at 19:03; Status DC Acetaminophen (Tylenol) 650 mg Q6HRS PRN PO PAIN; Start 10/01/17 at 03:15; Stop 10/01/17 at 03:32; Status DC Cetirizine HCl (ZyrTEC) 10 mg PRN DAILY PRN PO ALLERGIES; Start 10/01/17 at 03: 15; Stop 10/22/17 at 19:47; Status DC Ciprofloxacin (Cipro) 250 mg BID66 PO Last administered on 10/07/17 17:29; Start 10/01/17 at 06:00; Stop 10/07/17 at 18:01; Status DC Clopidogrel Bisulfate (Plavix) 75 mg DAILY PO Last administered on 10/23/17 10:43; Start 10/01/17 at 09:00 Docusate Sodium (Colace) 100 mg BID PO Last administered on 10/02/17 07:29; Start 10/01/17 at 09:00; Stop 10/02/17 at 18:26; Status DC Insulin Detemir (Levemir) 17 units QHS SQ Last administered on 10/09/17 19:43 ; Start 10/01/17 at 21:00; Stop 10/10/17 at 11:26; Status DC Albuterol/ Ipratropium (Duoneb) 3 ml RTBID NEB Last administered on 10/13/17 22:13; Start 10/01/17 at 08:00; Stop 10/14/17 at 16:39; Status DC Albuterol Sulfate (Ventolin) 2.5 mg PRN Q2HR PRN NEB COUGH/SHORTNESS OF BREATH ; Start 10/01/17 at 03:30 Isosorbide Mononitrate (Imdur) 30 mg DAILY PO Last administered on 10/23/17 10:43; Start 10/01/17 at 09:00 Linagliptin (Tradjenta) 5 mg DAILY PO Last administered on 10/22/17 08:07; Start 10/01/17 at 09:00; Stop 10/22/17 at 19:47; Status DC Al Hydroxide/Mg Hydroxide (Mylanta Plus Xs) 15 ml PRN AFTMEALHC PRN PO DYSPEPSIA; Start 10/01/17 at 03:15; Stop 10/01/17 at 03:32; Status DC Metoprolol Tartrate (Lopressor) 12.5 mg BID PO Last administered on 10/23/17 10:42; Start 10/01/17 at 09:00 Nitroglycerin (Nitrostat) 0.4 mg PRN Q5MIN PRN SL CHEST PAIN; Start 10/01/17 at 03:15 Atorvastatin Calcium (Lipitor) 40 mg QHS PO Last administered on 10/16/17 19: 44; Start 10/01/17 at 21:00; Stop 10/17/17 at 09:46; Status DC Non-Formulary Medication 2,400 mg PRN DAILY PRN PO CONSTIPATION; Start at 03:15; Stop 10/01/17 at 03:32; Status DC Insulin Aspart (NovoLOG) 0-9 UNITS TIDACHC SQ ; Start 10/01/17 at 07:30; Stop 10/01/17 at 07:30; Status DC Dextrose 12.5 gm PRN Q15MIN PRN IV SEE COMMENTS; Start 10/01/17 at 03:30 Insulin Aspart (NovoLOG) 0-9 UNITS TIDAC SQ Last administered on 10/22/17 08: 10; Start 10/01/17 at 07:30 Lactobacillus Rhamnosus (Culturelle) 1 cap BID PO Last administered on 08:07; Start 10/01/17 at 21:00; Stop 10/22/17 at 19:47; Status DC Risperidone (RisperDAL) 0.25 mg BID PO Last administered on 10/07/17 09:08; Start 10/02/17 at 21:00; Stop 10/07/17 at 18:57; Status DC Mirtazapine (Remeron) 7.5 mg QHS PO Last administered on 10/10/17 19:59; Start 10/02/17 at 21:00; Stop 10/11/17 at 19:36; Status DC Docusate Calcium (Surfak) 240 mg DAILY PO Last administered on 10/23/17 10:42 ; Start 10/03/17 at 09:00 Fluvoxamine Maleate (Luvox) 100 mg QHS PO Last administered on 10/04/17 19:47 ; Start 10/03/17 at 21:00; Stop 10/05/17 at 18:23; Status DC Fluvoxamine Maleate (Luvox) 100 mg QHS PO Last administered on 10/17/17 19:26 ; Start 10/05/17 at 21:00; Stop 10/18/17 at 18:38; Status DC Fluvoxamine Maleate (Luvox) 25 mg HS PO Last administered on 10/17/17 19:26; Start 10/05/17 at 21:00; Stop 10/18/17 at 18:38; Status DC Nystatin (Nystop) 15 presley STK-MED ONCE TP Last administered on 10/06/17 17:05 ; Start 10/06/17 at 16:46; Stop 10/06/17 at 16:47; Status DC Quetiapine Fumarate (SEROquel) 12.5 mg TID@0900,1300,1700 PO Last administered on 10/18/17 17:45; Start 10/08/17 at 09:00; Stop 10/18/17 at 18:38; Status DC Insulin Detemir (Levemir) 12 units QHS SQ Last administered on 10/22/17 21:08 ; Start 10/10/17 at 21:00 Mirtazapine (Remeron) 15 mg QHS PO Last administered on 10/22/17 20:42; Start 10/11/17 at 21:00; Stop 10/23/17 at 08:26; Status DC Trazodone HCl (Desyrel) 50 mg QHS PO Last administered on 10/17/17 19:26; Start 10/12/17 at 21:00; Stop 10/18/17 at 09:07; Status DC Buspirone HCl (Buspar) 10 mg DAILY@1400 PO Last administered on 10/23/17 14: 07; Start 10/14/17 at 14:00 Albuterol/ Ipratropium (Duoneb) 3 ml PRN BID PRN NEB COUGH; Start 10/14/17 at 16:45 Melatonin 6 mg QHS PO Last administered on 10/21/17 19:36; Start 10/14/17 at 21:00; Stop 10/22/17 at 19:47; Status DC Oxycodone HCl (OxyCONTIN) 10 mg Q12HR PO Last administered on 10/23/17 10:45 ; Start 10/15/17 at 21:00 Nystatin (Nystop) 15 presley STK-MED ONCE TP Last administered on 10/18/17 09:13 ; Start 10/18/17 at 09:13; Stop 10/18/17 at 09:14; Status DC Active Scripts Active Cipro (Ciprofloxacin Hcl) 250 Mg Tablet 1 Tab PO BID Reported Levemir Flextouch (Insulin Detemir) 100 Unit/1 Ml Insuln.pen 17 Unit SQ QHS Myrbetriq (Mirabegron) 25 Mg Tab.er.24h 25 Mg PO DAILY Duoneb 0.5-3(2.5) Mg/3 Ml (Albuterol/Ipratropium) 3 Ml Ampul.neb 3 Ml NEB PRN BID PRN Metoprolol Tartrate 25 Mg Tablet 12.5 Mg PO BID For CHF and CAD patients: Hold for HR less than 50 or SBP less than 90. For all other patients: Hold for HR less than 60 or SBP less than 100. After a held dose, reassess in 2 hours. If HR and SBP are above threshold, administer dose as ordered. If HR and SBP are below threshold, contact provider. Novolog Flexpen (Insulin Aspart) 100 Unit/1 Ml Insuln.pen 0-9 Unit SQ TIDAC BG level: If eating: If not eating: < 70 Call Provider [phone] > or = 351 Call provider Trazodone Hcl 50 Mg Tablet 50 Mg PO PRN QHS PRN Give with food. MAY REPEAT IN 1 HOUR Risperidone 0.5 Mg Tablet 0.5 Mg PO BID Mag-Al Plus Xs Suspension (Mag Hydrox/Al Hydrox/Simeth) 30 Ml Oral.susp 15 Ml PO PRN AFTMEALHC PRN Tradjenta (Linagliptin) 5 Mg Tablet 5 Mg PO DAILY Duoneb 0.5-3(2.5) Mg/3 Ml (Albuterol/Ipratropium) 3 Ml Ampul.neb 3 Ml NEB PRN Q2HR PRN Fluvoxamine Maleate 50 Mg Tablet 75 Mg PO HS Cetirizine Hcl 10 Mg Tablet 10 Mg PO PRN DAILY PRN Milk Of Magnesia (Magnesium Hydroxide) 2,400 Mg/10 Ml Oral.susp 2,400 Mg PO PRN DAILY PRN Tylenol (Acetaminophen) 325 Mg Tablet 650 Mg PO Q6HRS PRN Plavix (Clopidogrel Bisulfate) 75 Mg Tablet 75 Mg PO DAILY NITROGLYCERIN SubLingual (Nitroglycerin) 0.4 Mg Tab.subl 0.4 Mg SL PRN Q5MIN PRN Hold for SBP less than or equal to 90 mmHg. Call provider for chest pain unrelieved by 1 sublingual nitroglycerin, may repeat X2 if chest pain persists. Lipitor (Atorvastatin Calcium) 40 Mg Tablet 40 Mg PO QHS Isosorbide Mononitrate Er (Isosorbide Mononitrate) 30 Mg Tab.er.24h 30 Mg PO DAILY DO NOT CRUSH OR CHEW Colace (Docusate Sodium) 100 Mg Capsule 100 Mg PO BID Hold for loose stools Clonazepam 0.5 Mg Tablet 0.5 Mg PO PRN Q6HRS PRN Buspirone Hcl 15 Mg Tablet 15 Mg PO BID I have reviewed the current psychotropics carefully including drug interactions. Risk benefit ratio favors no change other than as noted in my dictated progress note. 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
--- NOTE | 2017-10-23 19:57 | PDOC ---
Exam Note: [place] Note: Please also refer to the separate dictated note~for this date of service dictated separately.~Patient seen individually. Discussed the patient with Nursing staff reviewed the chart.~Reviewed interim history and current functioning. Reviewed vital signs,~Labs/ Radiology~and current medications noted below. Continue current treatment with the changes noted in the dictated addendum note Assessment: Vital Signs: Vital Signs Date Time Temp Pulse Resp B/P (MAP) Pulse Ox O2 Delivery O2 Flow Rate FiO2 10/23/17 16:03 98.9 66 16 123/69 (87) 94 10/23/17 15:01 Room Air I&O Intake and Output 10/23/17 07:00 Intake Total 540 ml Balance 540 ml Intake Oral 540 ml # Bowel Movements 1 Labs: Laboratory Tests Test 10/23/17 07:13 10/23/17 09:28 10/23/17 11:06 10/23/17 16:26 Glucose (Fingerstick) 79 mg/dL (70-99) 97 mg/dL (70-99) 143 mg/dL (70-99) H Sodium Level 142 mmol/L (136-145) Potassium Level 4.4 mmol/L (3.5-5.1) Chloride Level 106 mmol/L (98-107) Carbon Dioxide Level 30 mmol/L (21-32) Anion Gap 6 (6-14) Blood Urea Nitrogen 25 mg/dL (7-20) H Creatinine 1.3 mg/dL (0.6-1.0) H Estimated GFR (Cockcroft-Gault) 38.7 BUN/Creatinine Ratio 19 (6-20) Glucose Level 95 mg/dL (70-99) Calcium Level 8.8 mg/dL (8.5-10.1) Total Bilirubin 0.9 mg/dL (0.2-1.0) # Gamma Glutamyl Transpeptidase 493 U/L (5-55) H Aspartate Amino Transferase (AST) 335 U/L (15-37) H Alanine Aminotransferase (ALT) 441 U/L (14-59) H Alkaline Phosphatase 600 U/L (46-116) H Lactate Dehydrogenase 286 U/L (81-234) H Total Protein 6.4 g/dL (6.4-8.2) Albumin 2.9 g/dL (3.4-5.0) L Albumin/Globulin Ratio 0.8 (1.0-1.7) L Test 10/23/17 19:11 Glucose (Fingerstick) 158 mg/dL (70-99) H Current Medications: Meds: Current Medications Acetaminophen (Tylenol) 650 mg PRN Q6HRS PRN PO PAIN / TEMP Last administered on 10/22/17 17:24; Start 10/01/17 at 02:30; Stop 10/22/17 at 19:47; Status DC Al Hydroxide/Mg Hydroxide (Mylanta Plus Xs) 15 ml PRN AFTMEALHC PRN PO DYSPEPSIA Last administered on 10/15/17 10:26; Start 10/01/17 at 02:30 Magnesium Hydroxide (Milk Of Magnesia) 2,400 mg PRN QHS PRN PO CONSTIPATION Last administered on 10/22/17 21:20; Start 10/01/17 at 02:30 Buspirone HCl (Buspar) 15 mg BID PO Last administered on 10/23/17 10:43; Start 10/01/17 at 09:00 Clonazepam (KlonoPIN) 0.5 mg PRN Q6HRS PRN PO ANXIETY / AGITATION Last administered on 10/22/17 18:24; Start 10/01/17 at 03:15 Risperidone (RisperDAL) 0.5 mg BID PO Last administered on 10/02/17 07:27; Start 10/01/17 at 09:00; Stop 10/02/17 at 18:15; Status DC Trazodone HCl (Desyrel) 50 mg PRN QHS PRN PO INSOMNIA Last administered on 00:18; Start 10/01/17 at 03:15; Stop 10/18/17 at 09:07; Status DC Fluvoxamine Maleate (Luvox) 75 mg QHS PO Last administered on 10/02/17 19:23; Start 10/01/17 at 21:00; Stop 10/03/17 at 19:03; Status DC Acetaminophen (Tylenol) 650 mg Q6HRS PRN PO PAIN; Start 10/01/17 at 03:15; Stop 10/01/17 at 03:32; Status DC Cetirizine HCl (ZyrTEC) 10 mg PRN DAILY PRN PO ALLERGIES; Start 10/01/17 at 03: 15; Stop 10/22/17 at 19:47; Status DC Ciprofloxacin (Cipro) 250 mg BID66 PO Last administered on 10/07/17 17:29; Start 10/01/17 at 06:00; Stop 10/07/17 at 18:01; Status DC Clopidogrel Bisulfate (Plavix) 75 mg DAILY PO Last administered on 10/23/17 10:43; Start 10/01/17 at 09:00 Docusate Sodium (Colace) 100 mg BID PO Last administered on 10/02/17 07:29; Start 10/01/17 at 09:00; Stop 10/02/17 at 18:26; Status DC Insulin Detemir (Levemir) 17 units QHS SQ Last administered on 10/09/17 19:43 ; Start 10/01/17 at 21:00; Stop 10/10/17 at 11:26; Status DC Albuterol/ Ipratropium (Duoneb) 3 ml RTBID NEB Last administered on 10/13/17 22:13; Start 10/01/17 at 08:00; Stop 10/14/17 at 16:39; Status DC Albuterol Sulfate (Ventolin) 2.5 mg PRN Q2HR PRN NEB COUGH/SHORTNESS OF BREATH ; Start 10/01/17 at 03:30 Isosorbide Mononitrate (Imdur) 30 mg DAILY PO Last administered on 10/23/17 10:43; Start 10/01/17 at 09:00 Linagliptin (Tradjenta) 5 mg DAILY PO Last administered on 10/22/17 08:07; Start 10/01/17 at 09:00; Stop 10/22/17 at 19:47; Status DC Al Hydroxide/Mg Hydroxide (Mylanta Plus Xs) 15 ml PRN AFTMEALHC PRN PO DYSPEPSIA; Start 10/01/17 at 03:15; Stop 10/01/17 at 03:32; Status DC Metoprolol Tartrate (Lopressor) 12.5 mg BID PO Last administered on 10/23/17 10:42; Start 10/01/17 at 09:00 Nitroglycerin (Nitrostat) 0.4 mg PRN Q5MIN PRN SL CHEST PAIN; Start 10/01/17 at 03:15 Atorvastatin Calcium (Lipitor) 40 mg QHS PO Last administered on 10/16/17 19: 44; Start 10/01/17 at 21:00; Stop 10/17/17 at 09:46; Status DC Non-Formulary Medication 2,400 mg PRN DAILY PRN PO CONSTIPATION; Start at 03:15; Stop 10/01/17 at 03:32; Status DC Insulin Aspart (NovoLOG) 0-9 UNITS TIDACHC SQ ; Start 10/01/17 at 07:30; Stop 10/01/17 at 07:30; Status DC Dextrose 12.5 gm PRN Q15MIN PRN IV SEE COMMENTS; Start 10/01/17 at 03:30 Insulin Aspart (NovoLOG) 0-9 UNITS TIDAC SQ Last administered on 10/22/17 08: 10; Start 10/01/17 at 07:30 Lactobacillus Rhamnosus (Culturelle) 1 cap BID PO Last administered on 08:07; Start 10/01/17 at 21:00; Stop 10/22/17 at 19:47; Status DC Risperidone (RisperDAL) 0.25 mg BID PO Last administered on 10/07/17 09:08; Start 10/02/17 at 21:00; Stop 10/07/17 at 18:57; Status DC Mirtazapine (Remeron) 7.5 mg QHS PO Last administered on 10/10/17 19:59; Start 10/02/17 at 21:00; Stop 10/11/17 at 19:36; Status DC Docusate Calcium (Surfak) 240 mg DAILY PO Last administered on 10/23/17 10:42 ; Start 10/03/17 at 09:00 Fluvoxamine Maleate (Luvox) 100 mg QHS PO Last administered on 10/04/17 19:47 ; Start 10/03/17 at 21:00; Stop 10/05/17 at 18:23; Status DC Fluvoxamine Maleate (Luvox) 100 mg QHS PO Last administered on 10/17/17 19:26 ; Start 10/05/17 at 21:00; Stop 10/18/17 at 18:38; Status DC Fluvoxamine Maleate (Luvox) 25 mg HS PO Last administered on 10/17/17 19:26; Start 10/05/17 at 21:00; Stop 10/18/17 at 18:38; Status DC Nystatin (Nystop) 15 presley STK-MED ONCE TP Last administered on 10/06/17 17:05 ; Start 10/06/17 at 16:46; Stop 10/06/17 at 16:47; Status DC Quetiapine Fumarate (SEROquel) 12.5 mg TID@0900,1300,1700 PO Last administered on 10/18/17 17:45; Start 10/08/17 at 09:00; Stop 10/18/17 at 18:38; Status DC Insulin Detemir (Levemir) 12 units QHS SQ Last administered on 10/22/17 21:08 ; Start 10/10/17 at 21:00 Mirtazapine (Remeron) 15 mg QHS PO Last administered on 10/22/17 20:42; Start 10/11/17 at 21:00; Stop 10/23/17 at 08:26; Status DC Trazodone HCl (Desyrel) 50 mg QHS PO Last administered on 10/17/17 19:26; Start 10/12/17 at 21:00; Stop 10/18/17 at 09:07; Status DC Buspirone HCl (Buspar) 10 mg DAILY@1400 PO Last administered on 10/23/17 14: 07; Start 10/14/17 at 14:00 Albuterol/ Ipratropium (Duoneb) 3 ml PRN BID PRN NEB COUGH; Start 10/14/17 at 16:45 Melatonin 6 mg QHS PO Last administered on 10/21/17 19:36; Start 10/14/17 at 21:00; Stop 10/22/17 at 19:47; Status DC Oxycodone HCl (OxyCONTIN) 10 mg Q12HR PO Last administered on 10/23/17 10:45 ; Start 10/15/17 at 21:00 Nystatin (Nystop) 15 presley STK-MED ONCE TP Last administered on 10/18/17 09:13 ; Start 10/18/17 at 09:13; Stop 10/18/17 at 09:14; Status DC Active Scripts Active Cipro (Ciprofloxacin Hcl) 250 Mg Tablet 1 Tab PO BID Reported Levemir Flextouch (Insulin Detemir) 100 Unit/1 Ml Insuln.pen 17 Unit SQ QHS Myrbetriq (Mirabegron) 25 Mg Tab.er.24h 25 Mg PO DAILY Duoneb 0.5-3(2.5) Mg/3 Ml (Albuterol/Ipratropium) 3 Ml Ampul.neb 3 Ml NEB PRN BID PRN Metoprolol Tartrate 25 Mg Tablet 12.5 Mg PO BID For CHF and CAD patients: Hold for HR less than 50 or SBP less than 90. For all other patients: Hold for HR less than 60 or SBP less than 100. After a held dose, reassess in 2 hours. If HR and SBP are above threshold, administer dose as ordered. If HR and SBP are below threshold, contact provider. Novolog Flexpen (Insulin Aspart) 100 Unit/1 Ml Insuln.pen 0-9 Unit SQ TIDAC BG level: If eating: If not eating: < 70 Call Provider [phone] 4 [phone] 5 3 [phone] > or = 351 Call provider Trazodone Hcl 50 Mg Tablet 50 Mg PO PRN QHS PRN Give with food. MAY REPEAT IN 1 HOUR Risperidone 0.5 Mg Tablet 0.5 Mg PO BID Mag-Al Plus Xs Suspension (Mag Hydrox/Al Hydrox/Simeth) 30 Ml Oral.susp 15 Ml PO PRN AFTMEALHC PRN Tradjenta (Linagliptin) 5 Mg Tablet 5 Mg PO DAILY Duoneb 0.5-3(2.5) Mg/3 Ml (Albuterol/Ipratropium) 3 Ml Ampul.neb 3 Ml NEB PRN Q2HR PRN Fluvoxamine Maleate 50 Mg Tablet 75 Mg PO HS Cetirizine Hcl 10 Mg Tablet 10 Mg PO PRN DAILY PRN Milk Of Magnesia (Magnesium Hydroxide) 2,400 Mg/10 Ml Oral.susp 2,400 Mg PO PRN DAILY PRN Tylenol (Acetaminophen) 325 Mg Tablet 650 Mg PO Q6HRS PRN Plavix (Clopidogrel Bisulfate) 75 Mg Tablet 75 Mg PO DAILY NITROGLYCERIN SubLingual (Nitroglycerin) 0.4 Mg Tab.subl 0.4 Mg SL PRN Q5MIN PRN Hold for SBP less than or equal to 90 mmHg. Call provider for chest pain unrelieved by 1 sublingual nitroglycerin, may repeat X2 if chest pain persists. Lipitor (Atorvastatin Calcium) 40 Mg Tablet 40 Mg PO QHS Isosorbide Mononitrate Er (Isosorbide Mononitrate) 30 Mg Tab.er.24h 30 Mg PO DAILY DO NOT CRUSH OR CHEW Colace (Docusate Sodium) 100 Mg Capsule 100 Mg PO BID Hold for loose stools Clonazepam 0.5 Mg Tablet 0.5 Mg PO PRN Q6HRS PRN Buspirone Hcl 15 Mg Tablet 15 Mg PO BID I have reviewed the current psychotropics carefully including drug interactions. Risk benefit ratio favors no change other than as noted in my dictated progress note. Diagnosis: Problems: (1) Dementia (2) Major depressive disorder, recurrent episode (3) Vascular dementia with depressed mood (4) Vascular dementia with delusions (5) Dementia, vascular, with depression (6) Dementia, vascular, with delusions (7) Vascular dementia with behavior disturbance (8) Dementia in Alzheimer's disease with depression (9) Dementia in Alzheimer's disease with delusions TATIANA LAYTON MD Oct 23, 2017 19:57
[2017-10-23] MEDS: INSULIN DETEMIR 300 UNITS/3 ML INSULN.PEN. SQ SCH (21:23)
[2017-10-23 23:13] VITALS: BP 122/73
[2017-10-24 06:07] VITALS: BP 105/60
[2017-10-24] MEDS: INSULIN ASPART 300 UNITS/3 ML INSULN.PEN SQ SCH ×3 (07:30→16:30)
[2017-10-24] MEDS: DOCUSATE CALCIUM 240 MG CAPSULE PO SCH (07:56)
[2017-10-24] MEDS: busPIRone 15 MG TABLET. PO SCH ×2 (07:56→20:25)
[2017-10-24] MEDS: ISOSORBIDE MONONITRATE ER 30 MG TAB.ER.24H PO SCH (07:57)
[2017-10-24] MEDS: CLOPIDOGREL BISULFATE 75 MG TABLET PO SCH (07:57)
[2017-10-24] MEDS: METOPROLOL TART IMMED RELEASE 25 MG TABLET PO SCH ×2 (07:59→20:25)
[2017-10-24] MEDS: MIRABEGRON 25 MG TAB.ER.24H PO SCH (08:00)
[2017-10-24] MEDS: oxyCODONE ER 10 MG TAB.ER.12H PO SCH ×2 (09:00→20:28)
--- NOTE | 2017-10-24 11:30 | PN ---
DATE: 10/21/2017 SUBJECTIVE: The patient was seen on rounds evening of 10/21/2017. This note covers elements not covered in my initial note 10/21/2017. The patient slept 7-1/4 hours previous evening, remains confused, the yelling is better, less obsessive, a little more cooperative at times. REVIEW OF SYSTEMS: Bilateral blindness. Impaired ambulation, in Broda chair. No CV, , pulmonary, ENT system symptoms on review. Reliability poor. MENTAL STATUS EXAM: Oriented to herself. Speech coherent, loud at times. Abstraction fair, computation impaired, language function intact. Short-term memory is impaired, remote is better. Again, talking about living in [place] and [facility] as I met with her. LABORATORY DATA: Reviewed. IMPRESSION: Unchanged from initial note. Major neurocognitive disorder, Alzheimer, vascular with depression, delusion, behavioral disturbance. PLAN: Continue psychotropics mentioned in my initial note. MAN Bev LAYTON MD DR: JHOAN/osiel JOB#: [id number] / [id number]
[2017-10-24] MEDS: busPIRone 10 MG TABLET. PO SCH (13:15)
[2017-10-24 15:54] VITALS: BP 118/79
--- NOTE | 2017-10-24 19:06 | PDOC ---
Exam Note: [place] Note: Please also refer to the separate dictated note~for this date of service dictated separately.~Patient seen individually. Discussed the patient with Nursing staff reviewed the chart.~Reviewed interim history and current functioning. Reviewed vital signs,~Labs/ Radiology~and current medications noted below. Continue current treatment with the changes noted in the dictated addendum note Assessment: Vital Signs: Vital Signs Date Time Temp Pulse Resp B/P (MAP) Pulse Ox O2 Delivery O2 Flow Rate FiO2 10/24/17 15:54 98.8 76 20 118/79 (92) 94 10/24/17 01:39 Room Air I&O Intake and Output 10/24/17 07:00 Intake Total 0 ml Balance 0 ml Intake Oral 0 ml Labs: Laboratory Tests Test 10/23/17 19:11 10/24/17 07:22 10/24/17 11:35 10/24/17 16:38 Glucose (Fingerstick) 158 mg/dL (70-99) H 75 mg/dL (70-99) 178 mg/dL (70-99) H 206 mg/dL (70-99) H Test 10/24/17 18:58 Glucose (Fingerstick) 162 mg/dL (70-99) H Current Medications: Meds: Current Medications Acetaminophen (Tylenol) 650 mg PRN Q6HRS PRN PO PAIN / TEMP Last administered on 10/22/17 17:24; Start 10/01/17 at 02:30; Stop 10/22/17 at 19:47; Status DC Al Hydroxide/Mg Hydroxide (Mylanta Plus Xs) 15 ml PRN AFTMEALHC PRN PO DYSPEPSIA Last administered on 10/15/17 10:26; Start 10/01/17 at 02:30 Magnesium Hydroxide (Milk Of Magnesia) 2,400 mg PRN QHS PRN PO CONSTIPATION Last administered on 10/22/17 21:20; Start 10/01/17 at 02:30 Buspirone HCl (Buspar) 15 mg BID PO Last administered on 10/24/17 07:56; Start 10/01/17 at 09:00 Clonazepam (KlonoPIN) 0.5 mg PRN Q6HRS PRN PO ANXIETY / AGITATION Last administered on 10/22/17 18:24; Start 10/01/17 at 03:15 Risperidone (RisperDAL) 0.5 mg BID PO Last administered on 10/02/17 07:27; Start 10/01/17 at 09:00; Stop 10/02/17 at 18:15; Status DC Trazodone HCl (Desyrel) 50 mg PRN QHS PRN PO INSOMNIA Last administered on 00:18; Start 10/01/17 at 03:15; Stop 10/18/17 at 09:07; Status DC Fluvoxamine Maleate (Luvox) 75 mg QHS PO Last administered on 10/02/17 19:23; Start 10/01/17 at 21:00; Stop 10/03/17 at 19:03; Status DC Acetaminophen (Tylenol) 650 mg Q6HRS PRN PO PAIN; Start 10/01/17 at 03:15; Stop 10/01/17 at 03:32; Status DC Cetirizine HCl (ZyrTEC) 10 mg PRN DAILY PRN PO ALLERGIES; Start 10/01/17 at 03: 15; Stop 10/22/17 at 19:47; Status DC Ciprofloxacin (Cipro) 250 mg BID66 PO Last administered on 10/07/17 17:29; Start 10/01/17 at 06:00; Stop 10/07/17 at 18:01; Status DC Clopidogrel Bisulfate (Plavix) 75 mg DAILY PO Last administered on 10/24/17 07:57; Start 10/01/17 at 09:00 Docusate Sodium (Colace) 100 mg BID PO Last administered on 10/02/17 07:29; Start 10/01/17 at 09:00; Stop 10/02/17 at 18:26; Status DC Insulin Detemir (Levemir) 17 units QHS SQ Last administered on 10/09/17 19:43 ; Start 10/01/17 at 21:00; Stop 10/10/17 at 11:26; Status DC Albuterol/ Ipratropium (Duoneb) 3 ml RTBID NEB Last administered on 10/13/17 22:13; Start 10/01/17 at 08:00; Stop 10/14/17 at 16:39; Status DC Albuterol Sulfate (Ventolin) 2.5 mg PRN Q2HR PRN NEB COUGH/SHORTNESS OF BREATH ; Start 10/01/17 at 03:30 Isosorbide Mononitrate (Imdur) 30 mg DAILY PO Last administered on 10/24/17 07:57; Start 10/01/17 at 09:00 Linagliptin (Tradjenta) 5 mg DAILY PO Last administered on 10/22/17 08:07; Start 10/01/17 at 09:00; Stop 10/22/17 at 19:47; Status DC Al Hydroxide/Mg Hydroxide (Mylanta Plus Xs) 15 ml PRN AFTMEALHC PRN PO DYSPEPSIA; Start 10/01/17 at 03:15; Stop 10/01/17 at 03:32; Status DC Metoprolol Tartrate (Lopressor) 12.5 mg BID PO Last administered on 10/23/17 21:10; Start 10/01/17 at 09:00 Nitroglycerin (Nitrostat) 0.4 mg PRN Q5MIN PRN SL CHEST PAIN; Start 10/01/17 at 03:15 Atorvastatin Calcium (Lipitor) 40 mg QHS PO Last administered on 10/16/17 19: 44; Start 10/01/17 at 21:00; Stop 10/17/17 at 09:46; Status DC Non-Formulary Medication 2,400 mg PRN DAILY PRN PO CONSTIPATION; Start at 03:15; Stop 10/01/17 at 03:32; Status DC Insulin Aspart (NovoLOG) 0-9 UNITS TIDACHC SQ ; Start 10/01/17 at 07:30; Stop 10/01/17 at 07:30; Status DC Dextrose 12.5 gm PRN Q15MIN PRN IV SEE COMMENTS; Start 10/01/17 at 03:30 Insulin Aspart (NovoLOG) 0-9 UNITS TIDAC SQ Last administered on 10/24/17 16: 30; Start 10/01/17 at 07:30 Lactobacillus Rhamnosus (Culturelle) 1 cap BID PO Last administered on 08:07; Start 10/01/17 at 21:00; Stop 10/22/17 at 19:47; Status DC Risperidone (RisperDAL) 0.25 mg BID PO Last administered on 10/07/17 09:08; Start 10/02/17 at 21:00; Stop 10/07/17 at 18:57; Status DC Mirtazapine (Remeron) 7.5 mg QHS PO Last administered on 10/10/17 19:59; Start 10/02/17 at 21:00; Stop 10/11/17 at 19:36; Status DC Docusate Calcium (Surfak) 240 mg DAILY PO Last administered on 10/24/17 07:56 ; Start 10/03/17 at 09:00 Fluvoxamine Maleate (Luvox) 100 mg QHS PO Last administered on 10/04/17 19:47 ; Start 10/03/17 at 21:00; Stop 10/05/17 at 18:23; Status DC Fluvoxamine Maleate (Luvox) 100 mg QHS PO Last administered on 10/17/17 19:26 ; Start 10/05/17 at 21:00; Stop 10/18/17 at 18:38; Status DC Fluvoxamine Maleate (Luvox) 25 mg HS PO Last administered on 10/17/17 19:26; Start 10/05/17 at 21:00; Stop 10/18/17 at 18:38; Status DC Nystatin (Nystop) 15 presley STK-MED ONCE TP Last administered on 10/06/17 17:05 ; Start 10/06/17 at 16:46; Stop 10/06/17 at 16:47; Status DC Quetiapine Fumarate (SEROquel) 12.5 mg TID@0900,1300,1700 PO Last administered on 10/18/17 17:45; Start 10/08/17 at 09:00; Stop 10/18/17 at 18:38; Status DC Insulin Detemir (Levemir) 12 units QHS SQ Last administered on 10/23/17 21:23 ; Start 10/10/17 at 21:00 Mirtazapine (Remeron) 15 mg QHS PO Last administered on 10/22/17 20:42; Start 10/11/17 at 21:00; Stop 10/23/17 at 08:26; Status DC Trazodone HCl (Desyrel) 50 mg QHS PO Last administered on 10/17/17 19:26; Start 10/12/17 at 21:00; Stop 10/18/17 at 09:07; Status DC Buspirone HCl (Buspar) 10 mg DAILY@1400 PO Last administered on 10/24/17 13: 15; Start 10/14/17 at 14:00 Albuterol/ Ipratropium (Duoneb) 3 ml PRN BID PRN NEB COUGH; Start 10/14/17 at 16:45 Melatonin 6 mg QHS PO Last administered on 10/21/17 19:36; Start 10/14/17 at 21:00; Stop 10/22/17 at 19:47; Status DC Oxycodone HCl (OxyCONTIN) 10 mg Q12HR PO Last administered on 10/24/17 09:00 ; Start 10/15/17 at 21:00 Nystatin (Nystop) 15 presley STK-MED ONCE TP Last administered on 10/18/17 09:13 ; Start 10/18/17 at 09:13; Stop 10/18/17 at 09:14; Status DC Active Scripts Active Cipro (Ciprofloxacin Hcl) 250 Mg Tablet 1 Tab PO BID Reported Levemir Flextouch (Insulin Detemir) 100 Unit/1 Ml Insuln.pen 17 Unit SQ QHS Myrbetriq (Mirabegron) 25 Mg Tab.er.24h 25 Mg PO DAILY Duoneb 0.5-3(2.5) Mg/3 Ml (Albuterol/Ipratropium) 3 Ml Ampul.neb 3 Ml NEB PRN BID PRN Metoprolol Tartrate 25 Mg Tablet 12.5 Mg PO BID For CHF and CAD patients: Hold for HR less than 50 or SBP less than 90. For all other patients: Hold for HR less than 60 or SBP less than 100. After a held dose, reassess in 2 hours. If HR and SBP are above threshold, administer dose as ordered. If HR and SBP are below threshold, contact provider. Novolog Flexpen (Insulin Aspart) 100 Unit/1 Ml Insuln.pen 0-9 Unit SQ TIDAC BG level: If eating: If not eating: < 70 Call Provider [phone] 4 [phone] 5 3 [phone] > or = 351 Call provider Trazodone Hcl 50 Mg Tablet 50 Mg PO PRN QHS PRN Give with food. MAY REPEAT IN 1 HOUR Risperidone 0.5 Mg Tablet 0.5 Mg PO BID Mag-Al Plus Xs Suspension (Mag Hydrox/Al Hydrox/Simeth) 30 Ml Oral.susp 15 Ml PO PRN AFTMEALHC PRN Tradjenta (Linagliptin) 5 Mg Tablet 5 Mg PO DAILY Duoneb 0.5-3(2.5) Mg/3 Ml (Albuterol/Ipratropium) 3 Ml Ampul.neb 3 Ml NEB PRN Q2HR PRN Fluvoxamine Maleate 50 Mg Tablet 75 Mg PO HS Cetirizine Hcl 10 Mg Tablet 10 Mg PO PRN DAILY PRN Milk Of Magnesia (Magnesium Hydroxide) 2,400 Mg/10 Ml Oral.susp 2,400 Mg PO PRN DAILY PRN Tylenol (Acetaminophen) 325 Mg Tablet 650 Mg PO Q6HRS PRN Plavix (Clopidogrel Bisulfate) 75 Mg Tablet 75 Mg PO DAILY NITROGLYCERIN SubLingual (Nitroglycerin) 0.4 Mg Tab.subl 0.4 Mg SL PRN Q5MIN PRN Hold for SBP less than or equal to 90 mmHg. Call provider for chest pain unrelieved by 1 sublingual nitroglycerin, may repeat X2 if chest pain persists. Lipitor (Atorvastatin Calcium) 40 Mg Tablet 40 Mg PO QHS Isosorbide Mononitrate Er (Isosorbide Mononitrate) 30 Mg Tab.er.24h 30 Mg PO DAILY DO NOT CRUSH OR CHEW Colace (Docusate Sodium) 100 Mg Capsule 100 Mg PO BID Hold for loose stools Clonazepam 0.5 Mg Tablet 0.5 Mg PO PRN Q6HRS PRN Buspirone Hcl 15 Mg Tablet 15 Mg PO BID I have reviewed the current psychotropics carefully including drug interactions. Risk benefit ratio favors no change other than as noted in my dictated progress note. Diagnosis: Problems: (1) Dementia in Alzheimer's disease with delusions (2) Dementia in Alzheimer's disease with depression (3) Vascular dementia with behavior disturbance (4) Dementia, vascular, with delusions (5) Dementia, vascular, with depression (6) Vascular dementia with delusions (7) Vascular dementia with depressed mood (8) Major depressive disorder, recurrent episode TATIANA LAYTON MD Oct 24, 2017 19:06
[2017-10-24] MEDS: INSULIN DETEMIR 300 UNITS/3 ML INSULN.PEN. SQ SCH (20:29)
[2017-10-25 06:08] VITALS: BP 122/60
[2017-10-25] MEDS: INSULIN ASPART 300 UNITS/3 ML INSULN.PEN SQ SCH ×3 (07:30→17:06)
[2017-10-25 07:33] LABS: BASO % 0 % (0-3); EOS # 0.1 x10^3/uL (0.0-0.7); EOS % 2 % (0-3); HEMOGLOBIN 13.5 g/dL (12.0-15.5); LYMPH # 2.5 x10^3/uL (1.0-4.8); LYMPH % 47 % (24-48); MEAN CORPUSCULAR HEMOGLOBIN 32 pg (25-35); MEAN CORPUSCULAR HGB CONC 35 g/dL (31-37); MEAN CORPUSCULAR VOLUME 92 fL (79-100); MONO # 0.6 x10^3/uL (0.0-1.1); MONO % 12 % (0-9); NEUT # 2.1 x10^3uL (1.8-7.7); NEUT % 39 % (31-73); PLATELET COUNT 185 x10^3/uL (140-400); RED BLOOD COUNT 4.23 x10^6/uL (3.50-5.40); RED CELL DISTRIBUTION WIDTH 14.3 % (11.5-14.5); WHITE BLOOD COUNT 5.3 x10^3/uL (4.0-11.0)
[2017-10-25] MEDS: busPIRone 15 MG TABLET. PO SCH ×3 (07:41→19:56)
[2017-10-25] MEDS: CLOPIDOGREL BISULFATE 75 MG TABLET PO SCH (07:41)
[2017-10-25] MEDS: oxyCODONE ER 10 MG TAB.ER.12H PO SCH ×2 (07:41→19:59)
[2017-10-25] MEDS: DOCUSATE CALCIUM 240 MG CAPSULE PO SCH (07:41)
[2017-10-25] MEDS: METOPROLOL TART IMMED RELEASE 25 MG TABLET PO SCH ×2 (07:42→19:57)
[2017-10-25 07:43] LABS: ALBUMIN 2.8 g/dL (3.4-5.0); ALBUMIN/GLOBULIN RATIO 0.8 (1.0-1.7); CALCIUM 8.8 mg/dL (8.5-10.1); CREATININE 1.1 mg/dL (0.6-1.0); DIRECT BILIRUBIN 0.2 mg/dL (0.0-0.2); TOTAL BILIRUBIN 0.4 mg/dL (0.2-1.0); TOTAL PROTEIN 6.3 g/dL (6.4-8.2)
[2017-10-25] MEDS: MIRABEGRON 25 MG TAB.ER.24H PO SCH (07:43)
[2017-10-25] MEDS: ISOSORBIDE MONONITRATE ER 30 MG TAB.ER.24H PO SCH (07:43)
--- NOTE | 2017-10-25 09:58 | PN ---
DATE: 10/23/2017 PSYCHIATRIC PROGRESS NOTE This is a late entry 10/23/2017, covers elements not covered in my initial note 10/23/2017. SUBJECTIVE: I met with the patient the evening of 10/23/2017. The patient's liver enzymes are better. Remeron was discontinued as due to his metabolism through the liver. She yells if agitated during cares and for specific reasons per nursing report, but not otherwise. Abdominal ultrasound was negative. REVIEW OF SYSTEMS: Bilateral blindness, impaired ambulation, in Broda chair. No CV, , pulmonary, ENT system symptoms on review. MENTAL STATUS EXAM: Oriented to herself. Insight, judgment, recent and remote memory, attention, concentration, fund of knowledge poor, consistent with her diagnoses, less anxious, labile as I met her individually. LABORATORY DATA: Reviewed. IMPRESSION: Major neurocognitive disorder, Alzheimer vascular with depression, delusion, behavioral disturbance. Rest unchanged from initial note. PLAN: Continue psychotropics mentioned in my initial note including BuSpar scheduled and Klonopin p.r.n., melatonin 6 mg at bedtime. MAN Bev LAYTON MD DR: JHOAN/osiel JOB#: [id number] / [id number]
[2017-10-25] MEDS: busPIRone 10 MG TABLET. PO SCH (13:33)
[2017-10-25 15:59] VITALS: BP 94/56
[2017-10-25] MEDS: INSULIN DETEMIR 300 UNITS/3 ML INSULN.PEN. SQ SCH (20:03)
--- NOTE | 2017-10-25 20:23 | PDOC ---
Exam Note: [place] Note: Please also refer to the separate dictated note~for this date of service dictated separately.~Patient seen individually. Discussed the patient with Nursing staff reviewed the chart.~Reviewed interim history and current functioning. Reviewed vital signs,~Labs/ Radiology~and current medications noted below. Continue current treatment with the changes noted in the dictated addendum note Assessment: Vital Signs: Vital Signs Date Time Temp Pulse Resp B/P (MAP) Pulse Ox O2 Delivery O2 Flow Rate FiO2 10/25/17 15:59 98.4 70 18 94/56 (69) 94 10/24/17 01:39 Room Air I&O Intake and Output 10/25/17 07:00 Intake Total 840 ml Balance 840 ml Intake Oral 840 ml Labs: Laboratory Tests Test 10/25/17 07:20 10/25/17 07:31 10/25/17 12:01 10/25/17 16:45 White Blood Count 5.3 x10^3/uL (4.0-11.0) Red Blood Count 4.23 x10^6/uL (3.50-5.40) Hemoglobin 13.5 g/dL (12.0-15.5) Hematocrit 39.0 % (36.0-47.0) Mean Corpuscular Volume 92 fL (79-100) Mean Corpuscular Hemoglobin 32 pg (25-35) Mean Corpuscular Hemoglobin Concent 35 g/dL (31-37) Red Cell Distribution Width 14.3 % (11.5-14.5) Platelet Count 185 x10^3/uL (140-400) Neutrophils (%) (Auto) 39 % (31-73) Lymphocytes (%) (Auto) 47 % (24-48) Monocytes (%) (Auto) 12 % (0-9) H Eosinophils (%) (Auto) 2 % (0-3) Basophils (%) (Auto) 0 % (0-3) Neutrophils # (Auto) 2.1 x10^3uL (1.8-7.7) Lymphocytes # (Auto) 2.5 x10^3/uL (1.0-4.8) Monocytes # (Auto) 0.6 x10^3/uL (0.0-1.1) Eosinophils # (Auto) 0.1 x10^3/uL (0.0-0.7) Basophils # (Auto) 0.0 x10^3/uL (0.0-0.2) Sodium Level 144 mmol/L (136-145) Potassium Level 4.0 mmol/L (3.5-5.1) Chloride Level 109 mmol/L (98-107) H Carbon Dioxide Level 27 mmol/L (21-32) Anion Gap 8 (6-14) Blood Urea Nitrogen 24 mg/dL (7-20) H Creatinine 1.1 mg/dL (0.6-1.0) H Estimated GFR (Cockcroft-Gault) 47.0 BUN/Creatinine Ratio 22 (6-20) H Glucose Level 106 mg/dL (70-99) H Calcium Level 8.8 mg/dL (8.5-10.1) Total Bilirubin 0.4 mg/dL (0.2-1.0) Direct Bilirubin 0.2 mg/dL (0.0-0.2) Aspartate Amino Transferase (AST) 175 U/L (15-37) H Alanine Aminotransferase (ALT) 310 U/L (14-59) H Alkaline Phosphatase 576 U/L (46-116) H Total Protein 6.3 g/dL (6.4-8.2) L Albumin 2.8 g/dL (3.4-5.0) L Albumin/Globulin Ratio 0.8 (1.0-1.7) L Glucose (Fingerstick) 109 mg/dL (70-99) H 193 mg/dL (70-99) H 175 mg/dL (70-99) H Test 10/25/17 19:20 Glucose (Fingerstick) 256 mg/dL (70-99) H Current Medications: Meds: Current Medications Acetaminophen (Tylenol) 650 mg PRN Q6HRS PRN PO PAIN / TEMP Last administered on 10/22/17 17:24; Start 10/01/17 at 02:30; Stop 10/22/17 at 19:47; Status DC Al Hydroxide/Mg Hydroxide (Mylanta Plus Xs) 15 ml PRN AFTMEALHC PRN PO DYSPEPSIA Last administered on 10/15/17 10:26; Start 10/01/17 at 02:30 Magnesium Hydroxide (Milk Of Magnesia) 2,400 mg PRN QHS PRN PO CONSTIPATION Last administered on 10/22/17 21:20; Start 10/01/17 at 02:30 Buspirone HCl (Buspar) 15 mg BID PO Last administered on 10/25/17 19:56; Start 10/01/17 at 09:00 Clonazepam (KlonoPIN) 0.5 mg PRN Q6HRS PRN PO ANXIETY / AGITATION Last administered on 10/22/17 18:24; Start 10/01/17 at 03:15 Risperidone (RisperDAL) 0.5 mg BID PO Last administered on 10/02/17 07:27; Start 10/01/17 at 09:00; Stop 10/02/17 at 18:15; Status DC Trazodone HCl (Desyrel) 50 mg PRN QHS PRN PO INSOMNIA Last administered on 00:18; Start 10/01/17 at 03:15; Stop 10/18/17 at 09:07; Status DC Fluvoxamine Maleate (Luvox) 75 mg QHS PO Last administered on 10/02/17 19:23; Start 10/01/17 at 21:00; Stop 10/03/17 at 19:03; Status DC Acetaminophen (Tylenol) 650 mg Q6HRS PRN PO PAIN; Start 10/01/17 at 03:15; Stop 10/01/17 at 03:32; Status DC Cetirizine HCl (ZyrTEC) 10 mg PRN DAILY PRN PO ALLERGIES; Start 10/01/17 at 03: 15; Stop 10/22/17 at 19:47; Status DC Ciprofloxacin (Cipro) 250 mg BID66 PO Last administered on 10/07/17 17:29; Start 10/01/17 at 06:00; Stop 10/07/17 at 18:01; Status DC Clopidogrel Bisulfate (Plavix) 75 mg DAILY PO Last administered on 10/25/17 07:41; Start 10/01/17 at 09:00 Docusate Sodium (Colace) 100 mg BID PO Last administered on 10/02/17 07:29; Start 10/01/17 at 09:00; Stop 10/02/17 at 18:26; Status DC Insulin Detemir (Levemir) 17 units QHS SQ Last administered on 10/09/17 19:43 ; Start 10/01/17 at 21:00; Stop 10/10/17 at 11:26; Status DC Albuterol/ Ipratropium (Duoneb) 3 ml RTBID NEB Last administered on 10/13/17 22:13; Start 10/01/17 at 08:00; Stop 10/14/17 at 16:39; Status DC Albuterol Sulfate (Ventolin) 2.5 mg PRN Q2HR PRN NEB COUGH/SHORTNESS OF BREATH ; Start 10/01/17 at 03:30 Isosorbide Mononitrate (Imdur) 30 mg DAILY PO Last administered on 10/25/17 07:43; Start 10/01/17 at 09:00 Linagliptin (Tradjenta) 5 mg DAILY PO Last administered on 10/22/17 08:07; Start 10/01/17 at 09:00; Stop 10/22/17 at 19:47; Status DC Al Hydroxide/Mg Hydroxide (Mylanta Plus Xs) 15 ml PRN AFTMEALHC PRN PO DYSPEPSIA; Start 10/01/17 at 03:15; Stop 10/01/17 at 03:32; Status DC Metoprolol Tartrate (Lopressor) 12.5 mg BID PO Last administered on 10/25/17 07:42; Start 10/01/17 at 09:00 Nitroglycerin (Nitrostat) 0.4 mg PRN Q5MIN PRN SL CHEST PAIN; Start 10/01/17 at 03:15 Atorvastatin Calcium (Lipitor) 40 mg QHS PO Last administered on 10/16/17 19: 44; Start 10/01/17 at 21:00; Stop 10/17/17 at 09:46; Status DC Non-Formulary Medication 2,400 mg PRN DAILY PRN PO CONSTIPATION; Start at 03:15; Stop 10/01/17 at 03:32; Status DC Insulin Aspart (NovoLOG) 0-9 UNITS TIDACHC SQ ; Start 10/01/17 at 07:30; Stop 10/01/17 at 07:30; Status DC Dextrose 12.5 gm PRN Q15MIN PRN IV SEE COMMENTS; Start 10/01/17 at 03:30 Insulin Aspart (NovoLOG) 0-9 UNITS TIDAC SQ Last administered on 10/25/17 17: 06; Start 10/01/17 at 07:30 Lactobacillus Rhamnosus (Culturelle) 1 cap BID PO Last administered on 08:07; Start 10/01/17 at 21:00; Stop 10/22/17 at 19:47; Status DC Risperidone (RisperDAL) 0.25 mg BID PO Last administered on 10/07/17 09:08; Start 10/02/17 at 21:00; Stop 10/07/17 at 18:57; Status DC Mirtazapine (Remeron) 7.5 mg QHS PO Last administered on 10/10/17 19:59; Start 10/02/17 at 21:00; Stop 10/11/17 at 19:36; Status DC Docusate Calcium (Surfak) 240 mg DAILY PO Last administered on 10/25/17 07:41 ; Start 10/03/17 at 09:00 Fluvoxamine Maleate (Luvox) 100 mg QHS PO Last administered on 10/04/17 19:47 ; Start 10/03/17 at 21:00; Stop 10/05/17 at 18:23; Status DC Fluvoxamine Maleate (Luvox) 100 mg QHS PO Last administered on 10/17/17 19:26 ; Start 10/05/17 at 21:00; Stop 10/18/17 at 18:38; Status DC Fluvoxamine Maleate (Luvox) 25 mg HS PO Last administered on 10/17/17 19:26; Start 10/05/17 at 21:00; Stop 10/18/17 at 18:38; Status DC Nystatin (Nystop) 15 presley STK-MED ONCE TP Last administered on 10/06/17 17:05 ; Start 10/06/17 at 16:46; Stop 10/06/17 at 16:47; Status DC Quetiapine Fumarate (SEROquel) 12.5 mg TID@0900,1300,1700 PO Last administered on 10/18/17 17:45; Start 10/08/17 at 09:00; Stop 10/18/17 at 18:38; Status DC Insulin Detemir (Levemir) 12 units QHS SQ Last administered on 10/25/17 20:03 ; Start 10/10/17 at 21:00 Mirtazapine (Remeron) 15 mg QHS PO Last administered on 10/22/17 20:42; Start 10/11/17 at 21:00; Stop 10/23/17 at 08:26; Status DC Trazodone HCl (Desyrel) 50 mg QHS PO Last administered on 10/17/17 19:26; Start 10/12/17 at 21:00; Stop 10/18/17 at 09:07; Status DC Buspirone HCl (Buspar) 10 mg DAILY@1400 PO Last administered on 10/25/17 13: 33; Start 10/14/17 at 14:00 Albuterol/ Ipratropium (Duoneb) 3 ml PRN BID PRN NEB COUGH; Start 10/14/17 at 16:45 Melatonin 6 mg QHS PO Last administered on 10/21/17 19:36; Start 10/14/17 at 21:00; Stop 10/22/17 at 19:47; Status DC Oxycodone HCl (OxyCONTIN) 10 mg Q12HR PO Last administered on 10/25/17 19:59 ; Start 10/15/17 at 21:00 Nystatin (Nystop) 15 presley STK-MED ONCE TP Last administered on 10/18/17 09:13 ; Start 10/18/17 at 09:13; Stop 10/18/17 at 09:14; Status DC Active Scripts Active Cipro (Ciprofloxacin Hcl) 250 Mg Tablet 1 Tab PO BID Reported Levemir Flextouch (Insulin Detemir) 100 Unit/1 Ml Insuln.pen 17 Unit SQ QHS Myrbetriq (Mirabegron) 25 Mg Tab.er.24h 25 Mg PO DAILY Duoneb 0.5-3(2.5) Mg/3 Ml (Albuterol/Ipratropium) 3 Ml Ampul.neb 3 Ml NEB PRN BID PRN Metoprolol Tartrate 25 Mg Tablet 12.5 Mg PO BID For CHF and CAD patients: Hold for HR less than 50 or SBP less than 90. For all other patients: Hold for HR less than 60 or SBP less than 100. After a held dose, reassess in 2 hours. If HR and SBP are above threshold, administer dose as ordered. If HR and SBP are below threshold, contact provider. Novolog Flexpen (Insulin Aspart) 100 Unit/1 Ml Insuln.pen 0-9 Unit SQ TIDAC BG level: If eating: If not eating: < 70 Call Provider [phone] 0 [phone] 4 0 201-250 5 3 [phone] [phone] > or = 351 Call provider Trazodone Hcl 50 Mg Tablet 50 Mg PO PRN QHS PRN Give with food. MAY REPEAT IN 1 HOUR Risperidone 0.5 Mg Tablet 0.5 Mg PO BID Mag-Al Plus Xs Suspension (Mag Hydrox/Al Hydrox/Simeth) 30 Ml Oral.susp 15 Ml PO PRN AFTMEALHC PRN Tradjenta (Linagliptin) 5 Mg Tablet 5 Mg PO DAILY Duoneb 0.5-3(2.5) Mg/3 Ml (Albuterol/Ipratropium) 3 Ml Ampul.neb 3 Ml NEB PRN Q2HR PRN Fluvoxamine Maleate 50 Mg Tablet 75 Mg PO HS Cetirizine Hcl 10 Mg Tablet 10 Mg PO PRN DAILY PRN Milk Of Magnesia (Magnesium Hydroxide) 2,400 Mg/10 Ml Oral.susp 2,400 Mg PO PRN DAILY PRN Tylenol (Acetaminophen) 325 Mg Tablet 650 Mg PO Q6HRS PRN Plavix (Clopidogrel Bisulfate) 75 Mg Tablet 75 Mg PO DAILY NITROGLYCERIN SubLingual (Nitroglycerin) 0.4 Mg Tab.subl 0.4 Mg SL PRN Q5MIN PRN Hold for SBP less than or equal to 90 mmHg. Call provider for chest pain unrelieved by 1 sublingual nitroglycerin, may repeat X2 if chest pain persists. Lipitor (Atorvastatin Calcium) 40 Mg Tablet 40 Mg PO QHS Isosorbide Mononitrate Er (Isosorbide Mononitrate) 30 Mg Tab.er.24h 30 Mg PO DAILY DO NOT CRUSH OR CHEW Colace (Docusate Sodium) 100 Mg Capsule 100 Mg PO BID Hold for loose stools Clonazepam 0.5 Mg Tablet 0.5 Mg PO PRN Q6HRS PRN Buspirone Hcl 15 Mg Tablet 15 Mg PO BID I have reviewed the current psychotropics carefully including drug interactions. Risk benefit ratio favors no change other than as noted in my dictated progress note. Diagnosis: Problems: (1) Dementia in Alzheimer's disease with delusions (2) Dementia in Alzheimer's disease with depression (3) Vascular dementia with behavior disturbance (4) Dementia, vascular, with delusions (5) Dementia, vascular, with depression (6) Vascular dementia with delusions (7) Vascular dementia with depressed mood (8) Major depressive disorder, recurrent episode TATIANA LAYTON MD Oct 25, 2017 20:23
[2017-10-25] MEDS: clonazePAM 0.5 MG TABLET PO PRN (20:59)
[2017-10-26 06:19] VITALS: BP 126/65
[2017-10-26] MEDS: INSULIN ASPART 300 UNITS/3 ML INSULN.PEN SQ SCH ×3 (07:30→16:30)
[2017-10-26] MEDS: ISOSORBIDE MONONITRATE ER 30 MG TAB.ER.24H PO SCH (08:05)
[2017-10-26] MEDS: CLOPIDOGREL BISULFATE 75 MG TABLET PO SCH (08:05)
[2017-10-26] MEDS: DOCUSATE CALCIUM 240 MG CAPSULE PO SCH (08:05)
[2017-10-26] MEDS: busPIRone 15 MG TABLET. PO SCH (08:06)
[2017-10-26] MEDS: METOPROLOL TART IMMED RELEASE 25 MG TABLET PO SCH ×2 (08:06→20:09)
[2017-10-26] MEDS: MIRABEGRON 25 MG TAB.ER.24H PO SCH (08:07)
[2017-10-26] MEDS: oxyCODONE ER 10 MG TAB.ER.12H PO SCH ×2 (08:08→20:08)
--- NOTE | 2017-10-26 09:30 | PN ---
DATE: 10/24/2017 PSYCHIATRIC PROGRESS NOTE This is a late entry 10/24/2017, covers elements not covered in my initial note 10/24/2017. SUBJECTIVE: I met with the patient the evening of 10/24/2017. The patient is fairly quiet during the day, yelling out evening of 10/24/2017 because she was complaining of being cold. In fact, temperatures are subzero outside, some of this is understandable. REVIEW OF SYSTEMS: Ambulation impaired, in Broda chair. Bilateral blindness. No CV, , pulmonary system symptoms on review. Reliability poor. MENTAL STATUS EXAM: Oriented to herself. Insight, judgment, recent and remote memory, attention, concentration, fund of knowledge poor, consistent with her diagnoses mentioned in my initial note. IMPRESSION: Major neurocognitive disorder, Alzheimer, vascular with depression, delusion, behavioral disturbance. Rest unchanged. PLAN: Continue psychotropics mentioned in my initial note. Adjust as clinically indicated. TATIANA LAYTON MD DR: JHOAN/osiel JOB#: [id number] / [id number]
[2017-10-26] MEDS: busPIRone 10 MG TABLET. PO SCH (12:57)
[2017-10-26 16:07] VITALS: BP 122/69
--- NOTE | 2017-10-26 20:02 | PDOC ---
Exam Note: [place] Note: Please also refer to the separate dictated note~for this date of service dictated separately.~Patient seen individually. Discussed the patient with Nursing staff reviewed the chart.~Reviewed interim history and current functioning. Reviewed vital signs,~Labs/ Radiology~and current medications noted below. Continue current treatment with the changes noted in the dictated addendum note Assessment: Vital Signs: Vital Signs Date Time Temp Pulse Resp B/P (MAP) Pulse Ox O2 Delivery O2 Flow Rate FiO2 10/26/17 16:07 98.2 71 18 122/69 (86) 97 10/26/17 06:19 Room Air I&O Intake and Output 10/26/17 07:00 Intake Total 1200 ml Balance 1200 ml Intake Oral 1200 ml # Voids 1 # Bowel Movements 1 Labs: Laboratory Tests Test 10/26/17 07:23 10/26/17 11:10 10/26/17 16:04 10/26/17 19:02 Glucose (Fingerstick) 98 mg/dL (70-99) 207 mg/dL (70-99) H 77 mg/dL (70-99) 185 mg/dL (70-99) H Current Medications: Meds: Current Medications Acetaminophen (Tylenol) 650 mg PRN Q6HRS PRN PO PAIN / TEMP Last administered on 10/22/17 17:24; Start 10/01/17 at 02:30; Stop 10/22/17 at 19:47; Status DC Al Hydroxide/Mg Hydroxide (Mylanta Plus Xs) 15 ml PRN AFTMEALHC PRN PO DYSPEPSIA Last administered on 10/15/17 10:26; Start 10/01/17 at 02:30 Magnesium Hydroxide (Milk Of Magnesia) 2,400 mg PRN QHS PRN PO CONSTIPATION Last administered on 10/22/17 21:20; Start 10/01/17 at 02:30 Buspirone HCl (Buspar) 15 mg BID PO Last administered on 10/26/17at 08:06; Start 10/01/17 at 09:00 Clonazepam (KlonoPIN) 0.5 mg PRN Q6HRS PRN PO ANXIETY / AGITATION Last administered on 10/25/17 20:59; Start 10/01/17 at 03:15 Risperidone (RisperDAL) 0.5 mg BID PO Last administered on 10/02/17 07:27; Start 10/01/17 at 09:00; Stop 10/02/17 at 18:15; Status DC Trazodone HCl (Desyrel) 50 mg PRN QHS PRN PO INSOMNIA Last administered on 00:18; Start 10/01/17 at 03:15; Stop 10/18/17 at 09:07; Status DC Fluvoxamine Maleate (Luvox) 75 mg QHS PO Last administered on 10/02/17 19:23; Start 10/01/17 at 21:00; Stop 10/03/17 at 19:03; Status DC Acetaminophen (Tylenol) 650 mg Q6HRS PRN PO PAIN; Start 10/01/17 at 03:15; Stop 10/01/17 at 03:32; Status DC Cetirizine HCl (ZyrTEC) 10 mg PRN DAILY PRN PO ALLERGIES; Start 10/01/17 at 03: 15; Stop 10/22/17 at 19:47; Status DC Ciprofloxacin (Cipro) 250 mg BID66 PO Last administered on 10/07/17 17:29; Start 10/01/17 at 06:00; Stop 10/07/17 at 18:01; Status DC Clopidogrel Bisulfate (Plavix) 75 mg DAILY PO Last administered on 10/26/17at 08: 05; Start 10/01/17 at 09:00 Docusate Sodium (Colace) 100 mg BID PO Last administered on 10/02/17 07:29; Start 10/01/17 at 09:00; Stop 10/02/17 at 18:26; Status DC Insulin Detemir (Levemir) 17 units QHS SQ Last administered on 10/09/17 19:43 ; Start 10/01/17 at 21:00; Stop 10/10/17 at 11:26; Status DC Albuterol/ Ipratropium (Duoneb) 3 ml RTBID NEB Last administered on 10/13/17 22:13; Start 10/01/17 at 08:00; Stop 10/14/17 at 16:39; Status DC Albuterol Sulfate (Ventolin) 2.5 mg PRN Q2HR PRN NEB COUGH/SHORTNESS OF BREATH ; Start 10/01/17 at 03:30 Isosorbide Mononitrate (Imdur) 30 mg DAILY PO Last administered on 10/26/17 08: 05; Start 10/01/17 at 09:00 Linagliptin (Tradjenta) 5 mg DAILY PO Last administered on 10/22/17 08:07; Start 10/01/17 at 09:00; Stop 10/22/17 at 19:47; Status DC Al Hydroxide/Mg Hydroxide (Mylanta Plus Xs) 15 ml PRN AFTMEALHC PRN PO DYSPEPSIA; Start 10/01/17 at 03:15; Stop 10/01/17 at 03:32; Status DC Metoprolol Tartrate (Lopressor) 12.5 mg BID PO Last administered on 10/26/17 08 :06; Start 10/01/17 at 09:00 Nitroglycerin (Nitrostat) 0.4 mg PRN Q5MIN PRN SL CHEST PAIN; Start 10/01/17 at 03:15 Atorvastatin Calcium (Lipitor) 40 mg QHS PO Last administered on 10/16/17 19: 44; Start 10/01/17 at 21:00; Stop 10/17/17 at 09:46; Status DC Non-Formulary Medication 2,400 mg PRN DAILY PRN PO CONSTIPATION; Start at 03:15; Stop 10/01/17 at 03:32; Status DC Insulin Aspart (NovoLOG) 0-9 UNITS TIDACHC SQ ; Start 10/01/17 at 07:30; Stop 10/01/17 at 07:30; Status DC Dextrose 12.5 gm PRN Q15MIN PRN IV SEE COMMENTS; Start 10/01/17 at 03:30 Insulin Aspart (NovoLOG) 0-9 UNITS TIDAC SQ Last administered on 10/26/17 11:16 ; Start 10/01/17 at 07:30 Lactobacillus Rhamnosus (Culturelle) 1 cap BID PO Last administered on 08:07; Start 10/01/17 at 21:00; Stop 10/22/17 at 19:47; Status DC Risperidone (RisperDAL) 0.25 mg BID PO Last administered on 10/07/17 09:08; Start 10/02/17 at 21:00; Stop 10/07/17 at 18:57; Status DC Mirtazapine (Remeron) 7.5 mg QHS PO Last administered on 10/10/17 19:59; Start 10/02/17 at 21:00; Stop 10/11/17 at 19:36; Status DC Docusate Calcium (Surfak) 240 mg DAILY PO Last administered on 10/26/17at 08:05; Start 10/03/17 at 09:00 Fluvoxamine Maleate (Luvox) 100 mg QHS PO Last administered on 10/04/17 19:47 ; Start 10/03/17 at 21:00; Stop 10/05/17 at 18:23; Status DC Fluvoxamine Maleate (Luvox) 100 mg QHS PO Last administered on 10/17/17 19:26 ; Start 10/05/17 at 21:00; Stop 10/18/17 at 18:38; Status DC Fluvoxamine Maleate (Luvox) 25 mg HS PO Last administered on 10/17/17 19:26; Start 10/05/17 at 21:00; Stop 10/18/17 at 18:38; Status DC Nystatin (Nystop) 15 presley STK-MED ONCE TP Last administered on 10/06/17 17:05 ; Start 10/06/17 at 16:46; Stop 10/06/17 at 16:47; Status DC Quetiapine Fumarate (SEROquel) 12.5 mg TID@0900,1300,1700 PO Last administered on 10/18/17 17:45; Start 10/08/17 at 09:00; Stop 10/18/17 at 18:38; Status DC Insulin Detemir (Levemir) 12 units QHS SQ Last administered on 10/25/17 20:03 ; Start 10/10/17 at 21:00 Mirtazapine (Remeron) 15 mg QHS PO Last administered on 10/22/17 20:42; Start 10/11/17 at 21:00; Stop 10/23/17 at 08:26; Status DC Trazodone HCl (Desyrel) 50 mg QHS PO Last administered on 10/17/17 19:26; Start 10/12/17 at 21:00; Stop 10/18/17 at 09:07; Status DC Buspirone HCl (Buspar) 10 mg DAILY@1400 PO Last administered on 10/26/17at 12:57 ; Start 10/14/17 at 14:00 Albuterol/ Ipratropium (Duoneb) 3 ml PRN BID PRN NEB COUGH; Start 10/14/17 at 16:45 Melatonin 6 mg QHS PO Last administered on 10/21/17 19:36; Start 10/14/17 at 21:00; Stop 10/22/17 at 19:47; Status DC Oxycodone HCl (OxyCONTIN) 10 mg Q12HR PO Last administered on 10/26/17at 08:08; Start 10/15/17 at 21:00 Nystatin (Nystop) 15 presley STK-MED ONCE TP Last administered on 10/18/17 09:13 ; Start 10/18/17 at 09:13; Stop 10/18/17 at 09:14; Status DC Active Scripts Active Cipro (Ciprofloxacin Hcl) 250 Mg Tablet 1 Tab PO BID Reported Levemir Flextouch (Insulin Detemir) 100 Unit/1 Ml Insuln.pen 17 Unit SQ QHS Myrbetriq (Mirabegron) 25 Mg Tab.er.24h 25 Mg PO DAILY Duoneb 0.5-3(2.5) Mg/3 Ml (Albuterol/Ipratropium) 3 Ml Ampul.neb 3 Ml NEB PRN BID PRN Metoprolol Tartrate 25 Mg Tablet 12.5 Mg PO BID For CHF and CAD patients: Hold for HR less than 50 or SBP less than 90. For all other patients: Hold for HR less than 60 or SBP less than 100. After a held dose, reassess in 2 hours. If HR and SBP are above threshold, administer dose as ordered. If HR and SBP are below threshold, contact provider. Novolog Flexpen (Insulin Aspart) 100 Unit/1 Ml Insuln.pen 0-9 Unit SQ TIDAC BG level: If eating: If not eating: < 70 Call Provider [phone] > or = 351 Call provider Trazodone Hcl 50 Mg Tablet 50 Mg PO PRN QHS PRN Give with food. MAY REPEAT IN 1 HOUR Risperidone 0.5 Mg Tablet 0.5 Mg PO BID Mag-Al Plus Xs Suspension (Mag Hydrox/Al Hydrox/Simeth) 30 Ml Oral.susp 15 Ml PO PRN AFTMEALHC PRN Tradjenta (Linagliptin) 5 Mg Tablet 5 Mg PO DAILY Duoneb 0.5-3(2.5) Mg/3 Ml (Albuterol/Ipratropium) 3 Ml Ampul.neb 3 Ml NEB PRN Q2HR PRN Fluvoxamine Maleate 50 Mg Tablet 75 Mg PO HS Cetirizine Hcl 10 Mg Tablet 10 Mg PO PRN DAILY PRN Milk Of Magnesia (Magnesium Hydroxide) 2,400 Mg/10 Ml Oral.susp 2,400 Mg PO PRN DAILY PRN Tylenol (Acetaminophen) 325 Mg Tablet 650 Mg PO Q6HRS PRN Plavix (Clopidogrel Bisulfate) 75 Mg Tablet 75 Mg PO DAILY NITROGLYCERIN SubLingual (Nitroglycerin) 0.4 Mg Tab.subl 0.4 Mg SL PRN Q5MIN PRN Hold for SBP less than or equal to 90 mmHg. Call provider for chest pain unrelieved by 1 sublingual nitroglycerin, may repeat X2 if chest pain persists. Lipitor (Atorvastatin Calcium) 40 Mg Tablet 40 Mg PO QHS Isosorbide Mononitrate Er (Isosorbide Mononitrate) 30 Mg Tab.er.24h 30 Mg PO DAILY DO NOT CRUSH OR CHEW Colace (Docusate Sodium) 100 Mg Capsule 100 Mg PO BID Hold for loose stools Clonazepam 0.5 Mg Tablet 0.5 Mg PO PRN Q6HRS PRN Buspirone Hcl 15 Mg Tablet 15 Mg PO BID I have reviewed the current psychotropics carefully including drug interactions. Risk benefit ratio favors no change other than as noted in my dictated progress note. Diagnosis: Problems: (1) Dementia (2) Major depressive disorder, recurrent episode (3) Vascular dementia with depressed mood (4) Vascular dementia with delusions (5) Dementia, vascular, with depression (6) Dementia, vascular, with delusions (7) Vascular dementia with behavior disturbance (8) Dementia in Alzheimer's disease with depression (9) Dementia in Alzheimer's disease with delusions TATIANA LAYTON MD Oct 26, 2017 20:02
[2017-10-26] MEDS: INSULIN DETEMIR 300 UNITS/3 ML INSULN.PEN. SQ SCH (20:11)
[2017-10-27 06:05] VITALS: BP 126/73
[2017-10-27] MEDS: INSULIN ASPART 300 UNITS/3 ML INSULN.PEN SQ SCH ×3 (07:30→16:30)
[2017-10-27] MEDS: DOCUSATE CALCIUM 240 MG CAPSULE PO SCH (08:03)
[2017-10-27] MEDS: CLOPIDOGREL BISULFATE 75 MG TABLET PO SCH (08:03)
[2017-10-27] MEDS: METOPROLOL TART IMMED RELEASE 25 MG TABLET PO SCH ×2 (08:03→20:15)
[2017-10-27] MEDS: busPIRone 15 MG TABLET. PO SCH ×2 (08:04→20:01)
[2017-10-27] MEDS: ISOSORBIDE MONONITRATE ER 30 MG TAB.ER.24H PO SCH (08:04)
[2017-10-27] MEDS: oxyCODONE ER 10 MG TAB.ER.12H PO SCH ×2 (08:05→20:21)
[2017-10-27] MEDS: MIRABEGRON 25 MG TAB.ER.24H PO SCH (08:05)
--- NOTE | 2017-10-27 10:08 | PN ---
DATE: 10/22/2017 PSYCHIATRIC PROGRESS NOTE This late entry 10/22/2017 covers elements, not covered in my initial note of 10/22/2017. I met with the patient evening of 10/22/2017, staffed at treatment team meeting morning of 10/22/2017. Her liver enzymes are still elevated and after information from Dr. Dunham, we will go ahead and stop the Remeron since this could still be affecting the raised liver enzymes. AST is 430, ALT is 492, alkaline phosphatase 521 improved from before. REVIEW OF SYSTEMS: Bilateral blindness, impaired ambulation, in Broda chair. No CV, , GI, ENT system symptoms on review. Reliability poor. MENTAL STATUS EXAM: Oriented to herself. Speech coherent, less loud. Abstraction fair, computation impaired, language function intact, attention span short. Mood and affect remain somewhat labile at times. LABORATORY DATA: Reviewed. IMPRESSION: Unchanged from initial note. Major neurocognitive disorder, Alzheimer, vascular with depression, delusion, behavioral disturbance. PLAN: Stop the Remeron. Maintain rest of the psychotropics unchanged. MAN Bev LAYTON MD DR: JHOAN/osiel JOB#: [id number] / [id number]
[2017-10-27] MEDS: busPIRone 10 MG TABLET. PO SCH (13:59)
[2017-10-27] MEDS ORDERED: DOCU240C13 PO (15:23)
[2017-10-27] MEDS ORDERED: BUSP10TA PO (15:25)
[2017-10-27] MEDS ORDERED: OXYC10TA45 PO (15:30)
[2017-10-27 16:00] VITALS: BP 137/71
--- NOTE | 2017-10-27 20:13 | PDOC ---
Exam Note: [place] Note: Please also refer to the separate dictated note~for this date of service dictated separately.~Patient seen individually. Discussed the patient with Nursing staff reviewed the chart.~Reviewed interim history and current functioning. Reviewed vital signs,~Labs/ Radiology~and current medications noted below. Continue current treatment with the changes noted in the dictated addendum note Assessment: Vital Signs: Vital Signs Date Time Temp Pulse Resp B/P (MAP) Pulse Ox O2 Delivery O2 Flow Rate FiO2 10/27/17 16:00 98.1 74 18 137/71 (93) 97 10/27/17 13:12 Room Air I&O Intake and Output 10/27/17 07:00 Intake Total 720 ml Balance 720 ml Intake Oral 720 ml # Voids 1 # Bowel Movements 1 Labs: Laboratory Tests Test 10/27/17 07:03 10/27/17 11:15 10/27/17 16:15 10/27/17 19:04 Glucose (Fingerstick) 73 mg/dL (70-99) 286 mg/dL (70-99) H 150 mg/dL (70-99) H 142 mg/dL (70-99) H Current Medications: Meds: Current Medications Acetaminophen (Tylenol) 650 mg PRN Q6HRS PRN PO PAIN / TEMP Last administered on 10/22/17 17:24; Start 10/01/17 at 02:30; Stop 10/22/17 at 19:47; Status DC Al Hydroxide/Mg Hydroxide (Mylanta Plus Xs) 15 ml PRN AFTMEALHC PRN PO DYSPEPSIA Last administered on 10/15/17 10:26; Start 10/01/17 at 02:30 Magnesium Hydroxide (Milk Of Magnesia) 2,400 mg PRN QHS PRN PO CONSTIPATION Last administered on 10/22/17 21:20; Start 10/01/17 at 02:30 Buspirone HCl (Buspar) 15 mg BID PO Last administered on 10/27/17at 08:04; Start 10/01/17 at 09:00 Clonazepam (KlonoPIN) 0.5 mg PRN Q6HRS PRN PO ANXIETY / AGITATION Last administered on 10/25/17 20:59; Start 10/01/17 at 03:15 Risperidone (RisperDAL) 0.5 mg BID PO Last administered on 10/02/17 07:27; Start 10/01/17 at 09:00; Stop 10/02/17 at 18:15; Status DC Trazodone HCl (Desyrel) 50 mg PRN QHS PRN PO INSOMNIA Last administered on 00:18; Start 10/01/17 at 03:15; Stop 10/18/17 at 09:07; Status DC Fluvoxamine Maleate (Luvox) 75 mg QHS PO Last administered on 10/02/17 19:23; Start 10/01/17 at 21:00; Stop 10/03/17 at 19:03; Status DC Acetaminophen (Tylenol) 650 mg Q6HRS PRN PO PAIN; Start 10/01/17 at 03:15; Stop 10/01/17 at 03:32; Status DC Cetirizine HCl (ZyrTEC) 10 mg PRN DAILY PRN PO ALLERGIES; Start 10/01/17 at 03: 15; Stop 10/22/17 at 19:47; Status DC Ciprofloxacin (Cipro) 250 mg BID66 PO Last administered on 10/07/17 17:29; Start 10/01/17 at 06:00; Stop 10/07/17 at 18:01; Status DC Clopidogrel Bisulfate (Plavix) 75 mg DAILY PO Last administered on 10/27/17at 08: 03; Start 10/01/17 at 09:00 Docusate Sodium (Colace) 100 mg BID PO Last administered on 10/02/17 07:29; Start 10/01/17 at 09:00; Stop 10/02/17 at 18:26; Status DC Insulin Detemir (Levemir) 17 units QHS SQ Last administered on 10/09/17 19:43 ; Start 10/01/17 at 21:00; Stop 10/10/17 at 11:26; Status DC Albuterol/ Ipratropium (Duoneb) 3 ml RTBID NEB Last administered on 10/13/17 22:13; Start 10/01/17 at 08:00; Stop 10/14/17 at 16:39; Status DC Albuterol Sulfate (Ventolin) 2.5 mg PRN Q2HR PRN NEB COUGH/SHORTNESS OF BREATH ; Start 10/01/17 at 03:30 Isosorbide Mononitrate (Imdur) 30 mg DAILY PO Last administered on 10/27/17 08: 04; Start 10/01/17 at 09:00 Linagliptin (Tradjenta) 5 mg DAILY PO Last administered on 10/22/17 08:07; Start 10/01/17 at 09:00; Stop 10/22/17 at 19:47; Status DC Al Hydroxide/Mg Hydroxide (Mylanta Plus Xs) 15 ml PRN AFTMEALHC PRN PO DYSPEPSIA; Start 10/01/17 at 03:15; Stop 10/01/17 at 03:32; Status DC Metoprolol Tartrate (Lopressor) 12.5 mg BID PO Last administered on 10/27/17 08 :03; Start 10/01/17 at 09:00 Nitroglycerin (Nitrostat) 0.4 mg PRN Q5MIN PRN SL CHEST PAIN; Start 10/01/17 at 03:15 Atorvastatin Calcium (Lipitor) 40 mg QHS PO Last administered on 10/16/17 19: 44; Start 10/01/17 at 21:00; Stop 10/17/17 at 09:46; Status DC Non-Formulary Medication 2,400 mg PRN DAILY PRN PO CONSTIPATION; Start at 03:15; Stop 10/01/17 at 03:32; Status DC Insulin Aspart (NovoLOG) 0-9 UNITS TIDACHC SQ ; Start 10/01/17 at 07:30; Stop 10/01/17 at 07:30; Status DC Dextrose 12.5 gm PRN Q15MIN PRN IV SEE COMMENTS; Start 10/01/17 at 03:30 Insulin Aspart (NovoLOG) 0-9 UNITS TIDAC SQ Last administered on 10/27/17 11:43 ; Start 10/01/17 at 07:30 Lactobacillus Rhamnosus (Culturelle) 1 cap BID PO Last administered on 08:07; Start 10/01/17 at 21:00; Stop 10/22/17 at 19:47; Status DC Risperidone (RisperDAL) 0.25 mg BID PO Last administered on 10/07/17 09:08; Start 10/02/17 at 21:00; Stop 10/07/17 at 18:57; Status DC Mirtazapine (Remeron) 7.5 mg QHS PO Last administered on 10/10/17 19:59; Start 10/02/17 at 21:00; Stop 10/11/17 at 19:36; Status DC Docusate Calcium (Surfak) 240 mg DAILY PO Last administered on 10/27/17 08:03; Start 10/03/17 at 09:00 Fluvoxamine Maleate (Luvox) 100 mg QHS PO Last administered on 10/04/17 19:47 ; Start 10/03/17 at 21:00; Stop 10/05/17 at 18:23; Status DC Fluvoxamine Maleate (Luvox) 100 mg QHS PO Last administered on 10/17/17 19:26 ; Start 10/05/17 at 21:00; Stop 10/18/17 at 18:38; Status DC Fluvoxamine Maleate (Luvox) 25 mg HS PO Last administered on 10/17/17 19:26; Start 10/05/17 at 21:00; Stop 10/18/17 at 18:38; Status DC Nystatin (Nystop) 15 presley STK-MED ONCE TP Last administered on 10/06/17 17:05 ; Start 10/06/17 at 16:46; Stop 10/06/17 at 16:47; Status DC Quetiapine Fumarate (SEROquel) 12.5 mg TID@0900,1300,1700 PO Last administered on 10/18/17 17:45; Start 10/08/17 at 09:00; Stop 10/18/17 at 18:38; Status DC Insulin Detemir (Levemir) 12 units QHS SQ Last administered on 10/26/17at 20:11; Start 10/10/17 at 21:00 Mirtazapine (Remeron) 15 mg QHS PO Last administered on 10/22/17 20:42; Start 10/11/17 at 21:00; Stop 10/23/17 at 08:26; Status DC Trazodone HCl (Desyrel) 50 mg QHS PO Last administered on 10/17/17 19:26; Start 10/12/17 at 21:00; Stop 10/18/17 at 09:07; Status DC Buspirone HCl (Buspar) 10 mg DAILY@1400 PO Last administered on 10/27/17at 13:59 ; Start 10/14/17 at 14:00 Albuterol/ Ipratropium (Duoneb) 3 ml PRN BID PRN NEB COUGH; Start 10/14/17 at 16:45 Melatonin 6 mg QHS PO Last administered on 10/21/17 19:36; Start 10/14/17 at 21:00; Stop 10/22/17 at 19:47; Status DC Oxycodone HCl (OxyCONTIN) 10 mg Q12HR PO Last administered on 10/27/17at 08:05; Start 10/15/17 at 21:00 Nystatin (Nystop) 15 presley STK-MED ONCE TP Last administered on 10/18/17 09:13 ; Start 10/18/17 at 09:13; Stop 10/18/17 at 09:14; Status DC Active Scripts Active Reported Oxycontin (Oxycodone HCl) 10 Mg Tab.er.12h 10 Mg PO BID Buspirone Hcl 10 Mg Tablet 10 Mg PO Docusate Calcium 240 Mg Capsule 240 Mg PO Levemir Flextouch (Insulin Detemir) 100 Unit/1 Ml Insuln.pen 17 Unit SQ QHS Myrbetriq (Mirabegron) 25 Mg Tab.er.24h 25 Mg PO DAILY Duoneb 0.5-3(2.5) Mg/3 Ml (Albuterol/Ipratropium) 3 Ml Ampul.neb 3 Ml NEB PRN BID PRN Metoprolol Tartrate 25 Mg Tablet 12.5 Mg PO BID For CHF and CAD patients: Hold for HR less than 50 or SBP less than 90. For all other patients: Hold for HR less than 60 or SBP less than 100. After a held dose, reassess in 2 hours. If HR and SBP are above threshold, administer dose as ordered. If HR and SBP are below threshold, contact provider. Novolog Flexpen (Insulin Aspart) 100 Unit/1 Ml Insuln.pen 0-9 Unit SQ TIDAC BG level: If eating: If not eating: < 70 Call Provider [phone] 4 [phone] 5 [phone] > or = 351 Call provider Trazodone Hcl 50 Mg Tablet 50 Mg PO PRN QHS PRN Give with food. MAY REPEAT IN 1 HOUR Risperidone 0.5 Mg Tablet 0.5 Mg PO BID Mag-Al Plus Xs Suspension (Mag Hydrox/Al Hydrox/Simeth) 30 Ml Oral.susp 15 Ml PO PRN AFTMEALHC PRN Tradjenta (Linagliptin) 5 Mg Tablet 5 Mg PO DAILY Duoneb 0.5-3(2.5) Mg/3 Ml (Albuterol/Ipratropium) 3 Ml Ampul.neb 3 Ml NEB PRN Q2HR PRN Fluvoxamine Maleate 50 Mg Tablet 75 Mg PO HS Cetirizine Hcl 10 Mg Tablet 10 Mg PO PRN DAILY PRN Milk Of Magnesia (Magnesium Hydroxide) 2,400 Mg/10 Ml Oral.susp 2,400 Mg PO PRN DAILY PRN Tylenol (Acetaminophen) 325 Mg Tablet 650 Mg PO Q6HRS PRN Plavix (Clopidogrel Bisulfate) 75 Mg Tablet 75 Mg PO DAILY NITROGLYCERIN SubLingual (Nitroglycerin) 0.4 Mg Tab.subl 0.4 Mg SL PRN Q5MIN PRN Hold for SBP less than or equal to 90 mmHg. Call provider for chest pain unrelieved by 1 sublingual nitroglycerin, may repeat X2 if chest pain persists. Lipitor (Atorvastatin Calcium) 40 Mg Tablet 40 Mg PO QHS Isosorbide Mononitrate Er (Isosorbide Mononitrate) 30 Mg Tab.er.24h 30 Mg PO DAILY DO NOT CRUSH OR CHEW Colace (Docusate Sodium) 100 Mg Capsule 100 Mg PO BID Hold for loose stools Clonazepam 0.5 Mg Tablet 0.5 Mg PO PRN Q6HRS PRN Buspirone Hcl 15 Mg Tablet 15 Mg PO BID I have reviewed the current psychotropics carefully including drug interactions. Risk benefit ratio favors no change other than as noted in my dictated progress note. Diagnosis: Problems: (1) Dementia (2) Major depressive disorder, recurrent episode (3) Vascular dementia with depressed mood (4) Vascular dementia with delusions (5) Dementia, vascular, with depression (6) Dementia, vascular, with delusions (7) Vascular dementia with behavior disturbance (8) Dementia in Alzheimer's disease with depression (9) Dementia in Alzheimer's disease with delusions TATIANA LAYTON MD Oct 27, 2017 20:13
[2017-10-27] MEDS: INSULIN DETEMIR 300 UNITS/3 ML INSULN.PEN. SQ SCH (20:26)
[2017-10-28 05:44] VITALS: BP 124/66
[2017-10-28] MEDS: INSULIN ASPART 300 UNITS/3 ML INSULN.PEN SQ SCH (07:30)
[2017-10-28 08:10] VITALS: BP 124/66
[2017-10-28] MEDS: ISOSORBIDE MONONITRATE ER 30 MG TAB.ER.24H PO SCH (08:10)
[2017-10-28] MEDS: DOCUSATE CALCIUM 240 MG CAPSULE PO SCH (08:10)
[2017-10-28] MEDS: busPIRone 15 MG TABLET. PO SCH (08:10)
[2017-10-28] MEDS: METOPROLOL TART IMMED RELEASE 25 MG TABLET PO SCH (08:10)
[2017-10-28] MEDS: CLOPIDOGREL BISULFATE 75 MG TABLET PO SCH (08:10)
[2017-10-28] MEDS: MIRABEGRON 25 MG TAB.ER.24H PO SCH (08:11)
[2017-10-28] MEDS: oxyCODONE ER 10 MG TAB.ER.12H PO SCH (08:13)
--- NOTE | 2017-10-28 08:36 | PN ---
DATE: 10/25/2017 This late entry 10/25/2017 covers elements not covered in my initial note 10/25/2017. Met with the patient in the evening of 10/25/2017. The patient remains confused, had a good day. REVIEW OF SYSTEMS: Ambulation impaired, in Broda chair, poor vision, compliant with medications. No CV, , ENT system symptoms on review. MENTAL STATUS EXAM: Oriented to herself. Insight, judgment, recent and remote memory, attention, concentration, fund of knowledge poor, consistent with her diagnosis mentioned in my initial note. LABORATORY DATA: Reviewed. IMPRESSION: Major neurocognitive disorder, Alzheimer, vascular with depression, delusion, behavioral disturbance. Rest unchanged from initial note. PLAN: Continue psychotropics mentioned in my initial note. MAN Bev LAYTON MD DR: JHOAN/osiel JOB#: [id number] / [id number]
--- NOTE | 2017-10-28 10:51 | PN ---
DATE: 10/26/2017 PSYCHIATRIC PROGRESS NOTE This is a late entry of 10/26/2017 covers elements not covered in my initial note for 10/26/2017. SUBJECTIVE: I met with the patient evening of 10/26/2017. Overall, the patient yelling is better. She is compliant with medications, has bilateral blindness. REVIEW OF SYSTEMS: Impaired ambulation in a Broda chair. No CV, , pulmonary, ENT system symptoms on review. Reliability poor. MENTAL STATUS EXAM: Oriented to herself. Insight, judgment, recent and remote memory, attention, concentration, fund of knowledge poor, consistent with her diagnosis. IMPRESSION: Major neurocognitive disorder, Alzheimer, vascular with depression, delusion, behavioral disturbance. Rest unchanged. PLAN: Continue psychotropics mentioned in my initial note. MAN Bev LAYTON MD DR: JHOAN/osiel JOB#: [id number] / [id number]
--- NOTE | 2017-10-28 17:52 | PDOC ---
Exam Note: [place] Note: Please also refer to the separate dictated note~for this date of service dictated separately.~Patient seen individually. Discussed the patient with Nursing staff reviewed the chart.~Reviewed interim history and current functioning. Reviewed vital signs,~Labs/ Radiology~and current medications noted below. Continue current treatment with the changes noted in the dictated addendum note Assessment: Vital Signs: Vital Signs Date Time Temp Pulse Resp B/P (MAP) Pulse Ox O2 Delivery O2 Flow Rate FiO2 10/28/17 08:10 73 124/66 10/28/17 05:44 97.9 18 94 10/28/17 00:21 Room Air I&O Intake and Output 10/28/17 07:00 Intake Total 720 ml Balance 720 ml Intake Oral 720 ml Labs: Laboratory Tests Test 10/27/17 19:04 10/28/17 07:01 Glucose (Fingerstick) 142 mg/dL (70-99) H 118 mg/dL (70-99) H Current Medications: Meds: Current Medications Acetaminophen (Tylenol) 650 mg PRN Q6HRS PRN PO PAIN / TEMP Last administered on 10/22/17 17:24; Start 10/01/17 at 02:30; Stop 10/22/17 at 19:47; Status DC Al Hydroxide/Mg Hydroxide (Mylanta Plus Xs) 15 ml PRN AFTMEALHC PRN PO DYSPEPSIA Last administered on 10/15/17 10:26; Start 10/01/17 at 02:30; Stop 10/28/17 at 10:28; Status DC Magnesium Hydroxide (Milk Of Magnesia) 2,400 mg PRN QHS PRN PO CONSTIPATION Last administered on 10/22/17 21:20; Start 10/01/17 at 02:30; Stop 10/28/17 at 10:28; Status DC Buspirone HCl (Buspar) 15 mg BID PO Last administered on 10/28/17at 08:10; Start 10/01/17 at 09:00; Stop 10/28/17 at 10:28; Status DC Clonazepam (KlonoPIN) 0.5 mg PRN Q6HRS PRN PO ANXIETY / AGITATION Last administered on 10/25/17 20:59; Start 10/01/17 at 03:15; Stop 10/28/17 at 10:28 ; Status DC Risperidone (RisperDAL) 0.5 mg BID PO Last administered on 10/02/17 07:27; Start 10/01/17 at 09:00; Stop 10/02/17 at 18:15; Status DC Trazodone HCl (Desyrel) 50 mg PRN QHS PRN PO INSOMNIA Last administered on 00:18; Start 10/01/17 at 03:15; Stop 10/18/17 at 09:07; Status DC Fluvoxamine Maleate (Luvox) 75 mg QHS PO Last administered on 10/02/17 19:23; Start 10/01/17 at 21:00; Stop 10/03/17 at 19:03; Status DC Acetaminophen (Tylenol) 650 mg Q6HRS PRN PO PAIN; Start 10/01/17 at 03:15; Stop 10/01/17 at 03:32; Status DC Cetirizine HCl (ZyrTEC) 10 mg PRN DAILY PRN PO ALLERGIES; Start 10/01/17 at 03: 15; Stop 10/22/17 at 19:47; Status DC Ciprofloxacin (Cipro) 250 mg BID66 PO Last administered on 10/07/17 17:29; Start 10/01/17 at 06:00; Stop 10/07/17 at 18:01; Status DC Clopidogrel Bisulfate (Plavix) 75 mg DAILY PO Last administered on 10/28/17at 08: 10; Start 10/01/17 at 09:00; Stop 10/28/17 at 10:28; Status DC Docusate Sodium (Colace) 100 mg BID PO Last administered on 10/02/17 07:29; Start 10/01/17 at 09:00; Stop 10/02/17 at 18:26; Status DC Insulin Detemir (Levemir) 17 units QHS SQ Last administered on 10/09/17 19:43 ; Start 10/01/17 at 21:00; Stop 10/10/17 at 11:26; Status DC Albuterol/ Ipratropium (Duoneb) 3 ml RTBID NEB Last administered on 10/13/17 22:13; Start 10/01/17 at 08:00; Stop 10/14/17 at 16:39; Status DC Albuterol Sulfate (Ventolin) 2.5 mg PRN Q2HR PRN NEB COUGH/SHORTNESS OF BREATH ; Start 10/01/17 at 03:30; Stop 10/28/17 at 10:28; Status DC Isosorbide Mononitrate (Imdur) 30 mg DAILY PO Last administered on 10/28/17at 08: 10; Start 10/01/17 at 09:00; Stop 10/28/17 at 10:28; Status DC Linagliptin (Tradjenta) 5 mg DAILY PO Last administered on 10/22/17 08:07; Start 10/01/17 at 09:00; Stop 10/22/17 at 19:47; Status DC Al Hydroxide/Mg Hydroxide (Mylanta Plus Xs) 15 ml PRN AFTMEALHC PRN PO DYSPEPSIA; Start 10/01/17 at 03:15; Stop 10/01/17 at 03:32; Status DC Metoprolol Tartrate (Lopressor) 12.5 mg BID PO Last administered on 10/28/17 08 :10; Start 10/01/17 at 09:00; Stop 10/28/17 at 10:28; Status DC Nitroglycerin (Nitrostat) 0.4 mg PRN Q5MIN PRN SL CHEST PAIN; Start 10/01/17 at 03:15; Stop 10/28/17 at 10:28; Status DC Atorvastatin Calcium (Lipitor) 40 mg QHS PO Last administered on 10/16/17t 19: 44; Start 10/01/17 at 21:00; Stop 10/17/17 at 09:46; Status DC Non-Formulary Medication 2,400 mg PRN DAILY PRN PO CONSTIPATION; Start at 03:15; Stop 10/01/17 at 03:32; Status DC Insulin Aspart (NovoLOG) 0-9 UNITS TIDACHC SQ ; Start 10/01/17 at 07:30; Stop 10/01/17 at 07:30; Status DC Dextrose 12.5 gm PRN Q15MIN PRN IV SEE COMMENTS; Start 10/01/17 at 03:30; Stop 10/28/17 at 10:28; Status DC Insulin Aspart (NovoLOG) 0-9 UNITS TIDAC SQ Last administered on 10/27/17at 11:43 ; Start 10/01/17 at 07:30; Stop 10/28/17 at 10:28; Status DC Lactobacillus Rhamnosus (Culturelle) 1 cap BID PO Last administered on 08:07; Start 10/01/17 at 21:00; Stop 10/22/17 at 19:47; Status DC Risperidone (RisperDAL) 0.25 mg BID PO Last administered on 10/07/17 09:08; Start 10/02/17 at 21:00; Stop 10/07/17 at 18:57; Status DC Mirtazapine (Remeron) 7.5 mg QHS PO Last administered on 10/10/17 19:59; Start 10/02/17 at 21:00; Stop 10/11/17 at 19:36; Status DC Docusate Calcium (Surfak) 240 mg DAILY PO Last administered on 10/28/17at 08:10; Start 10/03/17 at 09:00; Stop 10/28/17 at 10:28; Status DC Fluvoxamine Maleate (Luvox) 100 mg QHS PO Last administered on 10/04/17 19:47 ; Start 10/03/17 at 21:00; Stop 10/05/17 at 18:23; Status DC Fluvoxamine Maleate (Luvox) 100 mg QHS PO Last administered on 10/17/17 19:26 ; Start 10/05/17 at 21:00; Stop 10/18/17 at 18:38; Status DC Fluvoxamine Maleate (Luvox) 25 mg HS PO Last administered on 10/17/17 19:26; Start 10/05/17 at 21:00; Stop 10/18/17 at 18:38; Status DC Nystatin (Nystop) 15 presley STK-MED ONCE TP Last administered on 10/06/17 17:05 ; Start 10/06/17 at 16:46; Stop 10/06/17 at 16:47; Status DC Quetiapine Fumarate (SEROquel) 12.5 mg TID@0900,1300,1700 PO Last administered on 10/18/17 17:45; Start 10/08/17 at 09:00; Stop 10/18/17 at 18:38; Status DC Insulin Detemir (Levemir) 12 units QHS SQ Last administered on 10/27/17 20:26; Start 10/10/17 at 21:00; Stop 10/28/17 at 10:28; Status DC Mirtazapine (Remeron) 15 mg QHS PO Last administered on 10/22/17 20:42; Start 10/11/17 at 21:00; Stop 10/23/17 at 08:26; Status DC Trazodone HCl (Desyrel) 50 mg QHS PO Last administered on 10/17/17 19:26; Start 10/12/17 at 21:00; Stop 10/18/17 at 09:07; Status DC Buspirone HCl (Buspar) 10 mg DAILY@1400 PO Last administered on 10/27/17 13:59 ; Start 10/14/17 at 14:00; Stop 10/28/17 at 10:28; Status DC Albuterol/ Ipratropium (Duoneb) 3 ml PRN BID PRN NEB COUGH; Start 10/14/17 at 16:45; Stop 10/28/17 at 10:28; Status DC Melatonin 6 mg QHS PO Last administered on 10/21/17 19:36; Start 10/14/17 at 21:00; Stop 10/22/17 at 19:47; Status DC Oxycodone HCl (OxyCONTIN) 10 mg Q12HR PO Last administered on 10/28/17 08:13; Start 10/15/17 at 21:00; Stop 10/28/17 at 10:28; Status DC Nystatin (Nystop) 15 presley STK-MED ONCE TP Last administered on 10/18/17 09:13 ; Start 10/18/17 at 09:13; Stop 10/18/17 at 09:14; Status DC Active Scripts Active Reported Oxycontin (Oxycodone HCl) 10 Mg Tab.er.12h 10 Mg PO Q12HR Buspirone Hcl 10 Mg Tablet 10 Mg PO DAILY@1400 10mg daily at 2pm Docusate Calcium 240 Mg Capsule 240 Mg PO DAILY Levemir Flextouch (Insulin Detemir) 100 Unit/1 Ml Insuln.pen 12 Unit SQ QHS Myrbetriq (Mirabegron) 25 Mg Tab.er.24h 25 Mg PO DAILY Duoneb 0.5-3(2.5) Mg/3 Ml (Albuterol/Ipratropium) 3 Ml Ampul.neb 3 Ml NEB PRN BID PRN Metoprolol Tartrate 25 Mg Tablet 12.5 Mg PO BID For CHF and CAD patients: Hold for HR less than 50 or SBP less than 90. For all other patients: Hold for HR less than 60 or SBP less than 100. After a held dose, reassess in 2 hours. If HR and SBP are above threshold, administer dose as ordered. If HR and SBP are below threshold, contact provider. Novolog Flexpen (Insulin Aspart) 100 Unit/1 Ml Insuln.pen 0-9 Unit SQ TIDAC BG level: If eating: If not eating: < 70 Call Provider [phone] 4 0 [phone] 5 3 [phone] > or = 351 Call provider Mag-Al Plus Xs Suspension (Mag Hydrox/Al Hydrox/Simeth) 30 Ml Oral.susp 15 Ml PO PRN AFTMEALHC PRN Duoneb 0.5-3(2.5) Mg/3 Ml (Albuterol/Ipratropium) 3 Ml Ampul.neb 3 Ml NEB PRN Q2HR PRN Milk Of Magnesia (Magnesium Hydroxide) 2,400 Mg/10 Ml Oral.susp 2,400 Mg PO PRN DAILY PRN Plavix (Clopidogrel Bisulfate) 75 Mg Tablet 75 Mg PO DAILY NITROGLYCERIN SubLingual (Nitroglycerin) 0.4 Mg Tab.subl 0.4 Mg SL PRN Q5MIN PRN Hold for SBP less than or equal to 90 mmHg. Call provider for chest pain unrelieved by 1 sublingual nitroglycerin, may repeat X2 if chest pain persists. Isosorbide Mononitrate Er (Isosorbide Mononitrate) 30 Mg Tab.er.24h 30 Mg PO DAILY DO NOT CRUSH OR CHEW Clonazepam 0.5 Mg Tablet 0.5 Mg PO PRN Q6HRS PRN Buspirone Hcl 15 Mg Tablet 15 Mg PO BID I have reviewed the current psychotropics carefully including drug interactions. Risk benefit ratio favors no change other than as noted in my dictated progress note. Diagnosis: Problems: (1) Dementia in Alzheimer's disease with delusions (2) Dementia in Alzheimer's disease with depression (3) Vascular dementia with behavior disturbance (4) Dementia, vascular, with delusions (5) Dementia, vascular, with depression (6) Vascular dementia with delusions (7) Vascular dementia with depressed mood (8) Major depressive disorder, recurrent episode TATIANA LAYTON MD Oct 28, 2017 17:51
--- NOTE | 2017-10-29 02:09 | PN ---
DATE: 10/27/2017 This late entry 10/27/2017 to covers elements not covered in my initial note 10/27/2017. Met with the patient evening of 10/27/2017. SUBJECTIVE: The patient has had less calling out at times, did okay over lunch time, refused to come out of bed for dinner, met with her in her room. REVIEW OF SYSTEMS: Ambulation impaired, in Broda chair. Bilateral blindness. No CV, , pulmonary, ENT system symptoms on review. Reliability poor. MENTAL STATUS EXAM: Oriented to herself. Insight, judgment, recent and remote memory, attention, concentration, fund of knowledge poor, consistent with her diagnosis mentioned in my initial note. IMPRESSION: Major neurocognitive disorder, Alzheimer, vascular with depression, delusion, behavioral disturbance. Rest unchanged. PLAN: Continue psychotropics mentioned in my initial note. MAN Bev LAYTON MD DR: JHOAN/osiel JOB#: [id number] / [id number]
--- NOTE | 2017-10-30 10:11 | DS ---
DATE OF DISCHARGE: 10/28/2017 This is late entry 10/28, covers elements not covered in my initial note of 10/28. REASON FOR ADMISSION: Please refer to the admission history for details. SUBJECTIVE: Briefly, the patient is an 86-year-old female referred to us from [facility] by her primary care physician on account of increased anxiety, restlessness, yelling for help. PRNs and other changes in psychotropics had failed and she was referred for inpatient psychiatric interventions because of her disruptive out of control unmanageable behavior at the facility. She does have a history of dementia, Alzheimer's vascular with delusion, depression, behavioral disturbance. SIGNIFICANT FINDINGS AND CLINICAL COURSE: Following admission, the patient was seen daily individually by myself, followed medically per Dr. Dunham/Dr High. The patient was quite obsessive, ruminative, yelling out repeatedly almost self- stimulating at times. Various non-psychotropic medication interventions failed and adjustments were made in her psychotropics. She seemed to respond to a combination of BuSpar 15 mg b.i.d. ,10 mg at 1400 and Klonopin p.r.n. Prior to that, she was on different combinations of atypical antipsychotics and mood stabilizers, but her liver enzymes were elevated and all of these were discontinued including Luvox, which was being used for her obsessive thought processes compulsive yelling. The liver enzymes were gradually improving and these should be followed back at the senior living. Nevertheless, she seemed to be doing reasonably well, just on the BuSpar along with Klonopin p.r.n. at discharge and that is how we maintained prior to discharge on 10/28. REVIEW OF SYSTEMS: Bilateral blindness, impaired ambulation, in Broda chair. No CV, , eye, ENT system symptoms on review other than the bilateral blindness. MENTAL STATUS EXAM: Oriented to herself. Insight, judgment, recent and remote memory, attention, concentration, fund of knowledge poor, consistent with her diagnosis. CONDITION AT DISCHARGE: Improved. FINAL DIAGNOSES: Major neurocognitive disorder, Alzheimer, vascular with depression, delusion, behavioral disturbance. Rest unchanged. DISCHARGE MEDICATIONS: Please refer to the [facility] outpatient psychiatric and medical followup at the senior living including the patient will need followup for her raised liver enzymes. MAN Bev LAYTON MD DR: JHOAN/osiel JOB#: [id number] / [id number]
== END 2017-10-28 09:00 | disposition home or self-care (01) | DRG 56 ==
LOC: ER 23:54 → GEROPSY 10-01 01:55
PROVIDERS: ADMIT Psychiatry & Neurology Psychiatry; ATTEND Psychiatry & Neurology Psychiatry
DX: G30.9 Alzheimer's disease, unspecified (principal); E43 Unspecified severe protein-calorie malnutrition; F01.51 Vascular dementia, unspecified severity, with behavioral disturbance; D69.6 Thrombocytopenia, unspecified; N39.0 Urinary tract infection, site not specified; E11.9 Type 2 diabetes mellitus without complications; R64 Cachexia; F31.64 Bipolar disorder, current episode mixed, severe, with psychotic features; F02.81 Dementia in other diseases classified elsewhere, unspecified severity, with behavioral disturbance; G89.29 Other chronic pain; K59.09 Other constipation; G43.909 Migraine, unspecified, not intractable, without status migrainosus; G47.00 Insomnia, unspecified; E78.5 Hyperlipidemia, unspecified; F09 Unspecified mental disorder due to known physiological condition; F41.9 Anxiety disorder, unspecified; F42.9 Obsessive-compulsive disorder, unspecified; F63.9 Impulse disorder, unspecified; H54.8 Legal blindness, as defined in USA; I10 Essential (primary) hypertension; I25.10 Atherosclerotic heart disease of native coronary artery without angina pectoris; K21.9 Gastro-esophageal reflux disease without esophagitis; Z66 Do not resuscitate; Z87.440 Personal history of urinary (tract) infections; Z68.26 Body mass index [BMI] 26.0-26.9, adult; Z90.710 Acquired absence of both cervix and uterus; Z88.6 Allergy status to analgesic agent
CPT/HCPCS: 36415; 76700; 80053; 80061; 81001; 82248; 82947; 82977; 83036; 83540; 83550; 83615; 83690; 83735; 84436; 84443; 84480; 85025; 86592; 86593; 87086; 87186; 93005; 94640; J1815; J7620; P9612; 99285-25